=== PATIENT | female | born 1985 | race Caucasian/White ===

== ENCOUNTER → 2019-09-01 10:18 | Outpatient (BNVA) | payer OTHER, SELFPAY | PROVIDERS: Family Provider Nurse Practitioner; PCP Family Medicine; Visit Provider Nurse Practitioner Psychiatric/Mental Health | DX: Z79.899 Other long term (current) drug therapy (principal); Z03.89 Encounter for observation for other suspected diseases and conditions ruled out; F31.2 Bipolar disorder, current episode manic severe with psychotic features; F15.20 Other stimulant dependence, uncomplicated; F12.20 Cannabis dependence, uncomplicated; F10.10 Alcohol abuse, uncomplicated; F17.210 Nicotine dependence, cigarettes, uncomplicated | CPT/HCPCS: 80053; 80061; 83036; 85025 ==

== ENCOUNTER 2020-08-07 19:14 | Inpatient (IN) | payer SELFPAY ==
[2020-08-07 19:15] VITALS: BP 137/85; PULSE 100; RESP 18; TEMP 36.4; O2SAT 96; BMI 39.6
[2020-08-07 19:49] LABS: Basophils # 0.1 10^3/uL (0.0-0.1); Basophils % 0.7 %; Eosinophils # 0.3 10^3/uL (0.0-0.8); Eosinophils % 2.1 %; Hematocrit 46.9 % (37.0-47.0); Hemoglobin 15.3 g/dL (11.5-15.3); Lymphocytes # 3.8 10^3/uL (0.8-4.8); Lymphocytes % 32.5 %; Mean Corpuscular HGB Conc 32.6 g/dL (30.0-36.0); Mean Corpuscular Volume 95.1 fL (81-99); Mean Platelet Volume 10.7 fL (7.4-10.4); Monocytes % 8.5 %; Neutrophils % 55.9 %; Nucleated Red Blood Cells % 0 %; Platelet Count 277 10^3/cmm (130-400); Red Blood Count 4.93 10^6/uL (4.1-5.3); White Blood Count 11.8 10^3/uL (4.0-10.0)
[2020-08-07 19:56] LABS: HCG Qualitative Urine. Negative (Negative)
[2020-08-07 20:02] LABS: Amphetamines Screen Urine Positive (Negative); Barbiturates Screen Urine Negative (Negative); Benzodiazepines Screen Urine Negative (Negative); Cocaine Screen Urine Negative (Negative); Opiate Screen Urine Negative (Negative); PCP Screen Urine Negative (Negative); THC Screen Urine Positive (Negative)
--- NOTE | 2020-08-07 20:03 | W.ED.PSYCH ---
HPI - Psych General: Chief Complaint: Psychiatric Symptoms Stated Complaint: 96 HOUR Time Seen by Provider: 08/07/20 19:15 Source: patient Mode of arrival: other (law enforcement) Limitations: no limitations History of Present Illness: HPI Narrative: This 35-year-old female patient with a history of bipolar disorder and drug abuse was brought into the emergency department for evaluation by her enforcement. They brought her in with a court ordered 96-hour hold. According to the affidavit her mother says that the patient has been hallucinating, not sleeping, acting erratically, and scaring her mother making the mother locked herself in her room. Talking to the patient, she does not make a whole lot of sense, when asked if she hallucinates she says that it is her special gift to hear voices that other people do not want to see things other people do not. She also says that when she sleeps and wakes up she is cured from all her illnesses. She physically is not making any sense and appears to have a break from reality. According to the affidavit her mother says she has not been taking her medications. Review of Systems General: Reports: 10 or more systems reviewed and unremarkable except in HPI and below Const: Denies: fever(s), chills or body aches Eyes: Denies: change in vision or blurry vision ENMT: Denies: throat pain, enlarged tonsils, odynophagia, hoarseness, mouth pain or swelling of lips/tongue Card: Denies: palpitations, irregular heart rhythm, edema or swelling of feet/ankles Resp: Denies: dyspnea, productive cough or non-productive cough GI: Denies: abdominal pain, nausea or vomiting : Denies: flank pain, difficulty voiding, dysuria, urinary frequency, urinary urgency or urinary hesitancy Musc: Denies: neck pain, back pain or extremity swelling Skin/Breast: Denies: rash, pruritus or erythema Neuro: Denies: headache(s), numbness in extremities or weakness in extremities Endo: Denies: polyuria, polydipsia or tired all the time [facility] ED PFSH: Medical History Alcohol abuse, episodic drinking behavior in early remission, last 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 September 2019 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, last 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 September 2019 Bipolar disorder, current episode manic severe with psychotic features Cannabis dependence, episodic use in early remission, last 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 September 2019 Nicotine dependence, cigarettes, uncomplicated Social History Smoking and tobacco status: current every day smoker cigarettes Packs smoked per day: 2 Physical Exam Const: COMMON NORMALS: no acute distress, average body habitus, patient oriented x3, no limitations, healthy appearing, alert and well nourished HENMT: COMMON NORMALS: normocephalic, atraumatic and moist oral mucous membranes HEAD & SCALP: normocephalic and atraumatic Neck/C-Spine: COMMON NORMALS: no meningeal signs and no JVD Chest: COMMONS NORMALS: normal inspection of the chest and normal palpation of entire chest wall Resp: COMMON NORMALS: normal respiratory effort, No retractions, No use of accessory muscles, clear to auscultation bilaterally and percussion normal AUSCULTATION: clear to auscultation bilaterally PERCUSSION: percussion normal Cardio: COMMON NORMALS: no JVD, regular rate, regular rhythm, S1 normal heart sound present, S2 normal heart sound present, No gallops present (Cardio), No clicks present (Cardio), No murmurs present (Cardio), No rub (Cardio) and Peripheral pulses 2+ throughout RATE: regular rate RHYTHM: regular rhythm HEART SOUNDS: S1 normal heart sound present and S2 normal heart sound present PERIPHERAL PULSES: Peripheral pulses 2+ throughout GI: COMMON NORMALS: Normal to inspection, nondistended, normoactive bowel sounds present, Soft to palpation, non-tender, No hepatosplenomegaly present, no masses and no bruits PALPATION: Yes Soft to palpation and Yes No hepatosplenomegaly present Extremity: COMMON NORMALS: normal to inspection, full ROM, capillary refill normal, no calf tenderness and no pedal edema Neuro: COMMON NORMALS: patient oriented x3 SENSORIUM/ORIENTATION: Yes alert MENINGEAL SIGNS: Yes no meningeal signs Skin: COMMON NORMALS: no rashes or lesions noted, no wounds, turgor normal, no jaundice, no petechiae and no mottling GENERAL SKIN EXAM: no rashes or lesions noted and turgor normal MDM - Psych MDM Narrative: Medical decision making narrative: 35-year-old female patient who presents to the emergency department in acute psychosis. Likely due to drug abuse. She arrived with a 96-hour court-ordered hold. She is medically cleared and is admitted to the neuropsychiatric unit for further evaluation and management Medical Records: Attestation: I reviewed the patient's medical records. Lab Data: Attestation: I reviewed the patient's lab results. Labs: Lab Results 08/07/20 08/07/20 08/07/20 Range/Units 19:35 19:35 19:42 WBC 11.8 H (4.0-10.0) 10^3/ uL RBC 4.93 (4.1-5.3) 10^6/u L Hgb 15.3 (11.5-15.3) g/dL Hct 46.9 (37.0-47.0) % MCV 95.1 (81-99) fL MCH 31.0 (28.0-34.0) pg MCHC 32.6 (30.0-36.0) g/dL RDW 13.0 (12.1-15.1) % Plt Count 277 (130-400) 10^3/c mm MPV 10.7 H (7.4-10.4) fL Neut % (Auto) 55.9 % Lymph % (Auto) 32.5 % Bowman % (Auto) 8.5 % Eos % (Auto) 2.1 % Baso % (Auto) 0.7 % Neut # (Auto) 6.60 (1.8-7.7) 10^3/u L Lymph # (Auto) 3.8 (0.8-4.8) 10^3/u L Bowman # (Auto) 1.0 H (0.2-0.9) 10^3/u L Eos # (Auto) 0.3 (0.0-0.8) 10^3/u L Baso # (Auto) 0.1 (0.0-0.1) 10^3/u L Nucleated RBC % (a uto) 0 % Nucleated RBCs # 0.0 /100WBC Sodium 135 L (136-145) mmol/L Potassium 4.0 (3.5-5.1) mmol/L Chloride 99 (98-107) mmol/L Carbon Dioxide 25 (22-29) mmol/L Anion Gap 15.0 (5-19) BUN 6 (6-20) mg/dL Creatinine 0.7 (0.5-0.9) mg/dL GFR Calculation 94.2 (90-130) mL/min Glucose 84 (65-115) mg/dL Calculated Osmolal ity 277 L (285-295) mOsm/k g Calcium 9.4 (8.5-10.5) mg/dL Total Bilirubin 0.6 (0.15-1.2) mg/dL AST 52 H (0-32) U/L ALT 46 H (0-33) U/L Alkaline Phosphata se 85 (35-105) IU/L Total Protein 7.4 (6.6-8.7) g/dL Albumin 3.8 (3.5-5.2) g/dL Globulin 3.6 (1.3-4.6) g/dL TSH 0.77 (0.27-4.20) uIU/ mL HCG, Qual Negative (Negative) Urine Color (Yellow) Urine Appearance (CLEAR) Urine pH (5-7) Ur Specific Gravit y (1.005-1.030) Urine Protein (Negative) Urine Glucose (UA) (Normal) Urine Ketones (Negative) Urine Blood (Negative) Urine Nitrate (Negative) Urine Bilirubin (Negative) Urine Urobilinogen (Negative) mg/dL Ur Leukocyte [place]annah ase (Negative) Urine RBC (0-2) /hpf Urine WBC (0-5) /hpf Ur Squamous Epith Cells (0-5) /hpf Amorphous Sediment Urine Bacteria (NONE) /hpf Urine Mucus /hpf Salicylates < 0.3 L (3-10) mg/dL Urine Opiates Scre en (Negative) ng/mL Acetaminophen < 5.0 L (10-30) ug/mL Ur Barbiturates Sc reen (Negative) ng/mL Ur Phencyclidine S crn (Negative) ng/mL Ur Amphetamines Sc reen (Negative) ng/mL U Benzodiazepines Scrn (Negative) ng/mL Urine Cocaine Scre en (Negative) ng/mL U Marijuana (THC) Screen (Negative) ng/mL Ethyl Alcohol < 10 (0-10) mg/dL 08/07/20 08/07/20 Range/Units 19:42 19:42 WBC (4.0-10.0) 10^3/ uL RBC (4.1-5.3) 10^6/u L Hgb (11.5-15.3) g/dL Hct (37.0-47.0) % MCV (81-99) fL MCH (28.0-34.0) pg MCHC (30.0-36.0) g/dL RDW (12.1-15.1) % Plt Count (130-400) 10^3/c mm MPV (7.4-10.4) fL Neut % (Auto) % Lymph % (Auto) % Bowman % (Auto) % Eos % (Auto) % Baso % (Auto) % Neut # (Auto) (1.8-7.7) 10^3/u L Lymph # (Auto) (0.8-4.8) 10^3/u L Bowman # (Auto) (0.2-0.9) 10^3/u L Eos # (Auto) (0.0-0.8) 10^3/u L Baso # (Auto) (0.0-0.1) 10^3/u L Nucleated RBC % (a uto) % Nucleated RBCs # /100WBC Sodium (136-145) mmol/L Potassium (3.5-5.1) mmol/L Chloride (98-107) mmol/L Carbon Dioxide (22-29) mmol/L Anion Gap (5-19) BUN (6-20) mg/dL Creatinine (0.5-0.9) mg/dL GFR Calculation (90-130) mL/min Glucose (65-115) mg/dL Calculated Osmolal ity (285-295) mOsm/k g Calcium (8.5-10.5) mg/dL Total Bilirubin (0.15-1.2) mg/dL AST (0-32) U/L ALT (0-33) U/L Alkaline Phosphata se (35-105) IU/L Total Protein (6.6-8.7) g/dL Albumin (3.5-5.2) g/dL Globulin (1.3-4.6) g/dL TSH (0.27-4.20) uIU/ mL HCG, Qual (Negative) Urine Color Yellow (Yellow) Urine Appearance Hazy A (CLEAR) Urine pH 5 (5-7) Ur Specific Gravit y 1.020 (1.005-1.030) Urine Protein Trace (Negative) Urine Glucose (UA) Norm (Normal) Urine Ketones 1+ H (Negative) Urine Blood Neg (Negative) Urine Nitrate Negative (Negative) Urine Bilirubin 1+ H (Negative) Urine Urobilinogen 4 H (Negative) mg/dL Ur Leukocyte Savannah ase 2+ H (Negative) Urine RBC 5-10 H (0-2) /hpf Urine WBC 55-80 H (0-5) /hpf Ur Squamous Epith Cells 40-55 H (0-5) /hpf Amorphous Sediment Not Reportable Urine Bacteria 2+ H (NONE) /hpf Urine Mucus 4+ /hpf Salicylates (3-10) mg/dL Urine Opiates Scre en Negative (Negative) ng/mL Acetaminophen (10-30) ug/mL Ur Barbiturates Sc reen Negative (Negative) ng/mL Ur Phencyclidine S crn Negative (Negative) ng/mL Ur Amphetamines Sc reen Positive H (Negative) ng/mL U Benzodiazepines Scrn Negative (Negative) ng/mL Urine Cocaine Scre en Negative (Negative) ng/mL U Marijuana (THC) Screen Positive H (Negative) ng/mL Ethyl Alcohol (0-10) mg/dL Discharge Plan Discharge Patient Disposition: Admitted As Inpatient Clinical Impression: Acute psychosis, Drug-induced psychotic disorder Condition: Stable Prescriptions: No Action olanzapine [Zyprexa] 10 mg tablet 10 mg PO BID Qty: 60 RF: 6 hydroxyzine HCl 25 mg tablet 25 mg PO TID PRN (Reason: anxiety) Qty: 60 RF: 6 trazodone 100 mg tablet 100 mg PO .QHS PRN (Reason: sleep) Qty: 30 RF: 6 Referrals: Georges Milton MD [Primary Care Provider] - Coding Level of Care Code ED Mine Shifter for Chg Fwd Exam Comprehensive
[2020-08-07 20:05] LABS: Glucose Urine UA Norm (Normal); Ketones Urine 1+ (Negative); Protein Urine Trace (Negative); Urine Appearance Hazy (CLEAR); Urine Color Yellow (Yellow); pH Urine 5 (5-7)
[2020-08-07 20:06] LABS: Add Urine Microscopic? YES; Bacteria Urine 2+ /hpf; Bilirubin Urine 1+ (Negative); Blood Urine Neg (Negative); Leukocyte Esterase Urine 2+ (Negative); Nitrate Urine Negative (Negative); Squamous Epithelial Cell Urine 40-55 /hpf (0-5); Urobilinogen Urine 4 mg/dL (Negative); WBC Urine 55-80 /hpf (0-5)
[2020-08-07 20:07] LABS: Add Urine Culture? No; Mucus Urine 4+ /hpf
[2020-08-07 20:31] LABS: Alanine Aminotransferase 46 U/L (0-33); Albumin Level 3.8 g/dL (3.5-5.2); Alkaline Phosphatase 85 IU/L (35-105); Aspartate Amino Transferase 52 U/L (0-32); Blood Urea Nitrogen 6 mg/dL (6-20); Calcium 9.4 mg/dL (8.5-10.5); Carbon Dioxide 25 mmol/L (22-29); Chloride 99 mmol/L (98-107); Creatinine Clr Calc Pharmacy 150.1218; Globulin 3.6 g/dL (1.3-4.6); Glomerular Filtration Rate 94.2 mL/min (90-130); Glucose 84 mg/dL (65-115); Osmolality Calculated 277 mOsm/kg (285-295); Sodium 135 mmol/L (136-145); Thyroid Stimulating Hormone 0.77 uIU/mL (0.27-4.20); Total Bilirubin 0.6 mg/dL (0.15-1.2); Total Protein 7.4 g/dL (6.6-8.7)
[2020-08-07 20:46] LABS: Acetaminophen < 5.0 ug/mL (10-30); Alcohol Level < 10 mg/dL (0-10); Salicylate < 0.3 mg/dL (3-10)
[2020-08-07 20:57] VITALS: BP 129/71; PULSE 103; RESP 19; TEMP 36.8; O2SAT 93
[2020-08-07 21:38] VITALS: BP 159/115; PULSE 100; RESP 16; O2SAT 95
[2020-08-07 22:00] VITALS: BP 129/71; PULSE 103; RESP 19; TEMP 36.8; O2SAT 93
[2020-08-07] MEDS: hyDROXYzine 25 mg Capsule 50 MG PO (23:28)
[2020-08-07] MEDS: OLANZapine 10 mg TABLET PO (23:30)
[2020-08-07] MEDS: trazodone 100 mg Tablet PO (23:30)
[2020-08-08 06:00] VITALS: BP 108/62; BP 129/71; PULSE 103; PULSE 14; RESP 14; RESP 19; TEMP 36.5; TEMP 36.8; O2SAT 92
--- NOTE | 2020-08-08 06:31 | PC.NURSE ---
PM Admission Assessment PT is 35/F W/hx of [employer] and drug abuse. came to the ED via law enforcement she is hallucinating, not sleeping, acting erratically, and it has frightened her family. Pt is making nonsensical statements, Pt refers to her AH/VH as a special gift to hear voices that other people do not want to see things other people do not. She also says that when she sleeps and wakes up she is cured from all her illnesses. Pt says states that her family runs the [employer]. I can see the earth and if people steal my phone, the world catches fire.I am ok because I can create portals to move thru the vortexes. Pt talked about hot railing meth and then sail that this was her portal to fix the trains to leave the realm. Pt refers to her brother as Pepper and Salt is is . Pt talks about Allyson, her boyfriends ex hacking into their lives because she wants to take over her life and wont move on. Physically, the patient has a large red area on her left breast and bruises over bilateral breasts in multi stages of healing.
[2020-08-08] MEDS: OLANZapine 10 mg TABLET PO ×2 (08:24→20:33)
[2020-08-08 14:00] VITALS: BP 113/67; PULSE 75; RESP 18; TEMP 36.6; O2SAT 96
--- NOTE | 2020-08-08 14:20 | P.HP_ITS ---
Providers/Chief Complaint Admitting Physician: Valentino Tejeda DO Primary Care Provider: Georges Milton MD Chief Complaint: 96 HOUR HPI NPU History of Present Illness Heidi Caballero is a 35 year old female presenting to the emergency department on court ordered involuntary hold secondary to bizarre behavior, psychotic symptoms. Patient currently denying any psychosis but continues to say bizarre things such as, water has magical dejesus, I think everyone should be drinking more water. She denies any depressed symptoms, denies any suicidal ideation She denies any recent or past manic or hypomanic episodes. Patient reports being on olanzapine 10 mg twice daily and states that she has been compliant with her medication. He reports last follow-up for medication management was a couple months ago. Patient states that she typically smokes marijuana on a daily basis but reports using methamphetamine yesterday but does not connect this to her most recent reported psychotic symptoms. Review of Systems General: Reports: 10 or more systems reviewed and unremarkable except in HPI and below Meds NPU Home Medications Medication Instructions Recorded Confirmed Last Taken Type hydroxyzine HCl 25 mg tablet 25 mg PO TID PRN #60 tab 06/19/20 08/07/20 Unknown Rx olanzapine 10 mg tablet 10 mg PO BID #60 tab 06/19/20 08/07/20 Unknown Rx trazodone 100 mg tablet 100 mg PO .QHS PRN #30 tab 06/19/20 08/07/20 Unknown Rx Allergies Allergy/AdvReac Type Severity Reaction Status Date / Time acetaminophen Allergy Unknown Unknown Verified 09/01/19 08:55 aspirin Allergy Unknown unknown Verified 09/01/19 08:55 ziprasidone [From Geodon] Allergy Unknown Unknown Verified 09/01/19 08:55 PFSH NPU PFSH: Medical History Alcohol abuse, episodic drinking behavior in early remission, last 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 September 2019 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, last 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 September 2019 Bipolar disorder, current episode manic severe with psychotic features Cannabis dependence, episodic use in early remission, last 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 September 2019 Nicotine dependence, cigarettes, uncomplicated Social History Smoking and tobacco status: current every day smoker cigarettes Packs smoked per day: 2 Other Psychiatric History: Other Psychiatric History: Reports being followed for medication management, last visit 2 months ago Reports last psychiatric hospitalization was approximately a year ago, reports first psychiatric hospitalization approximately 5 years ago Denies any history of suicide attempt or self-harm behavior Mental Status Exam MSE Comments: Large framed woman, unkempt, disheveled, wearing hospital scrubs, polite, calm, interactive, good eye contact Psychomotor activity is neither increased nor decreased, no agitation Speech is normal rate and volume, spontaneous, clear articulation, not pressured I feel great, full range, not labile Alert and oriented to person, place, time, situation Memory and concentration appear to be poor to fair based on interview Intellectual functioning appears to be below average to average at best based on vocabulary, interview Thought process, linear, no flight of ideas, no looseness of associations Thought content, some bizarre delusions, overvalued ideas, does not appear to be attending to any internal stimuli, no suicidal or homicidal ideation Insight and judgment appear to be fair Vitals/I&O/Wt Last Vital Signs Temp 97.7 F 08/08/20 06:00 Pulse 14 L 08/08/20 06:00 Resp 14 08/08/20 06:00 BP 108/62 08/08/20 06:00 Pulse Ox 92 08/08/20 06:00 Weight last 48 hrs Weight 120.202 kg Physical Exam Narrative: EXAM NARRATIVE: Emergency department physical examination was reviewed as part of this evaluation Data NPU : 08/07/20 19:35 08/07/20 19:35 A&P Assessment and plan (1) Acute psychosis: Status: Acute Additional A&P Information Patient with history of bipolar disorder presenting with acute psychotic symptoms on 96-hour hold with safety concerns. Patient currently denying any symptoms although continues to have overvalued ideas making bizarre delusional statements. Patient would benefit from restarting her medication while being observed. INVOLUNTARY ADMIT to inpatient psychiatry START Bactrim DS x10 days for UTI RESTART olanzapine 10 mg by mouth twice daily targeting psychotic symptoms Encourage patient participate in unit activities to include group sessions and unit milieu Involuntary Hold Information 96 Hour Hold: 96 Hour Involuntary Admission: Yes 96 Hour Hold Ending Date: 08/13/20 96 Hour Hold Ending Time: 20:57 Attestations NPU Medical Necessity Statement*: Patient requires psychiatric hospitalization for medication stabilization as well as observation and coordination for safe discharge including post discharge psychiatric care. Anticipate hospital stay to exceed 2 midnights Time Spent in Patient Care: Greater than 35 minutes (>than 50% of time spent in counselling and/or direct pt care on unit) . Coding Level of Care Code Acute Staff Toxicologist for Danielag Fwd Diagnoses Acute psychosis F23
--- NOTE | 2020-08-08 16:19 | PC.RESP ---
Smoking Cessation information sent to patient.
[2020-08-08] MEDS: nicotine 2 mg Gum BUCCAL (20:32)
[2020-08-08] MEDS: sulfamethoxazole-trimeth DS 160-800 mg Tablet 1 TAB PO (20:33)
[2020-08-08] MEDS: hyDROXYzine 25 mg Capsule 50 MG PO (20:34)
[2020-08-08] MEDS: trazodone 100 mg Tablet PO (20:42)
[2020-08-08 21:03] VITALS: BP 118/81; PULSE 90; RESP 17; TEMP 36.1; O2SAT 96
--- NOTE | 2020-08-08 21:35 | P.CONIM_ITS ---
Providers/Reason For Consult Consulting Physican/Specialty*: Hospitalist service Reason for Consult*: Right breast pain Attending Physician: Valentino Tejeda DO Primary Care Provider: Georges Milton MD History of Present Illness History of Present Illness Heidi Caballero is a 35 year old female is currently admitted to neuropsychiatric unit for polysubstance abuse. Hospitalist service has been requested to evaluate breast pain. Patient is stating that about 48 hours ago she started experiencing breast pain when she was sleeping on her stomach at home. She noticed a lump, she tried to drain it with a needle at home and noticed some blood in the needle, since then pain is getting worse. Patient is stating that she thinks her mother had something to do with her breast pain. She is endorsing history of mammogram which revealed fibrocystic disease. Her menstrual cycle was 2 weeks ago, she is not endorsing any changes with menstrual cycle. No fever, nausea, vomiting, she has not noticed any nipple discharge. No family history of breast cancer. Review of Systems Const: Denies: fever(s) or chills Eyes: Denies: change in vision or photophobia ENMT: Denies: throat pain or odynophagia Card: Denies: chest pain or edema Resp: Denies: dyspnea or non-productive cough GI: Denies: abdominal pain : Denies: flank pain Musc: Denies: neck pain Skin/Breast: Reports: new lesions Neuro: Denies: headache(s) Psych: Reports: anxiety and mood swings Endo: Denies: polyuria Sherif/Lymph: Denies: easy bruising All/Imm: Denies: urticaria Meds/Allergies Home Medications and Allergies Home Medications Medication Instructions Recorded Confirmed Last Taken Type hydroxyzine HCl 25 mg tablet 25 mg PO TID PRN #60 tab 06/19/20 08/07/20 Unknown Rx olanzapine 10 mg tablet 10 mg PO BID #60 tab 06/19/20 08/07/20 Unknown Rx trazodone 100 mg tablet 100 mg PO .QHS PRN #30 tab 06/19/20 08/07/20 Unknown Rx Allergies Allergy/AdvReac Type Severity Reaction Status Date / Time acetaminophen Allergy Unknown Unknown Verified 09/01/19 08:55 aspirin Allergy Unknown unknown Verified 09/01/19 08:55 ziprasidone [From Geodon] Allergy Unknown Unknown Verified 09/01/19 08:55 Current Medications Current Medications Generic Name Dose Route Start Last Admin Trade Name Freq PRN Reason Stop Dose Admin Hydroxyzine Pamoate 50 mg 08/07/20 20:57 08/08/20 20:34 Hydroxyzine 25 Mg Capsule PO 50 mg Q6H PRN Administration ANXIETY Nicotine Polacrilex 2 mg 08/07/20 20:57 08/08/20 20:32 Nicotine 2 Mg Gum BUCCAL 2 mg Q2H PRN Administration NICOTINE WITHDRAWAL Olanzapine 10 mg 08/08/20 09:00 08/08/20 20:33 Olanzapine 10 Mg Tablet PO 10 mg 0900,2100 FORTINO Administration Trazodone HCl 100 mg 08/07/20 21:56 08/08/20 20:42 Trazodone 100 Mg Tablet PO 100 mg BEDTIME PRN Administration sleep Trimethoprim/Sulfamethoxazole 1 tab 08/08/20 21:00 08/08/20 20:33 Sulfamethoxazole-Trimeth Ds 160-800 Mg Tablet PO 08/18/20 20:59 1 tab 09,2100 FORTINO Administration Protocol PFS Acute PFSH: Medical History Alcohol abuse, episodic drinking behavior in early remission, last 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 September 2019 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, last 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 September 2019 Bipolar disorder, current episode manic severe with psychotic features Cannabis dependence, episodic use in early remission, last 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 September 2019 Hepatitis C Liver cirrhosis Nicotine dependence, cigarettes, uncomplicated Surgical History No pertinent past surgical history Family History Other Psychiatric illness Social History Smoking and tobacco status: current every day smoker cigarettes Packs smoked per day: 2 Substance/Drug Use: current Substance/Drug use type: Marijuana and Methamphetamine Vitals/I&O/Wt Last Vital Signs Temp 97.0 F L 08/08/20 21:03 Pulse 90 08/08/20 21:03 Resp 17 08/08/20 21:03 BP 118/81 08/08/20 21:03 Pulse Ox 96 08/08/20 21:03 Weight last 48 hrs Weight 120.202 kg Physical Exam Narrative: EXAM NARRATIVE: Young female, obese Was seen comfortable when I entered the room along with female rubber heel and sole press tender S1, S2 sinus rhythm No acute respiratory distress, abdomen soft central obesity No neurological deficit No signs of edema gangrene or ulcer over extremity Her right breast was examined in presence of female nurse, after taking consent, right breast was examined, hyperemia noticed without any discharge on applying pressure, no nipple discharge, it is mobile,& tender on palpation, no axillary lymphadenopathy noted, edges on palpation seem to be round and well-defined, it is not attached posterior to the overall No joint swelling or signs of cellulitis Patient's speech is pressured with flight of ideas A&P Assessment and plan (1) Cyst of right breast: Tender right breast cyst with no association with menstrual cycle Previous mammogram as per the patient revealed fibrocystic disease No family history of breast cancer No nipple discharge or signs of cellulitis, patient is denying recent trauma to her breast However skin around the cyst seems to be abnormal, tender, no drainage noted, it is not attached posterior to the wall, it has cystic appearance without any fluctuance, abscess less likely Does not have features of malignancy, will request ultrasound to rule out fibroadenoma versus complex cyst fibroadenoma, For now I would recommend hot compressions, ibuprofen for anti-inflammatory effect Status: Acute Consult Attestations Medical Necessity Statement: As per neuropsychiatrist Time Spent in Patient Care: 30mins Coding Level of Care Code Acute Managing Broker for Shelley Arnold Diagnoses Cyst of right breast N60.01
--- NOTE | 2020-08-09 00:51 | PC.NURSE ---
PM assessment Pt denies AH/VH, Denies SI/HI, Denies pain, pt is resting in her room. Pt heart/lung sounds are WNL, v/s are normal. Pt consulted with Dr. Ward this evening regarding right sided breast lump. Pt breast is red and it appears to have a large round cyst-like mass that will be examined via ultrasound in the morning. Pt is still experiencing delusions and is acutely psychotic at this time. pt speech is pressured and nonsensical at times. will continue to monitor pt for any indication of infection/pain. Dr Ward did suggest heat compresses to decrease pain.
[2020-08-09 06:00] VITALS: BP 114/73; PULSE 85; RESP 18; TEMP 36.6; O2SAT 96
[2020-08-09] MEDS: OLANZapine 10 mg TABLET PO ×2 (08:16→20:13)
[2020-08-09] MEDS: sulfamethoxazole-trimeth DS 160-800 mg Tablet 1 TAB PO ×2 (08:16→20:14)
--- NOTE | 2020-08-09 09:38 | US_ITS ---
WS: [id number] ULTRASOUND BREAST RIGHT TECHNIQUE: Ultrasound right breast focused area of concern. CLINICAL INFORMATION: rule out abscess, concern of cellultitis COMPARISON: None. FINDINGS: Ultrasound right breast upper inner quadrant area of concern. Ultrasound right breast upper quadrant in the area of concern. Lobulated fluid collection with internal echogenic debris consistent with abs cess. Abscess measures approximately 2.7 x 0.9 x 0.9 CM. No solid lesions. US/US breast RT limited* [id number] IMPRESSION: Lobulated right breast abscess measuring 2.7 x 0.9x 0.9 cm with internal echoge harvinder debris.
--- NOTE | 2020-08-09 12:49 | P.PN_ITS ---
Subjective Subjective: Interval history: Consultation reviewed. Patient reports breast is the same to perhaps slightly worse than yesterday. Bactrim was started last night. Medications: Reviewed: Yes Vitals/I&O/Wt Last Vital Signs Temp 97.8 F 08/09/20 06:00 Pulse 85 08/09/20 06:00 Resp 18 08/09/20 06:00 BP 114/73 08/09/20 06:00 Pulse Ox 96 08/09/20 06:00 Weight last 48 hrs Weight 120.202 kg Physical Exam Narrative: EXAM NARRATIVE: General exam is no apparent distress Cardiovascular regular rate and rhythm Lungs clear Abdomen is soft, positive bowel sounds Extremities no cyanosis clubbing or edema Right breast with collective bargaining specialist present demonstrates some erythema, and induration involving a small portion Data : 08/07/20 19:35 08/07/20 19:35 A&P Assessment and plan (1) Cyst of right breast: This could represent induration associated with the patient self-reported needlestick to the area, and cellulitis. Agree with Bactrim DS 1 p.o. twice daily started by psychiatry Close follow-up of area Limited breast ultrasound to rule out abscess. I ordered this. No evidence of sepsis currently, vital signs stable and no fever. Status: Acute Attestations Medical Necessity Statement*: As per primary Coding Level of Care Code Acute Drawer Upfitter for Shelley Arnold Diagnoses Cyst of right breast N60.01
[2020-08-09 14:00] VITALS: BP 100/66; PULSE 84; RESP 20; TEMP 36.2; O2SAT 95
--- NOTE | 2020-08-09 15:56 | PM.NPN ---
Subjective NPU Subjective: Interval history: Heidi presents today reporting she is feeling better now that she has been restarted on her medications for her psychosis. She did express some sadness with the decreasing of her auditory hallucinations. She reports that the voices keep her company and are the things that make her sane. Otherwise she reports that she is adjusting well to everything and denied any problems. Mental Status Exam MSE Comments: This is an obese versus morbidly obese white female in hospital scrubs with limited dress, grooming and eye contact. No abnormal movements except for psychomotor retardation. Semicooperative with exam in no acute distress. Speech was decreased rate and volume. Mood described as good but tired, affect subdued. Thought process organized. Thought content: Patient denied suicidal or homicidal ideation, no delusions reported noted, she denied visual hallucinations and endorsed a significant reduction in her auditory hallucinations. Attention and concentration were intact and memory appeared mostly reliable but none were formally tested. She is alert and oriented x3. Insight and judgment are limited, impulse control is limited. Vitals/I&O/Wt Last Vital Signs Temp 98.1 F 08/09/20 21:23 Pulse 86 08/09/20 21:23 Resp 18 08/09/20 21:23 BP 130/88 08/09/20 21:23 Pulse Ox 93 08/09/20 21:23 Data NPU : 08/07/20 19:35 08/07/20 19:35 A&P Additional A&P Information (1) Acute psychosis: Patient with history of bipolar disorder presenting with acute psychotic symptoms on 96-hour hold with safety concerns. Patient currently denying any symptoms and endorsed a decreasing of her auditory hallucinations. She is adherent to the medications which were restarted though she reports some sadness with symptom resolution. 1. Continue current medication. 2. Continue every 15 minute checks for safety. 3. Encourage individual, group and milieu therapies. 4. Encourage sober living treatment after discharge at the highest level of care to which she is willing to commit. Involuntary Hold Information 96 Hour Hold: 96 Hour Involuntary Admission: Yes 96 Hour Hold Ending Date: 08/13/20 96 Hour Hold Ending Time: 20:57 Attestations NPU Medical Necessity Statement*: Inpatient hospitalization is medically necessary and the clinically appropriate intervention at this time. We will monitor medications and maintain to take it. Length of stay 2 to 4 days. Coding Level of Care Code Acute Real Estate Valuer for Shelley Arnold
[2020-08-09] MEDS: trazodone 100 mg Tablet PO (20:14)
[2020-08-09] MEDS: hyDROXYzine 25 mg Capsule 50 MG PO (20:14)
[2020-08-09 21:23] VITALS: BP 130/88; PULSE 86; RESP 18; TEMP 36.7; O2SAT 93
--- NOTE | 2020-08-10 02:44 | PC.NURSE ---
Pm assessment pt was sleeping at the beginning of shift. Pt denies pain, Denies AH/VH and states she feels lonely without being able to see and hear the things she sees, pt is not delusional at this time. She asks and answers questions appropriately. Pt Denies SI/HI. Pt is friendly, talkative, interacts with others well. She is resting in her room. Pt right breast is less red today, ultrasound confirmed cyst, medications were started today to decrease s/s of infection.
[2020-08-10 06:00] VITALS: BP 103/68; PULSE 84; RESP 15; TEMP 36.6; O2SAT 93
--- NOTE | 2020-08-10 08:08 | PM.PN ---
Subjective Subjective: Interval history: Heidi reports she is doing a little bit better. However the lump is still there and tender. No chills. No fever overnight. Medications: Reviewed: Yes Vitals/I&O/Wt Last Vital Signs Temp 97.9 F 08/10/20 06:00 Pulse 84 08/10/20 06:00 Resp 15 08/10/20 06:00 BP 103/68 08/10/20 06:00 Pulse Ox 93 08/10/20 06:00 Physical Exam Narrative: EXAM NARRATIVE: General exam is no apparent distress Cardiovascular regular rate and rhythm Lungs clear Abdomen is soft, positive bowel sounds Extremities no cyanosis clubbing or edema Right breast with entry level staff accountant present demonstrates some erythema, and induration involving a small portion Data : 08/07/20 19:35 08/07/20 19:35 A&P Assessment and plan (1) Cyst of right breast: This could represent induration associated with the patient self-reported needlestick to the area, and cellulitis. I reviewed ultrasound which is yet to be read and does suggest an abscess. Continue Bactrim DS 1 p.o. twice daily started by psychiatry. This is appropriate therapy and patient is improving as far as the erythema around the lesion. Close follow-up of area Surgery consult for concern of abscess No evidence of sepsis currently, vital signs stable and no fever. Status: Acute Attestations Medical Necessity Statement*: As per primary Coding Level of Care Code Acute Rip/Mould Operator for Shelley Arnold Diagnoses Cyst of right breast N60.01
--- NOTE | 2020-08-10 08:20 | PM.CONSULT ---
Providers/Reason For Consult Consulting Physican/Specialty*: Titus Rincon MD Reason for Consult*: Breast abscess Attending Physician: Mayito Caballero MD Primary Care Provider: Georges Milton MD History of Present Illness History of Present Illness Chief Complaint: Right breast hurts History of present illness: Heidi Caballero is a 35 year old female admitted for 96 hours, patient reports that she tried to inject her right breast with IV drugs over the past 4 days or so and she started to have swelling and redness that got worse, patient used to do this before and never had any issues, reports no broken needles on her attempt and she was admitted on the psych unit for 96 hours observation. Of the worsening swelling and redness ultrasound was obtained that showed Patient reports that she is right-handed when I asked her and she holds right breast with her left hand and injects herself. General surgery was consulted for potential intervention of right breast abscess Previous breast biopsies none Personal or family history of breast cancer patient's mother had history of breast Age of menarche 10 History of menstrual cycles regular History of control pills none Obstetric history A0 Breast-feeding history N/A Review of Systems General: Reports: 10 or more systems reviewed and unremarkable except in HPI and below Meds/Allergies Home Medications and Allergies Home Medications Medication Instructions Recorded Confirmed Last Taken Type hydroxyzine HCl 25 mg tablet 25 mg PO TID PRN #60 tab 06/19/20 08/07/20 Unknown Rx olanzapine 10 mg tablet 10 mg PO BID #60 tab 06/19/20 08/07/20 Unknown Rx trazodone 100 mg tablet 100 mg PO .QHS PRN #30 tab 06/19/20 08/07/20 Unknown Rx Allergies Allergy/AdvReac Type Severity Reaction Status Date / Time acetaminophen Allergy Unknown Unknown Verified 08/10/20 09:16 aspirin Allergy Unknown unknown Verified 08/10/20 09:16 ziprasidone [From Geodon] Allergy Unknown Unknown Verified 08/10/20 09:16 Current Medications Current Medications Generic Name Dose Route Start Last Admin Trade Name Freq PRN Reason Stop Dose Admin Hydroxyzine Pamoate 50 mg 08/07/20 20:57 08/09/20 20:14 Hydroxyzine 25 Mg Capsule PO 50 mg Q6H PRN Administration ANXIETY Nicotine Polacrilex 2 mg 08/07/20 20:57 08/08/20 20:32 Nicotine 2 Mg Gum BUCCAL 2 mg Q2H PRN Administration NICOTINE WITHDRAWAL Olanzapine 10 mg 08/08/20 09:00 08/09/20 20:13 Olanzapine 10 Mg Tablet PO 10 mg 0900,2099 FORTINO Administration Trazodone HCl 100 mg 08/07/20 21:56 08/09/20 20:14 Trazodone 100 Mg Tablet PO 100 mg BEDTIME PRN Administration sleep Trimethoprim/Sulfamethoxazole 1 tab 08/08/20 21:00 08/09/20 20:14 Sulfamethoxazole-Trimeth Ds 160-800 Mg Tablet PO 08/18/20 20:59 1 tab 09,2099 FORTINO Administration Protocol PFSH Acute PFSH: Medical History Alcohol abuse, episodic drinking behavior in early remission, last 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 September 2019 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, last 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 September 2019 Bipolar disorder, current episode manic severe with psychotic features Cannabis dependence, episodic use in early remission, last 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 September 2019 Hepatitis C Liver cirrhosis Nicotine dependence, cigarettes, uncomplicated Surgical History No pertinent past surgical history Family History Other Psychiatric illness Social History Smoking and tobacco status: current every day smoker cigarettes Packs smoked per day: 2 Vitals/I&O/Wt Last Vital Signs Temp 97.9 F 08/10/20 06:00 Pulse 84 08/10/20 06:00 Resp 15 08/10/20 06:00 BP 103/68 08/10/20 06:00 Pulse Ox 93 08/10/20 06:00 Physical Exam Narrative: EXAM NARRATIVE: Patient is conscious alert oriented X3 BMI 40 Head and neck examination PERRLA no masses no cervical lymphadenopathy no jaundice Cardiac examination audible S1-S2 no murmurs no gallops no arrhythmias Chest is clear bilateral,abscence of Rhonchi or wheezes,no surgical emphysema Bilateral breast examination done in the presence of a female environmental services director nursing staff [facility] Right breast shows cellulitic changes with swelling and tenderness about 4 to 5 cm in diameter. Otherwise,No clinically palpable breast masses, nipple area complex show no abnormalities bilateral, no evidence of nipple discharge, no evidence of lymphadenopathy clinically palpable per bilateral axillary examination as well as supra and infraclavicular regions. Breast examination was done in sitting position Abdomen nontender nondistended soft no organomegaly guarding or rigidity/no signs of peritonitis Extremities no cyanosis no clubbing no edema A&P Assessment and plan (1) Abscess of right breast: After history taking physical examination and reviewing the chart and images with my personal interpretation. We will plan to take the patient for surgery in the form of incision and drainage of right breast abscess. Informed consent per chart. Status: Acute Consult Attestations Medical Necessity Statement: Per psychservice Time Spent in Patient Care: 16 - 35 minutes (>than 50% of time spent in counselling and/or direct pt care on unit). Coding Level of Care Code Acute Tow Driver for Shelley Arnold Diagnoses Abscess of right breast N61.1
[2020-08-10] MEDS: OLANZapine 10 mg TABLET PO ×2 (08:36→21:07)
--- NOTE | 2020-08-10 10:43 | PC.NURSE ---
Patient off unit to OR with security and OR staff by sagar.
--- NOTE | 2020-08-10 12:02 | PM.OP ---
Operative Report Date of procedure: August 10, 2020 Pre-op Diagnosis: Right breast abscess Post-op diagnosis: same Post-op Findings: Right breast abscess Procedure Done: Incision and drainage of right breast abscess Sharp debridement of abscess cavity Post I&D measurements 6 x 1 x [address] to the subcutaneous and breast tissue layer Implants: Packing with 2 inches mini Kerlix impregnated and lidocaine 2% Specimens removed/disposition: Swabs for cultures and sensitivities Tissues for cultures and sensitivities Fat necrosis for permanent pathology Surgeon: Titus Rincon Developmental Education Instructor: technical sourcing recruiter Lilliana Circulating nurse Elisa Anesthesia: General (LMA pearl digger Patricia) Estimated blood loss (mL): 5 Condition: stable Disposition: floor Brief History: This is a 35 years old female patient presenting with the history of IV drug administration through her right breast over the past few days consequently she developed right breast abscess. Patient was kept in the n.p.o. and surgery was consulted after being evaluated by hospitalist service for concerning of right breast abscess. Due to the urgent nature of the pathology, I elected to take the patient surgery for incision and drainage of right breast abscess Procedure: After identifying the patient holding area, the right breast was marked before the procedure by myself the presence of female delinquency prevention social worker nursing staff Tamica, patient was then taken to the operative suite, was placed in supine position, IV propofol was given by the anesthesia provider followed by LMA, prophylactic IV antibiotics were given per protocol, right arm was tucked, prep and drape of the right pectoralis region was done under the usual sterile technique. Time-out was done verifying the patient's name/date of /planned procedure and destination after the procedure, all were in agreement. After palpation of the breast abscess I did add transverse incision on top of the most fluctuant area , after the stab incision was created at gush of about 5 mL of pus were revealed, cultures were obtained for aerobes and anaerobes, incision was extended, all loculations were broken down by the examining finger, traumatic fat necrosis of breast tissues were excised sent for pathology and tissues were also sent for culture and sensitivity, sharp debridement of the abscess cavity was achieved. Post I&D measurements 6 x 1 x [address] to the subcutaneous and breast tissue layer. Copious and thorough irrigation with warm saline was done, followed by appropriate hemostasis, mini Kerlix impregnated and lidocaine 2% was used to pack the abscess cavity. Dry dressing was then applied, followed by sports bra and fluffs. Patient tolerated the procedure well, count of instruments,needles and sponges were completed at the end of the procedure. And then patient was taken to the recovery area in stable condition. I Was present for the whole entire procedure
[2020-08-10 13:45] VITALS: BP 102/68; PULSE 78; RESP 18; TEMP 36.4; O2SAT 92
[2020-08-10 13:55] VITALS: BP 112/77; PULSE 94; RESP 18; TEMP 36.4; O2SAT 95
[2020-08-10 14:25] VITALS: BP 108/79; PULSE 85; O2SAT 94
--- NOTE | 2020-08-10 15:09 | PC.NURSE ---
Patient back to unit from Med Surg at 1426 Ambulating and stated no pain.
--- NOTE | 2020-08-10 15:24 | P.PN_ITS ---
Subjective NPU Subjective: Interval history: Heidi presented today reporting that she is feeling okay and prepared for the procedure. She denied any concerns other than being a little anxious. She ultimately returned to the floor saying that they took good care of her and that she feels optimistic about things resolving appropriately. She reports the medication is helping and she is feeling a little less paranoid. Mental Status Exam 2 MSE Comments: This is an obese versus morbidly obese white female in hospital scrubs with limited dress, grooming and eye contact. No abnormal movements except for psychomotor retardation. More cooperative with exam in no acute distress. Speech was decreased rate and volume. Mood described as tired, affect subdued. Thought process organized. Thought content: Patient denied suicidal or homicidal ideation, there were no delusions reported or noted, she denied visual hallucinations and endorsed a significant reduction in her auditory hallucinations. Attention and concentration were intact and memory appeared mostly reliable but none were formally tested. She is alert and oriented x3. Insight and judgment are limited, impulse control is limited. Vitals/I&O/Wt Last Vital Signs Temp 98 F 08/10/20 16:49 Pulse 82 08/10/20 16:49 Resp 18 08/10/20 16:49 BP 136/82 08/10/20 16:49 Pulse Ox 96 08/10/20 16:49 Data NPU : 08/07/20 19:35 08/07/20 19:35 A&P Assessment and plan (1) Abscess of right breast: Status: Acute (2) Cyst of right breast: Status: Acute (3) Drug-induced psychotic disorder: Status: Acute Qualifiers: Complication of substance-induced condition: with hallucinations Qualified Code(s): F19.951 - Other psychoactive substance use, unspecified with psychoactive substance-induced psychotic disorder with hallucinations (4) Acute psychosis: Status: Acute (5) Nicotine dependence, cigarettes, uncomplicated: Status: Chronic (6) Bipolar disorder, current episode manic severe with psychotic features: Status: Chronic Additional A&P Information Patient with history of bipolar disorder presenting with acute psychotic symptoms on 96-hour hold with safety concerns. Patient currently denying any symptoms and endorsed a decreasing of her auditory hallucinations. She is a dherent to the medications which were restarted and she is now status post I&D hours ago. 1. Continue current medication. 2. Continue every 15 minute checks for safety. 3. Encourage individual, group and milieu therapies. 4. Encourage sober living treatment after discharge at the highest level of care to which she is willing to commit. Involuntary Hold Information 96 Hour Hold: 96 Hour Involuntary Admission: Yes 96 Hour Hold Ending Date: 08/13/20 96 Hour Hold Ending Time: 20:57 Attestations NPU Medical Necessity Statement*: Inpatient hospitalization is medically necessary and the clinically appropriate intervention at this time. We will monitor medications and maintain to take it. Length of stay 2 to 4 days. 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
--- NOTE | 2020-08-10 15:27 | PC.NURSE ---
Report called report to mamta nurse for pt. pt was tranferred via wheelchair by me and followed by wilfredo christian.
[2020-08-10 16:49] VITALS: BP 136/82; PULSE 82; RESP 18; TEMP 36.6; O2SAT 96
[2020-08-10 21:02] VITALS: BP 98/64; PULSE 89; RESP 16; TEMP 36.8; O2SAT 94
[2020-08-10] MEDS: HYDROcodone-acetaminophen 5-325 mg Tablet 1 TAB PO (21:03)
[2020-08-10] MEDS: sulfamethoxazole-trimeth DS 160-800 mg Tablet 1 TAB PO (21:05)
[2020-08-10] MEDS: hyDROXYzine 25 mg Capsule PO (21:07)
[2020-08-11 02:00] VITALS: BP 98/64; PULSE 89; RESP 16; TEMP 36.8; O2SAT 94
[2020-08-11 06:17] VITALS: BP 136/92; PULSE 78; RESP 16; TEMP 36.5; O2SAT 94
[2020-08-11 06:34] LABS: Bilirubin Urine Neg (Negative); Blood Urine Neg (Negative); Glucose Urine UA Norm (Normal); Ketones Urine Negative (Negative); Leukocyte Esterase Urine 1+ (Negative); Nitrate Urine Negative (Negative); Protein Urine Neg (Negative); Specific Gravity, Urine 1.015 (1.005-1.030); Urine Color Yellow (Yellow); Urobilinogen Urine Norm (Negative); pH Urine 6 (5-7)
[2020-08-11 06:35] LABS: Add Urine Culture? No; Bacteria Urine 1+ /hpf
[2020-08-11] MEDS: HYDROcodone-acetaminophen 5-325 mg Tablet 1 TAB PO (08:39)
[2020-08-11] MEDS: sulfamethoxazole-trimeth DS 160-800 mg Tablet 1 TAB PO ×2 (08:40→20:46)
[2020-08-11] MEDS: OLANZapine 10 mg TABLET PO ×2 (08:40→20:46)
--- NOTE | 2020-08-11 09:00 | PM.PN ---
Subjective Subjective: Interval history: Feels better,no acute events overnight Vitals/I&O/Wt Last Vital Signs Temp 97.7 F 08/11/20 06:17 Pulse 78 08/11/20 06:17 Resp 16 08/11/20 06:17 BP 136/92 08/11/20 06:17 Pulse Ox 94 08/11/20 06:17 Physical Exam Narrative: EXAM NARRATIVE: Patient is conscious alert oriented X3 BMI 40 Head and neck examination PERRLA no masses no cervical lymphadenopathy no jaundice Right breast wound examination done in the presence of a female instrument setter nursing staff Shira Pack was removed bedside and wound bed looks clean no pus,repacking with wet-to-dry mini Kerlix was done by ABD.Patient tolerated well. Data : 08/07/20 19:35 08/07/20 19:35 A&P Assessment and plan (1) Abscess of right breast: Daily packing with wet-to-dry mini Kerlix followed by ABD Follow on cultures and sensitivity Follow-up at the wound care center upon discharge at first available appointment. Continue oral antimicrobial therapy for now Assurance and education All questions have been answered and all concerns have been addressed to patient's satisfaction. Status: Resolved Attestations Medical Necessity Statement*: From surgical standpoint of view patient can be discharged home pending clearance by psych service. Time Spent in Patient Care: 16 - 35 minutes (>than 50% of time spent in counselling and/or direct pt care on unit). Coding Level of Care Code Acute Instrument Repair Technician for Shelley Arnold Diagnoses Abscess of right breast N61.1
--- NOTE | 2020-08-11 09:29 | PC.NURSE ---
Wound Care: Pre-medicated patient with Hydrocodone per VORB by Dr. Rincon (See MAR). Dressing changed by Dr. Rincon. Wound in Right breast. Packing removed by Dr. Millan, repacked with mini kerlex (WTD NS) and covered with ABD Pad and Support Bra reapplied. Patient tolerated well. Will Continue to monitor. DMITRYW, RAHEEL
--- NOTE | 2020-08-11 12:10 | P.PN_ITS ---
Subjective Subjective: Interval history: Patient was seen this morning, she has moderate pain at the packing site, no fevers, chills, no nausea, no vomiting Medications: Reviewed: Yes Vitals/I&O/Wt Last Vital Signs Temp 97.7 F 08/11/20 06:17 Pulse 78 08/11/20 06:17 Resp 16 08/11/20 06:17 BP 136/92 08/11/20 06:17 Pulse Ox 94 08/11/20 06:17 Physical Exam Const: COMMON NORMALS: no acute distress and patient oriented x3 HENMT: COMMON NORMALS: normocephalic HEAD & SCALP: normocephalic Neck/C-Spine: COMMON NORMALS: no JVD Chest: OTHER: Right breast, status post I&D, with packing material Resp: COMMON NORMALS: normal respiratory effort, No retractions, No use of accessory muscles and clear to auscultation bilaterally AUSCULTATION: clear to auscultation bilaterally Cardio: COMMON NORMALS: no JVD, regular rate, regular rhythm, S1 normal heart sound present and S2 normal heart sound present RATE: regular rate RHYTHM: regular rhythm HEART SOUNDS: S1 normal heart sound present and S2 normal heart sound present GI: COMMON NORMALS: Normal to inspection, nondistended, normoactive bowel sounds present, Soft to palpation, non-tender, No hepatosplenomegaly present, no masses and no bruits PALPATION: Yes Soft to palpation and Yes No hepatosplenomegaly present Extremity: COMMON NORMALS: capillary refill normal, no clubbing, cyanosis or edema, no calf tenderness and no pedal edema Neuro: COMMON NORMALS: patient oriented x3 Psych: COMMON NORMALS: mental status grossly normal Data : 08/07/20 19:35 08/07/20 19:35 A&P Assessment and plan (1) Cyst of right breast: Right breast abscess Status post incision drainage by Dr. Rincon Currently on Bactrim therapy Follow cultures Currently packed, dressing changes as per surgery's recommendations [place] for pain will continue to follow along, follow cultures, monitor for fevers Status: Acute Attestations Medical Necessity Statement*: Patient requires hospitalization for right breast abscess status post incision and drainage, on antibiotic therapy Coding Level of Care Code Acute Transmission Supervisor for [facility] Diagnoses Cyst of right breast N60.01
[2020-08-11 14:00] VITALS: BP 92/61; PULSE 98; RESP 17; TEMP 36.8; O2SAT 96
--- NOTE | 2020-08-11 19:16 | PM.NPN ---
Subjective NPU Subjective: Interval history: Heidi presents today reporting that she is recovering okay from her surgical procedure and getting the rest that she needs. She reports that she continues to feel a little better each day with the medication but she still really tired and recovering from her recent diaz. Mental Status Exam MSE Comments: This is an obese versus morbidly obese white female in hospital scrubs with limited dress, grooming and eye contact. No abnormal movements except for psychomotor retardation. More cooperative with exam in no acute distress. Speech was decreased rate and volume. Mood described as tired but okay, affect subdued. Thought process organized. Thought content: Patient denied suicidal or homicidal ideation, there were no delusions reported or noted, she denied visual hallucinations and endorsed a significant reduction in her auditory hallucinations. Attention and concentration were intact and memory appeared mostly reliable but none were formally tested. She is alert and oriented x3. Insight and judgment are limited, impulse control is limited. Vitals/I&O/Wt Last Vital Signs Temp 98.3 F 08/11/20 14:00 Pulse 98 08/11/20 14:00 Resp 17 08/11/20 14:00 BP 92/61 08/11/20 14:00 Pulse Ox 96 08/11/20 14:00 Data NPU : 08/07/20 19:35 08/07/20 19:35 A&P Additional A&P Information (1) Abscess of right breast: (2) Cyst of right breast: (3) Drug-induced psychotic disorder: (4) Acute psychosis: (5) Nicotine dependence, cigarettes, uncomplicated: (6) Bipolar disorder, current episode manic severe with psychotic features: Additional A&P Information Patient with history of bipolar disorder presenting with acute psychotic symptoms on 96-hour hold with safety concerns. Patient currently denying any symptoms and endorsed a decreasing of her auditory hallucinations. She is adherent to the medications which were restarted and she is now status post I&D hours ago. 1. Continue current medication. 2. Continue every 15 minute checks for safety. 3. Encourage individual, group and milieu therapies. 4. Encourage sober living treatment after discharge at the highest level of care to which she is willing to commit. Involuntary Hold Information 96 Hour Hold: 96 Hour Involuntary Admission: Yes 96 Hour Hold Ending Date: 08/13/20 96 Hour Hold Ending Time: 20:57 Attestations NPU Medical Necessity Statement*: Inpatient hospitalization is medically necessary and the clinically appropriate intervention at this time. We will monitor medications and maintain to take it. Length of stay 2 to 4 days. Coding Level of Care Code Acute Scientist Engineer for Shelley Arnold
[2020-08-11 19:58] VITALS: BP 109/76; PULSE 93; RESP 14; TEMP 37.2; O2SAT 93
[2020-08-12 06:00] VITALS: BP 123/84; PULSE 87; RESP 17; TEMP 36.7; O2SAT 92
[2020-08-12] MEDS: hyDROXYzine 25 mg Capsule 50 MG PO ×2 (08:56→20:43)
[2020-08-12] MEDS: OLANZapine 10 mg TABLET PO ×2 (08:57→20:44)
[2020-08-12] MEDS: sulfamethoxazole-trimeth DS 160-800 mg Tablet 1 TAB PO ×2 (08:57→20:44)
[2020-08-12] MEDS: HYDROcodone-acetaminophen 5-325 mg Tablet 1 TAB PO ×2 (09:00→20:43)
[2020-08-12 14:00] VITALS: BP 94/59; PULSE 74; RESP 17; TEMP 36.6; O2SAT 93
--- NOTE | 2020-08-12 15:43 | PC.NURSE ---
Dressing and packing was removed. Significant serosanguineous dranage noted on removed dressing. Post surgical wound dressed as per Dr. Sethi's instructions. Wound cleaned with N.S then packed with about 2/3 roll N. S. soaked small Kurlex gauze. Covered with ADB pad held in place with Support Bra. Patient reminded that if ABD pad becomes saturated with drainage, to notify staff for replacement.
--- NOTE | 2020-08-12 19:30 | PM.NPN ---
Subjective NPU Subjective: Interval history: Heidi continues to show slow recovery from her withdrawal as well as an abscess status post I&D. She denies any issues from the procedure or side effects of the medication. We discussed the continued possibility for discharge after the treatment team meets tomorrow morning. Mental Status Exam MSE Comments: This is an obese versus morbidly obese white female in hospital scrubs with limited dress, grooming and eye contact. No abnormal movements except for psychomotor retardation. More cooperative with exam in no acute distress. Speech was decreased rate and volume. Mood described as still tired, affect subdued. Thought process organized. Thought content: Patient denied suicidal or homicidal ideation, there were no delusions reported or noted, she denied visual hallucinations and endorsed a significant reduction in her auditory hallucinations. Attention and concentration were intact and memory appeared mostly reliable but none were formally tested. She is alert and oriented x3. Insight and judgment are limited, impulse control is limited. Vitals/I&O/Wt Last Vital Signs Temp 97.9 F 08/12/20 14:00 Pulse 74 08/12/20 14:00 Resp 17 08/12/20 14:00 BP 94/59 08/12/20 14:00 Pulse Ox 93 08/12/20 14:00 Weight last 48 hrs Weight 120.202 kg Data NPU : 08/07/20 19:35 08/07/20 19:35 A&P Additional A&P Information (1) Abscess of right breast: (2) Cyst of right breast: (3) Drug-induced psychotic disorder: (4) Acute psychosis: (5) Nicotine dependence, cigarettes, uncomplicated: (6) Bipolar disorder, current episode manic severe with psychotic features: Additional A&P Information Patient with history of bipolar disorder presenting with acute psychotic symptoms on 96-hour hold with safety concerns. Patient currently denying any symptoms and endorsed a decreasing of her auditory hallucinations. She is adherent to the medications which were restarted and she is now status post I&D hours ago. 1. Continue current medication. 2. Continue every 15 minute checks for safety. 3. Encourage individual, group and milieu therapies. 4. Encourage sober living treatment after discharge at the highest level of care to which she is willing to commit. 5. Continue to appreciate medical cross coverage and will need direction on discharge antibiotics. Involuntary Hold Information 96 Hour Hold: 96 Hour Involuntary Admission: Yes 96 Hour Hold Ending Date: 08/13/20 96 Hour Hold Ending Time: 20:57 Attestations NPU Medical Necessity Statement*: Inpatient hospitalization is medically necessary and the clinically appropriate intervention at this time. We will monitor medications and maintain to take it. Length of stay 1-3 days. Coding Level of Care Code Acute Drapery And Upholstery Measurer for Shelley Arnold
[2020-08-12 20:22] VITALS: BP 129/96; PULSE 110; RESP 19; TEMP 36.6; O2SAT 97
[2020-08-13 06:00] VITALS: BP 123/74; PULSE 75; RESP 15; TEMP 36.7; O2SAT 96
[2020-08-13] MEDS: sulfamethoxazole-trimeth DS 160-800 mg Tablet 1 TAB PO (08:34)
[2020-08-13] MEDS: OLANZapine 10 mg TABLET PO (08:34)
[2020-08-13] MEDS: HYDROcodone-acetaminophen 5-325 mg Tablet 1 TAB PO ×2 (08:34→14:06)
--- NOTE | 2020-08-13 13:28 | P.DS_ITS ---
Diagnoses at Discharge Discharge Diagnosis (1) Cyst of right breast: Status: Resolved Reason for Visit Reason for Visit: 96 HOUR Brief History: History of Present Illness Heidi Caballero is a 35 year old female presenting to the emergency department on court ordered involuntary hold secondary to bizarre behavior, psychotic symptoms. Patient currently denying any psychosis but continues to say bizarre things such as, water has magical dejesus, I think everyone should be drinking more water. She denies any depressed symptoms, denies any suicidal ideation She denies any recent or past manic or hypomanic episodes. Patient reports being on olanzapine 10 mg twice daily and states that she has been compliant with her medication. He reports last follow-up for medication management was a couple months ago. Patient states that she typically smokes marijuana on a daily basis but reports using methamphetamine yesterday but does not connect this to her most recent reported psychotic symptoms. Review of Systems General: Reports: 10 or more systems reviewed and unremarkable except in HPI and below Meds NPU Home Medications Medication Instructions Recorded Confirmed Last Taken Type hydroxyzine HCl 25 mg tablet 25 mg PO TID PRN #60 tab 06/19/20 08/07/20 Unknown Rx olanzapine 10 mg tablet 10 mg PO BID #60 tab 06/19/20 08/07/20 Unknown Rx trazodone 100 mg tablet 100 mg PO .QHS PRN #30 tab 06/19/20 08/07/20 Unknown Rx Allergies Allergy/AdvReac Type Severity Reaction Status Date / Time acetaminophen Allergy Unknown Unknown Verified 09/01/19 08:55 aspirin Allergy Unknown unknown Verified 09/01/19 08:55 ziprasidone [From Geodon] Allergy Unknown Unknown Verified 09/01/19 08:55 [facility] NPU PFSH: Medical History Alcohol abuse, episodic drinking behavior in early remission, last 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 September 2019 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, last 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 September 2019 Bipolar disorder, current episode manic severe with psychotic features Cannabis dependence, episodic use in early remission, last 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 September 2019 Nicotine dependence, cigarettes, uncomplicated Social History Smoking and tobacco status: current every day smoker cigarettes Packs smoked per day: 2 Other Psychiatric History: Other Psychiatric History: Reports being followed for medication management, last visit 2 months ago Reports last psychiatric hospitalization was approximately a year ago, reports first psychiatric hospitalization approximately 5 years ago Denies any history of suicide attempt or self-harm behavior Hospital Course Hospital Course Heidi presented to the emergency department with the following report: Chief Complaint: Psychiatric Symptoms Stated Complaint: 96 HOUR Time Seen by Provider: 08/07/20 19:15 Source: patient Mode of arrival: other (law enforcement) Limitations: no limitations History of Present Illness: HPI Narrative: This 35-year-old female patient with a history of bipolar disorder and drug abuse was brought into the emergency department for evaluation by her enforcement. They brought her in with a court ordered 96-hour hold. According to the affidavit her mother says that the patient has been hallucinating, not sleeping, acting erratically, and scaring her mother making the mother locked herself in her room. Talking to the patient, she does not make a whole lot of sense, when asked if she hallucinates she says that it is her special gift to hear voices that other people do not want to see things other people do not. She also says that when she sleeps and wakes up she is cured from all her illnesses. She physically is not making any sense and appears to have a break from reality. According to the affidavit her mother says she has not been taking her medications. She was admitted to the neuropsychiatric unit for definitive treatment of those issues. She was restarted on her home medications, which included 10 mg p.o. twice daily of Zyprexa, Vistaril as needed and trazodone at night. Additionally she was given Bactrim for her infection. She very slowly acclimated to the individual, group and milieu therapies provided and her psychosis slowly subsided. It was decided that the infection in her breast which was likely from drug use/injection needed I&D. She made it through that procedure without issue. She showed significant improvement and was able to contract for safety prior to discharge.During the hospitalization, patient had routine laboratory studies which were within normal limits except for few outliers. Additionally there was a general medical evaluation which was also within normal limits and revealed no new acute processes except for those previously discussed. Discharge Summary: At the time of discharge, lethality was denied and psychosis was resolving. Mood and anxiety were well managed. Patient endorsed a plan to avoid all drugs of abuse and follow-up with the aftercare recommendations of the treatment team. Patient was evaluated and deemed to be absent credible lethality, and had achieved the maximum benefit from an inpatient hospitalization, so was discharged. Involuntary Hold Information 96 Hour Hold: 96 Hour Involuntary Admission: Yes 96 Hour Hold Ending Date: 08/13/20 96 Hour Hold Ending Time: 20:57 Mental Status Exam MSE Comments: This is an obese versus morbidly obese white female in hospital scrubs with limited dress, grooming and eye contact. No abnormal movements except for psychomotor retardation. More cooperative with exam in no acute distress. Speech was more normal rate and volume. Mood described as better, affect congruent. Thought process organized. Thought content: Patient denied suicidal or homicidal ideation, there were no delusions reported or noted, she denied visual hallucinations and endorsed a significant reduction in her auditory hallucinations. Attention and concentration were intact and memory appeared mostly reliable but none were formally tested. She is alert and oriented x3. Insight and judgment are improving and impulse control is limited, but improving. Discharge Data Data Completed and Pending: Completed Studies During Hospitalization Category Date Time Status US breast RT limi shanice* [id number] Routine Ultrasound 08/09/20 09:38 Completed Pending at discharge Category Date Time Status Chlamydia / Gonor jordan Panel Routine Lab 08/10/20 05:33 Received Vitals: Last Vital Signs Temp 98.0 F 08/13/20 06:00 Pulse 75 08/13/20 06:00 Resp 15 08/13/20 06:00 BP 123/74 08/13/20 06:00 Pulse Ox 96 08/13/20 06:00 Discharge Plan Discharge Patient Disposition: Home Condition: Stable Prescriptions: New sulfamethoxazole-trimethoprim 800-160 mg Tablet 1 tab PO 0900,2100 7 Days Qty: 14 RF: 0 Continued olanzapine [Zyprexa] 10 mg tablet 10 mg PO BID Qty: 60 RF: 6 hydroxyzine HCl 25 mg tablet 25 mg PO TID PRN (Reason: anxiety) Qty: 60 RF: 6 trazodone 100 mg tablet 100 mg PO .QHS PRN (Reason: sleep) Qty: 30 RF: 6 Discharge Orders: Discharge Order (Routine); Ordered 08/13/20 Ordered By: Mayito Caballero Referrals: [facility] Wound Care [Other] - 08/17/20 8:30 am (Appointment will be with Dr. Rincon) Michelle Alfaro PMHNP [Staff Physician] - 08/28/20 11:00 am (medication appointment) Ashley Soriano FNP [Referring] - (Follow up as needed at the [facility] primary care.) Discharge Diet: Regular Discharge Activity: Resume usual activity Patient Instructions: Sulfamethoxazole/Trimethoprim (By mouth), Wound Infection (DC), Bipolar Disorder (DC), Methamphetamine Abuse (DC) Discharge Attestations NPU Time Spent in Discharge Care*: less than 30 min Specific Discharge Activities: Specific discharge activities: educating patient, discussing with lining caser/social workers/dc planners, documenting/other paperwork and evaluating patient/reviewing data Coding Level of Care Code Acute Corner Cutter for Shelley Arnold Diagnoses Cyst of right breast N60.01
[2020-08-13 13:36] VITALS: BP 123/74; PULSE 75; RESP 15; TEMP 36.7; O2SAT 96
== END 2020-08-13 15:13 | disposition home or self-care (01) | DRG 876 ==
LOC: ER 21:03 → NP 21:12 → MEDSURG 08-10 13:20 → NP 08-10 14:50
PROVIDERS: Admitting Provider Psychiatry & Neurology Psychiatry; Emergency Provider Family Medicine; PCP Family Medicine; Visit Provider Psychiatry & Neurology Psychiatry
DX: F23 Brief psychotic disorder (principal); F15.10 Other stimulant abuse, uncomplicated; N61.1 Abscess of the breast and nipple; F12.20 Cannabis dependence, uncomplicated; F17.210 Nicotine dependence, cigarettes, uncomplicated; F31.9 Bipolar disorder, unspecified
CPT/HCPCS: 12345; 36415; 76642; 80053; 80306; 80307; 81001; 81025; 84443; 85025; 87491; 87591; 90471; 90686; 99284

== ENCOUNTER → 2020-08-10 10:59 | Day surgery (SDC) | payer SELFPAY ==
[2020-08-10] MEDS: sodium chloride 0.9% 1,000 ML 30 ML IV (11:22)
--- NOTE | 2020-08-10 11:33 | ANES.PREANE2 ---
Pre-Anesthetic Assessment Pre-Anesthetic Assessment: Height/Weight: Height 1.74 m Weight 113.398 kg Preop Diagnosis: Right breast abscess Proposed Procedure: Operation Date: 08/10/20 11:45 Proposed Procedures p I&D right breast abscess(Right) - Titus Rincon MD Was Beta Ruby taken within 24 hours: N/A Last intake: Intake Last Liquid Date 08/10/20 Last Liquid Time 07:00 Last Solid Date 08/09/20 Last Solid Time 18:00 Social: Social History: Alcohol and Tobacco Exam: Pre-Anes Outpt Exam: alert, oriented x 3, clear to auscultation bilaterally and regular rate & rhythm Airway: Submandibular: WNL Cervical ROM: WNL MP: 2 Additional comments: Poor dentition Pulmonary: Pulmonary: COPD Metabolic: Metabolic: Morbid obesity Neuropsych: Neuropsych: Anxiety, Bipolar and Depression Comments: Drug abuse Anesthetic Plan: ASA status: 3 Anesthesia: General Risk of > 500 ml blood loss (7ml/kg in children): No Meds/Allergies Current Medications: Current Medications Generic Name Dose Route Start Last Admin Trade Name Freq PRN Reason Stop Dose Admin Sodium Chloride 1,000 mls @ 30 ml s/hr 08/10/20 11:30 08/10/20 11:22 Sodium Chloride 0.9% IV 30 mls/hr .Q24H FORTINO Administration PFSH Anesthesia PFSH: Medical History Alcohol abuse, episodic drinking behavior in early remission, last 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 September 2019 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
[2020-08-10] MEDS: lidocaine 2% INJ 20 mL (11:49)
[2020-08-10 12:15] VITALS: BP 113/91; PULSE 97; RESP 16; TEMP 36.3; O2SAT 90
[2020-08-10 12:20] VITALS: BP 110/68; PULSE 98; RESP 17; O2SAT 90
[2020-08-10 12:25] VITALS: BP 118/72; PULSE 97; RESP 16; O2SAT 90
[2020-08-10 12:30] VITALS: BP 92/77; PULSE 95; RESP 18; O2SAT 91
[2020-08-10 12:35] VITALS: BP 111/87; PULSE 98; RESP 17; O2SAT 92
[2020-08-10 12:40] VITALS: BP 118/76; PULSE 96; RESP 16; TEMP 36.4; O2SAT 92
--- NOTE | 2020-08-10 13:08 | ANE.PACU2 ---
Inpatient post-anesthesia follow up: Airway intact: Yes Vital signs: Temperature 97.3 F Pulse Rate 97 Respiratory Rate 16 Blood Pressure 113/91 Pulse Oximetry 90 Oxygen Delivery Me thod Room Air Oxygen Flow Rate Fraction of Inspir ed Oxygen Hydration adequate: Yes Nausea and vomiting: No Pain level: 1 Mental status: Baseline
== END ==
PROVIDERS: PCP Family Medicine; Visit Provider Surgery
PROC: (CPT 10060; principal; 2020-08-10 11:45)
DX: N61.1 Abscess of the breast and nipple (principal); J44.9 Chronic obstructive pulmonary disease, unspecified; E66.01 Morbid (severe) obesity due to excess calories; Z68.37 Body mass index [BMI] 37.0-37.9, adult; F41.9 Anxiety disorder, unspecified; F32.9 Major depressive disorder, single episode, unspecified; F17.210 Nicotine dependence, cigarettes, uncomplicated
CPT/HCPCS: 10060; 87070; 87075; 87077; 87176; 87205; 88304; J0131; J0690; J2250; J2405; J2704; J3010; J3490; J7030

== ENCOUNTER 2021-02-23 20:04 | Inpatient (IN) | payer MEDICAID, SELFPAY ==
[2021-02-23 20:24] VITALS: BP 123/88; PULSE 102; RESP 17; TEMP 36.4; O2SAT 97; BMI 38.7
--- NOTE | 2021-02-23 20:45 | CTR_ITS ---
PROCEDURE INFORMATION: Exam: CT Left Upper Extremity With Contrast, Forearm Exam date and time: 02/23/2021 8:45 PM Age: 35 years old Clinical indication: Pain; Arm, lower; Lower or forearm; Patient HX: Swelling and redness to left forearm, most to distal aspect. ; Additional info: Cellulitis, iv drug use TECHNIQUE: Imaging protocol: CT of the Left upper extremity with intravenous contrast was performed. Exam focused on the forearm. Radiation optimization: All CT scans at this facility use at least one of these dose optimization techniques: automated exposure control; mA and/or kV adjustment per patient size (includes targeted exams where dose is matched to clinical indication); or iterative reconstruction. Contrast material: OMNI 300; Contrast volume: 95 ml; Contrast route: INTRAVENOUS (IV); COMPARISON: No relevant prior studies available. RADIATION DOSE METRICS: Total DLP (mGy-cm): 582.49 FINDINGS: Bones/joints: The bones are intact and in normal alignment. No bone destruction identified. Soft tissues: Subcutaneous fluid collection with peripheral enhancement in the anterior distal forearm. This measures 0.7 x 2.7 x 2.4 cm. Subcutaneous soft tissue edema and skin thickening in the anterior forearm, consistent with cellulitis. CT/CT forearm LT w con [id number] IMPRESSION: 1. 2.7 cm subcutaneous soft tissue abscess in the anterior distal forearm. 2. Diffuse cellulitis in the anterior forearm. 3. No acute skeletal abnormality. Radiation Dose CTDIVOL = (mGy): DLP = 582.49 (mGy-cm)
[2021-02-23] MEDS: haloperidol inj 5 mg/mL INJ 1 mL IM (21:13)
[2021-02-23] MEDS: LORazepam 2 mg/mL INJ 1 mL IM (21:14)
[2021-02-23] MEDS: diphenhydrAMINE 50 mg/mL SDV 1mL IM (21:14)
[2021-02-23 22:12] LABS: Mean Corpuscular Hemoglobin 31.5 pg (28.0-34.0); Nucleated Red Blood Cells % 0 %
[2021-02-23] MEDS: iohexol 300 mg/mL 100 mL Btl IV (22:17)
[2021-02-23] MEDS: OLANZapine 10 mg VIAL IM (22:22)
[2021-02-23 22:24] LABS: Basophils # 0.1 10^3/uL (0.0-0.1); Basophils % 0.7 %; Eosinophils # 0.2 10^3/uL (0.0-0.8); Eosinophils % 1.4 %; Hematocrit 46.2 % (37.0-47.0); Hemoglobin 15.8 g/dL (11.5-15.3); Lymphocytes # 5.4 10^3/uL (0.8-4.8); Lymphocytes % 34.5 %; Mean Corpuscular HGB Conc 34.2 g/dL (30.0-36.0); Mean Platelet Volume 10.7 fL (7.4-10.4); Monocytes # 1.3 10^3/uL (0.2-0.9); Monocytes % 8.2 %; Neutrophils # 8.56 10^3/uL (1.8-7.7); Neutrophils % 54.9 %; Platelet Count 328 10^3/cmm (130-400); Red Blood Count 5.02 10^6/uL (4.1-5.3); White Blood Count 15.6 10^3/uL (4.0-10.0)
[2021-02-23] MEDS: OLANZapine 10 mg VIAL (22:30)
[2021-02-23] MEDS: water for injection-sterile 10 ML (22:30)
[2021-02-23 22:31] LABS: Lactic Sepsis W/Reflex 1.1 mmol/L (0.5-2.2)
[2021-02-23 22:32] LABS: Acetaminophen < 5.0 ug/mL (10-30); Alanine Aminotransferase 30 U/L (0-33); Albumin Level 3.8 g/dL (3.5-5.2); Alcohol Level < 10 mg/dL (0-10); Alkaline Phosphatase 95 IU/L (35-105); Anion Gap 15.7 (5-19); Aspartate Amino Transferase 39 U/L (0-32); Blood Urea Nitrogen 6 mg/dL (6-20); C Reactive Protein 29.5 mg/L (0.0-4.9); Calcium 8.7 mg/dL (8.5-10.5); Carbon Dioxide 22 mmol/L (22-29); Chloride 102 mmol/L (98-107); Globulin 3.8 g/dL (1.3-4.6); Glomerular Filtration Rate 112.5 mL/min (90-130); Glucose 162 mg/dL (65-115); Osmolality Calculated 283 mOsm/kg (285-295); Potassium 3.7 mmol/L (3.5-5.1); Salicylate < 0.3 mg/dL (3-10); Sodium 136 mmol/L (136-145); Total Bilirubin 0.8 mg/dL (0.15-1.2); Total Protein 7.6 g/dL (6.6-8.7)
[2021-02-23 23:41] LABS: HCG Qualitative Urine. Negative (Negative)
[2021-02-23] MEDS: vancomycin 1,500 MG/300 ML PIGGYBACK 200 MG IV (23:48)
[2021-02-23 23:50] LABS: Add Urine Microscopic? YES; Bilirubin Urine 1+ (Negative); Blood Urine Neg (Negative); Glucose Urine UA Norm (Normal); Ketones Urine 1+ (Negative); Leukocyte Esterase Urine Negative (Negative); Nitrate Urine Negative (Negative); Protein Urine Trace (Negative); Specific Gravity, Urine 1.015 (1.005-1.030); Urine Appearance Clear (CLEAR); Urine Color Yellow (Yellow); Urobilinogen Urine 4 mg/dL (Negative); pH Urine 5 (5-7)
[2021-02-23 23:59] LABS: Amphetamines Screen Urine Positive (Negative); Barbiturates Screen Urine Negative (Negative); Benzodiazepines Screen Urine Negative (Negative); Cocaine Screen Urine Negative (Negative); Opiate Screen Urine Negative (Negative); PCP Screen Urine Negative (Negative); THC Screen Urine Positive (Negative)
[2021-02-24 00:01] LABS: RBC Urine 0-4 /hpf (0-2); Squamous Epithelial Cell Urine 15-25 /hpf (0-5); WBC Urine 0-4 /hpf (0-5)
[2021-02-24 00:02] LABS: Add Urine Culture? No; Bacteria Urine 1+ /hpf
--- NOTE | 2021-02-24 00:06 | ED_ITS ---
HPI - Psych General: Chief Complaint: ER Hold Stated Complaint: Left Arm Infection Time Seen by Provider: 02/23/21 20:36 Source: patient, family (mother) and RN notes reviewed Mode of arrival: ambulatory Limitations: altered mental status History of Present Illness: HPI Narrative: Patient is a 35-year-old female who was brought into the emergency department by her mother for psychiatric evaluation. Mother filled out an affidavit detailing some of her concerns including the fact that the patient has been threatening her and she has to hide herself in her room because she is worried the patient will hurt her. The patient has been hallucinating and mother thinks that she has been using drugs. It is impossible to obtain a history from this patient as her answers to [employer] do not make sense. She appears to be hallucinating as she is talking to inanimate objects when I am talking to her. She is referring to things that I do not understand. She did admit to injecting herself with methamphetamines. On her left forearm there is an area of redness, swelling, warmth and pain. The patient wants an incision and drainage to the area. MD complaint: altered mental status Review of Systems General: Reports: 10 or more systems reviewed and unremarkable except in HPI and below PFSH ED PFSH: Medical History (Reviewed 02/24/21 @ 00:08 by Arely Gamez MD, [facility] – [place]) Alcohol abuse, episodic drinking behavior Amphetamine addiction Episodic use Bipolar disorder, current episode manic severe with psychotic features Cannabis dependence, episodic use Hepatitis C Liver cirrhosis Nicotine dependence, cigarettes, uncomplicated Surgical History (Reviewed 02/24/21 @ 00:08 by Arely Gamez MD, [facility] – [place]) No pertinent past surgical history Family History (Reviewed 02/24/21 @ 00:08 by Arely Gamez MD, [facility] – [place]) Other Psychiatric illness Social History (Reviewed 02/24/21 @ 00:08 by Arely Gamez MD, [facility] – [place]) Smoking and tobacco status: current every day smoker cigarettes Packs smoked per day: 2 Physical Exam Const: COMMON NORMALS: no acute distress, average body habitus, patient oriented x3, no limitations, healthy appearing, alert and well nourished HENMT: COMMON NORMALS: normocephalic, atraumatic and moist oral mucous membranes HEAD & SCALP: normocephalic and atraumatic Neck/C-Spine: COMMON NORMALS: no meningeal signs and no JVD Resp: COMMON NORMALS: normal respiratory effort, No retractions, No use of accessory muscles, clear to auscultation bilaterally and percussion normal AUSCULTATION: clear to auscultation bilaterally PERCUSSION: percussion normal Cardio: COMMON NORMALS: no JVD, regular rate, regular rhythm, S1 normal heart sound present, S2 normal heart sound present, No gallops present (Cardio), No clicks present (Cardio), No murmurs present (Cardio), No rub (Cardio) and Peripheral pulses 2+ throughout RATE: regular rate RHYTHM: regular rhythm HEART SOUNDS: S1 normal heart sound present and S2 normal heart sound present PERIPHERAL PULSES: Peripheral pulses 2+ throughout GI: COMMON NORMALS: Normal to inspection, nondistended, normoactive bowel sounds present, Soft to palpation, non-tender, No hepatosplenomegaly present, no masses and no bruits PALPATION: Yes Soft to palpation and Yes No hepatosplenomegaly present : COMMON NORMALS: Yes no CVA tenderness BLADDER/KIDNEY EXAM: Yes no CVA tenderness Back/Pelvis: COMMON NORMALS: no CVA tenderness Extremity: COMMON NORMALS: normal to inspection, full ROM, capillary refill normal, no calf tenderness and no pedal edema LEFT UPPER EXTREMITY: Yes lower arm Left lower arm: Yes inspection (there is a large area of erythema and a single area of fluctuance ventrally), Yes palpation (warmth, tender to palpation) and Yes neurovascular exam (intact) Neuro: COMMON NORMALS: patient oriented x3 SENSORIUM/ORIENTATION: Yes alert MENINGEAL SIGNS: Yes no meningeal signs Skin: COMMON NORMALS: no rashes or lesions noted, no wounds, turgor normal, no jaundice, no petechiae and no mottling GENERAL SKIN EXAM: no rashes or lesions noted and turgor normal Face to Face: Restrn/Seclusion Events leading up to initiation: Verbalizing threat to self or others Evaluation of patient's immediate situation: Signs of psychological distress Patient reaction since intervention applied: De-escalation/no displays of violent/destructive behavior Recent labs reviewed: Yes Review of medications: Yes Patient's current medical/behavioral condition: No new concerns since last ROS Need for restraint or seclusion is: Continued Attending notified: Attending completed assessment Procedures Abscess I/D Site: upper extremity Side (if applicable): left Sedation/analgesia: none Local Anesthetic: lidocaine 2% and with epi Amount of anesthesia used (mL): 3 Technique: incised with #11 blade Amount of fluid expressed (mL): 3 Irrigation: Yes Packing used?: iodoform Course Consultations: Consultation #1: Discussed the patient with Dr. Caballero, psychiatrist. Patient needs to be admitted to the medical service for IV antibiotics and can be transferred to the neuropsychiatric unit after she is switched to oral antibiotics. Time: 23:29 Consultation #2: Discussed the patient with Dr. Melchor, hospitalist and she kindly accepted the patient to her service. Time: 23:32 Vital Signs: Vital signs: Vital Signs Temperature 97.5 F L 02/23/21 20:24 Pulse Rate 102 H 02/23/21 20:24 Respiratory Rate 17 02/23/21 20:24 Blood Pressure 123/88 02/23/21 20:24 Pulse Oximetry 97 02/23/21 20:24 MDM - Psych MDM Narrative: Medical decision making narrative: 35-year-old female patient who came into the emergency department in obvious psychosis. Most likely drug- induced. She also has cellulitis and abscess of her left forearm and an incision and drainage was done. She is being admitted to the intensive care unit for nine 6- hour hold to receive IV antibiotics before she is being transferred to the neuropsychiatric unit. Medical Records: Attestation: I reviewed the patient's medical records. Lab Data: Attestation: I reviewed the patient's lab results. Labs: Lab Results 02/23/21 02/23/21 02/23/21 Range/Units 22:03 22:03 22:03 WBC 15.6 H (4.0-10.0) 10^3/ uL RBC 5.02 (4.1-5.3) 10^6/u L Hgb 15.8 H (11.5-15.3) g/dL Hct 46.2 (37.0-47.0) % MCV 92.0 (81-99) fl MCH 31.5 (28.0-34.0) pg MCHC 34.2 (30.0-36.0) g/dL RDW 13.0 (12.1-15.1) % Plt Count 328 (130-400) 10^3/c mm MPV 10.7 H (7.4-10.4) fL Neut % (Auto) 54.9 % Lymph % (Auto) 34.5 % [place] % (Auto) 8.2 % Eos % (Auto) 1.4 % Baso % (Auto) 0.7 % Neut # (Auto) 8.56 H (1.8-7.7) 10^3/u L Lymph # (Auto) 5.4 H (0.8-4.8) 10^3/u L [facility] # (Auto) 1.3 H (0.2-0.9) 10^3/u L Eos # (Auto) 0.2 (0.0-0.8) 10^3/u L Baso # (Auto) 0.1 (0.0-0.1) 10^3/u L Nucleated RBC % (a uto) 0 % Nucleated RBCs # 0.0 /100WBC Sodium 136 (136-145) mmol/L Potassium 3.7 (3.5-5.1) mmol/L Chloride 102 (98-107) mmol/L Carbon Dioxide 22 (22-29) mmol/L Anion Gap 15.7 (5-19) BUN 6 (6-20) mg/dL Creatinine 0.6 (0.5-0.9) mg/dL GFR Calculation 112.5 (90-130) mL/min Glucose 162 H (65-115) mg/dL Calculated Osmolal ity 283 L (285-295) mOsm/k g Lactic Acid 1.1 (0.5-2.2) mmol/L Calcium 8.7 (8.5-10.5) mg/dL Total Bilirubin 0.8 (0.15-1.2) mg/dL AST 39 H (0-32) U/L ALT 30 (0-33) U/L Alkaline Phosphata se 95 (35-105) IU/L C-Reactive Protein 29.5 H (0.0-4.9) mg/L Total Protein 7.6 (6.6-8.7) g/dL Albumin 3.8 (3.5-5.2) g/dL Globulin 3.8 (1.3-4.6) g/dL HCG, Qual (Negative) Urine Color (Yellow) Urine Appearance (CLEAR) Urine pH (5-7) Ur Specific Gravit y (1.005-1.030) Urine Protein (Negative) Urine Glucose (UA) (Normal) Urine Ketones (Negative) Urine Blood (Negative) Urine Nitrate (Negative) Urine Bilirubin (Negative) Urine Urobilinogen (Negative) mg/dL Ur Leukocyte [place] ase (Negative) Urine RBC (0-2) /hpf Urine WBC (0-5) /hpf Ur Squamous Epith Cells (0-5) /hpf Amorphous Sediment Urine Bacteria (NONE) /hpf Salicylates < 0.3 L (3-10) mg/dL Urine Opiates Scre en (Negative) ng/mL Acetaminophen < 5.0 L (10-30) ug/mL Ur Barbiturates Sc reen (Negative) ng/mL Ur Phencyclidine S crn (Negative) ng/mL Ur Amphetamines Sc reen (Negative) ng/mL U Benzodiazepines Scrn (Negative) ng/mL Urine Cocaine Scre en (Negative) ng/mL U Marijuana (THC) Screen (Negative) ng/mL Ethyl Alcohol < 10 (0-10) mg/dL 02/23/21 02/23/21 02/23/21 Range/Units 23:30 23:30 23:30 WBC (4.0-10.0) 10^3/ uL RBC (4.1-5.3) 10^6/u L Hgb (11.5-15.3) g/dL Hct (37.0-47.0) % MCV (81-99) fl MCH (28.0-34.0) pg MCHC (30.0-36.0) g/dL RDW (12.1-15.1) % Plt Count (130-400) 10^3/c mm MPV (7.4-10.4) fL Neut % (Auto) % Lymph % (Auto) % [place] % (Auto) % Eos % (Auto) % Baso % (Auto) % Neut # (Auto) (1.8-7.7) 10^3/u L Lymph # (Auto) (0.8-4.8) 10^3/u L [place] # (Auto) (0.2-0.9) 10^3/u L Eos # (Auto) (0.0-0.8) 10^3/u L Baso # (Auto) (0.0-0.1) 10^3/u L Nucleated RBC % (a uto) % Nucleated RBCs # /100WBC Sodium (136-145) mmol/L Potassium (3.5-5.1) mmol/L Chloride (98-107) mmol/L Carbon Dioxide (22-29) mmol/L Anion Gap (5-19) BUN (6-20) mg/dL Creatinine (0.5-0.9) mg/dL GFR Calculation (90-130) mL/min Glucose (65-115) mg/dL Calculated Osmolal ity (285-295) mOsm/k g Lactic Acid (0.5-2.2) mmol/L Calcium (8.5-10.5) mg/dL Total Bilirubin (0.15-1.2) mg/dL AST (0-32) U/L ALT (0-33) U/L Alkaline Phosphata se (35-105) IU/L C-Reactive Protein (0.0-4.9) mg/L Total Protein (6.6-8.7) g/dL Albumin (3.5-5.2) g/dL Globulin (1.3-4.6) g/dL HCG, Qual Negative (Negative) Urine Color Yellow (Yellow) Urine Appearance Clear (CLEAR) Urine pH 5 (5-7) Ur Specific Gravit y 1.015 (1.005-1.030) Urine Protein Trace (Negative) Urine Glucose (UA) Norm (Normal) Urine Ketones 1+ H (Negative) Urine Blood Neg (Negative) Urine Nitrate Negative (Negative) Urine Bilirubin 1+ H (Negative) Urine Urobilinogen 4 H (Negative) mg/dL Ur Leukocyte [place] ase Negative (Negative) Urine RBC 0-4 H (0-2) /hpf Urine WBC 0-4 H (0-5) /hpf Ur Squamous Epith Cells 15-25 H (0-5) /hpf Amorphous Sediment Not Reportable Urine Bacteria 1+ H (NONE) /hpf Salicylates (3-10) mg/dL Urine Opiates Scre en Negative (Negative) ng/mL Acetaminophen (10-30) ug/mL Ur Barbiturates Sc reen Negative (Negative) ng/mL Ur Phencyclidine S crn Negative (Negative) ng/mL Ur Amphetamines Sc reen Positive H (Negative) ng/mL U Benzodiazepines Scrn Negative (Negative) ng/mL Urine Cocaine Scre en Negative (Negative) ng/mL U Marijuana (THC) Screen Positive H (Negative) ng/mL Ethyl Alcohol (0-10) mg/dL Imaging Data^: Other CT: Attestation: I personally reviewed and interpreted this imaging study as fol lows: Radiologist's impression: [id number] [place], [place] [id number] Scan ReportSigned Patient: Heidi Caballero #: [id number]: 0 [id number]#:[id number]/Sex: 35 / FADM Date: 02/23/21Loc: ERRoom/Bed:Attending Dr: Ordering Provider/Ordering MD: Arely Gamez MD, [facility] – [place] Date of Service: 02/23/21 Procedure(s): CT forearm LT w con [id number] Accession Number(s): [id number] Report Number: [id number] PROCEDURE INFORMATION: Exam: CT Left Upper Extremity With Contrast, Forearm Exam date and time: 02/23/2021 8:45 PM Age: 35 years old Clinical indication: Pain; Arm, lower; Lower or forearm; Patient HX: Swelling and redness to left forearm, most to distal aspect. ; Additional info: Cellulitis, iv drug use TECHNIQUE: Imaging protocol: CT of the Left upper extremity with intravenous contrast was performed. Exam focused on the forearm. Radiation optimization: All CT scans at this facility use at least one of these dose optimization techniques: automated exposure control; mA and/or kV adjustment per patient size (includes targeted exams where dose is matched to clinical indication); or iterative reconstruction. Contrast material: OMNI 300; Contrast volume: 95 ml; Contrast route: INTRAVENOUS (IV); COMPARISON: No relevant prior studies available. RADIATION DOSE METRICS: Total DLP (mGy-cm): 582.49 FINDINGS: Bones/joints: The bones are intact and in normal alignment. No bone destruction identified. Soft tissues: Subcutaneous fluid collection with peripheral enhancement in the anterior distal forearm. This measures 0.7 x 2.7 x 2.4 cm. Subcutaneous soft tissue edema and skin thickening in the anterior forearm, consistent with cellulitis. CT/CT forearm LT w con [id number] IMPRESSION: 1. 2.7 cm subcutaneous soft tissue abscess in the anterior distal forearm. 2. Diffuse cellulitis in the anterior forearm. 3. No acute skeletal abnormality. 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
--- NOTE | 2021-02-24 00:35 | PC.NURSE ---
sitter outside room. pt sleeping at this time.
--- NOTE | 2021-02-24 02:01 | PC.NURSE ---
pt sleepimg through this assessment.
--- NOTE | 2021-02-24 04:29 | PC.NURSE ---
pt hard to arouse. she had an elevated blood pressure, so cuff was adjusted and arm was held stilland retaken. normal at this time.
--- NOTE | 2021-02-24 04:57 | P.HP_ITS ---
Providers/Chief Complaint Admitting Physician: chanelle melchor md Primary Care Provider: Georges Milton MD Chief Complaint: Left Arm Infection History of Present Illness Heidi Caballero is a 35 year old female. Brought to the ER today by her mother due to bizarre behavior, acute psychosis, hallucinations, and fear for her safety. Upon presentation to the ER patient was noted to have acute psychosis, talking to self, consistent answers, seemingly disoriented. She was additionally noted to have left upper arm cellulitis along with abscess at the wrist level. She underwent I&D in the ER for the same. Detailed history not available at this time. Patient is on a 96-hour hold. Patient does have a history of IV drug use, she had endorsed to the ERP that she had injectable meds at the site of abscess recently. Review of Systems General: Reports: ROS unobtainable due to medical condition Medications/Allergies Home Medications Medication Instructions Recorded Confirmed Last Taken Type olanzapine 10 mg tablet 10 mg PO BID #60 tab 02/20/21 02/20/21 Unknown Rx propranolol 10 mg tablet 10 mg PO BID #60 tab 02/20/21 02/20/21 Unknown Rx trazodone 100 mg tablet 100 mg PO .QHS PRN #30 tab 02/20/21 02/20/21 Unknown Rx Allergies Allergy/AdvReac Type Severity Reaction Status Date / Time aspirin Allergy Unknown unknown Verified 08/10/20 09:16 ziprasidone [From Geodon] Allergy Unknown Unknown Verified 08/10/20 09:16 PFSH Acute PFSH: Medical History Alcohol abuse, episodic drinking behavior Amphetamine addiction Episodic use Bipolar disorder, current episode manic severe with psychotic features Cannabis dependence, episodic use Hepatitis C Liver cirrhosis Nicotine dependence, cigarettes, uncomplicated Surgical History No pertinent past surgical history Family History Other Psychiatric illness Social History Smoking and tobacco status: current every day smoker cigarettes Packs smoked per day: 2 Vitals/I&O/Wt Last Vital Signs Temp 97.5 F L 02/23/21 20:24 Pulse 102 H 02/23/21 20:24 Resp 17 02/23/21 20:24 BP 123/88 02/23/21 20:24 Pulse Ox 97 02/23/21 20:24 02/23/21 02/23/21 02/24/21 14:59 22:59 06:59 Intake Total 300 / 300 Balance 300 / 300 Weight last 48 hrs Weight 122.47 kg Physical Exam Narrative: EXAM NARRATIVE: GENERAL: States that the time of evaluation, opens eyes on calling name, moves extremities, however does not currently answer any direct questions. Mumbling to self. HEENT: Normocephalic, atraumatic, PERRLA. [] CHEST: Clear to auscultation bilaterally. [] CVS: S1, S2 normal. No murmur, rubs, gallops. Peripheral pulses palpable. [] ABDOMEN: Soft, nontender. Nondistended. Bowel sounds heard. [] NEUROVASCULAR: Power 5/5 all extremities. DTR+ [] EXTREMITIES: No edema. [] Data : 02/23/21 22:03 02/23/21 22:03 Other Labs: Laboratory Results WBC 15.6 10^3/uL (4.0-10.0) H 02/23/21 22:03 RBC 5.02 10^6/uL (4.1-5.3) 02/23/21 22:03 Hgb 15.8 g/dL (11.5-15.3) H 02/23/21 22:03 Hct 46.2 % (37.0-47.0) 02/23/21 22:03 MCV 92.0 fl (81-99) 02/23/21 22:03 MCH 31.5 pg (28.0-34.0) 02/23/21 22:03 MCHC 34.2 g/dL (30.0-36.0) 02/23/21 22:03 RDW 13.0 % (12.1-15.1) 02/23/21 22:03 Plt Count 328 10^3/cmm (130-400) 02/23/21 22:03 MPV 10.7 fL (7.4-10.4) H 02/23/21 22:03 Neut % (Auto) 54.9 % 02/23/21 22:03 Lymph % (Auto) 34.5 % 02/23/21 22:03 [place] % (Auto) 8.2 % 02/23/21 22:03 Eos % (Auto) 1.4 % 02/23/21 22:03 Baso % (Auto) 0.7 % 02/23/21 22:03 Neut # (Auto) 8.56 10^3/uL (1.8-7.7) H 02/23/21 22:03 Lymph # (Auto) 5.4 10^3/uL (0.8-4.8) H 02/23/21 22:03 [place] # (Auto) 1.3 10^3/uL (0.2-0.9) H 02/23/21 22:03 Eos # (Auto) 0.2 10^3/uL (0.0-0.8) 02/23/21 22:03 Baso # (Auto) 0.1 10^3/uL (0.0-0.1) 02/23/21 22:03 Nucleated RBC % (auto) 0 % 02/23/21 22:03 Nucleated RBCs # 0.0 /100WBC 02/23/21 22:03 Sodium 136 mmol/L (136-145) 02/23/21 22:03 Potassium 3.7 mmol/L (3.5-5.1) 02/23/21 22:03 Chloride 102 mmol/L (98-107) 02/23/21 22:03 Carbon Dioxide 22 mmol/L (22-29) 02/23/21 22:03 Anion Gap 15.7 (5-19) 02/23/21 22:03 BUN 6 mg/dL (6-20) 02/23/21 22:03 Creatinine 0.6 mg/dL (0.5-0.9) 02/23/21 22:03 GFR Calculation 112.5 mL/min (90-130) 02/23/21 22:03 Glucose 162 mg/dL (65-115) H 02/23/21 22:03 Calculated Osmolality 283 mOsm/kg (285-295) L 02/23/21 22:03 Lactic Acid 1.1 mmol/L (0.5-2.2) 02/23/21 22:03 Calcium 8.7 mg/dL (8.5-10.5) 02/23/21 22:03 Total Bilirubin 0.8 mg/dL (0.15-1.2) 02/23/21 22:03 AST 39 U/L (0-32) H 02/23/21 22:03 ALT 30 U/L (0-33) 02/23/21 22:03 Alkaline Phosphatase 95 IU/L (35-105) 02/23/21 22:03 C-Reactive Protein 29.5 mg/L (0.0-4.9) H 02/23/21 22:03 Total Protein 7.6 g/dL (6.6-8.7) 02/23/21 22:03 Albumin 3.8 g/dL (3.5-5.2) 02/23/21 22:03 Globulin 3.8 g/dL (1.3-4.6) 02/23/21 22:03 HCG, Qual Negative (Negative) 02/23/21 23:30 Urine Color Yellow (Yellow) 02/23/21 23:30 Urine Appearance Clear (CLEAR) 02/23/21 23:30 Urine pH 5 (5-7) 02/23/21 23:30 Ur Specific [place] 1.015 (1.005-1.030) 02/23/21 23:30 Urine Protein Trace (Negative) 02/23/21 23:30 Urine Glucose (UA) Norm (Normal) 02/23/21 23:30 Urine Ketones 1+ (Negative) H 02/23/21 23:30 Urine Blood Neg (Negative) 02/23/21 23:30 Urine Nitrate Negative (Negative) 02/23/21 23:30 Urine Bilirubin 1+ (Negative) H 02/23/21 23:30 Urine Urobilinogen 4 mg/dL (Negative) H 02/23/21 23:30 Ur Leukocyte Esterase Negative (Negative) 02/23/21 23:30 Urine RBC 0-4 /hpf (0-2) H 02/23/21 23:30 Urine WBC 0-4 /hpf (0-5) H 02/23/21 23:30 Ur Squamous Epith Cells 15-25 /hpf (0-5) H 02/23/21 23:30 Amorphous Sediment Not Reportable 02/23/21 23:30 Urine Bacteria 1+ /hpf (NONE) H 02/23/21 23:30 Salicylates < 0.3 mg/dL (3-10) L 02/23/21 22:03 Urine Opiates Screen Negative ng/mL (Negative) 02/23/21 23:30 Acetaminophen < 5.0 ug/mL (10-30) L 02/23/21 22:03 Ur Barbiturates Screen Negative ng/mL (Negative) 02/23/21 23:30 Ur Phencyclidine Scrn Negative ng/mL (Negative) 02/23/21 23:30 Ur Amphetamines Screen Positive ng/mL (Negative) H 02/23/21 23:30 U Benzodiazepines Scrn Negative ng/mL (Negative) 02/23/21 23:30 Urine Cocaine Screen Negative ng/mL (Negative) 02/23/21 23:30 U Marijuana (THC) Screen Positive ng/mL (Negative) H 02/23/21 23:30 Ethyl Alcohol < 10 mg/dL (0-10) 02/23/21 22:[address] 02/23/21 20:45 IMPRESSION: 1. 2.7 cm subcutaneous soft tissue abscess in the anterior distal forearm. 2. Diffuse cellulitis in the anterior forearm. 3. No acute skeletal abnormality. Radiation Dose CTDIVOL = (mGy): DLP = 582.49 (mGy-cm) A&P Assessment and plan (1) Cellulitis and abscess of upper arm and forearm: Likely secondary to IV drug use Status post I&D in the ER Check blood culture Start empiric antibiotic coverage with cefepime and vancomycin, monitor for clinical improvement. Status: Acute (2) Acute psychosis: Likely related to known bipolar disorder Patient is on a 96-hour hold currently Psych consult has been ordered, awaiting assessment Continue olanzapine and trazodone in the meantime. As needed Haldol as needed. Status: Acute Attestations Medical Necessity Statement*: Greater than 2 midnight admission anticipated for left upper arm cellulitis, abscess, need for IV antibiotics and psychiatry assessment for acute psychosis Coding Level of Care Code Acute Accountancy Professor for Shelley Arnold Diagnoses Cellulitis and abscess of upper arm and forearm Acute psychosis F23
[2021-02-24 06:00] VITALS: BP 115/63; PULSE 80; RESP 16; O2SAT 97
--- NOTE | 2021-02-24 06:43 | NUR.SHIFT ---
pt slept restlessly throughout the night. all pt care rounds done according to pt care policies. pt changed out this morning ready to be sent to inpatient room.
[2021-02-24 08:00] VITALS: PULSE 84; RESP 14; O2SAT 94
[2021-02-24] MEDS: OLANZapine 10 mg TABLET PO ×2 (08:50→17:29)
[2021-02-24] MEDS: propranolol 20 mg Tablet 10 MG PO ×2 (08:50→17:29)
[2021-02-24 08:51] LABS: C Reactive Protein 21.1 mg/L (0.0-4.9)
[2021-02-24 08:58] LABS: Procalcitonin 0.06 ng/mL (0-0.5)
[2021-02-24 09:15] LABS: Erythrocyte Sedimentation Rate 21 mm/hr (0-15)
[2021-02-24 09:19] VITALS: BP 97/62; PULSE 85; RESP 14; O2SAT 93
--- NOTE | 2021-02-24 11:36 | P.PN_ITS ---
Subjective Subjective: Interval history: Patient was seen this morning, currently she is sleeping, she is very agitated when I try to talk to her, she tells me that her left arm was hurting her, she injected it with stuff, she goes back to sleep, Vitals/I&O/Wt Last Vital Signs Temp 97.5 F L 02/23/21 20:24 Pulse 85 02/24/21 09:19 Resp 14 02/24/21 09:19 BP 97/62 02/24/21 09:19 Pulse Ox 93 02/24/21 09:19 02/23/21 02/24/21 02/24/21 22:59 06:59 14:59 Intake Total 400 / 400 Balance 400 / 400 Weight last 48 hrs Weight 122.47 kg Physical Exam Const: EXAM LIMITATIONS: altered mental status NUTRITIONAL APPEARANCE: obese ORIENTATION/CONSCIOUSNESS: Yes awake and Yes oriented to person OTHER: Quite agitated when answering questions, wants to go back to sleep, Resp: COMMON NORMALS: normal respiratory effort, No retractions, No use of accessory muscles and clear to auscultation bilaterally AUSCULTATION: clear to auscultation bilaterally Cardio: COMMON NORMALS: regular rate, regular rhythm, S1 normal heart sound present and S2 normal heart sound present RATE: regular rate RHYTHM: regular rhythm HEART SOUNDS: S1 normal heart sound present and S2 normal heart sound present GI: COMMON NORMALS: Normal to inspection, nondistended, normoactive bowel sounds present, Soft to palpation and non-tender PALPATION: Yes Soft to palpation Extremity: COMMON NORMALS: no pedal edema OTHER: Left forearm, area of erythema, status post incision and drainage Neuro: SENSORIUM/ORIENTATION: Yes oriented to person Data : 02/23/21 22:03 02/23/21 22:03 Micro: Microbiology 02/24/21 08:19 Blood Culture - Preliminary Blood SPECIMEN COLLECTED 02/24/21 08:21 Blood Culture - Preliminary Blood SPECIMEN COLLECTED A&P Assessment and plan (1) Cellulitis and abscess of upper arm and forearm: Likely secondary to IV drug use Status post I&D in the ER Follow blood cultures, ESR, CRP, pro-John Monitor for fevers, possibility of endocarditis, hold off on echocardiogram for now Start empiric antibiotic coverage with cefepime and vancomycin, monitor for clinical improvement. Given persistent confusion, likely related to psychosis but will do a CT of the head Status: Acute (2) Acute psychosis: Likely related to known bipolar disorder Patient is on a 96-hour hold currently Psych consult has been ordered, awaiting assessment Continue olanzapine and trazodone in the meantime. As needed Haldol as needed. Status: Acute Attestations Medical Necessity Statement*: Patient requires hospitalization inpatient, greater than 2 midnights for cellulitis and abscess of upper arm and forearm, acute psychosis, Coding Level of Care Code Acute Detective Bureau Chief for [facility] Diagnoses Cellulitis and abscess of upper arm and forearm Acute psychosis F23
--- NOTE | 2021-02-24 11:38 | CTR_ITS ---
PROCEDURE INFORMATION: Exam: CT Head Without Contrast Exam date and time: 02/24/2021 11:38 AM Age: 35 years old Clinical indication: Altered mental status/memory loss; Additional info: AMS TECHNIQUE: Imaging protocol: Computed tomography of the head without contrast. Radiation optimization: All CT scans at this facility use at least one of these dose optimization techniques: automated exposure control; mA and/or kV adjustment per patient size (includes targeted exams where dose is matched to clinical indication); or iterative reconstruction. COMPARISON: No relevant prior studies available. RADIATION DOSE METRICS: Total DLP (mGy-cm): 847.57 FINDINGS: Brain: Normal. No hemorrhage. Unremarkable white matter. No mass effect. Cerebral ventricles: No ventriculomegaly. Paranasal sinuses: Visualized sinuses are unremarkable. No fluid levels. Mastoid air cells: Visualized mastoid air cells are well aerated. Bones/joints: Unremarkable. No acute fracture. Soft tissues: Unremarkable. CT/CT head wo con* [id number] IMPRESSION: No acute intracranial abnormality. Radiation Dose CTDIVOL = (mGy): DLP = 847.57 (mGy-cm)
[2021-02-24 12:00] VITALS: BP 107/62; PULSE 80; RESP 18; O2SAT 96
[2021-02-24] MEDS: acetaminophen 325 mg Tablet 650 MG PO (14:02)
[2021-02-24 16:00] VITALS: BP 110/69; PULSE 83; RESP 18; O2SAT 96
[2021-02-24 19:38] VITALS: BP 125/86; PULSE 70; RESP 20; TEMP 37.1; O2SAT 97
[2021-02-24 23:34] LABS: Vancomycin Trough 30.7 ug/mL (10-15)
[2021-02-25] VITALS (8 sets, daily range): BP systolic 112–130; BP diastolic 73–87; PULSE 64–74; RESP 14–20; TEMP 36.6–37.1; O2SAT 95–98
[2021-02-25 05:31] LABS: Basophils # 0.1 10^3/uL (0.0-0.1); Basophils % 0.8 %; Eosinophils # 0.3 10^3/uL (0.0-0.8); Eosinophils % 3.7 %; Hematocrit 45.3 % (37.0-47.0); Hemoglobin 14.8 g/dL (11.5-15.3); Lymphocytes # 3.8 10^3/uL (0.8-4.8); Lymphocytes % 43.9 %; Mean Corpuscular HGB Conc 32.7 g/dL (30.0-36.0); Mean Corpuscular Hemoglobin 31.2 pg (28.0-34.0); Mean Corpuscular Volume 95.4 fl (81-99); Mean Platelet Volume 11.1 fL (7.4-10.4); Monocytes # 0.9 10^3/uL (0.2-0.9); Monocytes % 10.8 %; Neutrophils # 3.46 10^3/uL (1.8-7.7); Neutrophils % 40.5 %; Nucleated Red Blood Cells % 0 %; Platelet Count 276 10^3/cmm (130-400); Red Blood Count 4.75 10^6/uL (4.1-5.3); Red Cell Distribution Width 12.9 % (12.1-15.1); White Blood Count 8.6 10^3/uL (4.0-10.0)
[2021-02-25 05:48] LABS: Alanine Aminotransferase 26 U/L (0-33); Albumin Level 3.1 g/dL (3.5-5.2); Alkaline Phosphatase 78 IU/L (35-105); Anion Gap 12.1 (5-19); Aspartate Amino Transferase 32 U/L (0-32); Blood Urea Nitrogen 10 mg/dL (6-20); Calcium 8.6 mg/dL (8.5-10.5); Carbon Dioxide 26 mmol/L (22-29); Chloride 106 mmol/L (98-107); Glomerular Filtration Rate 138.8 mL/min (90-130); Glucose 122 mg/dL (65-115); Osmolality Calculated 290 mOsm/kg (285-295); Potassium 4.1 mmol/L (3.5-5.1); Sodium 140 mmol/L (136-145); Total Bilirubin 0.4 mg/dL (0.15-1.2); Total Protein 6.1 g/dL (6.6-8.7)
[2021-02-25] MEDS: propranolol 20 mg Tablet 10 MG PO ×2 (10:14→17:35)
[2021-02-25] MEDS: OLANZapine 10 mg TABLET PO ×2 (10:15→17:34)
--- NOTE | 2021-02-25 10:50 | PM.PN ---
Subjective Subjective: Interval history: Heidi reports she is doing okay. Left arm still hurts some but is better. Medications: Reviewed: Yes Vitals/I&O/Wt Last Vital Signs Temp 97.8 F 02/25/21 07:27 Pulse 74 02/25/21 07:27 Resp 16 02/25/21 07:27 BP 130/87 02/25/21 07:27 Pulse Ox 95 02/25/21 07:27 02/24/21 02/25/21 02/25/21 22:59 06:59 14:59 Intake Total 720 / 1230 1200 / 1200 Output Total 500 / 500 Balance 720 / 1230 700 / 700 Weight last 48 hrs Weight 122.47 kg Weight 122.47 kg Physical Exam Narrative: EXAM NARRATIVE: General exam no apparent distress Neck is supple no lymphadenopathy thyromegaly Cardiovascular regular rate and rhythm without murmur Lungs clear Abdomen is soft with positive bowel sounds Extremities no cyanosis clubbing. Left arm with some erythema and edema still present. Packing removed from abscess site and no further drainage. Data : 02/25/21 04:48 02/25/21 04:48 Micro: Microbiology 02/24/21 08:19 Blood Culture - Preliminary Blood NEGATIVE TO DATE 02/24/21 08:21 Blood Culture - Preliminary Blood NEGATIVE TO DATE A&P Assessment and plan (1) Cellulitis and abscess of upper arm and forearm: Likely secondary to IV drug use Status post I&D in the ER. Packing has been removed today, 36 hours later Continue cefepime and vancomycin currently. If continues to improve transition to p.o. vancomycin tomorrow. Blood cultures negative to date White blood cell count has decreased to normal Covid PCR was performed which is pending No need for laboratory tomorrow, unless clinically dictated by change in status Status: Acute (2) Acute psychosis: Resolved likely related to known bipolar disorder, or drug use Patient is on a 96-hour hold currently Awaiting psychiatric consultation Continue olanzapine and trazodone. As needed Haldol as needed. 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
--- NOTE | 2021-02-25 16:58 | PC.RESP ---
SMOKING CESSATION INFORMATION SENT TO PATIENT.
[2021-02-26] VITALS (8 sets, daily range): BP systolic 100–128; BP diastolic 63–86; PULSE 63–88; RESP 16–18; TEMP 36.1–37.1; O2SAT 94–98; BMI 38.7
[2021-02-26 01:22] LABS: Quest SARS-CoV-2 RNA NOT DETECTED (NOT DETECTED)
[2021-02-26 04:17] LABS: Vancomycin Trough 19.3 ug/mL (10-15)
--- NOTE | 2021-02-26 06:17 | PM.NHP ---
Providers/Chief Complaint Admitting Physician: Jose D Hess MD Primary Care Provider: Georges Milton MD Chief Complaint: Left Arm Infection HPI NPU History of Present Illness Heidi Caballero is a 35 year old female who presented to the ED with the following report: Chief Complaint: ER Hold Stated Complaint: Left Arm Infection Time Seen by Provider: 02/23/21 20:36 Source: patient, family (mother) and RN notes reviewed Mode of arrival: ambulatory Limitations: altered mental status History of Present Illness: HPI Narrative: Patient is a 35-year-old female who was brought into the emergency department by her mother for psychiatric evaluation. Mother filled out an affidavit detailing some of her concerns including the fact that the patient has been threatening her and she has to hide herself in her room because she is worried the patient will hurt her. The patient has been hallucinating and mother thinks that she has been using drugs. It is impossible to obtain a history from this patient as her answers to questions do not make sense. She appears to be hallucinating as she is talking to inanimate objects when I am talking to her. She is referring to things that I do not understand. She did admit to injecting herself with methamphetamines. On her left forearm there is an area of redness, swelling, warmth and pain. The patient wants an incision and drainage to the area. MD complaint: altered mental status. Patient was admitted to the MedSurg unit for definitive treatment of the abscess. This required IV antibiotics which required this to be on the medical unit. A psychiatric consult was requested to determine whether she is in need of inpatient services or continuation of the 96-hour hold. She presents today reporting that she is fine and she does not know why her mother instituted 96-hour hold. When questioned about the positive UDS for methamphetamine and cannabis she initially tried to stop timeframes and whether she was actually intoxicated at the moment of the games with her mother. I we discussed divided does not related drugs work and that sometimes you have cognitive impact that linger much longer than the drug may even linger in her system. We also identified that she came in she was positive on the UDS. We discussed the bizarre behaviors that her mother was concerned about and the risk benefits and alternatives of her continuing on the psychiatric unit which he understood and agreed to proceed as documented in this note. An excerpt from her last inpatient evaluation is included below for context. Per her 08/08/20 [facility] inpatient consult: History of Present Illness Heidi Caballero is a 35 year old female presenting to the emergency department on court ordered involuntary hold secondary to bizarre behavior, psychotic symptoms. Patient currently denying any psychosis but continues to say bizarre things such as, water has magical dejesus, I think everyone should be drinking more water. She denies any depressed symptoms, denies any suicidal ideation She denies any recent or past manic or hypomanic episodes. Patient reports being on olanzapine 10 mg twice daily and states that she has been compliant with her medication. He reports last follow-up for medication management was a couple months ago. Patient states that she typically smokes marijuana on a daily basis but reports using methamphetamine yesterday but does not connect this to her most recent reported psychotic symptoms. Meds NPU Home Medications Medication Instructions Recorded Confirmed Last Taken Type olanzapine 10 mg tablet 10 mg PO BID #60 tab 02/20/21 02/24/21 Unknown Rx propranolol 10 mg tablet 10 mg PO BID #60 tab 02/20/21 02/24/21 Unknown Rx trazodone 100 mg tablet 100 mg PO .QHS PRN #30 tab 02/20/21 02/24/21 Unknown Rx Allergies Allergy/AdvReac Type Severity Reaction Status Date / Time aspirin Allergy Unknown unknown Verified 08/10/20 09:16 ziprasidone [From Geodon] Allergy Unknown Unknown Verified 08/10/20 09:16 [facility] NPU PFS: Medical History Alcohol abuse, episodic drinking behavior Amphetamine addiction Episodic use Bipolar disorder, current episode manic severe with psychotic features Cannabis dependence, episodic use Hepatitis C Liver cirrhosis Nicotine dependence, cigarettes, uncomplicated Surgical History No pertinent past surgical history Family History Other Psychiatric illness Social History Smoking and tobacco status: current every day smoker cigarettes Packs smoked per day: 2 Mental Status Exam MSE Comments: This is an obese versus morbidly obese white female in hospital gown with limited dress, grooming and eye contact. No abnormal movements except for psychomotor retardation. Semicooperative with exam in no acute distress. Speech was decreased rate and volume. Mood described as good, affect subdued. Thought process organized. Thought content: Patient denied suicidal or homicidal ideation, no delusions reported or noted, she denied visual hallucinations and denied auditory hallucinations.. Attention and concentration were intact and memory appeared mostly reliable but none were formally tested. She is alert and oriented x3. Insight and judgment are limited, impulse control is limited. Vitals/I&O/Wt Last Vital Signs Temp 98.3 F 02/26/21 03:41 Pulse 65 02/26/21 03:41 Resp 18 02/26/21 03:41 BP 124/81 02/26/21 03:41 Pulse Ox 96 02/26/21 03:41 02/25/21 14:59 Intake Total 1660 / 1660 Output Total 1700 / 1700 Balance -40 / -40 Weight last 48 hrs Weight 122.47 kg Data NPU : 02/25/21 04:48 02/25/21 04:48 Micro: Microbiology 02/24/21 08:19 Blood Culture - Preliminary Blood NEGATIVE TO DATE 02/24/21 08:21 Blood Culture - Preliminary Blood NEGATIVE TO DATE Microbiology 02/24/21 08:19 Blood Blood Culture - Preliminary NEGATIVE TO DATE 02/24/21 08:21 Blood Blood Culture - Preliminary NEGATIVE TO DATE A&P Assessment and plan (1) Delusion: Status: Acute (2) Cellulitis and abscess of upper arm and forearm: Status: Acute (3) Bipolar disorder, current episode manic severe with psychotic features: Status: Chronic (4) Amphetamine addiction: Status: Chronic (5) Cannabis dependence, episodic use: Status: Chronic (6) Alcohol abuse, episodic drinking behavior: Status: Chronic (7) Nicotine dependence, cigarettes, uncomplicated: Status: Chronic (8) Acute psychosis: Status: Acute (9) Drug-induced psychotic disorder: Status: Acute Qualifiers: Complication of substance-induced condition: with hallucinations Qualified Code(s): F19.951 - Other psychoactive substance use, unspecified with psychoactive substance-induced psychotic disorder with hallucinations Additional A&P Information This is a 35-year-old white female long history of addiction, psychosis and other mental health challenges reports acknowledgment of continued methamphetamine and cannabis use which may have confusing her erratic behavior on the 96-hour hold. 1. Continue current medication. 2. Continue one-to-one while in the MedSurg unit but start every 15 minute checks for safety after transfer. 3. Encourage individual, group and milieu therapies on the unit. 4. Encourage sober living treatment after discharge at the highest level of care to which she is willing to commit. 5. Admitted to the neuropsychiatric unit and evaluate for need for continuing 96-hour hold and connect with ongoing treatment after discharge Involuntary Hold Information 96 Hour Hold: 96 Hour Involuntary Admission: Yes 96 Hour Hold Ending Date: 08/13/20 96 Hour Hold Ending Time: 20:57 Attestations NPU Medical Necessity Statement*: Inpatient hospitalization is medically necessary and the clinically appropriate intervention at this time. We will monitor medications and make changes as indicated. Patient will be in the hospital for over two midnights. Likely length of stay 2-4 days. 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
[2021-02-26] MEDS: propranolol 20 mg Tablet 10 MG PO ×2 (08:13→21:20)
[2021-02-26] MEDS: OLANZapine 10 mg TABLET PO ×2 (08:14→21:21)
--- NOTE | 2021-02-26 09:46 | P.PN_ITS ---
Subjective Subjective: Interval history: Heidi reports she is feeling good. No pain with movement of her fingers. Swelling is down even more. No fever overnight. Medications: Reviewed: Yes Vitals/I&O/Wt Last Vital Signs Temp 97.0 F L 02/26/21 07:17 Pulse 70 02/26/21 07:17 Resp 18 02/26/21 07:17 BP 103/67 02/26/21 07:17 Pulse Ox 96 02/26/21 09:01 02/25/21 02/26/21 02/26/21 22:59 06:59 14:59 Intake Total 1080 / 2740 980 / 3720 220 / 220 Balance 1080 / 1040 / 2019 220 / 220 Weight last 48 hrs Weight 122.47 kg Physical Exam Narrative: EXAM NARRATIVE: General exam no apparent distress Neck is supple no lymphadenopathy thyromegaly Cardiovascular regular rate and rhythm without murmur Lungs clear Abdomen is soft with positive bowel sounds Extremities no cyanosis clubbing. Erythema greatly improved. Incision and drainage site without drainage. Still slightly open. Data : 02/25/21 04:48 02/25/21 04:48 Micro: Microbiology 02/24/21 08:19 Blood Culture - Preliminary Blood NEGATIVE TO DATE 02/24/21 08:21 Blood Culture - Preliminary Blood NEGATIVE TO DATE A&P Assessment and plan (1) Cellulitis and abscess of upper arm and forearm: Likely secondary to IV drug use Status post I&D in the ER. Packing has been removed today, 36 hours later Was getting cefepime and vancomycin. Changed to Bactrim. Blood cultures negative to date White blood cell count has decreased to normal Covid PCR was performed which was negative No need for laboratory tomorrow, unless clinically dictated by change in status Status: Acute (2) Acute psychosis: Resolved likely related to known bipolar disorder, or drug use Patient is on a 96-hour hold currently Awaiting psychiatric consultation Continue olanzapine and trazodone. As needed Haldol as needed. Transfer to Neuropsych Unit. Status: Acute Attestations Medical Necessity Statement*: Needs continued hospital stay for psychosis, drug use, under care of psychiatry. Coding Level of Care Code Acute Ammonium Nitrate Neutralizer for [facility] Diagnoses Cellulitis and abscess of upper arm and forearm Acute psychosis F23
--- NOTE | 2021-02-26 12:50 | PC.NURSE ---
Transfer Note Patient transferred to NPU from Med/surg via wheelchair. Handoff received from EMILY Issa. Patient oriented to environment and equipment. Covering service notified. Orders reviewed and will continue to monitor. Family and/or patient service representative notified.
[2021-02-26] MEDS: sulfamethoxazole-trimeth DS 160-800 mg Tablet 1 TAB PO (21:20)
[2021-02-27 06:00] VITALS: BP 130/88; PULSE 62; RESP 18; TEMP 36.6; O2SAT 93
[2021-02-27] MEDS: sulfamethoxazole-trimeth DS 160-800 mg Tablet 1 TAB PO ×2 (08:03→20:29)
[2021-02-27] MEDS: OLANZapine 10 mg TABLET PO ×2 (08:03→20:29)
[2021-02-27] MEDS: propranolol 20 mg Tablet 10 MG PO ×2 (08:04→20:28)
--- NOTE | 2021-02-27 12:11 | NPU.GN ---
[facility] Unit Group Topic: self medicating General Mood of Group: No, sleeping
--- NOTE | 2021-02-27 13:16 | P.PN_ITS ---
Subjective NPU Subjective: Interval history: Patient presents today reporting that things are going fairly well. She reports her abscess continues to heal and she is having no difficulties with the switch to oral medications. She really spent a lot of day sleeping and had no real plan for how she was going to avoid this pattern that led to these abscesses and addiction. Mental Status Exam MSE Comments: This is an obese versus morbidly obese white female in hospital scrubs with limited grooming and eye contact. No abnormal movements except for psychomotor retardation. Semicooperative with exam in no acute distress. Speech was decreased rate and volume. Mood described as good, affect subdued. Thought process organized. Thought content: Patient denied suicidal or homicidal ideation, no delusions reported or noted, she denied visual hallucinations and denied auditory hallucinations.. Attention and concentration were intact and memory appeared mostly reliable but none were formally tested. She is alert and oriented x3. Insight and judgment are limited, impulse control is limited. Vitals/I&O/Wt Last Vital Signs Temp 97.9 F 02/27/21 06:00 Pulse 62 02/27/21 06:00 Resp 18 02/27/21 06:00 BP 130/88 02/27/21 06:00 Pulse Ox 95 02/27/21 06:00 Weight last 48 hrs Weight 122.47 kg Data NPU : 02/25/21 04:48 02/25/21 04:48 A&P Additional A&P Information (1) Delusion: (2) Cellulitis and abscess of upper arm and forearm: (3) Bipolar disorder, current episode manic severe with psychotic features: (4) Amphetamine addiction: (5) Cannabis dependence, episodic use: (6) Alcohol abuse, episodic drinking behavior: (7) Nicotine dependence, cigarettes, uncomplicated: (8) Acute psychosis: (9) Drug-induced psychotic disorder: This is a 35-year-old white female long history of addiction, psychosis and other mental health challenges reports acknowledgment of continued methamphetamine and cannabis use which may have confusing her erratic behavior on the 96-hour hold. 1. Continue current medication. 2. Continue to 15-minute checks for safety. 3. Encourage individual, group and milieu therapies on the unit. 4. Encourage sober living treatment after discharge at the highest level of care to which she is willing to commit. Involuntary Hold Information 96 Hour Hold: 96 Hour Involuntary Admission: Yes 96 Hour Hold Ending Date: 08/13/20 96 Hour Hold Ending Time: 20:57 Attestations NPU Medical Necessity Statement*: Inpatient hospitalization is medically necessary and the clinically appropriate intervention at this time. We will monitor medications and make changes as indicated. Likely length of stay 1-3 days. Coding Level of Care Code Acute Quantitative Manager for [facility]
[2021-02-27 14:00] VITALS: BP 123/86; PULSE 77; RESP 18; TEMP 36.6; O2SAT 94
[2021-02-27 20:14] VITALS: BP 114/86; PULSE 85; RESP 18; TEMP 36.6; O2SAT 95
[2021-02-28 06:00] VITALS: BP 110/80; PULSE 63; RESP 18; TEMP 36.6; O2SAT 95
[2021-02-28] MEDS: OLANZapine 10 mg TABLET PO (09:10)
[2021-02-28] MEDS: sulfamethoxazole-trimeth DS 160-800 mg Tablet 1 TAB PO (09:10)
[2021-02-28] MEDS: propranolol 20 mg Tablet 10 MG PO (09:10)
[2021-02-28 11:48] VITALS: BP 110/80; PULSE 63; RESP 18; TEMP 36.6; O2SAT 95
--- NOTE | 2021-02-28 11:59 | PM.NDC ---
Diagnoses at Discharge Discharge Diagnosis (1) Cellulitis and abscess of upper arm and forearm: Status: Acute (2) Acute psychosis: Status: Resolved Reason for Visit Reason for Visit: Left Arm Infection Brief History: History of Present Illness Heidi Caballero is a 35 year old female who presented to the ED with the following report: Chief Complaint: ER Hold Stated Complaint: Left Arm Infection Time Seen by Provider: 02/23/21 20:36 Source: patient, family (mother) and RN notes reviewed Mode of arrival: ambulatory Limitations: altered mental status History of Present Illness: HPI Narrative: Patient is a 35-year-old female who was brought into the emergency department by her mother for psychiatric evaluation. Mother filled out an affidavit detailing some of her concerns including the fact that the patient has been threatening her and she has to hide herself in her room because she is worried the patient will hurt her. The patient has been hallucinating and mother thinks that she has been using drugs. It is impossible to obtain a history from this patient as her answers to questions do not make sense. She appears to be hallucinating as she is talking to inanimate objects when I am talking to her. She is referring to things that I do not understand. She did admit to injecting herself with methamphetamines. On her left forearm there is an area of redness, swelling, warmth and pain. The patient wants an incision and drainage to the area. MD complaint: altered mental status. Patient was admitted to the MedSurg unit for definitive treatment of the abscess. This required IV antibiotics which required this to be on the medical unit. A psychiatric consult was requested to determine whether she is in need of inpatient services or continuation of the 96-hour hold. She presents today reporting that she is fine and she does not know why her mother instituted 96-hour hold. When questioned about the positive UDS for methamphetamine and cannabis she initially tried to stop timeframes and whether she was actually intoxicated at the moment of the games with her mother. I we discussed divided does not related drugs work and that sometimes you have cognitive impact that linger much longer than the drug may even linger in her system. We also identified that she came in she was positive on the UDS. We discussed the bizarre behaviors that her mother was concerned about and the risk benefits and alternatives of her continuing on the psychiatric unit which he understood and agreed to proceed as documented in this note. An excerpt from her last inpatient evaluation is included below for context. Per her 08/08/20 [facility] inpatient consult: History of Present Illness Heidi Caballero is a 35 year old female presenting to the emergency department on court ordered involuntary hold secondary to bizarre behavior, psychotic symptoms. Patient currently denying any psychosis but continues to say bizarre things such as, water has magical dejesus, I think everyone should be drinking more water. She denies any depressed symptoms, denies any suicidal ideation She denies any recent or past manic or hypomanic episodes. Patient reports being on olanzapine 10 mg twice daily and states that she has been compliant with her medication. He reports last follow-up for medication management was a couple months ago. Patient states that she typically smokes marijuana on a daily basis but reports using methamphetamine yesterday but does not connect this to her most recent reported psychotic symptoms. Hospital Course Hospital Course She slowly admitted to the individual, group and milieu therapy is provided. After being cleared on the medical unit and receiving IV antibiotics she was changed over to oral antibiotics for her likely drug-induced abscess and continued her 96-hour hold on the neuropsychiatric unit. She showed modest improvement and was able to contract for safety prior to discharge. Her medications from home were continued. During the hospitalization, patient had routine laboratory studies which were within normal limits except for few outliers in those treated by the hospitalist team. Additionally there was a general medical evaluation which was also within normal limits and revealed no new acute processes outside of the abscess. Discharge Summary: At the time of discharge, she denied psychosis or lethality. Mood and anxiety were well managed. Patient endorsed a plan to avoid all drugs of abuse and follow-up with the aftercare recommendations of the treatment team. Patient was evaluated and deemed to be absent credible lethality, and had achieved the maximum benefit from an inpatient hospitalization, so was discharged. Involuntary Hold Information 96 Hour Hold: 96 Hour Involuntary Admission: Yes 96 Hour Hold Ending Date: 08/13/20 96 Hour Hold Ending Time: 20:57 Mental Status Exam MSE Comments: This is an obese versus morbidly obese white female in hospital scrubs with improving grooming and adequate eye contact. No abnormal movements except for improving psychomotor retardation. More cooperative with exam in no acute distress. Speech was more normal rate and volume. Mood described as good, affect congruent. Thought process organized. Thought content: Patient denied suicidal or homicidal ideation, no delusions reported or noted, she denied visual hallucinations and denied auditory hallucinations.. Attention and concentration were intact and memory appeared mostly reliable but none were formally tested. She is alert and oriented x3. Insight and judgment are improving, impulse control is limited, but improving. Discharge Data Data Completed and Pending: Completed Studies During Hospitalization Category [place] [id number] Urgent Cat Scan 02/23/21 20:[address] head wo con* 7 [id number] Routine Cat Scan 02/24/21 11:38 Completed Pending at discharge Category Date Time Status Blood Culture Sta t Lab 02/24/21 08:19 Results Vitals: Last Vital Signs Temp 97.9 F 02/28/21 11:48 Pulse 63 02/28/21 11:48 Resp 18 02/28/21 11:48 BP 110/80 02/28/21 11:48 Pulse Ox 95 02/28/21 11:48 Discharge Plan Discharge Patient Disposition: Home Condition: Stable Prescriptions: Continued propranolol 10 mg tablet 10 mg PO BID Qty: 60 RF: 6 olanzapine [Zyprexa] 10 mg tablet 10 mg PO BID Qty: 60 RF: 6 trazodone 100 mg tablet 100 mg PO .QHS PRN (Reason: sleep) Qty: 30 RF: 6 Discharge Orders: Discharge Order (Routine); Ordered 02/28/21 Ordered By: Mayito Caballero Referrals: [facility] [Other] (Please call to complete a phone interview. ) [facility] [Outside] - 03/15/21 4:00 pm (Michelle Winchester by phone on 03/15/21 @ 4pm) [facility] [Outside] (Please call to set up an inital assessment. ) Georges Milton MD [Primary Care Provider] - Discharge Diet: Regular Discharge Activity: Resume usual activity Patient Instructions: Generalized Anxiety Disorder (DC), Opioid Safety Discharge Attestations NPU Time Spent in Discharge Care*: less than 30 min Specific Discharge Activities: Specific discharge activities: educating patient, discussing with pcp/other providers, discussing with disability case manager/social workers/dc planners, documenting/other paperwork and evaluating patient/reviewing data Coding Level of Care Code Acute Chg FW DC note Diagnoses Cellulitis and abscess of upper arm and forearm Acute psychosis F23
== END 2021-02-28 14:07 | disposition home or self-care (01) | DRG 897 ==
LOC: ER 02-24 00:18 → ER IP 02-24 09:39 → MEDSURG 02-24 16:46 → NP 02-26 12:29
PROVIDERS: Student in an Organized Health Care Education/Training Program; Admitting Provider Family Medicine; Emergency Provider Family Medicine; PCP Family Medicine; Visit Provider Psychiatry & Neurology Psychiatry
DX: F19.951 Other psychoactive substance use, unspecified with psychoactive substance-induced psychotic disorder with hallucinations (principal); L03.114 Cellulitis of left upper limb; L02.414 Cutaneous abscess of left upper limb; F31.2 Bipolar disorder, current episode manic severe with psychotic features; F15.20 Other stimulant dependence, uncomplicated; F17.210 Nicotine dependence, cigarettes, uncomplicated; K74.60 Unspecified cirrhosis of liver; F12.20 Cannabis dependence, uncomplicated; F10.10 Alcohol abuse, uncomplicated; Z20.822 Contact with and (suspected) exposure to COVID-19; Z88.8 Allergy status to other drugs, medicaments and biological substances; Z81.8 Family history of other mental and behavioral disorders
CPT/HCPCS: 10060; 36415; 70450; 73201; 80053; 80202; 80306; 80307; 81001; 81003; 81025; 83605; 84145; 85025; 85651; 86140; 87040; 87635; 96365; 96367; 96372; 99285; J0692; J1200; J1630; J2060; J3370; J3490; J7040; Q9967

== ENCOUNTER 2021-04-09 18:20 | Inpatient (IN) | payer MEDICAID, SELFPAY ==
[2021-04-09 18:47] VITALS: BP 141/99; PULSE 90; RESP 18; O2SAT 97; BMI 35.9
--- NOTE | 2021-04-09 18:56 | ED_ITS ---
HPI - General Adult General: Chief complaint: Psychiatric Symptoms Stated complaint: 96 HOUR HOLD Time Seen by Provider: 04/09/21 18:38 History of Present Illness: HPI narrative: HPI: [36]yo patient w/ hx of bipolar disorder not on medicine BIBA for acute psychosis and airam. On arrival, the patient is AAOx3 and cooperative with my evaluation. No focal complaints of chest pain, shortness of breath, palpitations, N/V, focal GI/ complaints. Currently denies SI/HI. Onset: chronic Duration: ongoing Location: home Severity: severe Review of Systems Narrative: Constitutional: No fever, no chills. HEENT: No vision changes CV: No chest pain, no palpitations PULM: No productive cough, no dyspnea. GI: No abdominal pain, no N/V/D. : No dysuria MSKEL: No muscle pain SKIN: No new rashes, no lesions. NEURO: No headache, no focal weakness. HEME: No visible bruises PSYCH: +airam PFSH ED PFSH: Medical History Alcohol abuse, episodic drinking behavior Amphetamine addiction Episodic use Bipolar disorder, current episode manic severe with psychotic features Cannabis dependence, episodic use Hepatitis C Liver cirrhosis Nicotine dependence, cigarettes, uncomplicated Surgical History No pertinent past surgical history Family History Other Psychiatric illness Social History Smoking and tobacco status: current every day smoker cigarettes Packs smoked per day: 2 Physical Exam Narrative: EXAM NARRATIVE: Head: Atraumatic Eyes: PERRL, conjunctiva without injection, eyes tracking ENT: Mucous membrane moist NECK: Supple without lymphadenopathy LUNGS: LCTAB CV: RRR ABDOMEN: Soft, nontender EXTREMITY: Normal ROM SKIN: No rash or erythema NEURO: Awake and alert. No focal weakness PSYCH: +mildly agitated, +pressured speech Course Vital Signs: Vital signs: Vital Signs Pulse Rate 88 04/09/21 22:00 Respiratory Rate 18 04/09/21 22:00 Blood Pressure 137/86 04/09/21 22:00 Pulse Oximetry 97 04/09/21 22:00 MDM - General Adult MDM Narrative: Medical decision making narrative: [36]yo patient w/ hx of bipolar disorder not on meds presenting for acute airam. HDS, exam within normal limit. Clinically the patient displays no overt toxidrome; they are well appearing, with low suspicion for toxic ingestion given history and exam. Symptoms unlikely 2/2 anemia, hypothyroidism, infection, or ICH. Workup: CBC, CMP, Lipase, salicylate/tylenol, UDS Lab findings: wnl, +amphetamine in urine [7:00pm] On reassessment, labs and workup wnl. Patient is hemodynamically stable with no acute medical complaints. Case discussed with psychiatric provider Dr. Wills at [facility] psych inpatient with recommendation for admission Disposition: Psych Lab Data: Labs: Lab Results 04/09/21 04/09/21 04/09/21 20:45 20:45 20:45 WBC 10.8 10^3/uL H 10 ^3/uL (4.0-10.0) RBC 5.14 10^6/uL 10^6 /uL (4.1-5.3) Hgb 16.1 g/dL H g/dL (11.5-15.3) Hct 48.2 % H % (37.0-47.0) MCV 93.8 fl fl (81-99) MCH 31.3 pg pg (28.0-34.0) MCHC 33.4 g/dL g/dL (30.0-36.0) RDW 13.1 % % (12.1-15.1) Plt Count 360 10^3/cmm 10^3 /cmm (130-400) MPV 10.1 fL fL (7.4-10.4) Neut % (Auto) 45.1 % % Lymph % (Auto) 44.8 % % [place] % (Auto) 6.8 % % Eos % (Auto) 2.1 % % Baso % (Auto) 0.8 % % Neut # (Auto) 4.84 10^3/uL 10^3 /uL (1.8-7.7) Lymph # (Auto) 4.8 10^3/uL 10^3/ uL (0.8-4.8) [place] # (Auto) 0.7 10^3/uL 10^3/ uL (0.2-0.9) Eos # (Auto) 0.2 10^3/uL 10^3/ uL (0.0-0.8) Baso # (Auto) 0.1 10^3/uL 10^3/ uL (0.0-0.1) Nucleated RBC % (a uto) 0 % % Nucleated RBCs # 0.0 /100WBC /100W BC Sodium 136 mmol/L mmol/L (136-145) Potassium 3.7 mmol/L mmol/L (3.5-5.1) Chloride 103 mmol/L mmol/L (98-107) Carbon Dioxide 20 mmol/L L mmol/ L (22-29) Anion Gap 16.7 (5-19) BUN 5 mg/dL L mg/dL (6-20) Creatinine 0.5 mg/dL mg/dL (0.5-0.9) GFR Calculation 138.1 mL/min H mL /min (90-130) Glucose 111 mg/dL mg/dL (65-115) Calculated Osmolal ity 280 mOsm/kg L mOs m/kg (285-295) Calcium 9.2 mg/dL mg/dL (8.5-10.5) Urine HCG, Qual Negative (Negative) Salicylates < 0.3 mg/dL L mg/ dL (3-10) Urine Opiates Scre en Acetaminophen < 5.0 ug/mL L ug/ mL (10-30) Ur Barbiturates Sc reen Ur Phencyclidine S crn Ur Amphetamines Sc reen U Benzodiazepines Scrn Urine Cocaine Scre en U Marijuana (THC) Screen 04/09/21 21:54 WBC RBC Hgb Hct MCV MCH MCHC RDW Plt Count MPV Neut % (Auto) Lymph % (Auto) [place] % (Auto) Eos % (Auto) Baso % (Auto) Neut # (Auto) Lymph # (Auto) [place] # (Auto) Eos # (Auto) Baso # (Auto) Nucleated RBC % (a uto) Nucleated RBCs # Sodium Potassium Chloride Carbon Dioxide Anion Gap BUN Creatinine GFR Calculation Glucose Calculated Osmolal ity Calcium Urine HCG, Qual Salicylates Urine Opiates Scre en Negative ng/mL ng /mL (Negative) Acetaminophen Ur Barbiturates Sc reen Negative ng/mL ng /mL (Negative) Ur Phencyclidine S crn Negative ng/mL ng /mL (Negative) Ur Amphetamines Sc reen Positive ng/mL H ng/mL (Negative) U Benzodiazepines Scrn Negative ng/mL ng /mL (Negative) Urine Cocaine Scre en Negative ng/mL ng /mL (Negative) U Marijuana (THC) Screen Positive ng/mL H ng/mL (Negative) Discharge Plan Discharge Patient Disposition: Admitted As Inpatient Admit Provider: Rafael Wills Clinical Impression: Airam, Psychosis Condition: Stable Coding Level of Care Code ED Rare/Endangered Species Specialist for Shelley Arnold
--- NOTE | 2021-04-09 19:38 | PC.NURSE ---
190 report from EMILY Jamil
[2021-04-09] MEDS: LORazepam 2 mg/mL INJ 1 mL IM (20:40)
[2021-04-09] MEDS: haloperidol inj 5 mg/mL INJ 1 mL IM (20:41)
[2021-04-09 21:03] LABS: Basophils # 0.1 10^3/uL (0.0-0.1); Basophils % 0.8 %; Eosinophils # 0.2 10^3/uL (0.0-0.8); Eosinophils % 2.1 %; Hematocrit 48.2 % (37.0-47.0); Hemoglobin 16.1 g/dL (11.5-15.3); Lymphocytes # 4.8 10^3/uL (0.8-4.8); Lymphocytes % 44.8 %; Mean Corpuscular HGB Conc 33.4 g/dL (30.0-36.0); Mean Corpuscular Hemoglobin 31.3 pg (28.0-34.0); Mean Corpuscular Volume 93.8 fl (81-99); Mean Platelet Volume 10.1 fL (7.4-10.4); Monocytes # 0.7 10^3/uL (0.2-0.9); Monocytes % 6.8 %; Neutrophils # 4.84 10^3/uL (1.8-7.7); Neutrophils % 45.1 %; Nucleated Red Blood Cells % 0 %; Platelet Count 360 10^3/cmm (130-400); Red Blood Count 5.14 10^6/uL (4.1-5.3); Red Cell Distribution Width 13.1 % (12.1-15.1); White Blood Count 10.8 10^3/uL (4.0-10.0)
[2021-04-09] MEDS: nicotine 7 mg Patch 1 PATCH TRANSDERMA (21:16)
--- NOTE | 2021-04-09 21:16 | PC.NURSE ---
Pt yelling in the room, appears to be having discussion to someone not in the room. When staff enters room she is friendly and cooperative, speaking with low voice, but at times talking about things that do not make sense. Sitter outside room.
[2021-04-09 21:36] LABS: Anion Gap 16.7 (5-19); Blood Urea Nitrogen 5 mg/dL (6-20); Calcium 9.2 mg/dL (8.5-10.5); Carbon Dioxide 20 mmol/L (22-29); Chloride 103 mmol/L (98-107); Glomerular Filtration Rate 138.1 mL/min (90-130); Glucose 111 mg/dL (65-115); Osmolality Calculated 280 mOsm/kg (285-295); Potassium 3.7 mmol/L (3.5-5.1); Sodium 136 mmol/L (136-145)
[2021-04-09 21:37] LABS: Acetaminophen < 5.0 ug/mL (10-30); Salicylate < 0.3 mg/dL (3-10)
[2021-04-09 22:00] VITALS: BP 137/86; PULSE 88; RESP 18; O2SAT 97
[2021-04-09 22:31] LABS: Amphetamines Screen Urine Positive (Negative); Barbiturates Screen Urine Negative (Negative); Benzodiazepines Screen Urine Negative (Negative); Cocaine Screen Urine Negative (Negative); Opiate Screen Urine Negative (Negative); PCP Screen Urine Negative (Negative); THC Screen Urine Positive (Negative)
[2021-04-09 22:38] VITALS: BP 137/86; PULSE 88; RESP 18
[2021-04-09 23:50] LABS: Alcohol Level < 10 mg/dL (0-10)
--- NOTE | 2021-04-09 23:57 | PC.NURSE ---
Admission note 36/F AVH+ 96 hr hold DOA+METH/+THC Pt is having loud/angry conversations with internal stimuli. She is cooperative with staff and tone returns to normal when speaking with nurse. Speech is disorganized with loose association. pt hx of alcohol abuse, meth abuse, hep c+, bipolar disorder, AVH
[2021-04-10 06:00] VITALS: BP 137/86; PULSE 88; RESP 18; O2SAT 97
--- NOTE | 2021-04-10 08:01 | PC.OT ---
OT NPU EVALUATION ATTEMPTED. PATIENT SLEEPING AND UNABLE TO STAY AWAKE TO PARTICIPATE IN EVALUATION. WILL ATTEMPT AGAIN AT A LATER TIME.
[2021-04-10] MEDS: propranolol 20 mg Tablet 10 MG PO ×2 (08:31→18:14)
[2021-04-10] MEDS: OLANZapine 10 mg TABLET PO ×2 (08:31→18:14)
[2021-04-10 14:00] VITALS: BP 126/86; PULSE 88; RESP 17; TEMP 37.2; O2SAT 95
--- NOTE | 2021-04-10 15:14 | P.HP_ITS ---
Providers/Chief Complaint Admitting Physician: Rafael Wills MD Primary Care Provider: Georges Milton MD Chief Complaint: 96 HOUR HOLD HPI NPU History of Present Illness Heidi Caballero is a 36 year old female with a history of bipolar disorder and polysubstance use who presented with bizarre behavior, racing thoughts, and auditory hallucinations. The ED notes state: HPI: [36]yo patient w/ hx of bipolar disorder not on medicine BIBA for acute psychosis and airam. On arrival, the patient is AAOx3 and cooperative with my evaluation. No focal complaints of chest pain, shortness of breath, palpitations, N/V, focal GI/ complaints. Currently denies SI/HI. HDS, exam within normal limit. Clinically the patient displays no overt toxidrome; they are well appearing, with low suspicion for toxic ingestion given history and exam. Symptoms unlikely 2/2 anemia, hypothyroidism, infection, or ICH. Workup: CBC, CMP, Lipase, salicylate/tylenol, UDS. Lab findings: wnl, +amphetamine in urine. [7:00pm] On reassessment, labs and workup wnl. Patient is hemodynamically stable with no acute medical complaints. The patient was quite sleepy when I interviewed her and she provided little useful information. She does say she has been drinking alcohol, smoking marijuana, and snorting, smoking, and shooting methamphetamines recently, and her UDS was indeed positive for amphetamines and marijuana. She says she has been stressed and worried recently, but cannot give any details about the sources of her distress. She denies feeling euphoric. She denies auditory and visual hallucinations. Denies suicidal and homicidal ideation. She is not able to describe any of the bizarre behavior that has been observed. She has been admitted here at least twice before, and the last admission was from 02/24?02/28/2021. She has been seen in the [facility] for outpatient follow-up. Psychiatric history: As above. Substance use history: As above. Family history: Unable to provide. She thinks her grandmother might have had some mental health issues. Psychosocial history: The patient says she was born and raised in [place], [place] and moved to [place] at the age of 21. She attended to the 11th grade in school. Legal history: No legal difficulties. Medical history: Denies any significant medical history, beyond bipolar disorder and ADHD. Records indicate she has had hepatitis C and cirrhosis of the liver. Excepts of previous admissions are included below to provide additional context: From the NPU admission 02/24/-02/28/21: Heidi Caballero is a 35 year old female who presented to the ED with the following report: HPI Narrative: Patient is a 35-year-old female who was brought into the emergency department by her mother for psychiatric evaluation. Mother filled out an affidavit detailing some of her concerns including the fact that the patient has been threatening her and she has to hide herself in her room because she is worried the patient will hurt her. The patient has been hallucinating and mother thinks that she has been using drugs. It is impossible to obtain a history from this patient as her answers to q uestions do not make sense. She appears to be hallucinating as she is talking to inanimate objects when I am talking to her. She is referring to things that I do not understand. She did admit to injecting herself with methamphetamines. On her left forearm there is an area of redness, swelling, warmth and pain. The patient wants an incision and drainage to the area. MD complaint: altered mental status. Patient was admitted to the MedSurg unit for definitive treatment of the abscess. This required IV antibiotics which required this to be on the medical unit. A psychiatric consult was requested to determine whether she is in need of inpatient services or continuation of the 96-hour hold. She presents today reporting that she is fine and she does not know why her mother instituted 96-hour hold. When questioned about the positive UDS for methamphetamine and cannabis she initially tried to question whether she was actually intoxicated at the moment of the event with her mother. We discussed that sometimes you have cognitive impact that linger much longer than the drug may even linger in her system. We also identified that when she came in she was positive on the UDS. We discussed the bizarre behaviors that her mother was concerned about and the risk benefits and alternatives of her continuing on the psychiatric unit which she understood and agreed to proceed as documented in this note. Per her 08/08/20 [facility] inpatient consult: History of Present Illness Heidi Caballero is a 35 year old female presenting to the emergency department on court ordered involuntary hold secondary to bizarre behavior, psychotic symptoms. Patient currently denying any psychosis but continues to say bizarre things such as, water has magical dejesus, I think everyone should be drinking more water. She denies any depressed symptoms, denies any suicidal ideation. She denies any recent or past manic or hypomanic episodes. Patient reports being on olanzapine 10 mg twice daily and states that she has been compliant with her medication. He reports last follow-up for medication management was a couple months ago. Patient states that she typically smokes marijuana on a daily basis but reports using methamphetamine yesterday but does not connect this to her most recent reported psychotic symptoms. 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 -Heidi, goes by name of Klaus , reports sleeping well at night, no depressive/manic episodes, compliant with taking her medications, looking forward to [place] as going to [place] with the family and her boyfriend for two weeks; denies any use of illicit substances with reported last use of alcohol, meth, and marijuana in September 2019. -Will continue current medication regimen without changes today. Plan: -Continue Trazodone 100 mg at bedtime as needed for sleep -Continue Zyprexa 10 mg twice per day -Continue Hydroxyzine 25 mg three times per day as needed for anxiety Meds NPU Home Medications Medication Instructions Recorded Confirmed Last Taken Type olanzapine 10 mg tablet 10 mg PO BID #60 tab 02/20/21 04/09/21 Unknown Rx propranolol 10 mg tablet 10 mg PO BID #60 tab 02/20/21 04/09/21 Unknown Rx trazodone 100 mg PO BEDTIME PRN 04/09/21 04/09/21 Unknown History Allergies Allergy/AdvReac Type Severity Reaction Status Date / Time aspirin Allergy Unknown unknown Verified 08/10/20 09:16 ziprasidone [From Geodon] Allergy Unknown Unknown Verified 08/10/20 09:16 NSAIDS (Non-Steroidal Allergy Unknown Verified 04/09/21 23:55 Anti-Inflamma PFSH NPU PFSH: Medical History (Updated 04/10/21 @ 18:59 by Rafael Wills MD) Alcohol abuse, episodic drinking behavior Amphetamine addiction Episodic use Bipolar disorder, current episode manic severe with psychotic features Cannabis dependence, episodic use Cellulitis and abscess of upper arm and forearm Hepatitis C Liver cirrhosis Airam Nicotine dependence, cigarettes, uncomplicated Psychosis Surgical History No pertinent past surgical history Family History Other Psychiatric illness Social History Smoking and tobacco status: current every day smoker cigarettes Packs smoked per day: 2 Mental Status Exam MSE Comments: I met with the patient on the bench by the nurses station. She was lying in her bed when I first went to get her, and she was somewhat hard to wake up. She was dressed in hospital scrubs with poor grooming. She was somnolent, minimally cooperative, not very interactive, and made poor eye contact. No psychomotor agitation or retardation. Speech is at a regular rate and rhythm, normal volume, poor articulation, not pressured. Alert, oriented to person, place, year, and situation. She said it was May 03, when in fact it is April 10. Attention, concentration, and memory were judged as somewhat impaired, but were not formally tested Mood is depressed and anxious. Affect is irritable. Thought process is concrete. Thought content: Denies auditory and visual hallucinations. No delusions or paranoia are noted. No current suicidal ideation, and no homicidal ideation. She is reported to have been hearing voices in the ED. Fund of knowledge is not tested. Language is intact to exam. Insight and judgment appear to be impaired. Impulse control is impaired as well. Vitals/I&O/Wt Last Vital Signs Temp 99 F 04/10/21 14:00 Pulse 88 04/10/21 14:00 Resp 17 04/10/21 14:00 BP 126/86 04/10/21 14:00 Pulse Ox 95 04/10/21 14:00 Weight last 48 hrs Weight 113.398 kg Data NPU : 04/09/21 20:45 04/09/21 20:45 A&P Assessment and plan (1) Bipolar disorder, current episode mixed, severe, with psychotic features: Status: Acute (2) Amphetamine addiction: Status: Chronic (3) Cannabis dependence, episodic use: Status: Chronic (4) Alcohol abuse, episodic drinking behavior: Status: Chronic (5) Nicotine dependence, cigarettes, uncomplicated: Status: Chronic Additional A&P Information This is a 36 year old female with a history of bipolar disorder and polysubstance use who presented with bizarre behavior, racing thoughts, and auditory hallucinations. She is confirmed to have been using methamphetamine and marijuana, which likely precipitated this acute episode of mixed bipolar disorder. RECOMMENDATION AND PLAN: 1. Continue current medication. 2. Continue every 15 minute checks for safety. 3. Encourage individual, group and milieu therapies. 4. Encourage sober living treatment after discharge at the highest level of care to which he is willing to commit. Involuntary Hold Information 96 Hour Hold: 96 Hour Involuntary Admission: Yes 96 Hour Hold Ending Date: 04/12/21 96 Hour Hold Ending Time: 21:46 Attestations NPU Medical Necessity Statement*: Psychiatric hospitalization is medically necessary to prevent access to lethal means, to reevaluate medication, and to coordinate a safe discharge. Patient will be in the hospital for over 2 midnights. Likely length of stay is 3 to 5 days. Coding Level of Care Code Acute Interventional Radiology Rn for Shelley Arnold Diagnoses Bipolar disorder, current episode mixed, severe, with psychotic features F31.64 Amphetamine addiction F15.20 Cannabis dependence, episodic use F12.20 Alcohol abuse, episodic drinking behavior F10.10 Nicotine dependence, cigarettes, uncomplicated F17.210
--- NOTE | 2021-04-10 16:14 | PC.RESP ---
sent smoking cessation information
[2021-04-10 22:00] VITALS: RESP 16; TEMP 37.2
--- NOTE | 2021-04-11 05:22 | PC.NURSE ---
BEHAVIOR PT SLEPT ALL SHIFT. SHE IS COOPERATIVE WITH STAFF AND TOOK HER PRESCRIBED MEDICATION WITHOUT INCIDENT. PLEASANT WITH STAFF.
[2021-04-11 06:00] VITALS: RESP 17
--- NOTE | 2021-04-11 08:59 | PC.OT ---
OT EVALUATION ATTEMPTED AGAIN THIS MORNING. PATIENT DOES NOT AWAKEN TO HER NAME. WILL ATTEMPT AGAIN TOMORROW.
[2021-04-11] MEDS: OLANZapine 10 mg TABLET PO ×2 (09:20→17:33)
[2021-04-11] MEDS: propranolol 20 mg Tablet 10 MG PO ×2 (09:20→17:32)
--- NOTE | 2021-04-11 13:28 | P.PN_ITS ---
Subjective NPU Subjective: Interval history: I met with the treatment team to discuss the patient's progress. We discussed her potential need for a long-acting injectable antipsychotic. In that case we would need to change from Zyprexa to something like Invega or Abilify, then initiate the SIMMONS. The patient was fairly lethargic when I went to meet with her. She does not answer many questions. She does not law know how long she had stopped taking her medications for. She feels that they hurt her kidneys sometimes, causing back pain. She says that they help her sometimes, and she is more able to function. She denies auditory and visual hallucinations. She denies suicidal and homicidal ideation. She says she has no medication side effects today. Mental Status Exam MSE Comments: I met with the patient in her doorway with the door open. She was lying in her bed. She was dressed in hospital scrubs with poor grooming. She was somnolent, but somewhat more cooperative and interactive than yesterday. She made poor eye contact. No psychomotor agitation or retardation. Speech is at a regular rate and rhythm, normal volume, poor articulation, not pressured. Alert, oriented to person, place, and situation. Attention, concentration, and memory were judged as somewhat impaired, but were not formally tested Mood is depressed and anxious. Affect is improved. Thought process is concrete. Thought content: Denies auditory and visual hallucinations. No delusions or paranoia are noted. No current suicidal ideation, and no homicidal ideation. She is reported to have been hearing voices in the ED. Fund of knowledge is not tested. Language is intact to exam. Insight and judgment appear to be impaired. Impulse control is impaired as well. Vitals/I&O/Wt Last Vital Signs Temp 98.1 F 04/11/21 14:00 Pulse 66 04/11/21 14:00 Resp 16 04/11/21 14:00 BP 101/60 04/11/21 14:00 Pulse Ox 96 04/11/21 14:00 Data NPU : 04/09/21 20:45 04/09/21 20:45 A&P Assessment and plan (1) Bipolar disorder, current episode mixed, severe, with psychotic features: Status: Acute (2) Amphetamine addiction: Status: Chronic (3) Cannabis dependence, episodic use: Status: Chronic (4) Alcohol abuse, episodic drinking behavior: Status: Chronic (5) Nicotine dependence, cigarettes, uncomplicated: Status: Chronic Additional A&P Information This is a 36 year old female with a history of bipolar disorder and polysubstance use who presented with bizarre behavior, racing thoughts, and auditory hallucinations. She is confirmed to have been using methamphetamine and marijuana, which likely precipitated this acute episode of mixed bipolar disorder. RECOMMENDATION AND PLAN: 1. We have restarted and will continue her home medication. 2. Continue every 15 minute checks for safety. 3. Encourage individual, group and milieu therapies. 4. Encourage sober living treatment after discharge at the highest level of care to which he is willing to commit. Involuntary Hold Information 96 Hour Hold: 96 Hour Involuntary Admission: Yes 96 Hour Hold Ending Date: 04/12/21 96 Hour Hold Ending Time: 21:46 Attestations U Medical Necessity Statement*: Psychiatric hospitalization is medically necessary to prevent access to lethal means, to reevaluate medication, and to coordinate a safe discharge. Likely length of stay is 3 to 5 days. Coding Level of Care Code Acute Civil Geotechnical Engineer for Shelley Arnold Diagnoses Bipolar disorder, current episode mixed, severe, with psychotic features F31.64 Amphetamine addiction F15.20 Cannabis dependence, episodic use F12.20 Alcohol abuse, episodic drinking behavior F10.10 Nicotine dependence, cigarettes, uncomplicated F17.210
[2021-04-11 14:00] VITALS: BP 101/60; PULSE 66; RESP 16; TEMP 36.7; O2SAT 96
[2021-04-11 20:50] VITALS: BP 126/82; PULSE 92; RESP 17; TEMP 36.6; O2SAT 93
[2021-04-12 06:00] VITALS: BP 103/69; PULSE 80; RESP 16; TEMP 36.3; O2SAT 94
--- NOTE | 2021-04-12 09:04 | PC.OT ---
Attempted NPU OT Evaluation. Patient reports that she is too tired to participate at this time, requesting therapist to return later. Will reattempt.
[2021-04-12] MEDS: propranolol 20 mg Tablet 10 MG PO ×2 (09:26→19:56)
[2021-04-12] MEDS: OLANZapine 10 mg TABLET PO ×2 (09:26→19:56)
[2021-04-12 14:00] VITALS: RESP 18; TEMP 36.7
--- NOTE | 2021-04-12 17:54 | P.PN_ITS ---
Subjective NPU Subjective: Interval history: The patient is feeling somewhat better today. She says, I was not myself. I had to llanes the ear fullness. She said, Allyson tried to take on being me. She felt like this was some sort of spiritual take over. She says she misses her voices because they love me. No suicidal or homicidal ideation today. No auditory or visual hallucinations today. No medication side effects. Mental Status Exam MSE Comments: I met with the patient on the bench next to the nurses station. She was dressed in hospital scrubs with improved grooming. She was alert, cooperative, and interactive. Good eye contact. No psychomotor agitation or retardation. Speech is at a regular rate and rhythm, normal volume, poor articulation, not pressured. Alert, oriented to person, place, and situation. Attention, concentration, and memory were judged improved but not formally tested. Mood is improved. Affect is improved. Thought process is more logical and goal-directed.. Thought content: Denies auditory and visual hallucinations. No delusions or paranoia are noted. No current suicidal ideation, and no homicidal ideation. She is reported to have been hearing voices in the ED. she is able to describe the delusions and hallucination she had before. Fund of knowledge is not tested. Language is intact to exam. Insight and judgment appear to be improved. Impulse control is impaired as well. Vitals/I&O/Wt Last Vital Signs Temp 98.1 F 04/12/21 14:00 Pulse 80 04/12/21 06:00 Resp 18 04/12/21 14:00 BP 103/69 04/12/21 06:00 Pulse Ox 94 04/12/21 06:00 Data NPU : 04/09/21 20:45 04/09/21 20:45 A&P Assessment and plan (1) Bipolar disorder, current episode mixed, severe, with psychotic features: Status: Acute (2) Amphetamine addiction: Status: Chronic (3) Cannabis dependence, episodic use: Status: Chronic (4) Alcohol abuse, episodic drinking behavior: Status: Chronic (5) Nicotine dependence, cigarettes, uncomplicated: Status: Chronic Additional A&P Information This is a 36 year old female with a history of bipolar disorder and polysubstance use who presented with bizarre behavior, racing thoughts, and auditory hallucinations. She is confirmed to have been using methamphetamine and marijuana, which likely precipitated this acute episode of mixed bipolar disorder. RECOMMENDATION AND PLAN: 1. We have restarted and will continue her home medication. 2. Continue every 15 minute checks for safety. 3. Encourage individual, group and milieu therapies. 4. Encourage sober living treatment after discharge at the highest level of care to which he is willing to commit. Involuntary Hold Information 96 Hour Hold: 96 Hour Involuntary Admission: Yes 96 Hour Hold Ending Date: 04/12/21 96 Hour Hold Ending Time: 21:46 Attestations NPU Medical Necessity Statement*: Psychiatric hospitalization is medically necessary to prevent access to lethal means, to reevaluate medication, and to coordinate a safe discharge. Likely length of stay is 3 to 5 days. Coding Level of Care Code Acute Supervisor [employer] for Shelley Arnold Diagnoses Bipolar disorder, current episode mixed, severe, with psychotic features F31.64 Amphetamine addiction F15.20 Cannabis dependence, episodic use F12.20 Alcohol abuse, episodic drinking behavior F10.10 Nicotine dependence, cigarettes, uncomplicated F17.210
[2021-04-12 20:44] VITALS: BP 116/88; PULSE 98; RESP 18; TEMP 37.2; O2SAT 98
[2021-04-13 06:00] VITALS: BP 113/74; PULSE 69; RESP 19; TEMP 36.6; O2SAT 95
[2021-04-13] MEDS: propranolol 20 mg Tablet 10 MG PO ×2 (09:51→17:01)
[2021-04-13] MEDS: OLANZapine 10 mg TABLET PO ×2 (09:51→17:01)
[2021-04-13 14:00] VITALS: BP 136/72; PULSE 77; RESP 17; TEMP 36.8; O2SAT 97
--- NOTE | 2021-04-13 17:58 | PM.NPN ---
Subjective NPU Subjective: Interval history: The patient says she is feeling much better today, almost back to her usual self. She denies auditory visual hallucinations. There are no suicidal or homicidal ideations. No medication side effects. We discussed her discharge tomorrow if she is continuing to do better and her mother is in agreement. Mental Status Exam MSE Comments: I met with the patient on the bench next to the nurses station. She was dressed in hospital scrubs with improved grooming. She was alert, cooperative, and interactive. Good eye contact. No psychomotor agitation or retardation. Speech is at a regular rate and rhythm, normal volume, poor articulation, not pressured. Alert, oriented to person, place, and situation. Attention, concentration, and memory were judged improved but not formally tested. Mood is euthymic. Affect is cheerful, but not euphoric. Thought process is more logical and goal-directed.. Thought content: Denies auditory and visual hallucinations. No delusions or paranoia are noted. No current suicidal ideation, and no homicidal ideation. She is reported to have been hearing voices in the ED. she is able to describe the delusions and hallucination she had before. Fund of knowledge is not tested. Language is intact to exam. Insight and judgment appear to be improved. Impulse control is impaired as well. Vitals/I&O/Wt Last Vital Signs Temp 98.3 F 04/13/21 14:00 Pulse 77 04/13/21 14:00 Resp 17 04/13/21 14:00 BP 136/72 04/13/21 14:00 Pulse Ox 97 04/13/21 14:00 Data NPU : 04/09/21 20:45 04/09/21 20:45 A&P Assessment and plan (1) Bipolar disorder, current episode mixed, severe, with psychotic features: Status: Acute (2) Amphetamine addiction: Status: Chronic (3) Cannabis dependence, episodic use: Status: Chronic (4) Alcohol abuse, episodic drinking behavior: Status: Chronic (5) Nicotine dependence, cigarettes, uncomplicated: Status: Chronic Involuntary Hold Information 96 Hour Hold: 96 Hour Involuntary Admission: Yes 96 Hour Hold Ending Date: 04/12/21 96 Hour Hold Ending Time: 21:46 Attestations NPU Medical Necessity Statement*: Psychiatric hospitalization is medically necessary to prevent access to lethal means, to reevaluate medication, and to coordinate a safe discharge. Anticipate discharge tomorrow if the patient continues to improve and her mother has no significant concerns. Coding Level of Care Code Acute Manager Department for Danielag Fwd Diagnoses Bipolar disorder, current episode mixed, severe, with psychotic features F31.64 Amphetamine addiction F15.20 Cannabis dependence, episodic use F12.20 Alcohol abuse, episodic drinking behavior F10.10 Nicotine dependence, cigarettes, uncomplicated F17.210
[2021-04-13 20:53] VITALS: BP 97/64; PULSE 78; RESP 15; TEMP 36.5; O2SAT 98
[2021-04-14 06:00] VITALS: BP 109/78; PULSE 67; RESP 17; TEMP 36.6; O2SAT 97
[2021-04-14] MEDS: OLANZapine 10 mg TABLET PO ×2 (09:14→19:23)
[2021-04-14] MEDS: propranolol 20 mg Tablet 10 MG PO ×2 (09:14→19:22)
--- NOTE | 2021-04-14 13:25 | P.PN_ITS ---
Subjective NPU Subjective: Interval history: The patient says that she could not get to sleep last night. Her mind would not shut down and she had too much energy. At first she says that her mood is good and then she says that she is really down. She has been trying to get a hold of her mother. She explains that a neighbor named Don has to contact another neighbor named Cristian who goes over to the house to ask her mother to turn on her phone. She denies auditory and visual hallucinations. She denies suicidal ideation. She says the only side effect for the medicine she has is [place]. Mental Status Exam MSE Comments: I met with the patient on the bench next to the nurses station. She was dressed in hospital scrubs with improved grooming. She was alert, cooperative, and interactive. Good eye contact. No psychomotor agitation or retardation. Speech is at a regular rate and rhythm, normal volume, poor articulation, not pressured. Alert, oriented to person, place, and situation. Attention, concentration, and memory were judged improved but not formally tested. Mood is very sad today. Affect is tearful. Thought process is more logical and goal-directed. She reports having had some racing thoughts. Thought content: Denies auditory and visual hallucinations. No delusions or paranoia are noted. No current suicidal ideation, and no homicidal ideation. She is reported to have been hearing voices in the ED. she is able to describe the delusions and hallucination she had before. Insight and judgment appear to be improved. Impulse control is impaired as well. Vitals/I&O/Wt Last Vital Signs Temp 97.8 F 04/14/21 06:00 Pulse 67 04/14/21 06:00 Resp 17 04/14/21 06:00 BP 109/78 04/14/21 06:00 Pulse Ox 97 04/14/21 06:00 Weight last 48 hrs Weight 114.305 kg Data NPU : 04/09/21 20:45 04/09/21 20:45 A&P Assessment and plan (1) Bipolar disorder, current episode mixed, severe, with psychotic features: Status: Acute (2) Amphetamine addiction: Status: Chronic (3) Cannabis dependence, episodic use: Status: Chronic (4) Alcohol abuse, episodic drinking behavior: Status: Chronic (5) Nicotine dependence, cigarettes, uncomplicated: Status: Chronic Additional A&P Information This is a 36 year old female with a history of bipolar disorder and polysubstance use who presented with bizarre behavior, racing thoughts, and auditory hallucinations. She is confirmed to have been using methamphetamine and marijuana, which likely precipitated this acute episode of mixed bipolar disorder. RECOMMENDATION AND PLAN: She continues to have unstable mood and racing thoughts. 1. We have restarted and will continue her home medication. 2. Continue every 15 minute checks for safety. 3. Encourage individual, group and milieu therapies. 4. Encourage sober living treatment after discharge at the highest level of care to which he is willing to commit. Involuntary Hold Information 96 Hour Hold: 96 Hour Involuntary Admission: Yes 96 Hour Hold Ending Date: 04/12/21 96 Hour Hold Ending Time: 21:46 Attestations U Medical Necessity Statement*: Psychiatric hospitalization is medically necessary to prevent access to lethal means, to reevaluate medication, and to coordinate a safe discharge. She continues to have unstable mood and racing thoughts. Emotions and thinking need to be more stable for her to safely discharged home. In addition, we are trying to reach her mother who filed an affidavit that led to her 96-hour hold. We have applied for a 21-day hold, and a hearing has been scheduled for 04/17/2021. Coding Level of Care Code Acute Director Validation for Shelley Arnold Diagnoses Bipolar disorder, current episode mixed, severe, with psychotic features F31.64 Amphetamine addiction F15.20 Cannabis dependence, episodic use F12.20 Alcohol abuse, episodic drinking behavior F10.10 Nicotine dependence, cigarettes, uncomplicated F17.210
[2021-04-14 14:00] VITALS: BP 89/57; PULSE 77; RESP 16; TEMP 36.3; O2SAT 96
[2021-04-14] MEDS: trazodone 50 mg Tablet PO (19:23)
[2021-04-14] MEDS: nicotine 2 mg Gum BUCCAL (19:23)
[2021-04-14 21:30] VITALS: BP 89/57; PULSE 77; RESP 16; TEMP 36.3; O2SAT 96
[2021-04-15 06:00] VITALS: BP 121/80; PULSE 65; RESP 17; TEMP 37.2; O2SAT 98
[2021-04-15] MEDS: propranolol 20 mg Tablet 10 MG PO ×2 (08:22→19:41)
[2021-04-15] MEDS: OLANZapine 10 mg TABLET PO ×2 (08:22→19:41)
--- NOTE | 2021-04-15 12:29 | P.PN_ITS ---
Subjective NPU Subjective: Interval history: The patient today is in a much more emotional state. She says she could not sleep last night because she was too anxious. We talked about the things that led up to her readmission. She said she stopped taking her medication because she was afraid of gaining weight. She said she used meth at least twice. When I talked to her about the factors that led to her using meth, she got frustrated and tearful and could not talk about it. When gets the feeling that she does not have confidence that she can stay off meth. We spent some time trying to figure out who else could alert her mother to call her. She feels very hopeless about this. She does deny auditory and visual hallucinations. She denies suicidal and homicidal ideation. Medicati on side effects include weight gain. I explained to the patient that we have applied for a 21-day hold and that the court hearing is scheduled for 04/17/2021. I explained that legally we can hold her until the hearing. Mental Status Exam MSE Comments: I met with the patient in the day room. She was dressed in hospital scrubs and her hair was uncombed. She was initially alert, cooperative, and interactive with good eye contact. As we talked about things that needed to be in place for her to return home, she began to fall apart emotionally. She developed psychomotor agitation. Speech is at a regular rate and rhythm, normal volume, poor articulation, and it became pressured. Alert, oriented to person, place, and situation. Attention, concentration, and memory were initially fair but she became internally focused. Mood is very sad today. Affect is tearful. Thought process is more logical and goal-directed. She reports having had some racing thoughts. Thought content: Denies auditory and visual hallucinations. No delusions or paranoia are noted. No current suicidal ideation, and no homicidal ideation. She is able to say she was loopy prior to admission. Insight and judgment are still limited today. Impulse control is impaired as well. Vitals/I&O/Wt Last Vital Signs Temp 98.9 F 04/15/21 06:00 Pulse 65 04/15/21 06:00 Resp 17 04/15/21 06:00 BP 121/80 04/15/21 06:00 Pulse Ox 98 04/15/21 06:00 Weight last 48 hrs Weight 114.305 kg Data NPU : 04/09/21 20:45 04/09/21 20:45 A&P Assessment and plan (1) Bipolar disorder, current episode mixed, severe, with psychotic features: Status: Acute (2) Amphetamine addiction: Status: Chronic (3) Cannabis dependence, episodic use: Status: Chronic (4) Alcohol abuse, episodic drinking behavior: Status: Chronic (5) Nicotine dependence, cigarettes, uncomplicated: Status: Chronic Additional A&P Information This is a 36 year old female with a history of bipolar disorder and polysubstance use who presented with bizarre behavior, racing thoughts, and auditory hallucinations. She is confirmed to have been using methamphetamine and marijuana, which likely precipitated this acute episode of mixed bipolar disorder. RECOMMENDATION AND PLAN: She continues to have unstable mood, agitation, and racing thoughts. 1. We have restarted and will continue her home medication. Our hope is that she will return to her previous level of functioning on these dosages. 2. Continue every 15 minute checks for safety. 3. Encourage individual, group and milieu therapies. 4. Encourage sober living treatment after discharge at the highest level of care to which he is willing to commit. Involuntary Hold Information 96 Hour Hold: 96 Hour Involuntary Admission: Yes 96 Hour Hold Ending Date: 04/12/21 96 Hour Hold Ending Time: 21:46 Attestations NPU Medical Necessity Statement*: Psychiatric hospitalization is medically necessary to prevent access to lethal means, to reevaluate medication, and to coordinate a safe discharge. She continues to have unstable mood and racing thoughts. Emotions and thinking need to be more stable for her to safely discharged home. In addition, we are trying to reach her mother who filed an affidavit that led to her 96-hour hold. We have applied for a 21-day hold, and a hearing has been scheduled for 04/17/2021. Coding Level of Care Code Acute Labor Delivery Specialist for Shelley Arnold Diagnoses Bipolar disorder, current episode mixed, severe, with psychotic features F31.64 Amphetamine addiction F15.20 Cannabis dependence, episodic use F12.20 Alcohol abuse, episodic drinking behavior F10.10 Nicotine dependence, cigarettes, uncomplicated F17.210
[2021-04-15 14:00] VITALS: BP 103/83; PULSE 82; RESP 18; TEMP 36.6; O2SAT 96
[2021-04-15] MEDS: nicotine 2 mg Gum BUCCAL (19:41)
[2021-04-15] MEDS: trazodone 100 mg Tablet PO (19:42)
[2021-04-15] MEDS: acetaminophen 325 mg Tablet 650 MG PO (20:55)
[2021-04-15 22:00] VITALS: BP 125/90; PULSE 77; RESP 18; TEMP 37; O2SAT 96
[2021-04-16 06:00] VITALS: BP 127/82; PULSE 70; RESP 20; TEMP 36.5; O2SAT 98
[2021-04-16] MEDS: propranolol 20 mg Tablet 10 MG PO (08:26)
[2021-04-16] MEDS: OLANZapine 10 mg TABLET PO (08:26)
[2021-04-16] MEDS: acetaminophen 325 mg Tablet 650 MG PO (08:27)
--- NOTE | 2021-04-16 11:10 | PM.NDC ---
Diagnoses at Discharge Discharge Diagnosis (1) Bipolar disorder, current episode mixed, severe, with psychotic features: Status: Resolved (2) Amphetamine addiction: Status: Chronic Permanent problem details: Episodic use (3) Cannabis dependence, episodic use: Status: Chronic (4) Alcohol abuse, episodic drinking behavior: Status: Chronic (5) Nicotine dependence, cigarettes, uncomplicated: Status: Chronic Reason for Visit Reason for Visit: 96 HOUR HOLD Brief History: Heidi Caballero is a 36 year old female with a history of bipolar disorder and polysubstance use who presented with bizarre behavior, racing thoughts, and auditory hallucinations. The ED notes state: HPI: [36]yo patient w/ hx of bipolar disorder not on medicine BIBA for acute psychosis and airam. On arrival, the patient is AAOx3 and cooperative with my evaluation. No focal complaints of chest pain, shortness of breath, palpitations, N/V, focal GI/ complaints. Currently denies SI/HI. HDS, exam within normal limit. Clinically the patient displays no overt toxidrome; they are well appearing, with low suspicion for toxic ingestion given history and exam. Symptoms unlikely 2/2 anemia, hypothyroidism, infection, or ICH. Workup: CBC, CMP, Lipase, salicylate/tylenol, UDS. Lab findings: wnl, +amphetamine in urine. [7:00pm] On reassessment, labs and workup wnl. Patient is hemodynamically stable with no acute medical complaints. The patient was quite sleepy when I interviewed her and she provided little useful information. She does say she has been drinking alcohol, smoking marijuana, and snorting, smoking, and shooting methamphetamines recently, and her UDS was indeed positive for amphetamines and marijuana. She says she has been stressed and worried recently, but cannot give any details about the sources of her distress. She denies feeling euphoric. She denies auditory and visual hallucinations. Denies suicidal and homicidal ideation. She is not able to describe any of the bizarre behavior that has been observed. She has been admitted here at least twice before, and the last admission was from 02/24?02/28/2021. She has been seen in the [facility] for outpatient follow-up. Psychiatric history: As above. Substance use history: As above. Family history: Unable to provide. She thinks her grandmother might have had some mental health issues. Psychosocial history: The patient says she was born and raised in [place], [place] and moved to [place] at the age of 21. She attended to the 11th grade in school. Legal history: No legal difficulties. Medical history: Denies any significant medical history, beyond bipolar disorder and ADHD. Records indicate she has had hepatitis C and cirrhosis of the liver. Excepts of previous admissions are included below to provide additional context: From the NPU admission 02/24/-02/28/21: Heidi Caballero is a 35 year old female who presented to the ED with the following report: HPI Narrative: Patient is a 35-year-old female who was brought into the emergency department by her mother for psychiatric evaluation. Mother filled out an affidavit detailing some of her concerns including the fact that the patient has been threatening her and she has to hide herself in her room because she is worried the patient will hurt her. The patient has been hallucinating and mother thinks that she has been using drugs. It is impossible to obtain a history from this patient as her answers to questions do not make sense. She appears to be hallucinating as she is talking to inanimate objects when I am talking to her. She is referring to things that I do not understand. She did admit to injecting herself with methamphetamines. On her left forearm there is an area of redness, swelling, warmth and pain. The patient wants an incision and drainage to the area. MD complaint: altered mental status. Patient was admitted to the MedSurg unit for definitive treatment of the abscess. This required IV antibiotics which required this to be on the medical unit. A psychiatric consult was requested to determine whether she is in need of inpatient services or continuation of the 96-hour hold. She presents today reporting that she is fine and she does not know why her mother instituted 96-hour hold. When questioned about the positive UDS for methamphetamine and cannabis she initially tried to question whether she was actually intoxicated at the moment of the event with her mother. We discussed that sometimes you have cognitive impact that linger much longer than the drug may even linger in her system. We also identified that when she came in she was positive on the UDS. We discussed the bizarre behaviors that her mother was concerned about and the risk benefits and alternatives of her continuing on the psychiatric unit which she understood and agreed to proceed as documented in this note. Per her 08/08/20 [facility] inpatient consult: History of Present Illness Heidi Caballero is a 35 year old female presenting to the emergency department on court ordered involuntary hold secondary to bizarre behavior, psychotic symptoms. Patient currently denying any psychosis but continues to say bizarre things such as, water has magical dejesus, I think everyone should be drinking more water. She denies any depressed symptoms, denies any suicidal ideation. She denies any recent or past manic or hypomanic episodes. Patient reports being on olanzapine 10 mg twice daily and states that she has been compliant with her medication. He reports last follow-up for medication management was a couple months ago. Patient states that she typically smokes marijuana on a daily basis but reports using methamphetamine yesterday but does not connect this to her most recent reported psychotic symptoms. Per her 06/19/20 [facility] outpatient psych med management visit with [facility] Diagnosis (1) Bipolar disorder, current episode manic severe with psychotic features: Status: Chronic (2) Amphetamine addiction: Permanent Problem Comments: in early remission, last 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 September 2019 Status: Chronic (3) Cannabis dependence, episodic use: Permanent Problem Comments: in early remission, last 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 September 2019 Status: Chronic (4) Alcohol abuse, episodic drinking behavior: Permanent Problem Comments: in early remission, last 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 September 2019 Status: Chronic (5) Nicotine dependence, cigarettes, uncomplicated: Status: Chronic Assessment: -Patient contacted by this provider today via telephone for tele-visit due to safety precautions related to COVID-19 recommendations, consent for telephone visit obtained. -Heidi, goes by name of Klaus , reports sleeping well at night, no depressive/manic episodes, compliant with taking her medications, looking forward to [place] as going to [place] with the family and her boyfriend for two weeks; denies any use of illicit substances with reported last use of alcohol, meth, and marijuana in September 2019. -Will continue current medication regimen without changes today. Plan: -Continue Trazodone 100 mg at bedtime as needed for sleep -Continue Zyprexa 10 mg twice per day -Continue Hydroxyzine 25 mg three times per day as needed for anxiety Hospital Course Hospital Course The patient was admitted to the neuropsychiatric unit for definitive treatment of these issues. On the unit she slowly acclimated to the individual, group and milieu therapies. There were some mild psychotic symptoms present initially which resolved with abstinence from intoxicants and when her home medications were restarted, Zyprexa 10 mg twice daily. The patient's mother did not want her to return home until after she had gone to a rehab program. Therefore the patient was discharged to a homeless [facility]pc with a plan to attend rehab when a spot opened up. She was resistant to treatment team recommendations but showed modest improvement and was able to contract for safety prior to discharge. The plan was for her mother to pick her up to take her to a rehab facility. During the hospitalization, patient had routine laboratory studies which were within normal limits except for few outliers. Additionally there was a general medical evaluation which was also within normal limits and revealed no new acute processes. Discharge Summary: At the time of discharge, psychosis and lethality were denied. Mood and anxiety were well managed. Patient endorsed a plan to avoid all drugs of abuse and follow-up with the aftercare recommendations of the treatment team. Patient was evaluated and deemed to be absent credible lethality, and had achieved the maximum benefit from an inpatient hospitalization, so was discharged. Involuntary Hold Information 96 Hour Hold: 96 Hour Involuntary Admission: Yes 96 Hour Hold Ending Date: 04/12/21 96 Hour Hold Ending Time: 21:46 Discharge Data Vitals: Last Vital Signs Temp 97.7 F 04/16/21 06:00 Pulse 70 04/16/21 06:00 Resp 20 H 04/16/21 06:00 BP 127/82 04/16/21 06:00 Pulse Ox 98 04/16/21 06:00 Discharge Plan Discharge Patient Disposition: Home Condition: Stable Prescriptions: Continued Zyprexa 10 mg tablet 10 mg PO BID 30 Days Qty: 60 RF: 0 propranolol 10 mg tablet 10 mg PO BID 30 Days Qty: 60 RF: 0 Changed trazodone 100 mg tablet 100 mg PO BEDTIME PRN (Reason: sleep) 30 Days Qty: 30 RF: 0 Discharge Orders: Discharge Order (Routine); Ordered 04/16/21 Ordered By: Rafael Wills Referrals: Kaushal Sanches [Other] (Application provided. Fax the application and call Nanci's number provided at the bottom of each page of the application) [facility] – [place] [facility] [Outside] (Michelle Liedivya 05/08/21 8:45am Med Management ) [facility] [Outside] (Walk in anytime) Georges Milton MD [Primary Care Provider] - Discharge Diet: Usual diet Discharge Activity: Resume usual activity Patient Instructions: Opioid Safety Discharge Attestations NPU Time Spent in Discharge Care*: greater than 30 min Specific Discharge Activities: Specific discharge activities: educating patient, educating and/or supporting family/caregiver, discussing with case aide/social workers/dc planners, documenting/other paperwork and evaluating patient/reviewing data Status at Discharge: Cognitive status at discharge: mildly impaired cognition, Behavioral status at discharge: cooperative, Functional status at discharge: independent ambulation Overall status at discharge: patient is back to baseline Coding Level of Care Code Acute Chg FW DC note Diagnoses Bipolar disorder, current episode mixed, severe, with psychotic features F31.64 Amphetamine addiction F15.20 Cannabis dependence, episodic use F12.20 Alcohol abuse, episodic drinking behavior F10.10 Nicotine dependence, cigarettes, uncomplicated F17.210
[2021-04-16 13:18] VITALS: BP 127/82; PULSE 70; RESP 20; TEMP 36.5; O2SAT 98
== END 2021-04-16 13:27 | disposition home or self-care (01) | DRG 885 ==
LOC: ER 19:17 → NP 04-10 00:10
PROVIDERS: Admitting Provider Psychiatry & Neurology Child & Adolescent Psychiatry; Emergency Provider Emergency Medicine; PCP Family Medicine; Visit Provider Psychiatry & Neurology Child & Adolescent Psychiatry
DX: F31.64 Bipolar disorder, current episode mixed, severe, with psychotic features (principal); F15.20 Other stimulant dependence, uncomplicated; F10.10 Alcohol abuse, uncomplicated; F12.20 Cannabis dependence, uncomplicated; B19.20 Unspecified viral hepatitis C without hepatic coma; K74.60 Unspecified cirrhosis of liver; F17.210 Nicotine dependence, cigarettes, uncomplicated
CPT/HCPCS: 80048; 80306; 80307; 81025; 85025; 96372; 97150; 97165; 99285; J1630; J2060

== ENCOUNTER → 2021-06-10 09:41 | Outpatient (BNVA) | payer MEDICAID, SELFPAY | PROVIDERS: PCP Family Medicine; Visit Provider Nurse Practitioner Psychiatric/Mental Health | DX: F31.2 Bipolar disorder, current episode manic severe with psychotic features (principal); F17.210 Nicotine dependence, cigarettes, uncomplicated; Z03.89 Encounter for observation for other suspected diseases and conditions ruled out; Z79.899 Other long term (current) drug therapy; F15.20 Other stimulant dependence, uncomplicated; F12.20 Cannabis dependence, uncomplicated; F10.10 Alcohol abuse, uncomplicated | CPT/HCPCS: 80053; 80061; 80307; 83036 ==

== ENCOUNTER → 2021-07-25 12:26 | Outpatient (BNVA) | payer MEDICAID, SELFPAY | PROVIDERS: PCP Family Medicine; Visit Provider Counselor Mental Health | DX: F31.2 Bipolar disorder, current episode manic severe with psychotic features (principal) | CPT/HCPCS: 90832 ==

== ENCOUNTER → 2021-09-24 12:46 | Outpatient (BNVA) | payer MEDICAID, SELFPAY | PROVIDERS: PCP Family Medicine; Visit Provider Nurse Practitioner Psychiatric/Mental Health | DX: F31.2 Bipolar disorder, current episode manic severe with psychotic features (principal); F17.210 Nicotine dependence, cigarettes, uncomplicated; Z79.899 Other long term (current) drug therapy; Z03.89 Encounter for observation for other suspected diseases and conditions ruled out; F10.10 Alcohol abuse, uncomplicated; F12.20 Cannabis dependence, uncomplicated; F15.20 Other stimulant dependence, uncomplicated | CPT/HCPCS: 80306; 99214 ==

== ENCOUNTER 2021-10-15 20:46 | Inpatient (IN) | payer MEDICAID, SELFPAY ==
[2021-10-15 20:54] VITALS: BP 109/62; PULSE 112; RESP 20; TEMP 36.4; O2SAT 93; BMI 41.0
--- NOTE | 2021-10-15 20:59 | ED.C_ITS ---
HPI - Psych General: Chief Complaint: Psychiatric Symptoms Stated Complaint: 96 hour hold Time Seen by Provider: 10/15/21 20:50 Source: patient and police Limitations: no limitations History of Present Illness: 36-year-old female who has a history of schizophrenia brought here by police under 96-hour hold that she has been having worsening hallucinations is made suicidal statements to family. She does admit here that her auditory hallucinations has gotten much worse but she states she is not actively feeling suicidal but does want to get help she denies any worsening improving factors. Associated symptoms: Reports auditory hallucinations; Deny depression Review of Systems Const: Denies: fever(s), chills, body aches or change in appetite Eyes: Denies: blurry vision or eye discomfort ENMT: Denies: throat pain or dental pain Card: Denies: chest pain Resp: Denies: dyspnea GI: Denies: abdominal pain, nausea, vomiting or diarrhea : Denies: dysuria Musc: Denies: neck pain or back pain Skin/Breast: Denies: rash Neuro: Denies: headache(s) Psych: Reports: auditory hallucinations; Denies: depression Sherif/Lymph: Denies: easy bruising All/Imm: Denies: urticaria PFSH ED PFSH: Medical History Alcohol abuse, episodic drinking behavior Amphetamine addiction Episodic use Bipolar disorder, current episode manic severe with psychotic features Cannabis dependence, episodic use Cellulitis and abscess of upper arm and forearm Hepatitis C Liver cirrhosis B[place] Nicotine dependence, cigarettes, uncomplicated Psychiatric care Psychosis Surgical History No pertinent past surgical history Family History Other Psychiatric illness Social History Smoking and tobacco status: current every day smoker cigarettes Packs smoked per day: 2 Physical Exam Const: COMMON NORMALS: no acute distress, patient oriented x3 and healthy appearing HENMT: COMMON NORMALS: normocephalic and atraumatic HEAD & SCALP: normocephalic and atraumatic Eye: COMMON NORMALS: Equal, round and reactive pupils present and EOMs intact bilaterally PUPIL: Yes Equal, round and reactive pupils present Neck/C-Spine: COMMON NORMALS: full ROM and supple Chest: COMMONS NORMALS: normal inspection of the chest and normal palpation of entire chest wall Resp: COMMON NORMALS: normal respiratory effort, No retractions, No use of accessory muscles and clear to auscultation bilaterally AUSCULTATION: clear to auscultation bilaterally Cardio: COMMON NORMALS: regular rate, regular rhythm and No murmurs present (C ardio) RATE: regular rate RHYTHM: regular rhythm GI: COMMON NORMALS: Normal to inspection, nondistended, normoactive bowel sounds present, Soft to palpation, non-tender and no masses PALPATION: Yes Soft to palpation Extremity: COMMON NORMALS: normal to inspection and full ROM Neuro: COMMON NORMALS: patient oriented x3, moves all extremities and no focal motor deficits Psych: COMMON NORMALS: mental status grossly normal and cooperative THOUGHT CONTENT: Yes Suicidality present and Yes Hallucination(s) present Skin: COMMON NORMALS: no rashes or lesions noted and no wounds GENERAL SKIN EXAM: no rashes or lesions noted Course Vital Signs: Vital signs: Vital Signs Temperature 97.5 F L 10/15/21 20:54 Pulse Rate 112 H 10/15/21 20:54 Respiratory Rate 20 H 10/15/21 20:54 Blood Pressure 109/62 10/15/21 20:54 Pulse Oximetry 93 10/15/21 20:54 MDM - Psych Medical Decision Making Patient presents here with hallucinations along with suicidal ideation is on a 96-hour hold patient is alert cooperative here patient is medically cleared I spoke to psychiatrist and will admit. Lab Data : 10/15/21 21:08 10/15/21 21:08 Laboratory Results WBC 12.9 10^3/uL (4.0-10.0) H 10/15/21 21:08 RBC 5.00 10^6/uL (4.1-5.3) 10/15/21 21:08 Hgb 15.8 g/dL (11.5-15.3) H 10/15/21 21:08 Hct 46.4 % (37.0-47.0) 10/15/21 21:08 MCV 92.8 fl (81-99) 10/15/21 21:08 MCH 31.6 pg (28.0-34.0) 10/15/21 21:08 MCHC 34.1 g/dL (30.0-36.0) 10/15/21 21:08 RDW 13.0 % (12.1-15.1) 10/15/21 21:08 Plt Count 313 10^3/cmm (130-400) 10/15/21 21:08 MPV 11.2 fL (7.4-10.4) H 10/15/21 21:08 Neut % (Auto) 41.2 % 10/15/21 21:08 Lymph % (Auto) 45.7 % 10/15/21 21:08 Ellis % (Auto) 8.8 % 10/15/21 21:08 Eos % (Auto) 3.3 % 10/15/21 21:08 Baso % (Auto) 0.8 % 10/15/21 21:08 Neut # (Auto) 5.32 10^3/uL (1.8-7.7) 10/15/21 21:08 Lymph # (Auto) 5.9 10^3/uL (0.8-4.8) H 10/15/21 21:08 Ellis # (Auto) 1.1 10^3/uL (0.2-0.9) H 10/15/21 21:08 Eos # (Auto) 0.4 10^3/uL (0.0-0.8) 10/15/21 21:08 Baso # (Auto) 0.1 10^3/uL (0.0-0.1) 10/15/21 21:08 Nucleated RBC % (auto) 0 % 10/15/21 21:08 Nucleated RBCs # 0.0 /100WBC 10/15/21 21:08 Sodium 136 mmol/L (136-145) 10/15/21 21:08 Potassium 4.2 mmol/L (3.5-5.1) 10/15/21 21:08 Chloride 102 mmol/L (98-107) 10/15/21 21:08 Carbon Dioxide 24 mmol/L (22-29) 10/15/21 21:08 Anion Gap 14.2 (5-19) 10/15/21 21:08 BUN 7 mg/dL (6-20) 10/15/21 21:08 Creatinine 0.5 mg/dL (0.5-0.9) 10/15/21 21:08 GFR Calculation 138.1 mL/min (90-130) H 10/15/21 21:08 Glucose 110 mg/dL (65-115) 10/15/21 21:08 Calculated Osmolality 281 mOsm/kg (285-295) L 10/15/21 21:08 Calcium 9.4 mg/dL (8.5-10.5) 10/15/21 21:08 Total Bilirubin 0.2 mg/dL (0.15-1.2) 10/15/21 21:08 AST 42 U/L (0-32) H 10/15/21 21:08 ALT 44 U/L (0-33) H 10/15/21 21:08 Alkaline Phosphatase 80 IU/L (35-105) 10/15/21 21:08 Total Protein 7.4 g/dL (6.6-8.7) 10/15/21 21:08 Albumin 3.9 g/dL (3.5-5.2) 10/15/21 21:08 Globulin 3.5 g/dL (1.3-4.6) 10/15/21 21:08 Lipase 36 U/L (13-60) 10/15/21 21:08 HCG, Qual Negative (Negative) 10/15/21 21:08 Salicylates < 0.3 mg/dL (3-10) L 10/15/21 21:08 Acetaminophen < 5.0 ug/mL (10-30) L 10/15/21 21:08 Discharge Plan Discharge Patient Disposition: Admitted As Inpatient Admit Provider: Mayito Caballero Clinical Impression: Acute psychosis, Suicidal ideations Condition: Stable Coding Level of Care Code ED [employer] 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
[2021-10-15] MEDS: LORazepam 1 mg Tablet PO (21:10)
[2021-10-15 21:12] LABS: Basophils # 0.1 10^3/uL (0.0-0.1); Basophils % 0.8 %; Eosinophils # 0.4 10^3/uL (0.0-0.8); Eosinophils % 3.3 %; Hematocrit 46.4 % (37.0-47.0); Hemoglobin 15.8 g/dL (11.5-15.3); Lymphocytes # 5.9 10^3/uL (0.8-4.8); Lymphocytes % 45.7 %; Mean Corpuscular HGB Conc 34.1 g/dL (30.0-36.0); Mean Corpuscular Hemoglobin 31.6 pg (28.0-34.0); Mean Corpuscular Volume 92.8 fl (81-99); Mean Platelet Volume 11.2 fL (7.4-10.4); Monocytes # 1.1 10^3/uL (0.2-0.9); Monocytes % 8.8 %; Neutrophils # 5.32 10^3/uL (1.8-7.7); Neutrophils % 41.2 %; Nucleated Red Blood Cells % 0 %; Platelet Count 313 10^3/cmm (130-400); White Blood Count 12.9 10^3/uL (4.0-10.0)
[2021-10-15 21:28] LABS: Alanine Aminotransferase 44 U/L (0-33); Albumin Level 3.9 g/dL (3.5-5.2); Alkaline Phosphatase 80 IU/L (35-105); Anion Gap 14.2 (5-19); Aspartate Amino Transferase 42 U/L (0-32); Blood Urea Nitrogen 7 mg/dL (6-20); Calcium 9.4 mg/dL (8.5-10.5); Carbon Dioxide 24 mmol/L (22-29); Chloride 102 mmol/L (98-107); Globulin 3.5 g/dL (1.3-4.6); Glomerular Filtration Rate 138.1 mL/min (90-130); Glucose 110 mg/dL (65-115); Lipase 36 U/L (13-60); Osmolality Calculated 281 mOsm/kg (285-295); Potassium 4.2 mmol/L (3.5-5.1); Sodium 136 mmol/L (136-145); Total Bilirubin 0.2 mg/dL (0.15-1.2); Total Protein 7.4 g/dL (6.6-8.7)
[2021-10-15 21:35] LABS: HCG, Serum Qual Negative (Negative)
[2021-10-15 21:41] LABS: Acetaminophen < 5.0 ug/mL (10-30); Salicylate < 0.3 mg/dL (3-10)
[2021-10-15 22:03] VITALS: BP 109/62; PULSE 97; RESP 17; TEMP 36.4; O2SAT 93
[2021-10-15 22:04] VITALS: BP 125/90; PULSE 95; RESP 17; TEMP 36.6; O2SAT 96
[2021-10-15] MEDS: trazodone 50 mg Tablet PO (22:25)
[2021-10-15 22:47] LABS: Alcohol Level < 10 mg/dL (0-10)
[2021-10-15 22:51] LABS: Amphetamines Screen Urine Positive (Negative); Barbiturates Screen Urine Negative (Negative); Benzodiazepines Screen Urine Negative (Negative); Cocaine Screen Urine Negative (Negative); Opiate Screen Urine Negative (Negative); PCP Screen Urine Negative (Negative); THC Screen Urine Positive (Negative)
--- NOTE | 2021-10-16 01:17 | PC.ADMIT ---
[address] Admission Note: The patient,Heidi Caballero,36 y/o, was given written information regarding hospital policies, unit procedures and contact persons. Patient's smoking status: current every day smoker. Vital Signs - 8 hr 10/15/21 20:54 10/15/21 22:03 10/15/21 22:04 Temperature 97.5 F L 97.5 F L 97.8 F Pulse Rate 112 H 97 95 Respiratory Rate 20 H 17 17 Blood Pressure 109/62 109/62 125/90 Pulse Oximetry 93 93 96 Patient alert and oriented, stated she came into ED tonight to get away from her family and that they lied and said she was saying she was suicidal. Patient denies SI/HI and endorses hallucinations. 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 Patient states she drank 3 beers today and uses THC daily, and smokes 2pks per day. Denies all other drug use, but UDS was positive for amphetamines. Patient cooperative but loud and animated. Alert and oriented x4.
[2021-10-16 06:00] VITALS: PULSE 86; RESP 16; TEMP 36.4; O2SAT 95
[2021-10-16] MEDS: multivitamin therapeutic Tablet 1 TAB PO (09:01)
[2021-10-16] MEDS: thiamine 100 mg Tablet PO (09:02)
[2021-10-16] MEDS: folic acid 1 mg Tablet PO (09:02)
--- NOTE | 2021-10-16 09:29 | PC.OT ---
OT EVALUATION HELD TODAY PER NURSING REQUEST SECONDARY TO PSYCHOSIS AND SLEEPING. WILL ATTEMPT AGAIN AT A LATER TIME
--- NOTE | 2021-10-16 13:49 | W.PM.NPUH&PS ---
Providers/Chief Complaint Admitting Physician: Mayito Caballero MD Primary Care Provider: Georges Milton MD Chief Complaint: 96 hour hold HPI NPU History of Present Illness Heidi Caballero is a 36 year old female who presented to the emergency department with the following report: Chief Complaint: Psychiatric Symptoms Stated Complaint: 96 hour hold Time Seen by Provider: 10/15/21 20:50 Source: patient and police Limitations: no limitations History of Present Illness: 36-year-old female who has a history of schizophrenia brought here by police under 96-hour hold that she has been having worsening hallucinations is made suicidal statements to family. She does admit here that her auditory hallucinations has gotten much worse but she states she is not actively feeling suicidal but does want to get help she denies any worsening improving factors. Associated symptoms: Reports auditory hallucinations; Deny depression. She was admitted to the neuropsychiatric unit for definitive treatment of those issues. She presents today on a 96-hour hold that she reports is been initiated by her mother. She denies that she was suicidal and reports her mother just said that because he was really trying to get her help. She reports that she needs to help and that he has relapsed on methamphetamine and feels that she needs to get into rehab hopefully outpatient because she has dogs to care for. She reports that she had done well for a little while after she was discharged however she did relapse and has been struggling significant lately. She was having auditory visual hallucinations and we discussed the fact that the drug use alone could create that scenario she reports that there has been much this change since her last hospitalization. She reports that she still lives with her mom and that she continues to follow-up at [facility] which is verified by her last appointment 09/24/2021. Last saw this pattern chart writer in February 2021 but was seen inpatient in March 2021 and an excerpt of that note is included for context. She is a fairly challenging historian as she appears to be recovering from her methamphetamine diaz but being fairly lethargic and tired. We discussed the risk benefits and alternatives of continuing medication she had been taking as recently as last month from [facility] and she understood agreed to proceed as is documented in this note. Per her 04/10/2021 [facility] inpatient psych evaluation: History of Present Illness Heidi Caballero is a 36 year old female with a history of bipolar disorder and polysubstance use who presented with bizarre behavior, racing thoughts, and auditory hallucinations.? ? The ED notes state: HPI: [36]yo patient w/ hx of bipolar disorder not on medicine BIBA for acute psychosis and airam. On arrival, the patient is AAOx3 and cooperative with my evaluation. No focal complaints of chest pain, shortness of breath, palpitations, N/V, focal GI/ complaints. Currently denies SI/HI.? HDS, exam within normal limit.? Clinically the patient displays no overt toxidrome; they are well appearing, with low suspicion for toxic ingestion given history and exam. Symptoms unlikely 2/2 anemia, hypothyroidism, infection, or ICH.? Workup: CBC, CMP, Lipase, salicylate/tylenol, UDS.? Lab findings: wnl, +amphetamine in urine.? [7:00pm] On reassessment, labs and workup wnl. Patient is hemodynamically stable with no acute medical complaints. The patient was quite sleepy when I interviewed her and she provided little useful information. She does say she has been drinking alcohol, smoking marijuana, and snorting, smoking, and shooting methamphetamines recently, and her UDS was indeed positive for amphetamines and marijuana.? She says she has been stressed and worried recently, but cannot give any details about the sources of her distress.? She denies feeling euphoric.? She denies auditory and visual hallucinations.? Denies suicidal and homicidal ideation.? She is not able to describe any of the bizarre behavior that has been observed. She has been admitted here at least twice before, and the last admission was from 02/24?02/28/2021.? She has been seen in the [facility] for outpatient follow-up. Psychiatric history: As above. Substance use history: As above. Family history: Unable to provide.? She thinks her grandmother might have had some mental health issues. Psychosocial history: The patient says she was born and raised in [place], [place] and moved to [place] at the age of 21.? She attended to the 11th grade in school. Legal history:? No legal difficulties. Medical history:? Denies any significant medical history, beyond bipolar disorder and ADHD.? Records indicate she has had hepatitis C and cirrhosis of the liver. Excepts of previous admissions are included below to provide additional context: From the NPU admission 02/24/-02/28/21: Heidi Caballero is a 35 year old female who presented to the ED with the following report: HPI Narrative: Patient is a 35-year-old female who was brought into the emergency department by her mother for psychiatric evaluation. Mother filled out an affidavit detailing some of her concerns including the fact that the patient has been threatening her and she has to hide herself in her room because she is worried the patient will hurt her.? The patient has been hallucinating and mother thinks that she has been using drugs. It is impossible to obtain a history from this patient as her answers to questions do not make sense.? She appears to be hallucinating as she is talking to inanimate objects when I am talking to her.? She is referring to things that I do not understand. She did admit to injecting herself with methamphetamines. On her left forearm there is an area of redness, swelling, warmth and pain.? The patient wants an incision and drainage to the area. MD complaint: altered mental status. Patient was admitted to the MedSurg unit for definitive treatment of the abscess.? This required IV antibiotics which required this to be on the medical unit. A psychiatric consult was requested to determine whether she is in need of inpatient services or continuation of the 96-hour hold.? She presents today reporting that she is fine and she does not know why her mother instituted 96-hour hold.? When questioned about the positive UDS for methamphetamine and cannabis she initially tried to question whether she was actually intoxicated at the moment of the event with her mother.? We discussed that sometimes you have cognitive impact that linger much longer than the drug may even linger in her system.? We also identified that when she came in she was positive on the UDS.? We discussed the bizarre behaviors that her mother was concerned about and the risk benefits and alternatives of her continuing on the psychiatric unit which she understood and agreed to proceed as documented in this note.? Per her 08/08/20 [facility] inpatient consult: History of Present Illness Heidi Caballero is a 35 year old female presenting to the emergency department on court ordered involuntary hold secondary to bizarre behavior, psychotic symptoms.? Patient currently denying any psychosis but continues to say bizarre things such as, water has magical dejesus, I think everyone should be drinking more water. ? She denies any depressed symptoms, denies any suicidal ideation.? She denies any recent or past manic or hypomanic episodes.? Patient reports being on olanzapine 10 mg twice daily and states that she has been compliant with her medication.? He reports last follow-up for medication management was a couple months ago.? Patient states that she typically smokes marijuana on a daily basis but reports using methamphetamine yesterday but does not connect this to her most recent reported psychotic symptoms. Per her 06/19/20 [facility] outpatient psych med management visit with Michelle Alfaro PMHNP Diagnosis (1) Bipolar disorder, current episode manic severe with psychotic features: ? ? ? Status: Chronic (2) Amphetamine addiction: ? ? ? Permanent Problem Comments: in early remission, last 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 September 2019 ? ? ? Status: Chronic (3) Cannabis dependence, episodic use: ? ? ? Permanent Problem Comments: in early remission, last 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 September 2019 ? ? ? Status: Chronic (4) Alcohol abuse, episodic drinking behavior: ? ? ? Permanent Problem Comments: in early remission, last 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 September 2019 ? ? ? Status: Chronic (5) Nicotine dependence, cigarettes, uncomplicated: ? ? ? Status: Chronic Assessment: -Patient contacted by this provider today via telephone for tele-visit due to safety precautions related to COVID-19 recommendations, consent for telephone visit obtained. -Heidi, goes by name of Klaus ,? reports sleeping well at night, no depressive/manic episodes, compliant with taking her medications, looking forward to [place] as going to [place] with the family and her boyfriend for two weeks;? denies any use of? illicit substances with reported last use of alcohol, meth, and marijuana in September 2019. -Will continue current medication regimen without changes today. Plan: -Continue Trazodone 100 mg at bedtime as needed for sleep -Continue Zyprexa 10 mg? twice per day -Continue Hydroxyzine 25 mg three times per day as needed for anxiety Meds NPU Home Medications Medication Instructions Recorded Confirmed Last Taken Type olanzapine 10 mg tablet (Zyprexa) 10 mg PO .evening 30 Days #30 tab 09/24/21 10/15/21 Unknown Rx olanzapine 20 mg tablet (Zyprexa) 20 mg PO .morning #30 tab 09/24/21 10/15/21 Unknown Rx propranolol 10 mg tablet 10 mg PO BID 30 Days #60 tab 09/24/21 10/15/21 Unknown Rx Allergies Allergy/AdvReac Type Severity Reaction Status Date / Time aspirin Allergy Unknown unknown Verified 10/15/21 21:06 ziprasidone [From Geodon] Allergy Unknown Unknown Verified 10/15/21 21:06 NSAIDS (Non-Steroidal Allergy Unknown Verified 10/15/21 21:06 Anti-Inflamma PFSH NPU PFSH: Medical History Alcohol abuse, episodic drinking behavior Amphetamine addiction Episodic use Bipolar disorder, current episode manic severe with psychotic features Cannabis dependence, episodic use Cellulitis and abscess of upper arm and forearm Hepatitis C Liver cirrhosis Airam Nicotine dependence, cigarettes, uncomplicated Psychiatric care Psychosis Surgical History No pertinent past surgical history Family History Other Psychiatric illness Social History Smoking and tobacco status: current every day smoker cigarettes Packs smoked per day: 2 Mental Status Exam MSE Comments: This is an obese versus morbidly obese white female in hospital scrubs with limited grooming and eye contact.? No abnormal movements except for psychomotor retardation.? Mostly cooperative with exam in mild distress.? Speech was decreased rate and volume.? Mood described as okay, affect subdued.? Thought process organized.? Thought content: Patient denied suicidal or homicidal ideation, there were no delusions reported or noted, she denied visual hallucinations and endorsed a significant reduction in her auditory hallucinations.? Attention and concentration were intact and memory appeared mostly reliable but none were formally tested.? She is alert and oriented x3.? Insight and judgment are limited, but improving and impulse control is impaired. Vitals/I&O/Wt Last Vital Signs Temp 97.5 F L 10/16/21 06:00 Pulse 86 10/16/21 06:00 Resp 16 10/16/21 06:00 BP 125/90 10/15/21 22:04 Pulse Ox 95 10/16/21 06:00 Weight last 48 hrs Weight 122.47 kg Data NPU : 10/15/21 21:08 10/15/21 21:08 A&P Assessment and plan (1) Acute psychosis: Status: Acute (2) Suicidal ideations: Status: Acute (3) Bipolar disorder, current episode manic severe with psychotic features: Status: Chronic (4) Nicotine dependence, cigarettes, uncomplicated: Status: Chronic (5) Alcohol abuse, episodic drinking behavior: Status: Chronic (6) Cannabis dependence, episodic use: Status: Chronic (7) Methamphetamine use disorder, severe: Status: Acute Plan This is a 36-year-old white female with a long history of addiction, psychosis and other mental health challenges who presents with acknowledgment of recent relapse on methamphetamine and cannabis use which may have contributed to her being placed on a 96-hour hold. 1.? Continue current medication. 2.? Continue continue every 15 minute checks for safety. 3.? Encourage individual, group and milieu therapies on the unit. 4.? Encourage sober living treatment after discharge at the highest level of care to which she is willing to commit. Assist with referral to rehab sources. Involuntary Hold Information 96 Hour Hold: 96 Hour Involuntary Admission: Yes 96 Hour Hold Ending Date: 04/12/21 96 Hour Hold Ending Time: 21:46 Attestations NPU Medical Necessity Statement*: Inpatient hospitalization is medically necessary and the clinically appropriate intervention at this time. We will monitor medication to make changes as indicated. Patient will be in the hospital for over two midnights. Likely length of stay 3 to 5 days. Coding Level of Care Code Acute Bi Technical Lead for Shelley Arnold Diagnoses Acute psychosis F23 Suicidal ideations R45.851 Bipolar disorder, current episode manic severe with psychotic features F31.2 Nicotine dependence, cigarettes, uncomplicated F17.210 Alcohol abuse, episodic drinking behavior F10.10 Cannabis dependence, episodic use F12.20 Methamphetamine use disorder, severe F15.20
[2021-10-16 14:00] VITALS: BP 111/76; PULSE 73; RESP 18; TEMP 37.1; O2SAT 96
--- NOTE | 2021-10-16 15:23 | PC.SOCIAL ---
Patient did not attend group.
[2021-10-16 20:50] VITALS: BP 145/107; PULSE 96; RESP 18; TEMP 36.3; O2SAT 94
[2021-10-17 06:00] VITALS: BP 112/74; PULSE 86; RESP 17; TEMP 36.6; O2SAT 91
[2021-10-17] MEDS: multivitamin therapeutic Tablet 1 TAB PO (08:54)
[2021-10-17] MEDS: folic acid 1 mg Tablet PO (08:54)
[2021-10-17] MEDS: thiamine 100 mg Tablet PO (08:54)
[2021-10-17] MEDS: nicotine 21 mg Patch 1 PATCH TRANSDERMA (11:38)
--- NOTE | 2021-10-17 12:39 | W.PM.NPUPNS ---
Subjective NPU Subjective: She says that her mother and said that she was trying to kill herself and hearing voices. She says that she does hear voices and she uses methamphetamine but she likes some. She says that she is not hearing them today and it is driving her crazy. She denies having any suicidal thoughts. She says he needs to get home and take care of her puppies. Their mother was killed 2 weeks ago when she needs to take care of them. Her mother is taking care of them but she is concerned that her mother will not care been crying because she lives upstairs. Mental Status Exam MSE Comments: This is an obese versus morbidly obese white female in hospital scrubs with limited grooming and eye contact.? No abnormal movements except for psychomotor retardation.? Mostly cooperative with exam in mild distress.? Speech was normal rate and volume.? Mood described as okay, affect subdued.? Thought process organized.? Thought content: Patient denied suicidal or homicidal ideation, there were no delusions reported or noted, she denied visual hallucinations and denies auditory hallucinations.? Attention and concentration were intact and memory appeared mostly reliable but none were formally tested.? She is alert and oriented x3.? Insight and judgment are limited, but improving and impulse control is impaired. Cognition: Patient Appearance: Appropriate Level of Consciousness: Awake, Alert, Appropriate and Follows Commands Patient Cognition Impaired: No Ability to Follow Directions: Excellent Patient Orientation (long list): Person, Place, Name, Age, Birthday and Year Comprehension Ability: No Impairment Hallucination Type: None Delusion Description: Paranoid Ideation Thought Process: Appropriate Affect: Affect Description: Appropriate and Calm Behavior: Patient Behavior: Cooperative and Withdrawn Speech Pattern: Appropriate and Clear Vitals/I&O/Wt Last Vital Signs Temp 97.8 F 10/17/21 06:00 Pulse 86 10/17/21 06:00 Resp 17 10/17/21 06:00 BP 112/74 10/17/21 06:00 Pulse Ox 91 10/17/21 06:00 Weight last 48 hrs Weight 122.47 kg Data NPU : 10/15/21 21:08 10/15/21 21:08 A&P Assessment and plan (1) Acute psychosis: Status: Acute (2) Suicidal ideations: Status: Acute (3) Bipolar disorder, current episode manic severe with psychotic features: Status: Chronic (4) Nicotine dependence, cigarettes, uncomplicated: Status: Chronic (5) Alcohol abuse, episodic drinking behavior: Status: Chronic (6) Cannabis dependence, episodic use: Status: Chronic (7) Methamphetamine use disorder, severe: Status: Acute Plan This is a 36-year-old white female with a long history of addiction, psychosis and other mental health challenges who presents with acknowledgment of recent relapse on methamphetamine and cannabis use which may have contributed to her being placed on a 96-hour hold. 1.? Continue current medication. 2.? Continue continue every 15 minute checks for safety. 3.? Encourage individual, group and milieu therapies on the unit. 4.? Encourage sober living treatment after discharge at the highest level of care to which she is willing to commit. Assist with referral to rehab sources. Involuntary Hold Information 96 Hour Hold: 96 Hour Involuntary Admission: Yes 96 Hour Hold Ending Date: 04/12/21 96 Hour Hold Ending Time: 21:46 Attestations NPU Medical Necessity Statement*: Inpatient hospitalization is medically necessary and the clinically appropriate intervention at this time. We will initiate medications and make changes as indicated. Coding Level of Care Code Acute [employer] [facility] Diagnoses Acute psychosis F23 Suicidal ideations R45.851 Bipolar disorder, current episode manic severe with psychotic features F31.2 Nicotine dependence, cigarettes, uncomplicated F17.210 Alcohol abuse, episodic drinking behavior F10.10 Cannabis dependence, episodic use F12.20 Methamphetamine use disorder, severe F15.20
[2021-10-17 14:00] VITALS: BP 145/98; PULSE 82; RESP 17; TEMP 36.7; O2SAT 95
[2021-10-17] MEDS: nicotine 2 mg Gum BUCCAL (16:17)
--- NOTE | 2021-10-17 16:46 | PC.SOCIAL ---
Patient attended group.
[2021-10-17] MEDS: OLANZapine 10 mg TABLET PO (17:46)
[2021-10-17] MEDS: propranolol 20 mg Tablet 10 MG PO (17:46)
[2021-10-17] MEDS: trazodone 50 mg Tablet PO (20:28)
[2021-10-17 20:38] VITALS: BP 120/85; PULSE 105; RESP 18; TEMP 36.6; O2SAT 96
[2021-10-17] MEDS: hyDROXYzine 25 mg Capsule 50 MG PO (20:56)
--- NOTE | 2021-10-17 21:34 | PC.NURSE ---
2055 requested something for sleep. She received trazodone. 2027- she requested something for anxiety and received vistaril
[2021-10-18 06:00] VITALS: BP 108/75; PULSE 76; RESP 16; TEMP 36.6; O2SAT 95
[2021-10-18] MEDS: OLANZapine 10 mg TABLET 20 MG PO (06:05)
--- NOTE | 2021-10-18 08:56 | W.PM.NPUDCS ---
Diagnoses at Discharge Discharge Diagnosis (1) Acute psychosis: Status: Acute (2) Suicidal ideations: Status: Resolved (3) Bipolar disorder, current episode manic severe with psychotic features: Status: Chronic (4) Nicotine dependence, cigarettes, uncomplicated: Status: Chronic (5) Alcohol abuse, episodic drinking behavior: Status: Chronic (6) Cannabis dependence, episodic use: Status: Chronic (7) Methamphetamine use disorder, severe: Status: Acute Reason for Visit Reason for Visit: 96 hour hold Brief History: History of Present Illness:?? 36-year-old female who has a history of schizophrenia brought here by police under 96-hour hold that she has been having worsening hallucinations is made suicidal statements to family.? She does admit here that her auditory hallucinations has gotten much worse but she states she is not actively feeling suicidal but does want to get help she denies any worsening improving factors. Associated symptoms: Reports auditory hallucinations; Deny depression. She was admitted to the neuropsychiatric unit for definitive treatment of those issues.? She presents today on a 96-hour hold that she reports is been initiated by her mother.? She denies that she was suicidal and reports her mother just said that because he was really trying to get her help.? She reports that she needs to help and that he has relapsed on methamphetamine and feels that she needs to get into rehab hopefully outpatient because she has dogs to care for.? She reports that she had done well for a little while after she was discharged however she did relapse and has been struggling significant lately.? She was having auditory visual hallucinations and we discussed the fact that the drug use alone could create that scenario she reports that there has been much this change since her last hospitalization.? She reports that she still lives with her mom and that she continues to follow-up at [facility] [place] which is verified by her last appointment 09/24/2021.? Last saw this property underwriter in February 2021 but was seen inpatient in March 2021 and an excerpt of that note is included for context.? She is a fairly challenging historian as she appears to be recovering from her methamphetamine diaz but being fairly lethargic and tired.? We discussed the risk benefits and alternatives of continuing medication she had been taking as recently as last month from [facility] [place] and she understood agreed to proceed as is documented in this note. She right Hospital Course Hospital Course She slowly acclimated to the individual, group and milieu therapies provided. He was continued on her outpatient medication. She improved as the methamphetamine got out of her system. She tolerated these doses and showed steady improvement during her stay. She was able to contract for safety outside hospital prior to discharge. During the hospitalization, patient had routine laboratory studies which were within normal limits except for few outliers. Additionally there was a general medical evaluation which was also within normal limits and revealed no new acute processes. Discharge Summary: At the time of discharge, lethality was denied and psychosis was resolving. Mood and anxiety were well managed. Patient endorsed a plan to follow-up with the aftercare recommendations of the treatment team. Patient was evaluated and deemed to be absent credible lethality, and had achieved the maximum benefit from an inpatient hospitalization, so was discharged. Involuntary Hold Information 96 Hour Hold: 96 Hour Involuntary Admission: Yes 96 Hour Hold Ending Date: 04/12/21 96 Hour Hold Ending Time: 21:46 Mental Status Exam MSE Comments: This is an obese versus morbidly obese white female in hospital scrubs with limited grooming and eye contact.? No abnormal movements except for psychomotor retardation.? Mostly cooperative with exam in mild distress.? Speech was normal rate and volume.? Mood described as okay, affect subdued.? Thought process organized.? Thought content: Patient denied suicidal or homicidal ideation, there were no delusions reported or noted, she denied visual hallucinations and denies auditory hallucinations.? Attention and concentration were intact and memory appeared mostly reliable but none were formally tested.? She is alert and oriented x3.? Insight and judgment are limited, but improving and impulse control is impaired. Cognition: Patient Appearance: Appropriate Level of Consciousness: Awake, Alert, Appropriate and Follows Commands Patient Cognition Impaired: No Ability to Follow Directions: Excellent Patient Orientation (long list): Person, Place, Name, Age, Birthday and Year Comprehension Ability: No Impairment Hallucination Type: None Delusion Description: Paranoid Ideation Thought Process: Disorganized Affect: Affect Description: Labile Behavior: Patient Behavior: Appropriate Speech Pattern: Appropriate Discharge Data Studies Completed and Pending: Laboratory Results WBC 12.9 10^3/uL (4.0 -10.0) H 10/15/21 21:08 RBC 5.00 10^6/uL (4.1 -5.3) 10/15/21 21:08 Hgb 15.8 g/dL (11.5-1 5.3) H 10/15/21 21:08 Hct 46.4 % (37.0-47.0 ) 10/15/21 21:08 MCV 92.8 fl (81-99) 10/15/21 21:08 MCH 31.6 pg (28.0-34. 0) 10/15/21 21:08 MCHC 34.1 g/dL (30.0-3 6.0) 10/15/21 21:08 RDW 13.0 % (12.1-15.1 ) 10/15/21 21:08 Plt Count 313 10^3/cmm (130 -400) 10/15/21 21:08 MPV 11.2 fL (7.4-10.4 ) H 10/15/21 21:08 Neut % (Auto) 41.2 % 10/15/21 21:08 Lymph % (Auto) 45.7 % 10/15/21 21:08 Runnels % (Auto) 8.8 % 10/15/21 21:08 Eos % (Auto) 3.3 % 10/15/21 21:08 Baso % (Auto) 0.8 % 10/15/21 21:08 Neut # (Auto) 5.32 10^3/uL (1.8 -7.7) 10/15/21 21:08 Lymph # (Auto) 5.9 10^3/uL (0.8- 4.8) H 10/15/21 21:08 Runnels # (Auto) 1.1 10^3/uL (0.2- 0.9) H 10/15/21 21:08 Eos # (Auto) 0.4 10^3/uL (0.0- 0.8) 10/15/21 21:08 Baso # (Auto) 0.1 10^3/uL (0.0- 0.1) 10/15/21 21:08 Nucleated RBC % (a uto) 0 % 10/15/21 21:08 Nucleated RBCs # 0.0 /100WBC 10/15/21 21:08 Sodium 136 mmol/L (136-1 45) 10/15/21 21:08 Potassium 4.2 mmol/L (3.5-5 .1) 10/15/21 21:08 Chloride 102 mmol/L (98-10 7) 10/15/21 21:08 Carbon Dioxide 24 mmol/L (22-29) 10/15/21 21:08 Anion Gap 14.2 (5-19) 10/15/21 21:08 BUN 7 mg/dL (6-20) 10/15/21 21:08 Creatinine 0.5 mg/dL (0.5-0. 9) 10/15/21 21:08 GFR Calculation 138.1 mL/min (90- 130) H 10/15/21 21:08 Glucose 110 mg/dL (65-115 ) 10/15/21 21:08 Calculated Osmolal ity 281 mOsm/kg (285- 295) L 10/15/21 21:08 Calcium 9.4 mg/dL (8.5-10 .5) 10/15/21 21:08 Total Bilirubin 0.2 mg/dL (0.15-1 .2) 10/15/21 21:08 AST 42 U/L (0-32) H 10/15/21 21:08 ALT 44 U/L (0-33) H 10/15/21 21:08 Alkaline Phosphata se 80 IU/L (35-105) 10/15/21 21:08 Total Protein 7.4 g/dL (6.6-8.7 ) 10/15/21 21:08 Albumin 3.9 g/dL (3.5-5.2 ) 10/15/21 21:08 Globulin 3.5 g/dL (1.3-4.6 ) 10/15/21 21:08 Lipase 36 U/L (13-60) 10/15/21 21:08 HCG, Qual Negative (Negati ve) 10/15/21 21:08 Salicylates < 0.3 mg/dL (3-10 ) L 10/15/21 21:08 Urine Opiates Scre en Negative ng/mL (N egative) 10/15/21 22:30 Acetaminophen < 5.0 ug/mL (10-3 0) L 10/15/21 21:08 Ur Barbiturates Sc reen Negative ng/mL (N egative) 10/15/21 22:30 Ur Phencyclidine S crn Negative ng/mL (N egative) 10/15/21 22:30 Ur Amphetamines Sc reen Positive ng/mL (N egative) H 10/15/21 22:30 U Benzodiazepines Scrn Negative ng/mL (N egative) 10/15/21 22:30 Urine Cocaine Scre en Negative ng/mL (N egative) 10/15/21 22:30 U Marijuana (THC) Screen Positive ng/mL (N egative) H 10/15/21 22:30 Ethyl Alcohol < 10 mg/dL (0-10) 10/15/21 22:11 Vitals: Last Vital Signs Temp 97.8 F 10/18/21 06:00 Pulse 76 10/18/21 06:00 Resp 16 10/18/21 06:00 BP 108/75 10/18/21 06:00 Pulse Ox 95 10/18/21 06:00 Discharge Plan Discharge Patient Disposition: Home Condition: Stable Prescriptions: New trazodone 50 mg Tablet 50 mg PO BEDTIME PRN (Reason: Insomnia) 30 Days Qty: 30 0RF Continued Zyprexa 10 mg tablet 10 mg PO .evening 30 Days Qty: 30 1RF propranolol 10 mg tablet 10 mg PO BID 30 Days Qty: 60 1RF Zyprexa 20 mg tablet 20 mg PO .morning 30 Days Qty: 30 1RF Discharge Orders: Discharge Order (Routine); Ordered 10/18/21 Ordered By: Campbell Ely Referrals: Georges Milton MD [Primary Care Provider] - Michelle Alfaro PMHNP [Staff Physician] - 11/14/21 1:30 pm Sandhya Mccord PLPC [Therapist] - 10/24/21 2:45 pm Discharge Diet: Regular Discharge Activity: Resume usual activity Patient Instructions: Opioid Safety Discharge Attestations NPU Time Spent in Discharge Care*: less than 30 min Specific Discharge Activities: Specific discharge activities: educating patient, discussing with renal case manager/social workers/dc planners, documenting/other paperwork and evaluating patient/reviewing data Status at Discharge: Cognitive status at discharge: mildly impaired cognition, Behavioral status at discharge: cooperative, Coding Level of Care Code Acute [facility] DC note Diagnoses Acute psychosis F23 Suicidal ideations R45.851 Bipolar disorder, current episode manic severe with psychotic features F31.2 Nicotine dependence, cigarettes, uncomplicated F17.210 Alcohol abuse, episodic drinking behavior F10.10 Cannabis dependence, episodic use F12.20 Methamphetamine use disorder, severe F15.20
[2021-10-18] MEDS: thiamine 100 mg Tablet PO (09:17)
[2021-10-18] MEDS: multivitamin therapeutic Tablet 1 TAB PO (09:17)
[2021-10-18] MEDS: propranolol 20 mg Tablet 10 MG PO (09:17)
[2021-10-18] MEDS: nicotine 21 mg Patch 1 PATCH TRANSDERMA (09:18)
[2021-10-18] MEDS: folic acid 1 mg Tablet PO (09:18)
[2021-10-18 09:21] VITALS: BP 108/75; PULSE 76; RESP 16; TEMP 36.6; O2SAT 95
== END 2021-10-18 11:45 | disposition home or self-care (01) | DRG 885 ==
LOC: ER 21:19 → NP 21:39
PROVIDERS: Emergency Medicine; Admitting Provider Psychiatry & Neurology Psychiatry; Emergency Provider Emergency Medicine; PCP Family Medicine; Visit Provider Psychiatry & Neurology Psychiatry
DX: F31.2 Bipolar disorder, current episode manic severe with psychotic features (principal); R45.851 Suicidal ideations; F15.20 Other stimulant dependence, uncomplicated; Z68.41 Body mass index [BMI] 40.0-44.9, adult; F17.210 Nicotine dependence, cigarettes, uncomplicated; F12.20 Cannabis dependence, uncomplicated; F10.10 Alcohol abuse, uncomplicated; E66.01 Morbid (severe) obesity due to excess calories
CPT/HCPCS: 80053; 80306; 80307; 83690; 84703; 85025; 96372; 97150; 97165; 99285; J3411

== ENCOUNTER → 2021-11-14 13:03 | Outpatient (BNVA) | payer MEDICAID, SELFPAY | PROVIDERS: PCP Family Medicine; Visit Provider Nurse Practitioner Psychiatric/Mental Health | DX: F31.2 Bipolar disorder, current episode manic severe with psychotic features (principal); F17.210 Nicotine dependence, cigarettes, uncomplicated; F12.20 Cannabis dependence, uncomplicated; F10.10 Alcohol abuse, uncomplicated; F15.20 Other stimulant dependence, uncomplicated; Z03.89 Encounter for observation for other suspected diseases and conditions ruled out | CPT/HCPCS: 99214 ==

== ENCOUNTER → 2021-12-17 07:46 | Outpatient (BNVA) | payer MEDICAID, SELFPAY | PROVIDERS: PCP Family Medicine; Visit Provider Nurse Practitioner Psychiatric/Mental Health | DX: F31.2 Bipolar disorder, current episode manic severe with psychotic features (principal); F17.210 Nicotine dependence, cigarettes, uncomplicated; F15.20 Other stimulant dependence, uncomplicated; F12.20 Cannabis dependence, uncomplicated; F10.10 Alcohol abuse, uncomplicated; Z03.89 Encounter for observation for other suspected diseases and conditions ruled out; Z79.899 Other long term (current) drug therapy | CPT/HCPCS: 99214 ==

== ENCOUNTER 2021-12-17 09:19 | Outpatient (CLI) | payer MEDICAID, SELFPAY ==
[2021-12-17 11:04] LABS: Alanine Aminotransferase 43 U/L (0-33); Albumin Level 3.8 g/dL (3.5-5.2); Alkaline Phosphatase 102 IU/L (35-105); Aspartate Amino Transferase 44 U/L (0-32); Blood Urea Nitrogen 7 mg/dL (6-20); Calcium 8.7 mg/dL (8.5-10.5); Carbon Dioxide 23 mmol/L (22-29); Chloride 104 mmol/L (98-107); Globulin 3.5 g/dL (1.3-4.6); Glomerular Filtration Rate 138.1 mL/min (90-130); Glucose 136 mg/dL (65-115); Osmolality Calculated 284 mOsm/kg (285-295); Sodium 137 mmol/L (136-145); Total Bilirubin 0.4 mg/dL (0.15-1.2); Total Protein 7.3 g/dL (6.6-8.7)
[2021-12-17 11:06] LABS: Amphetamines Screen Urine Negative (Negative); Barbiturates Screen Urine Negative (Negative); Benzodiazepines Screen Urine Negative (Negative); Cocaine Screen Urine Negative (Negative); Opiate Screen Urine Negative (Negative); PCP Screen Urine Negative (Negative); THC Screen Urine Positive (Negative)
[2021-12-17 11:09] LABS: Anion Gap 14.6 (5-19); Potassium 4.6 mmol/L (3.5-5.1)
[2021-12-20 12:11] LABS: Alcohol Metabolites POSITIVE ng/mL (<500); Ethyl Glucuronide (ETG) NEGATIVE ng/mL (<500); Ethyl Sulfate (ETS) 412 ng/mL (<100)
== END 2021-12-17 09:20 | disposition home or self-care (01) ==
LOC: LAB 09:21
PROVIDERS: PCP Family Medicine; Visit Provider Nurse Practitioner Psychiatric/Mental Health
DX: Z03.89 Encounter for observation for other suspected diseases and conditions ruled out (principal); Z79.899 Other long term (current) drug therapy
CPT/HCPCS: 36415; 80053; 80306; 80307

== ENCOUNTER → 2022-01-07 09:30 | Outpatient (BNVA) | payer MEDICAID, SELFPAY | PROVIDERS: PCP Family Medicine; Visit Provider Nurse Practitioner Psychiatric/Mental Health | DX: F31.2 Bipolar disorder, current episode manic severe with psychotic features (principal); F17.210 Nicotine dependence, cigarettes, uncomplicated; F15.20 Other stimulant dependence, uncomplicated; F12.20 Cannabis dependence, uncomplicated; F10.10 Alcohol abuse, uncomplicated; Z79.899 Other long term (current) drug therapy; Z03.89 Encounter for observation for other suspected diseases and conditions ruled out | CPT/HCPCS: 99214 ==

== ENCOUNTER → 2022-05-13 16:13 | Outpatient (BNVA) | payer MEDICAID, SELFPAY | PROVIDERS: PCP Family Medicine; Visit Provider Nurse Practitioner Psychiatric/Mental Health | DX: Z79.899 Other long term (current) drug therapy (principal); Z03.89 Encounter for observation for other suspected diseases and conditions ruled out; F15.20 Other stimulant dependence, uncomplicated; F31.2 Bipolar disorder, current episode manic severe with psychotic features; F12.20 Cannabis dependence, uncomplicated; F10.10 Alcohol abuse, uncomplicated; F17.210 Nicotine dependence, cigarettes, uncomplicated | CPT/HCPCS: 80053; 80061; 80306; 80307; 83036 ==

== ENCOUNTER → 2022-09-02 15:43 | Outpatient (BNVA) | payer MEDICAID, SELFPAY | PROVIDERS: PCP Nurse Practitioner Family; Visit Provider Nurse Practitioner Psychiatric/Mental Health | DX: Z79.899 Other long term (current) drug therapy (principal) | CPT/HCPCS: 80053; 80307 ==

== ENCOUNTER → 2022-10-14 16:19 | Outpatient (BNVA) | payer MEDICAID, SELFPAY | PROVIDERS: PCP Nurse Practitioner Family; Visit Provider Nurse Practitioner Psychiatric/Mental Health | DX: Z79.899 Other long term (current) drug therapy (principal); F31.2 Bipolar disorder, current episode manic severe with psychotic features; F15.20 Other stimulant dependence, uncomplicated; F12.20 Cannabis dependence, uncomplicated; F10.10 Alcohol abuse, uncomplicated; F17.210 Nicotine dependence, cigarettes, uncomplicated; B19.20 Unspecified viral hepatitis C without hepatic coma | CPT/HCPCS: 80053; 80307 ==

== ENCOUNTER 2023-01-16 12:24 | Inpatient (IN) | payer MEDICAID, SELFPAY ==
[2023-01-16 12:39] VITALS: BP 123/85; PULSE 80; RESP 18; TEMP 36.6; O2SAT 98; BMI 42.3
[2023-01-16 12:53] LABS: Add Urine Microscopic? NO; Charge for UA Resulting for Rev
[2023-01-16 12:56] LABS: Bilirubin Urine Neg (Negative); Blood Urine Neg (Negative); Glucose Urine UA Norm (Normal); Ketones Urine Negative (Negative); Leukocyte Esterase Urine Negative (Negative); Nitrate Urine Negative (Negative); Protein Urine Neg (Negative); Specific Gravity, Urine 1.015 (1.005-1.030); Urine Appearance Clear (CLEAR); Urine Color Yellow (Yellow); Urobilinogen Urine Norm (Negative); pH Urine 5 (5-7)
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
[2023-01-16 13:06] LABS: Cocaine Screen Urine Negative (Negative); PCP Screen Urine Negative (Negative); THC Screen Urine Positive (Negative)
[2023-01-16 13:07] LABS: Amphetamines Screen Urine Positive (Negative); Barbiturates Screen Urine Negative (Negative); Benzodiazepines Screen Urine Negative (Negative); Opiate Screen Urine Negative (Negative)
[2023-01-16 13:22] LABS: Basophils # 0.1 10^3/uL (0.0-0.1); Basophils % 0.7 %; Eosinophils # 0.3 10^3/uL (0.0-0.8); Eosinophils % 3.9 %; Hematocrit 46.1 % (37.0-47.0); Hemoglobin 15.6 g/dL (11.5-15.3); Lymphocytes # 2.8 10^3/uL (0.8-4.8); Lymphocytes % 37.2 %; Mean Corpuscular HGB Conc 33.8 g/dL (30.0-36.0); Mean Corpuscular Hemoglobin 31.9 pg (28.0-34.0); Mean Corpuscular Volume 94.3 fl (81-99); Mean Platelet Volume 10.9 fL (7.4-10.4); Monocytes # 0.8 10^3/uL (0.2-0.9); Neutrophils # 3.58 10^3/uL (1.8-7.7); Neutrophils % 47.8 %; Nucleated Red Blood Cells % 0 %; Platelet Count 266 10^3/cmm (130-400); Red Blood Count 4.89 10^6/uL (4.1-5.3); Red Cell Distribution Width 13.1 % (12.1-15.1); White Blood Count 7.5 10^3/uL (4.0-10.0)
[2023-01-16 13:32] LABS: HCG, Serum Qual Negative (Negative)
[2023-01-16 13:33] LABS: Alanine Aminotransferase 47 U/L (0-33); Albumin Level 3.5 g/dL (3.5-5.2); Alkaline Phosphatase 76 U/L (35-105); Aspartate Amino Transferase 46 U/L (0-32); Blood Urea Nitrogen 6 mg/dL (6-20); Calcium 8.5 mg/dL (8.5-10.5); Carbon Dioxide 25 mmol/L (22-29); Chloride 101 mmol/L (98-107); Globulin 3.1 g/dL (1.3-4.6); Glomerular Filtration Rate 111.3 mL/min (90-130); Glucose 109 mg/dL (65-115); Osmolality Calculated 280 mOsm/kg (285-295); Salicylate 1.3 mg/dL (3-10); Sodium 136 mmol/L (136-145); Total Bilirubin 0.4 mg/dL (0.15-1.2); Total Protein 6.6 g/dL (6.6-8.7)
[2023-01-16 13:34] LABS: Acetaminophen < 5.0 ug/mL (10-30); Alcohol Level < 10 mg/dL (0-10)
[2023-01-16] MEDS: LORazepam 1 mg Tablet 2 MG PO (13:53)
--- NOTE | 2023-01-16 14:58 | PC.PHAR ---
pt states she just used her permethrin cream a couple days ago rx filled 01/08/23-kunal wood from [facility] states the pts haloperidol 5mg bid prn was dced 01/06/23
--- NOTE | 2023-01-16 15:15 | PC.NURSE ---
PT IS ASLEEP IN ROOM IN BED WITH PSA OUTSIDE
[2023-01-16 16:44] VITALS: BP 137/90; PULSE 91; RESP 16; O2SAT 97
--- NOTE | 2023-01-16 16:44 | PC.NURSE ---
CHECKED ON PT, SHE IS SLEEPING IN HER ROOM WITH PSA OUTSIDE. PT IS CALM BOB
[2023-01-16 17:47] VITALS: BP 134/98; PULSE 100; RESP 18; TEMP 36.4; O2SAT 95
[2023-01-16] MEDS: propranolol 20 mg Tablet 10 MG PO (20:37)
[2023-01-16] MEDS: trazodone 100 mg Tablet PO (20:40)
[2023-01-16 22:00] VITALS: BP 121/70; PULSE 62; RESP 16; O2SAT 99
[2023-01-17 06:00] VITALS: BP 128/86; PULSE 70; RESP 18; O2SAT 95
[2023-01-17] MEDS: propranolol 20 mg Tablet 10 MG PO ×2 (08:57→18:23)
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
[2023-01-17 14:00] VITALS: BP 125/79; PULSE 72; RESP 16; TEMP 36.8; O2SAT 94
[2023-01-17] MEDS: paliperidone palmitate 156 mg Syringe IM (16:48)
[2023-01-17 20:37] VITALS: BP 127/99; PULSE 95; RESP 18; TEMP 36.9; O2SAT 95
[2023-01-17] MEDS: acetaminophen 325 mg Tablet 650 MG PO (20:49)
[2023-01-17] MEDS: hyDROXYzine 25 mg Capsule 50 MG PO (20:50)
--- NOTE | 2023-01-17 20:50 | PC.NURSE ---
Patient with c/o back pain rated 6/10 and anxiety 10/10. Tylenol 650 mg po and hydroxyzine 50 mg po given.
[2023-01-17] MEDS: trazodone 100 mg Tablet PO (20:51)
--- NOTE | 2023-01-18 04:30 | PC.NURSE ---
During nursing shift assessment patient verbalized chronic SI without a plan, anxiety rated 10/10. Patient denies HI/AVH. Patient was meal and medication compliant and interacted appropriately with other patients on unit.
[2023-01-18 06:00] VITALS: BP 121/79; PULSE 65; RESP 16; O2SAT 93
[2023-01-18] MEDS: propranolol 20 mg Tablet 10 MG PO ×2 (09:46→17:51)
--- NOTE | 2023-01-18 12:23 | W.PM.NPUPNS ---
Subjective NPU Subjective: 37-year-old white female with psychosis along with a history of methamphetamine use admitted with continued ideas of family members having been substituted for evil impostors. She continued to perpetuate this belief on interview. She had reported that she did not trust anyone. She had received her second shot of Invega at 156 mg yesterday. The patient 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 of methamphetamines on January 13. She reported that she was involved in a spiritual war and stated that evil Maricel was not going to win. Mental Status Exam MSE Comments: She is an obese white female who appeared her stated age, disheveled appearance. She had poor hygiene. Normal gait. No evidence of abnormal involuntary motor movements tics or tremors were appreciated. Her mood was described as depressed. Her affect was odd and subdued. She endorsed auditory hallucinations. She did at times appear to be responding to internal stimuli. Her speech was monotone in quality and normal in volume but diminished in rate. Perceptions: odd bizarre delusions, Capgras Syndrome appreciated, ideas of persecution, and ideas of reference. Insight: poor , judgment: poor, impulse control: poor. Attention span: poor. Recent/remote memory impaired. Vitals/I&O/Wt Last Vital Signs Temp 98.4 F 01/17/23 20:37 Pulse 65 01/18/23 06:00 Resp 16 01/18/23 06:00 BP 121/79 01/18/23 06:00 Pulse Ox 93 01/18/23 06:00 O2 Del Method Room Air 01/16/23 17:47 Weight last 48 hrs Weight 128.911 kg Weight 122.47 kg Data NPU 01/16/23 13:00 01/16/23 13:00 A&P Assessment and plan (1) Acute psychosis: (2) Methamphetamine use disorder, severe: (3) Suicidal ideations: (4) Cannabis dependence, episodic use: Plan This is a 37-year-old white female with a long history of addiction, psychosis and admitted involuntarily with significant delusions and bizarre thinking. 1. Continue Invega 9mg daily with IM INVEGA 156mg IM today 2.? Continue every 15 minute checks for safety. 3.? Encourage individual, group and milieu therapies on the unit. 4.? Encourage sober living treatment after discharge at the highest level of care to which she is willing to commit. Assist with referral to rehab sources. Involuntary Hold Information 96 Hour Hold: 96 Hour Involuntary Admission: Yes 96 Hour Hold Ending Date: 01/22/23 96 Hour Hold Ending Time: 12:25 Attestations NPU Medical Necessity Statement*: Psychiatric hospitalization is medically necessary to prevent access to lethal means, to reevaluate medication, and to coordinate a safe discharge. Patient will be in the hospital for over 2 midnights. Likely length of stay is 5-7 days. Coding Level of Care Code Acute Code for [facility] Fwd Diagnoses Acute psychosis F23 Methamphetamine use disorder, severe F15.20 Suicidal ideations R45.851 Cannabis dependence, episodic use F12.20
[2023-01-18 13:35] VITALS: BP 119/80; PULSE 74; RESP 16; TEMP 36.6; O2SAT 96
[2023-01-18 19:44] VITALS: BP 115/77; PULSE 57; RESP 18; TEMP 36.8; O2SAT 95
[2023-01-18] MEDS: trazodone 100 mg Tablet PO (20:09)
[2023-01-19 06:00] VITALS: BP 118/76; PULSE 71; RESP 16; O2SAT 94
[2023-01-19] MEDS: propranolol 20 mg Tablet 10 MG PO ×2 (08:32→17:48)
[2023-01-19] MEDS: paliperidone ER 9 mg Tablet PO (08:32)
[2023-01-19] MEDS: permethrin cream 5% 60 gm 1 APPLIC TOPICAL (12:43)
--- NOTE | 2023-01-19 12:55 | PC.NURSE ---
Administered Permethrin cream 5% to patient's body for treatment of scabies at 1248. Patient is aware that she will need to take a shower to remove the cream in 8 to 12 hours.
[2023-01-19 14:00] VITALS: BP 110/74; PULSE 66; RESP 16; TEMP 36.6; O2SAT 95
--- NOTE | 2023-01-19 15:19 | W.PM.NPUPNS ---
Subjective NPU Subjective: 37-year-old white female with psychosis along with a history of methamphetamine use admitted with continued ideas of family members having been substituted for evil impostors. The patient reported feeling better today. She had stated that she no longer felt like her mother was an impostor. She reported no thoughts of hurting herself or others. She stated that she was willing to consider inpatient substance abuse treatment but would be willing to return home to her mother while awaiting a bed. She reported no feelings of hopelessness. She acknowledged having used methamphetamines previously and indicated that this may have led to her problems with hallucinations. Mental Status Exam MSE Comments: She is an obese white female who appeared her stated age, disheveled appearance. She had improved hygiene. Normal gait. No evidence of abnormal involuntary motor movements tics or tremors were appreciated. Her mood was described as better. Her affect remained blunted. She denied auditory hallucinations. She did not appear to be responding to internal stimuli. Her speech was monotone in quality and normal in volume but diminished in rate. Perceptions: odd bizarre delusions, Capgras Syndrome appreciated, ideas of persecution, and ideas of reference. Insight: poor , judgment: poor, impulse control: improving. Attention span: poor. Recent/remote memory impaired. Vitals/I&O/Wt Last Vital Signs Temp 98 F 01/19/23 14:00 Pulse 66 01/19/23 14:00 Resp 16 01/19/23 14:00 BP 110/74 01/19/23 14:00 Pulse Ox 95 01/19/23 14:00 O2 Del Method Room Air 01/19/23 14:00 Weight last 48 hrs Weight 128.911 kg Data NPU 01/16/23 13:00 01/16/23 13:00 A&P Assessment and plan (1) Acute psychosis: (2) Methamphetamine use disorder, severe: (3) Suicidal ideations: (4) Cannabis dependence, episodic use: Plan This is a 37-year-old white female with a long history of addiction, psychosis and admitted involuntarily with significant delusions and bizarre thinking. 1. Continue Invega 9mg daily with IM INVEGA 156mg IM today 2.? Continue every 15 minute checks for safety. 3.? Encourage individual, group and milieu therapies on the unit. 4.? Encourage sober living treatment after discharge at the highest level of care to which she is willing to commit. Assist with referral to rehab sources. Involuntary Hold Information 96 Hour Hold: 96 Hour Involuntary Admission: Yes 96 Hour Hold Ending Date: 01/22/23 96 Hour Hold Ending Time: 12:25 Attestations NPU Medical Necessity Statement*: Psychiatric hospitalization is medically necessary to prevent access to lethal means, to reevaluate medication, and to coordinate a safe discharge. Appears to be much improved on his invega combination. His likely length of stay is 1-2 days. Coding Level of Care Code Acute Code for [facility] Fwd Diagnoses Acute psychosis F23 Methamphetamine use disorder, severe F15.20 Suicidal ideations R45.851 Cannabis dependence, episodic use F12.20
[2023-01-19] MEDS: nicotine 2 mg Gum BUCCAL (19:58)
[2023-01-19] MEDS: trazodone 100 mg Tablet PO (19:59)
[2023-01-19 20:09] VITALS: BP 107/85; PULSE 84; RESP 18; O2SAT 96
[2023-01-20 06:00] VITALS: BP 118/68; PULSE 76; RESP 18; TEMP 37; O2SAT 97
[2023-01-20] MEDS: paliperidone ER 9 mg Tablet PO (08:37)
[2023-01-20] MEDS: propranolol 20 mg Tablet 10 MG PO (08:37)
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
[2023-01-20 13:08] VITALS: BP 118/68; PULSE 76; RESP 18; TEMP 37; O2SAT 97
[2023-01-20 14:00] VITALS: BP 112/93; PULSE 96; RESP 16; TEMP 36.7; O2SAT 97
[2023-01-20] MEDS: nicotine 2 mg Gum BUCCAL (14:05)
== END 2023-01-20 15:00 | disposition home or self-care (01) | DRG 885 ==
LOC: ER 16:59 → NP 17:13
PROVIDERS: Physician Assistant; Admitting Provider Psychiatry & Neurology Psychiatry; Emergency Provider Family Medicine; PCP Nurse Practitioner Family; Visit Provider Psychiatry & Neurology Psychiatry
DX: F23 Brief psychotic disorder (principal); F15.20 Other stimulant dependence, uncomplicated; R45.851 Suicidal ideations; F12.20 Cannabis dependence, uncomplicated; F17.210 Nicotine dependence, cigarettes, uncomplicated
CPT/HCPCS: 36415; 80053; 80306; 80307; 81003; 84703; 85025; 96372; 97150; 97165; 99238; 99285

== ENCOUNTER → 2023-03-12 11:51 | Outpatient (BNVA) | payer MEDICAID, SELFPAY | PROVIDERS: PCP Nurse Practitioner Family; Visit Provider Nurse Practitioner Psychiatric/Mental Health | DX: Z79.899 Other long term (current) drug therapy (principal) | CPT/HCPCS: 80053; 80307 ==

== ENCOUNTER 2023-04-09 11:42 | Emergency (ER) | payer MEDICAID, SELFPAY ==
[2023-04-09 11:59] VITALS: BP 146/105; PULSE 87; RESP 16; TEMP 36.6; O2SAT 96
--- NOTE | 2023-04-09 12:04 | W.ED.GENADLT ---
HPI - General Adult General: Stated complaint: rash full body Time Seen by Provider: 04/09/23 11:50 Source: patient Mode of arrival: ambulatory History of Present Illness: 38-year-old female presents to the emergency room with complaints of a rash that she has had for months. Its mostly on her lower extremities and her forearms some on her back. None on her upper back it is just across the lower back. She has tried permethrin she also tried topical steroids and oral antihistamines she reports no relief from nose she seen her primary care doctor has not been referred to dermatology. No fever sweats or chills. 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 She uses mostly vinegar and bleach as cleaning agents. She has applied both of those intentionally to the rash in an effort to make it go away. Reviewing her chart she has had positive methamphetamine drug screens within the last month. Onset (ago): month(s) Location: upper extremity and lower extremity Severity: mild Relieving factors: none Exacerbating factors: none Associated symptoms: Reports rash; Deny chest pain, confusion, cough, diaphoresis, decreased appetite, dyspnea, fevers/chills, headache(s), malaise, nausea, palpitations, seizures, short of breath, syncope, vomiting or weakness Review of Systems Const: Denies: fever(s), chills, malaise or diaphoresis Card: Denies: chest pain, palpitations or syncope Resp: Denies: dyspnea GI: Denies: abdominal pain, nausea or vomiting Skin/Breast: Reports: rash and pruritus Neuro: Denies: headache(s) or confusion PFS ED PFSH: Medical History Alcohol abuse, episodic drinking behavior Bipolar disorder, current episode manic severe with psychotic features Cannabis dependence, episodic use Cellulitis and abscess of upper arm and forearm Hepatitis C Liver cirrhosis Methamphetamine use disorder, severe Nicotine dependence, cigarettes, uncomplicated Psychiatric care Surgical History No pertinent past surgical history Family History Other Psychiatric illness Social History Smoking and tobacco status: current every day smoker cigarettes Packs smoked per day: 1 Years cigarettes smoked: 27 Second hand smoke exposure: Yes Smoking risk assessment/counseling performed?: No Reason smoking risk assessment not done: patient refused Alcohol intake: current Alcohol intake frequency: few times a week Alcohol type: hard liquor Substance/Drug Use: current Substance/Drug use frequency: daily Desire information about substance/drug rehabilitation?: No Adopted: No Caregiver/support person: No Lives independently: Yes Household members: family Housing: House Marital status: Marital status details: for 4-5 years Number of children: 0 Number of grandchildren: 0 Highest education level completed: 11th Grade service: No Current occupational status: disabled Pets and animals: Yes (2 dogs, 3 cats) Pets & animals: cat(s) and dog(s) Leisure activites: other Leisure activities details: watch TV Sexually active: No Do you think of yourself as: Straight/Heterosexual Current gender identity: Female Gema/Congregation: Islam Special gema needs: No Agree to transfusion: Yes Financial difficulty paying for basics: Hard Female Reproductive History: Para: 0 Spontaneous abortions: Yes ( I think I had a miscarriage once. ) Physical Exam Const: COMMON NORMALS: no acute distress GENERAL APPEARANCE: cooperative and comfortable ORIENTATION/CONSCIOUSNESS: Yes awake, Yes oriented to person, Yes oriented to place and Yes oriented to time HENMT: COMMON NORMALS: normocephalic, atraumatic and hearing grossly normal bilaterally HEAD & SCALP: normocephalic and atraumatic Resp: COMMON NORMALS: normal respiratory effort, No retractions, No use of accessory muscles and clear to auscultation bilaterally AUSCULTATION: clear to auscultation bilaterally Cardio: COMMON NORMALS: regular rate, regular rhythm and No murmurs present (Cardio) RATE: regular rate RHYTHM: regular rhythm Extremity: COMMON NORMALS: normal to inspection, capillary refill normal, no clubbing, cyanosis or edema, no calf tenderness and no pedal edema Neuro: SENSORIUM/ORIENTATION: Yes oriented to person, Yes oriented to place and Yes oriented to time Skin: OTHER: Excoriated lesions on the forearms not present on the proximal upper arm there is some present on her lower back and her upper chest. Lower extremities as well. No vesicles no redness no erythema no indurated areas. [facility] - General Adult Medical Decision Making No clear pattern these appear to be excoriations. May be related to the history of use of methamphetamines. 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 At this point will place her hydroxyzine as needed, Topical triamcinolone twice daily and encouraged her to follow-up with her primary care doctor for referral to dermatology. Noted that there is a pending urine tox screen dated for just 40 minutes before she was seen here but was not ordered in emergency room as ordered on outpatient basis results not available Medical Records I reviewed the patient's medical records. Lab Data I reviewed the patient's lab results. No radiology studies performed this visit Discharge Plan Discharge Patient Disposition: Home Clinical Impression: Chronic pruritus Condition: Stable Prescriptions: New prednisone 20 mg tablet 20 mg PO TID Qty: 15 0RF Rx Instructions: 1 p.o. 3 times daily x3 days, 1 p.o. twice daily x2 days, 1 p.o. daily x2 days triamcinolone acetonide 0.5 % cream 1 applic topical BID Qty: 15 0RF hydroxyzine HCl 25 mg tablet 25 mg PO Q6H PRN (Reason: itching) Qty: 30 0RF No Action trazodone 300 mg tablet 300 mg PO DIRECTED PRN (Reason: sleep) Qty: 30 3RF Rx Instructions: Take one tablet 30-60 min prior to bedtime as needed for sleep haloperidol 5 mg tablet 5 mg PO BID Qty: 60 3RF Rx Instructions: Take one tablet twice per day permethrin 5 % cream See Rx Instructions .ROUTE .COMPLEX Rx Instructions: APPLY MASSAGE CREAM INTO THE ENTIRE BODY (AVOID MOUTH, EYE, AND NOSE) WASH OFF AFTER 8 TO 14 HOURS REPEAT IN 1 WEEK triamcinolone acetonide 0.1 % ointment See Rx Instructions .ROUTE .COMPLEX Rx Instructions: APPLY A SMALL FILM TO AFFECTED AREA TWICE DAILY NEEDED, AVOID GROIN OR FACE Discharge Orders: Discharge ED (Routine); Ordered 04/09/23 Ordered By: Zev Bella Referrals: Ashley Soriano FNP [Primary Care Provider] - Patient Instructions: Opioid Safety, Pain Management Activity Restrictions/Additional Instructions: Follow-up with your primary care provider for a referral to dermatology Coding Level of Care Code ED Personal Banking Officer for Shelley Arnold
[2023-04-09] MEDS: dexamethasone 10 mg/mL INJ IM (12:06)
[2023-04-09] MEDS: hyDROXYzine 25 mg Capsule PO (12:07)
[2023-04-09 12:08] VITALS: BP 146/105; PULSE 87; RESP 16; TEMP 36.6; O2SAT 96
== END 2023-04-09 12:21 | disposition home or self-care (01) ==
PROVIDERS: Emergency Provider Family Medicine; PCP Nurse Practitioner Family
DX: L29.8 Other pruritus (principal); Z86.19 Personal history of other infectious and parasitic diseases; F17.210 Nicotine dependence, cigarettes, uncomplicated
CPT/HCPCS: 80053; 80061; 80307; 83036; 96372; 99284; J1100

== ENCOUNTER 2023-08-19 16:05 | Inpatient (IN) | payer MEDICAID, SELFPAY ==
[2023-04-23 16:05] VITALS: BP 146/105; BMI 42.3
[2023-08-19 16:11] VITALS: BP 132/97; PULSE 95; RESP 18; TEMP 36.7; O2SAT 99; BMI 44.1
[2023-08-19 16:29] VITALS: BP 132/97; PULSE 95; RESP 18; O2SAT 99
--- NOTE | 2023-08-19 16:29 | ED.C_ITS ---
HPI - Psych 2 General: Chief Complaint: Psychiatric Symptoms Stated Complaint: Hallucinations, Bipolar Time Seen by Provider: 08/19/23 16:07 Source: patient and EMS Mode of arrival: EMS Limitations: no limitations History of Present Illness: 38-year-old female has a history of bipo lar along with methamphetamine abuse patient's been admitted to our [facility] multiple times over the past few years patient was sent here from [facility] for acute psychosis she is claiming to be the president she is acutely psychotic she keeps talking to someone next to her and she states that her best friend is not there Associated symptoms: Reports visual hallucinations Review of Systems 2 Const: Denies: fever(s) or chills Eyes: Denies: blurry vision or eye discomfort ENMT: Denies: throat pain or dental pain Card: Denies: chest pain Resp: Denies: dyspnea GI: Denies: abdominal pain, nausea, vomiting or diarrhea Musc: Denies: neck pain or back pain Skin/Breast: Denies: rash Neuro: Denies: headache(s) Psych: Reports: visual hallucinations PFSH ED 2 PFSH: Medical History Methamphetamine use disorder, severe Psychiatric care Cellulitis and abscess of upper arm and forearm Liver cirrhosis Hepatitis C Nicotine dependence, cigarettes, uncomplicated Alcohol abuse, episodic drinking behavior Cannabis dependence, episodic use Bipolar disorder, current episode manic severe with psychotic features Surgical History No pertinent past surgical history Family History Other Psychiatric illness Social History Smoking and tobacco/nicotine status: current every day tobacco/nicotine user cigarettes Packs smoked per day: 1 Years cigarettes smoked: 27 Second hand smoke exposure: Yes Alcohol intake: current Alcohol intake frequency: few times a week Alcohol type: hard liquor Substance/Drug Use: current Substance/Drug use frequency: daily Adopted: No Caregiver/support person: No Lives independently: Yes Household members: family Housing: House Marital status: Marital status details: for 4-5 years Number of children: 0 Number of grandchildren: 0 Highest education level completed: 11th Grade service: No Current occupational status: disabled Pets and animals: Yes (2 dogs, 3 cats) Pets & animals: cat(s) and dog(s) Leisure activites: other Leisure activities details: watch TV Sexually active: No Do you think of yourself as: Straight/Heterosexual Current gender identity: Female Gema/Anabaptist: Congregation Special gema needs: No Agree to transfusion: Yes Female Reproductive History: Para: 0 Spontaneous abortions: Yes ( I think I had a miscarriage once. ) Physical Exam 2 Const: COMMON NORMALS: no acute distress, patient oriented x3 and healthy appearing HENMT: COMMON NORMALS: normocephalic and atraumatic HEAD & SCALP: n ormocephalic and atraumatic Neck/C-Spine: COMMON NORMALS: full ROM and supple Chest: COMMONS NORMALS: normal inspection of the chest Resp: COMMON NORMALS: normal respiratory effort Cardio: COMMON NORMALS: regular rate, regular rhythm and No murmurs present (Cardio) RATE: regular rate RHYTHM: regular rhythm Neuro: COMMON NORMALS: patient oriented x3, moves all extremities and no focal motor deficits Psych: COMMON NORMALS: mental status grossly normal and Normal thought process present THOUGHT PROCESS: Normal thought process present THOUGHT CONTENT: Y es Hallucination(s) present Skin: COMMON NORMALS: no rashes or lesions noted and no wounds GENERAL SKIN EXAM: no rashes or lesions noted Course 2 Vital Signs: Vital signs: Vital Signs Temperature 98.1 F 08/19/23 16:11 Pulse Rate 95 08/19/23 16:29 Respiratory Rate 18 08/19/23 16:29 Blood Pressure 132/97 08/19/23 16:29 Pulse Oximetry 99 08/19/23 16:29 Oxygen Delivery Me thod Room Air 08/19/23 16:29 [facility] - Psych Medical Decision Making Patient presents here with acute psychosis patient was placed on a 96-hour hold I spoke to the psychiatrist patient medically cleared and will admit to the psych [facility]. Medical Records I reviewed the patient's medical records. Lab Data I reviewed the patient's lab results. 08/19/23 17:00 08/19/23 16:30 Laboratory Results WBC 13.44 10^3/uL (3.29-11.43) H 08/19/23 17:00 RBC 5.13 10^6/uL (3.85-5.65) 08/19/23 17:00 Hgb 16.40 g/dL (11.27-16.99) 08/19/23 17:00 Hct 49.6 % (36-47) H 08/19/23 17:00 MCV 96.7 fl (85-98) 08/19/23 17:00 MCH 32.0 pg (27-33) 08/19/23 17:00 MCHC 33.1 g/dL (30-55) 08/19/23 17:00 RDW 13.4 % (12.1-15.1) 08/19/23 17:00 Plt Count 288 10^3/cmm (157-399) 08/19/23 17:00 MPV 10.7 fL (7.4-10.4) H 08/19/23 17:00 Neut % (Auto) 49.9 % 08/19/23 17:00 Lymph % (Auto) 38.6 % 08/19/23 17:00 [place] % (Auto) 7.5 % 08/19/23 17:00 Eos % (Auto) 2.9 % 08/19/23 17:00 Baso % (Auto) 0.7 % 08/19/23 17:00 Neut # (Auto) 6.70 10^3/uL (1.8-7.7) 08/19/23 17:00 Lymph # (Auto) 5.2 10^3/uL (0.8-4.8) H 08/19/23 17:00 [place] # (Auto) 1.0 10^3/uL (0.2-0.9) H 08/19/23 17:00 Eos # (Auto) 0.4 10^3/uL (0.0-0.8) 08/19/23 17:00 Baso # (Auto) 0.1 10^3/uL (0.0-0.1) 08/19/23 17:00 Nucleated RBC % (auto) 0 % 08/19/23 17:00 Nucleated RBCs # 0.0 /100WBC 08/19/23 17:00 Sodium 134 mmol/L (136-145) L 08/19/23 16:30 Potassium 4.0 mmol/L (3.5-5.1) 08/19/23 16:30 Chloride 98 mmol/L (98-107) 08/19/23 16:30 Carbon Dioxide 20 mmol/L (22-29) L 08/19/23 16:30 Anion Gap 20.0 (5-19) H 08/19/23 16:30 BUN 8 mg/dL (6-20) 08/19/23 16:30 Creatinine 0.6 mg/dL (0.5-0.9) 08/19/23 16:30 GFR Calculation 110.7 mL/min (90-130) 08/19/23 16:30 Glucose 153 mg/dL (65-115) H 08/19/23 16:30 Calculated Osmolality 279 mOsm/kg (285-295) L 08/19/23 16:30 Calcium 9.1 mg/dL (8.5-10.5) 08/19/23 16:30 Total Bilirubin 0.7 mg/dL (0.15-1.2) 08/19/23 16:30 AST 50 U/L (0-32) H 08/19/23 16:30 ALT 43 U/L (0-33) H 08/19/23 16:30 Alkaline Phosphatase 103 U/L (35-105) 08/19/23 16:30 Total Protein 7.4 g/dL (6.6-8.7) 08/19/23 16:30 Albumin 4.1 g/dL (3.5-5.2) 08/19/23 16:30 Globulin 3.3 g/dL (1.3-4.6) 08/19/23 16:30 Salicylates < 0.3 mg/dL (3-10) L 08/19/23 16:30 Acetaminophen < 5.0 ug/mL (10-30) L 08/19/23 16:30 Ethyl Alcohol < 10 mg/dL (0-10) 08/19/23 16:30 No radiology studies performed this visit Discharge Plan Discharge Patient Disposition: Admitted As Inpatient Admit Provider: Mayito Caballero Clinical Impression: Acute psychosis Condition: Stable Coding Level of Care Code ED [facility] Cutter for Shelley Arnold
--- NOTE | 2023-08-19 16:51 | PC.NURSE ---
96 hour hold rights reviewed and read to patient. Patient is currently hallucinating and exhibiting psychosis behavior and did not understand rights that were given. Copy of rights were given.
[2023-08-19 16:59] LABS: Alanine Aminotransferase 43 U/L (0-33); Albumin Level 4.1 g/dL (3.5-5.2); Alkaline Phosphatase 103 U/L (35-105); Aspartate Amino Transferase 50 U/L (0-32); Blood Urea Nitrogen 8 mg/dL (6-20); Calcium 9.1 mg/dL (8.5-10.5); Carbon Dioxide 20 mmol/L (22-29); Chloride 98 mmol/L (98-107); Globulin 3.3 g/dL (1.3-4.6); Glomerular Filtration Rate 110.7 mL/min (90-130); Glucose 153 mg/dL (65-115); Osmolality Calculated 279 mOsm/kg (285-295); Sodium 134 mmol/L (136-145); Total Bilirubin 0.7 mg/dL (0.15-1.2); Total Protein 7.4 g/dL (6.6-8.7)
[2023-08-19 17:03] LABS: Acetaminophen < 5.0 ug/mL (10-30); Alcohol Level < 10 mg/dL (0-10); Salicylate < 0.3 mg/dL (3-10)
[2023-08-19 17:31] LABS: Basophils # 0.1 10^3/uL (0.0-0.1); Basophils % 0.7 %; Eosinophils # 0.4 10^3/uL (0.0-0.8); Eosinophils % 2.9 %; Hematocrit 49.6 % (36-47); Lymphocytes # 5.2 10^3/uL (0.8-4.8); Lymphocytes % 38.6 %; Mean Corpuscular HGB Conc 33.1 g/dL (30-55); Mean Corpuscular Volume 96.7 fl (85-98); Mean Platelet Volume 10.7 fL (7.4-10.4); Monocytes % 7.5 %; Neutrophils % 49.9 %; Nucleated Red Blood Cells % 0 %; Platelet Count 288 10^3/cmm (157-399); Red Blood Count 5.13 10^6/uL (3.85-5.65); Red Cell Distribution Width 13.4 % (12.1-15.1); White Blood Count 13.44 10^3/uL (3.29-11.43)
[2023-08-19] MEDS: haloperidol inj 5 mg/mL INJ 1 mL IM (17:43)
[2023-08-19] MEDS: LORazepam 2 mg/mL INJ 10 mL MDV IM (17:50)
[2023-08-19 18:13] LABS: Slide Review Slide Review Perform
[2023-08-19 18:18] VITALS: BP 135/94; PULSE 102; RESP 17; TEMP 36.6; O2SAT 96
[2023-08-19 20:12] LABS: HCG Qualitative Urine. Negative (Negative)
[2023-08-19 20:32] LABS: Amphetamines Screen Urine Positive (Negative); Barbiturates Screen Urine Negative (Negative); Benzodiazepines Screen Urine Negative (Negative); Cocaine Screen Urine Negative (Negative); Opiate Screen Urine Negative (Negative); PCP Screen Urine Negative (Negative); THC Screen Urine Positive (Negative)
[2023-08-19] MEDS: acetaminophen 325 mg Tablet 650 MG PO (20:35)
[2023-08-19] MEDS: trazodone 50 mg Tablet PO (20:36)
[2023-08-19] MEDS: hyDROXYzine 25 mg Capsule 50 MG PO (20:36)
--- NOTE | 2023-08-19 21:33 | PC.NURSE ---
IN BED PT DENIES SI/HI AND VH AT THIS TIME. ENDORSES HEARING VOICES BUT STATES I LIKE THEM, THE BAD ONES KNOW BETTER TO MESS WITH ME SO ITS JUST THE GOOD ONES I HEAR. PT IS NOTED TO BE IMPULSIVE AND INTRUSIVE. UDS COMPLETED AND PT IS POSITIVE FOR AMPHETAMINES AND THC. RATES PAIN IN KNEES 02/19 TYLENOL 650 MG WAS GIVEN ORDERED. PT WAS GIVEN TRAZODONE 50 MG ORDERED FOR INSOMNIA AND VISTARIL 50 MG FOR INCREASED ANXIETY. ALL QUESTIONS WERE ANSWERED AND SUPPORT WAS VOICED.
[2023-08-20 06:00] VITALS: BP 127/85; PULSE 99; RESP 16; TEMP 36.4; O2SAT 96
--- NOTE | 2023-08-20 06:08 | PC.NURSE ---
PT WAS GIVEN TRAZODONE 50 MG FOR INSOMNIA AND VISTARIL 50 MG FOR REPORTS OF INCREASED ANXIETY AT THE BEGINNING OF THE SHIFT. MEDICATIONS DEEMED EFFECTIVE. PT HAS SLEPT APPROXIMATELY 9 HOURS THIS SHIFT AND HAS HAD NO OTHER COMPLAINTS OF ANXIETY.
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
[2023-08-20 14:00] VITALS: BP 160/111; PULSE 105; RESP 17; TEMP 36.3; O2SAT 95
[2023-08-20 15:20] VITALS: BP 133/87; PULSE 78; RESP 16; O2SAT 96
[2023-08-20] MEDS: quetiapine XR (24HR) 300 mg Tablet 600 MG PO (18:16)
[2023-08-20] MEDS: hyDROXYzine 25 mg Capsule 50 MG PO (20:22)
[2023-08-20] MEDS: trazodone 50 mg Tablet PO (20:22)
--- NOTE | 2023-08-20 21:38 | PC.NURSE ---
RESTING IN BED QUIETLY. DENIES PAIN. DENIES SI/HI AND AVH AT THIS TIME. RATES DEPRESSION 10/20 AND ANXIETY 11/19. PT WAS GIVEN TRAZODONE 50 MG ORDERED FOR INSOMNIA AND VISTARIL 50 MG ORDERED FOR INCREASED REPORTS OF ANXIETY. ALL QUESTIONS ANSWERED AND SUPPORT WAS VOICED.
[2023-08-20 21:46] VITALS: BP 113/69; PULSE 83; RESP 16; TEMP 36.6; O2SAT 98
[2023-08-21 06:00] VITALS: BP 108/69; PULSE 80; RESP 16; TEMP 36.4; O2SAT 96
--- NOTE | 2023-08-21 06:30 | PC.NURSE ---
TRAZODONE 50 MG AND VISTARIL 50 MG THAT WAS GIVEN AT BEDTIME IS DEEMED EFFECTIVE. PT SLEPT APPROXIMATELY 10 HOURS THIS SHIFT.
[2023-08-21 14:00] VITALS: BP 92/60; PULSE 79; RESP 20; TEMP 36.6; O2SAT 95
[2023-08-21] MEDS: quetiapine XR (24HR) 300 mg Tablet 600 MG PO (18:16)
[2023-08-21 21:18] VITALS: BP 113/62; PULSE 91; RESP 18; TEMP 36.5; O2SAT 97
--- NOTE | 2023-08-21 23:49 | P.NPUPN_ITS ---
Subjective NPU 2 Subjective: Presented today reporting that she is really needing rehab but reporting wanting to discharge today. We discussed continuing to work with the treatment team for follow-up and available options. She denied side effects reported plan to follow through. Mental Status Exam 2 MSE Comments: This is an obese versus morbidly obese white female in hospital scrubs with poor grooming and eye contact.? No abnormal movements except for psychomotor retardation.? Mostly cooperative with exam in mild distress.? Speech was decreased rate and volume.? Mood described as okay, affect subdued.? Thought process organized.? Thought content: Patient denied suicidal or homicidal ideation, there were no delusions reported or noted, she denied visual hallucinations and endorsed occasional auditory hallucinations that she reportedly likes. .? Attention and concentration were intact and memory appeared mostly reliable but none were formally tested.? She is alert and oriented x3.? Insight and judgment are limited and impulse control is impaired. Vitals/I&O/Wt Last Vital Signs Temp 97.7 F 08/21/23 21:18 Pulse 91 08/21/23 21:18 Resp 18 08/21/23 21:18 BP 113/62 08/21/23 21:18 Pulse Ox 97 08/21/23 21:18 O2 Del Method Room Air 08/21/23 14:00 Data NPU 08/19/23 17:00 08/19/23 16:30 A&P Assessment and plan (1) Acute psychosis: (2) Suicidal ideations: (3) Bipolar disorder, current episode manic severe with psychotic features: (4) Nicotine dependence, cigarettes, uncomplicated: (5) Alcohol abuse, episodic drinking behavior: (6) Cannabis dependence, episodic use: (7) Methamphetamine use disorder, severe: Plan This is a 38-year-old white female with a long history of addiction, psychosis and other mental health challenges who presents with on a 96-hour hold. 1.? Continue current medication. 2.? Continue continue every 15 minute checks for safety. 3.? Encourage individual, group and milieu therapies on the unit. 4.? Encourage sober living treatment after discharge at the highest level of care to which she is willing to commit. Explore possible rehab. 5. Reports of primary outpatient team suggesting that guardianship may be appropriate. We will get collateral information from home and treatment team and explore possibilities/indications. Involuntary Hold Information 2 96 Hour Hold: 96 Hour Involuntary Admission: Yes 96 Hour Hold Ending Date: 01/22/23 96 Hour Hold Ending Time: 12:25 Attestations NPU 2 Medical Necessity Statement*: Inpatient hospitalization is medically necessary and the clinically appropriate intervention at this time. We will monitor medication to make changes as indicated. Likely length of stay 2-4 days. Coding Level of Care Code Acute Code for Chg Fwd Diagnoses Acute psychosis F23 Suicidal ideations R45.851 Bipolar disorder, current episode manic severe with psychotic features F31.2 Nicotine dependence, cigarettes, uncomplicated F17.210 Alcohol abuse, episodic drinking behavior F10.10 Cannabis dependence, episodic use F12.20 Methamphetamine use disorder, severe F15.20
[2023-08-22 06:00] VITALS: RESP 15
--- NOTE | 2023-08-22 06:18 | PC.NURSE ---
RR documented per CN
--- NOTE | 2023-08-22 06:34 | P.NPUPN_ITS ---
Subjective NPU 2 Subjective: Patient presented today reporting that she is getting better each day. She continues to be somewhat ambivalent about treatment but seems to appreciate recent discussions about her outpatient team having significant concerns about her continued presentation with psychosis and methamphetamine use. We discussed Dr. Spivey returning tomorrow and being able to work with the treatment team on possible rehab beds. Mental Status Exam 2 MSE Comments: This is an obese versus morbidly obese white female in hospital scrubs with poor grooming and eye contact.? No abnormal movements except for psychomotor retardation.? Mostly cooperative with exam in mild distress.? Speech was decreased rate and volume.? Mood described as okay, affect less subdued.? Thought process organized.? Thought content: Patient denied suicidal or homicidal ideation, there were no delusions reported or noted, she denied visual hallucinations and endorsed occasional auditory hallucinations that she reportedly likes. .? Attention and concentration were intact and memory appeared mostly reliable but none were formally tested.? She is alert and oriented x3.? Insight and judgment are limited and impulse control is impaired. Vitals/I&O/Wt Last Vital Signs Temp 97.7 F 08/21/23 21:18 Pulse 91 08/21/23 21:18 Resp 15 08/22/23 06:00 BP 113/62 08/21/23 21:18 Pulse Ox 97 08/21/23 21:18 O2 Del Method Room Air 08/21/23 14:00 Data NPU 08/19/23 17:00 08/19/23 16:30 A&P Assessment and plan (1) Acute psychosis: (2) Suicidal ideations: (3) Bipolar disorder, current episode manic severe with psychotic features: (4) Nicotine dependence, cigarettes, uncomplicated: (5) Alcohol abuse, episodic drinking behavior: (6) Cannabis dependence, episodic use: (7) Methamphetamine use disorder, severe: Plan This is a 38-year-old white female with a long history of addiction, psychosis and other mental health challenges who presents with on a 96-hour hold. 1.? Continue current medication. 2.? Continue continue every 15 minute checks for safety. 3.? Encourage individual, group and milieu therapies on the unit. 4.? Encourage sober living treatment after discharge at the highest level of care to which she is willing to commit. Explore possible rehab options. 5. Reports of primary outpatient team suggesting that guardianship may be appropriate. We will get collateral information from home and treatment team and explore possibilities/indications. Involuntary Hold Information 2 96 Hour Hold: 96 Hour Involuntary Admission: Yes 96 Hour Hold Ending Date: 01/22/23 96 Hour Hold Ending Time: 12:25 Attestations NPU 2 Medical Necessity Statement*: Inpatient hospitalization is medically necessary and the clinically appropriate intervention at this time. We will monitor medication to make changes as indicated. Likely length of stay 2-4 days. Coding Level of Care Code Acute Code for Chg Fwd Diagnoses Acute psychosis F23 Suicidal ideations R45.851 Bipolar disorder, current episode manic severe with psychotic features F31.2 Nicotine dependence, cigarettes, uncomplicated F17.210 Alcohol abuse, episodic drinking behavior F10.10 Cannabis dependence, episodic use F12.20 Methamphetamine use disorder, severe F15.20
[2023-08-22 14:00] VITALS: RESP 18
[2023-08-22] MEDS: quetiapine XR (24HR) 300 mg Tablet 600 MG PO (17:59)
[2023-08-22 19:42] VITALS: BP 109/66; PULSE 72; RESP 16; TEMP 36.7; O2SAT 95
[2023-08-22] MEDS: hyDROXYzine 25 mg Capsule 50 MG PO (19:58)
--- NOTE | 2023-08-22 19:58 | PC.NURSE ---
Patient requested vistaril for sleep.
[2023-08-23 06:00] VITALS: BP 119/82; PULSE 93; RESP 16; TEMP 36.4; O2SAT 93
[2023-08-23 14:00] VITALS: BP 115/87; PULSE 118; RESP 17; TEMP 36.3; O2SAT 97
[2023-08-23] MEDS: nicotine 2 mg Gum BUCCAL (15:05)
--- NOTE | 2023-08-23 17:04 | P.NPUPN_ITS ---
Subjective NPU 2 Subjective: 38-year-old female admitted with bipolar disorder who presented with psychosis in the context of continued methamphetamine use. She had reported that she had used methamphetamine a few days prior to admission. She had stated that she was feeling better today. She reported no side effects from her Seroquel at this time. She stated that she no longer had a place to go. The patient had remained ambivalent about considering rehabilitation facility. The patient was informed that the patient's options may dwindle and she may lose her ability to make her own decision if she continued to present to hospitals and continue to be unable to be treated appropriately on an outpatient basis. She had a acknowledged a history of noncompliance with her medication regimen. Mental Status Exam 2 MSE Comments: This is an obese versus morbidly obese white female in hospital scrubs with poor grooming and eye contact.? No abnormal movements except for psychomotor retardation.?She was cooperative with exam in mild distress.? Speech was normal in rate and normal in volume.? Mood described as allright. Affect remained subdued. Thought process was linear and organized.? Thought content: Patient denied suicidal or homicidal ideation, there were no delusions reported or noted,She did not appear to be responding to internal stimuli. Attention and concentration were intact and memory appeared mostly reliable but none were formally tested.? She is alert and oriented x3.? Insight is poor and judgment is limited and impulse control is impaired. Vitals/I&O/Wt Last Vital Signs Temp 97.3 F L 08/23/23 14:00 Pulse 118 H 08/23/23 14:00 Resp 17 08/23/23 14:00 BP 115/87 08/23/23 14:00 Pulse Ox 97 08/23/23 14:00 O2 Del Method Room Air 08/21/23 14:00 Weight last 48 hrs Weight 127.913 kg Data NPU 08/19/23 17:00 08/19/23 16:30 A&P Assessment and plan (1) Acute psychosis: (2) Suicidal ideations: (3) Bipolar disorder, current episode manic severe with psychotic features: (4) Nicotine dependence, cigarettes, uncomplicated: (5) Alcohol abuse, episodic drinking behavior: (6) Cannabis dependence, episodic use: (7) Methamphetamine use disorder, severe: Plan This is a 38-year-old white female with a long history of addiction, psychosis and other mental health challenges who presents with on a 96-hour hold. 1.? Continue Seroquel xr 600mg at night. 2.? Continue continue every 15 minute checks for safety. 3.? Encourage individual, group and milieu therapies on the unit. 4.? Encourage sober living treatment after discharge at the highest level of care to which she is willing to commit. Explore possible rehab options. 5. Reports of primary outpatient team suggesting that guardianship may be appropriate. We will get collateral information from home and treatment team and explore possibilities/indications. Involuntary Hold Information 2 96 Hour Hold: 96 Hour Involuntary Admission: Yes 96 Hour Hold Ending Date: 01/22/23 96 Hour Hold Ending Time: 12:25 Attestations NPU 2 Medical Necessity Statement*: Inpatient hospitalization is medically necessary and the clinically appropriate intervention at this time. We will monitor medication to make changes as indicated. Likely length of stay 2-4 days. Coding Level of Care Code Acute Code for [facility] Fwd Diagnoses Acute psychosis F23 Suicidal ideations R45.851 Bipolar disorder, current episode manic severe with psychotic features F31.2 Nicotine dependence, cigarettes, uncomplicated F17.210 Alcohol abuse, episodic drinking behavior F10.10 Cannabis dependence, episodic use F12.20 Methamphetamine use disorder, severe F15.20
[2023-08-23] MEDS: quetiapine XR (24HR) 300 mg Tablet 600 MG PO (18:04)
[2023-08-23] MEDS: loperamide 2 mg Capsule PO (18:04)
[2023-08-23 20:03] VITALS: BP 104/71; PULSE 84; RESP 16; TEMP 36.6; O2SAT 94
[2023-08-23] MEDS: hyDROXYzine 25 mg Capsule 50 MG PO (21:01)
--- NOTE | 2023-08-23 21:47 | PC.NURSE ---
IN BED RESTING AROUSES TO VOICE. DENIES PAIN. DENIES SI/HI AND AVH AT THIS TIME. RATES ANXIETY 5/1 AND DEPRESSION 0/10. PT WAS GIVEN VISTARIL 50 MG ORDERED FOR INCREASED AGITATION. PT STATES SHE NEEDS SOMETHING TO HELP HER SLEEP, RN EDUCATED PT SHE TOOK SEROQUEL 600 MG AT 1900 AND WE WILL SEE IF THAT WORKS BEFORE GIVING MORE SLEEP MEDICATIONS. PT VERBALIZED UNDERSTANDING. ALL QUESTIONS ANSWERED AND SUPPORT VOICED,
[2023-08-24 06:00] VITALS: BP 95/66; PULSE 103; RESP 18; TEMP 36.3; O2SAT 94
--- NOTE | 2023-08-24 06:27 | PC.NURSE ---
PT WAS GIVEN VISTARIL 50 MG EARLIER IN THE SHIFT DUE TO REPORTED INCREASED ANXIETY. MEDICATION DEEMED EFFECTIVE. PT HAS SLEPT APPROXIMATELY 10 HOURS THIS SHIFT.
[2023-08-24] MEDS: loperamide 2 mg Capsule PO (11:51)
[2023-08-24 15:50] VITALS: BP 95/66; PULSE 103; RESP 18; TEMP 36.3; O2SAT 94
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
== END 2023-08-24 16:00 | disposition home or self-care (01) | DRG 885 ==
LOC: ER 17:00 → NP 17:04
PROVIDERS: Admitting Provider Psychiatry & Neurology Psychiatry; Emergency Provider Emergency Medicine; PCP Nurse Practitioner Family; Visit Provider Psychiatry & Neurology Psychiatry
DX: F23 Brief psychotic disorder (principal); R45.851 Suicidal ideations; F31.2 Bipolar disorder, current episode manic severe with psychotic features; Z91.148 Patient's other noncompliance with medication regimen for other reason; F17.210 Nicotine dependence, cigarettes, uncomplicated; F15.90 Other stimulant use, unspecified, uncomplicated; F12.10 Cannabis abuse, uncomplicated
CPT/HCPCS: 36415; 80053; 80306; 80307; 81025; 85025; 96372; 97165; 99285; J1630; J2060

== ENCOUNTER 2023-12-21 15:39 | Emergency (ER) | payer MEDICAID, SELFPAY ==
[2023-11-23 15:13] VITALS: BP 146/105; BMI 42.3
[2023-12-21 15:42] VITALS: BP 139/84; PULSE 117; RESP 16; TEMP 36.5; O2SAT 94
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
[2023-12-21] MEDS: tetanus-dipt-pertussis 0.5 mL SDV IM (16:35)
[2023-12-21] MEDS: silver sulfadiazine cream 1% 50 gm 1 APPLIC TOPICAL (16:36)
--- NOTE | 2023-12-21 16:37 | PC.NURSE ---
Dressed mchugh on left arm with silvadene cream, non stick bandages and paper tape.
== END 2023-12-21 16:38 | disposition home or self-care (01) ==
PROVIDERS: Emergency Provider Physician Assistant; PCP Nurse Practitioner Family
DX: T22.212A Burn of second degree of left forearm, initial encounter (principal); T23.212A Burn of second degree of left thumb (nail), initial encounter; X01.8XXA Other exposure to uncontrolled fire, not in building or structure, initial encounter; Z86.19 Personal history of other infectious and parasitic diseases; F17.210 Nicotine dependence, cigarettes, uncomplicated; Z23 Encounter for immunization
CPT/HCPCS: 90471; 90715; 99283

== ENCOUNTER 2024-02-12 15:46 | Emergency (ER) | payer MEDICAID, SELFPAY ==
[2023-11-23 15:13] VITALS: BP 146/105; BMI 42.3
[2024-02-12 16:06] VITALS: BP 123/83; PULSE 87; RESP 16; TEMP 36.4; O2SAT 97
--- NOTE | 2024-02-12 16:26 | W.ED.EXTPRO ---
HPI - Extremity Problem General: Chief complaint: Eye Problems Stated complaint: reaction to medicine, affecting the eyes Time Seen by Provider: 02/12/24 16:18 History of Present Illness: 38-year-old female who presents to the emergency room with complaint of her eyes locking up in her head. She states has been going on for the last couple of months worse for last 2 weeks and seems to be worsening even more today. She had a couple episodes shortly after arriving but none since. When I came in to see her she had normal eye movements and no difficulty. She was hospitalized in the [facility] earlier this year she was taken off Seroquel and switch to risperidone which was titrated up additionally she is also on Invega. She has no other complaints or symptoms. Associated symptoms: Deny chest pain, fever(s) or rash Review of Systems Const: Denies: fever(s) or chills Card: Denies: chest pain Resp: Denies: dyspnea GI: Denies: abdominal pain : Denies: dysuria, urinary frequency or urinary urgency Musc: Denies: neck pain or back pain Skin/Breast: Denies: rash PFSH ED PFSH: Medical History Methamphetamine use disorder, severe Psychiatric care Cellulitis and abscess of upper arm and forearm Liver cirrhosis Hepatitis C Nicotine dependence, cigarettes, uncomplicated Alcohol abuse, episodic drinking behavior Cannabis dependence, episodic use Bipolar disorder, current episode manic severe with psychotic features Surgical History No pertinent past surgical history Family History Other Psychiatric illness Social History Smoking and tobacco/nicotine status: current every day tobacco/nicotine user cigarettes Packs smoked per day: 1 Years cigarettes smoked: 28 Quit status (tobacco/nicotine): not considering quitting Second hand smoke exposure: Yes Alcohol intake: former Former alcohol use details: quit 2 months ago Substance/Drug Use: current Substance/Drug use frequency: daily Adopted: No Caregiver/support person: No Lives independently: Yes Household members: family Housing: House Marital status: Marital status details: for 2 years Number of children: 0 Number of grandchildren: 0 Highest education level completed: 11th Grade service: No Current occupational status: disabled Pets and animals: Yes (2 dogs, 3 cats) Pets & animals: cat(s) and dog(s) Pets & animal details: mouse that they call Skinny Leisure activites: other Leisure activities details: watch TV Sexually active: No Do you think of yourself as: Straight/Heterosexual Current gender identity: Female Gema/Alevism: Lutheran Special gema needs: No Agree to transfusion: Yes Female Reproductive History: Para: 0 Spontaneous abortions: Yes ( I think I had a miscarriage once. ) Physical Exam Const: COMMON NORMALS: no acute distress GENERAL APPEARANCE: cooperative ORIENTATION/CONSCIOUSNESS: Yes awake, Yes oriented to person, Yes oriented to place and Yes oriented to time HENMT: COMMON NORMALS: normocephalic, atraumatic and hearing grossly normal bilaterally HEAD & SCALP: normocephalic and atraumatic Resp: COMMON NORMALS: normal respiratory effort, No retractions, No use of accessory muscles and clear to auscultation bilaterally AUSCULTATION: clear to auscultation bilaterally Cardio: COMMON NORMALS: regular rate, regular rhythm and No murmurs present (Cardio) RATE: regular rate RHYTHM: regular rhythm GI: COMMON NORMALS: Soft to palpation and No hepatosplenomegaly present AUSCULTATION: Yes normoactive bowel sounds PALPATION: Yes Soft to palpation, No Tenderness to palpation present (GI), No Guarding due to palpation present (GI) and Yes No hepatosplenomegaly present Extremity: COMMON NORMALS: normal to inspection, capillary refill normal, no clubbing, cyanosis or edema, no calf tenderness and no pedal edema Neuro: SENSORIUM/ORIENTATION: Yes oriented to person, Yes oriented to place and Yes oriented to time Skin: COMMON NORMALS: no rashes or lesions noted GENERAL SKIN EXAM: no rashes or lesions noted Course Vital Signs: Vital signs: Vital Signs Temperature 97.5 F L 02/12/24 16:06 Pulse Rate 85 02/12/24 17:46 Respiratory Rate 16 02/12/24 16:06 Blood Pressure 112/80 02/12/24 17:46 Pulse Oximetry 96 02/12/24 17:46 Oxygen Delivery Me thod Room Air 02/12/24 16:06 MDM - Extremity (Nontraumatic) Medical Decision Making No significant maladies on the labs. CT head was normal. Will discharge patient home I reviewed case with on-call psychiatry they recommend adding Cogentin 1 mg twice a day and have her follow-up with psychiatry next week. Lab Data 02/12/24 16:33 02/12/24 16:33 Laboratory Results WBC 9.96 10^3/uL (3.29-11.43) 02/12/24 16:33 RBC 4.81 10^6/uL (3.85-5.65) 02/12/24 16:33 Hgb 15.50 g/dL (11.27-16.99) 02/12/24 16:33 Hct 46.6 % (36-47) 02/12/24 16:33 MCV 96.9 fl (85-98) 02/12/24 16:33 MCH 32.2 pg (27-33) 02/12/24 16:33 MCHC 33.3 g/dL (30-55) 02/12/24 16:33 RDW 14.2 % (12.1-15.1) 02/12/24 16:33 Plt Count 215 10^3/cmm (157-399) 02/12/24 16:33 MPV 10.8 fL (7.4-10.4) H 02/12/24 16:33 Neut % (Auto) 50.9 % 02/12/24 16:33 Lymph % (Auto) 32.3 % 02/12/24 16:33 [place] % (Auto) 13.6 % 02/12/24 16:33 Eos % (Auto) 2.0 % 02/12/24 16:33 Baso % (Auto) 0.7 % 02/12/24 16:33 Neut # (Auto) 5.07 10^3/uL (1.8-7.7) 02/12/24 16:33 Lymph # (Auto) 3.2 10^3/uL (0.8-4.8) 02/12/24 16:33 [place] # (Auto) 1.4 10^3/uL (0.2-0.9) H 02/12/24 16:33 Eos # (Auto) 0.2 10^3/uL (0.0-0.8) 02/12/24 16:33 Baso # (Auto) 0.1 10^3/uL (0.0-0.1) 02/12/24 16:33 Nucleated RBC % (auto) 0 % 02/12/24 16:33 Nucleated RBCs # 0.0 /100WBC 02/12/24 16:33 Sodium 138 mmol/L (136-145) 02/12/24 16:33 Potassium 4.3 mmol/L (3.5-5.1) 02/12/24 16:33 Chloride 99 mmol/L (98-107) 02/12/24 16:33 Carbon Dioxide 26 mmol/L (22-29) 02/12/24 16:33 Anion Gap 17.3 (5-19) 02/12/24 16:33 BUN 10 mg/dL (6-20) 02/12/24 16:33 Creatinine 0.6 mg/dL (0.5-0.9) 02/12/24 16:33 GFR Calculation 110.7 mL/min (90-130) 02/12/24 16:33 Glucose 100 mg/dL (65-115) 02/12/24 16:33 Calculated Osmolality 285 mOsm/kg (285-295) 02/12/24 16:33 Calcium 9.4 mg/dL (8.5-10.5) 02/12/24 16:33 Total Bilirubin 0.5 mg/dL (0.15-1.2) 02/12/24 16:33 AST 66 U/L (0-32) H 02/12/24 16:33 ALT 48 U/L (0-33) H 02/12/24 16:33 Alkaline Phosphatase 89 U/L (35-105) 02/12/24 16:33 Total Protein 7.7 g/dL (6.6-8.7) 02/12/24 16:33 Albumin 3.9 g/dL (3.5-5.2) 02/12/24 16:33 Globulin 3.8 g/dL (1.3-4.6) 02/12/24 16:33 Urine Color Dark yellow (Yellow) A 02/12/24 17:10 Urine Appearance Clear (CLEAR) 02/12/24 17:10 Urine pH 5.5 (5-7) 02/12/24 17:10 Ur Specific [place] 1.020 (1.005-1.030) 02/12/24 17:10 Urine Protein Negative (Negative) 02/12/24 17:10 Urine Glucose (UA) Negative (Normal) 02/12/24 17:10 Urine Ketones Trace (Negative) 02/12/24 17:10 Urine Blood Negative (Negative) 02/12/24 17:10 Urine Nitrate Negative (Negative) 02/12/24 17:10 Urine Bilirubin Negative (Negative) 02/12/24 17:10 Urine Urobilinogen 1.0 mg/dL (Negative) 02/12/24 17:10 Ur Leukocyte Esterase Negative (Negative) 02/12/24 17:10 Amorphous Sediment Not Reportable 02/12/24 17:10 Ethyl Alcohol < 10 mg/dL (0-10) 02/12/24 16:33 No radiology studies performed this visit Discharge Plan Discharge Patient Disposition: Home Clinical Impression: Abnormal eye movements Condition: Stable Prescriptions: New benztropine 1 mg tablet 1 mg PO BID Qty: 10 0RF No Action divalproex [Depakote] 250 mg tablet,delayed release (DR/EC) 250 mg PO BID Qty: 60 3RF Rx Instructions: Take one tablet twice per day with 500 mg tablet, 750 mg twice per day divalproex [Depakote] 500 mg tablet,delayed release (DR/EC) 500 mg PO BID Qty: 60 3RF Rx Instructions: Take one tablet twice per day with 250 mg tab, total dose 750 mg twice per day quetiapine [Seroquel] 200 mg tablet 200 mg PO BEDTIME Qty: 30 3RF Rx Instructions: Take one tablet at bedtime Invega Sustenna 234 mg/1.5 mL syringe 234 mg IM Q30D Qty: 1.5 6RF Rx Instructions: Injection every 30 days Silvadene 1 % cream 1 applic topical BID PRN (Reason: wound healing) Qty: 25 0RF Rx Instructions: apply a 1.5 mm thickness Discharge Orders: Discharge ED (Routine); Ordered 02/12/24 Ordered By: Zev Bella Referrals: Ashley Soriano FNP [Primary Care Provider] - Patient Instructions: Opioid Safety, Pain Management Activity Restrictions/Additional Instructions: Thank you for choosing [facility] for your healthcare needs today. It is very important that you follow up as instructed or that you return to the Emergency Department should you have concerns or if your condition changes or worsens in any way. You were seen today with complaints of difficulties with eyes rolling back. I reviewed your medication list and discussed with on-call psychiatry they recommend adding Cogentin 1 mg twice a day and following with your primary care psychiatry team next week. If you have further problems you can return to the emergency room. Coding Level of Care Code ED Operating Engineer for Shelley Arnold
[2024-02-12 16:40] LABS: Basophils # 0.1 10^3/uL (0.0-0.1); Basophils % 0.7 %; Eosinophils # 0.2 10^3/uL (0.0-0.8); Hematocrit 46.6 % (36-47); Lymphocytes # 3.2 10^3/uL (0.8-4.8); Lymphocytes % 32.3 %; Mean Corpuscular HGB Conc 33.3 g/dL (30-55); Mean Corpuscular Hemoglobin 32.2 pg (27-33); Mean Corpuscular Volume 96.9 fl (85-98); Mean Platelet Volume 10.8 fL (7.4-10.4); Monocytes # 1.4 10^3/uL (0.2-0.9); Monocytes % 13.6 %; Neutrophils # 5.07 10^3/uL (1.8-7.7); Neutrophils % 50.9 %; Nucleated Red Blood Cells % 0 %; Platelet Count 215 10^3/cmm (157-399); Red Blood Count 4.81 10^6/uL (3.85-5.65); Red Cell Distribution Width 14.2 % (12.1-15.1); White Blood Count 9.96 10^3/uL (3.29-11.43)
[2024-02-12 16:52] VITALS: BP 112/80; PULSE 85; O2SAT 96
[2024-02-12 17:02] LABS: Alanine Aminotransferase 48 U/L (0-33); Albumin Level 3.9 g/dL (3.5-5.2); Alkaline Phosphatase 89 U/L (35-105); Anion Gap 17.3 (5-19); Aspartate Amino Transferase 66 U/L (0-32); Blood Urea Nitrogen 10 mg/dL (6-20); Calcium 9.4 mg/dL (8.5-10.5); Carbon Dioxide 26 mmol/L (22-29); Chloride 99 mmol/L (98-107); Creatinine Clr Calc Pharmacy 174.4656; Globulin 3.8 g/dL (1.3-4.6); Glomerular Filtration Rate 110.7 mL/min (90-130); Glucose 100 mg/dL (65-115); Osmolality Calculated 285 mOsm/kg (285-295); Potassium 4.3 mmol/L (3.5-5.1); Sodium 138 mmol/L (136-145); Total Bilirubin 0.5 mg/dL (0.15-1.2); Total Protein 7.7 g/dL (6.6-8.7)
[2024-02-12 17:13] VITALS: PULSE 85
[2024-02-12 17:14] LABS: Alcohol Level < 10 mg/dL (0-10)
[2024-02-12 17:18] LABS: Charge for UA Resulting for Rev
[2024-02-12 17:23] LABS: Bilirubin Urine Negative (Negative); Blood Urine Negative (Negative); Glucose Urine UA Negative (Normal); Ketones Urine Trace (Negative); Leukocyte Esterase Urine Negative (Negative); Nitrate Urine Negative (Negative); Protein Urine Negative (Negative); Urine Appearance Clear (CLEAR); Urine Color Dark Yellow (Yellow); pH Urine 5.5 (5-7)
[2024-02-12 17:46] VITALS: BP 112/80; PULSE 85; O2SAT 96
== END 2024-02-12 17:53 | disposition home or self-care (01) ==
PROVIDERS: Emergency Provider Family Medicine; PCP Nurse Practitioner Family
DX: H57.89 Other specified disorders of eye and adnexa (principal); F17.210 Nicotine dependence, cigarettes, uncomplicated; Z86.19 Personal history of other infectious and parasitic diseases
CPT/HCPCS: 36415; 80053; 80164; 80307; 81003; 81015; 85025; 99283

== ENCOUNTER 2024-02-19 18:34 | Inpatient (IN) | payer MEDICAID, SELFPAY ==
[2024-02-15 10:04] VITALS: BP 146/105; BMI 42.3
[2024-02-19 18:38] VITALS: BP 118/86; PULSE 83; RESP 18; TEMP 36.4; O2SAT 94; BMI 43.5
[2024-02-19 19:01] LABS: Basophils # 0.1 10^3/uL (0.0-0.1); Basophils % 0.9 %; Eosinophils # 0.3 10^3/uL (0.0-0.8); Eosinophils % 3.3 %; Hematocrit 42.5 % (36-47); Lymphocytes % 38.2 %; Mean Corpuscular HGB Conc 33.9 g/dL (30-55); Mean Corpuscular Hemoglobin 32.4 pg (27-33); Mean Corpuscular Volume 95.5 fl (85-98); Mean Platelet Volume 10.7 fL (7.4-10.4); Monocytes # 1.2 10^3/uL (0.2-0.9); Monocytes % 15.6 %; Neutrophils # 3.27 10^3/uL (1.8-7.7); Neutrophils % 41.7 %; Nucleated Red Blood Cells % 0 %; Platelet Count 175 10^3/cmm (157-399); Red Blood Count 4.45 10^6/uL (3.85-5.65); Red Cell Distribution Width 13.8 % (12.1-15.1); White Blood Count 7.83 10^3/uL (3.29-11.43)
--- NOTE | 2024-02-19 19:08 | ED.C_ITS ---
HPI - Psych 2 General: Chief Complaint: Psychiatric Symptoms Stated Complaint: 96 Time Seen by Provider: 02/19/24 18:35 History of Present Illness: 38-year-old female with a history of psy chiatric issues, methamphetamine abuse, alcohol abuse, tobacco dependence who presents the emergency room with psychiatric issues. She is brought in on a hold by police. Apparently she had left the home for a few days and then came back and was very agitated and her hallucinations were worse. Family states an affidavit that when she gets like this she can be violent and cannot be trusted. They are concerned for her wellbeing and their own. When I asked the patient what is going on she mumbles something about family but it is really fairly incoherent. Related Data Previous Rx's Medication Instructions Recorded silver sulfadiazine 1 % topical 1 applic topical BID PRN wound 12/21/23 cream (Silvadene) healing #25 grams divalproex 250 mg tablet,delayed 250 mg PO BID #60 tabs 02/08/24 release (Depakote) divalproex 500 mg tablet,delayed 500 mg PO BID #60 tabs 02/08/24 release (Depakote) paliperidone palmitate 234 mg/1.5 234 mg (1.5 mL) IM Q30D #1.5 mL 02/08/24 mL intramuscular syringe (Invega Sustenna) quetiapine 200 mg tablet (Seroquel) 200 mg PO BEDTIME #30 tabs 02/08/24 benztropine 1 mg tablet 1 mg PO BID #60 tabs 02/15/24 Allergies Allergy/AdvReac Type Severity Reaction Status Date / Time olanzapine Allergy Severe ALGY-Anaphy Verified 02/08/24 11:25 laxis ziprasidone [From Geodon] Allergy Unknown ALGY-Anaphy Verified 02/08/24 11:25 laxis NSAIDS (Non-Steroidal Allergy Unknown Verified 02/08/24 11:25 Anti-Inflamma quetiapine [From Seroquel] Allergy Unknown Verified 02/12/24 16:14 risperidone AdvReac Severe edema Verified 02/08/24 12:58 propranolol Allergy Severe ALGY-Hives Uncoded 02/08/24 11:25 Review of Systems 2 Narrative: Constitutional symptoms: Negative except as documented in HPI. Skin symptoms: Negative except as documented in HPI. Eye symptoms: Negative except as documented in HPI. ENMT symptoms: Negative except as documented in HPI. Respiratory symptoms: Negative except as documented in HPI. Cardiovascular symptoms: Negative except as documented in HPI. Gastrointestinal symptoms: Negative except as documented in HPI. Genitourinary symptoms: Negative except as documented in HPI. Musculoskeletal symptoms: Negative except as documented in HPI. Neurologic symptoms: Negative except as documented in HPI. Psychiatric symptoms: Negative except as documented in HPI. Endocrine symptoms: Negative except as documented in HPI. PFSH ED 2 PFSH: Medical History Methamphetamine use disorder, severe Psychiatric care Cellulitis and abscess of upper arm and forearm Liver cirrhosis Hepatitis C Nicotine dependence, cigarettes, uncomplicated Alcohol abuse, episodic drinking behavior Cannabis dependence, episodic use Bipolar disorder, current episode manic severe with psychotic features Surgical History No pertinent past surgical history Family History Other Psychiatric illness Social History Smoking and tobacco/nicotine status: current every day tobacco/nicotine user cigarettes Packs smoked per day: 1 Years cigarettes smoked: 28 Quit status (tobacco/nicotine): not considering quitting Second hand smoke exposure: Yes Alcohol intake: former Former alcohol use details: quit 2 months ago Substance/Drug Use: current Substance/Drug use frequency: daily Adopted: No Caregiver/support person: No Lives independently: Yes Household members: family Housing: House Marital status: Marital status details: for 2 years Number of children: 0 Number of grandchildren: 0 Highest education level completed: 11th Grade service: No Current occupational status: disabled Pets and animals: Yes (2 dogs, 3 cats) Pets & animals: cat(s) and dog(s) Pets & animal details: mouse that they call Skinny Leisure activites: other Leisure activities details: watch TV Sexually active: No Do you think of yourself as: Straight/Heterosexual Current gender identity: Female Gema/Islam: Congregational Special gema needs: No Agree to transfusion: Yes Female Reproductive History: Para: 0 Spontaneous abortions: Yes ( I think I had a miscarriage once. ) Physical Exam 2 Narrative: EXAM NARRATIVE: General: Alert. no acute distress Skin: Warm, dry Head: Normocephalic, atraumatic. Neck: Supple, trachea midline. Eye: Extraocular movements are intact. Ears, nose, mouth and throat: Oral mucosa moist. Cardiovascular: Regular rate and rhythm, Normal peripheral perfusion. Respiratory: Lungs are clear to auscultation, respirations are non-labored, breath sounds are equal, Symmetrical chest wall expansion. Gastrointestinal: Soft, Nontender, Non distended, Normal bowel sounds. Musculoskeletal: Normal ROM, no deformity. Neurological: Not Alert and oriented to person, place, time, and situation, No focal neurological deficit observed. Psychiatric: Patient is mumbling some nonsensical things. Seems slightly agitated at times Course 2 Vital Signs: Vital signs: Vital Signs Temperature 97.5 F L 02/19/24 18:38 Pulse Rate 83 02/19/24 18:38 Respiratory Rate 18 02/19/24 18:38 Blood Pressure 118/86 02/19/24 18:38 Pulse Oximetry 94 02/19/24 18:38 [facility] - Psych Medical Decision Making Differential diagnosis: Patient with reported depression and suicidal ideation. concerns for infection, alcohol intoxication, cardiac issues or other medical problems prior to psychiatric admission. Workup: labwork, ekg ordered to evaluate the pathologies and to clear the patient medically prior to psychiatric admission Lab Review: Laboratory results were reviewed and interpreted by myself the emergency room physician. Lab review: - Medically cleared. - EKG shows no ischemic changes. - Blood alcohol level is negative, -Tylenol and salicylate levels are negative. - Drug screen is amphetamines and marijuana -Patient does have a UTI and is receiving Omnicef - No anemia. - BUN and creatinine are within normal limits. Consultation: I spoke with Dr. Caballero who is on-call for psychiatry and he accepts the patient to the floor. Assessment and plan: Psychosis Methamphetamine use Hallucinations Urinary tract infection ?P.o. Omnicef, IM Haldol and IM Ativan. -Admission to neuropsychiatric unit for continued evaluation and treatment. - All lab work was reviewed and interpreted personally by myself, the ER physician - Evaluation and treatment of this problem were appropriate in the emergency setting Lab Data 02/19/24 18:56 02/19/24 18:56 Laboratory Results WBC 7.83 10^3/uL (3.29-11.43) 02/19/24 18:56 RBC 4.45 10^6/uL (3.85-5.65) 02/19/24 18:56 Hgb 14.40 g/dL (11.27-16.99) 02/19/24 18:56 Hct 42.5 % (36-47) 02/19/24 18:56 MCV 95.5 fl (85-98) 02/19/24 18:56 MCH 32.4 pg (27-33) 02/19/24 18:56 MCHC 33.9 g/dL (30-55) 02/19/24 18:56 RDW 13.8 % (12.1-15.1) 02/19/24 18:56 Plt Count 175 10^3/cmm (157-399) 02/19/24 18:56 MPV 10.7 fL (7.4-10.4) H 02/19/24 18:56 Neut % (Auto) 41.7 % 02/19/24 18:56 Lymph % (Auto) 38.2 % 02/19/24 18:56 [place] % (Auto) 15.6 % 02/19/24 18:56 Eos % (Auto) 3.3 % 02/19/24 18:56 Baso % (Auto) 0.9 % 02/19/24 18:56 Neut # (Auto) 3.27 10^3/uL (1.8-7.7) 02/19/24 18:56 Lymph # (Auto) 3.0 10^3/uL (0.8-4.8) 02/19/24 18:56 [place] # (Auto) 1.2 10^3/uL (0.2-0.9) H 02/19/24 18:56 Eos # (Auto) 0.3 10^3/uL (0.0-0.8) 02/19/24 18:56 Baso # (Auto) 0.1 10^3/uL (0.0-0.1) 02/19/24 18:56 Nucleated RBC % (auto) 0 % 02/19/24 18:56 Nucleated RBCs # 0.0 /100WBC 02/19/24 18:56 Sodium 135 mmol/L (136-145) L 02/19/24 18:56 Potassium 4.0 mmol/L (3.5-5.1) 02/19/24 18:56 Chloride 101 mmol/L (98-107) 02/19/24 18:56 Carbon Dioxide 24 mmol/L (22-29) 02/19/24 18:56 Anion Gap 14.0 (5-19) 02/19/24 18:56 BUN 11 mg/dL (6-20) 02/19/24 18:56 Creatinine 0.6 mg/dL (0.5-0.9) 02/19/24 18:56 GFR Calculation 110.7 mL/min (90-130) 02/19/24 18:56 Glucose 90 mg/dL (65-115) 02/19/24 18:56 Calculated Osmolality 279 mOsm/kg (285-295) L 02/19/24 18:56 Calcium 8.5 mg/dL (8.5-10.5) 02/19/24 18:56 Total Bilirubin 0.4 mg/dL (0.15-1.2) 02/19/24 18:56 AST 54 U/L (0-32) H 02/19/24 18:56 ALT 38 U/L (0-33) H 02/19/24 18:56 Alkaline Phosphatase 79 U/L (35-105) 02/19/24 18:56 Total Protein 7.2 g/dL (6.6-8.7) 02/19/24 18:56 Albumin 3.6 g/dL (3.5-5.2) 02/19/24 18:56 Globulin 3.6 g/dL (1.3-4.6) 02/19/24 18:56 TSH 2.63 uIU/mL (0.27-4.20) 02/19/24 18:56 HCG, Qual Negative (Negative) 02/19/24 18:56 Urine Color Yellow (Yellow) 02/19/24 19:45 Urine Appearance Clear (CLEAR) 02/19/24 19:45 Urine pH 7.0 (5-7) 02/19/24 19:45 Ur Specific [place] 1.016 (1.005-1.030) 02/19/24 19:45 Urine Protein Negative (Negative) 02/19/24 19:45 Urine Glucose (UA) Negative (Normal) 02/19/24 19:45 Urine Ketones Trace (Negative) 02/19/24 19:45 Urine Blood Negative (Negative) 02/19/24 19:45 Urine Nitrate Negative (Negative) 02/19/24 19:45 Urine Bilirubin Negative (Negative) 02/19/24 19:45 Urine Urobilinogen 1.0 mg/dL (Negative) 02/19/24 19:45 Ur Leukocyte Esterase 2+ (Negative) A 02/19/24 19:45 Urine RBC 0-2 /hpf (0-2) 02/19/24 19:45 Urine WBC 11-20 /hpf (0-5) H 02/19/24 19:45 Ur Squamous Epith Cells 11-20 /hpf (0-5) 02/19/24 19:45 Amorphous Sediment Not Reportable 02/19/24 19:45 Urine Bacteria 1+ /hpf (NONE) H 02/19/24 19:45 Hyaline Casts 0-4 /lpf H 02/19/24 19:45 Salicylates < 0.3 mg/dL (3-10) L 02/19/24 18:56 Urine Opiates Screen Negative ng/mL (Negative) 02/19/24 19:45 Acetaminophen < 5.0 ug/mL (10-30) L 02/19/24 18:56 Ur Barbiturates Screen Negative ng/mL (Negative) 02/19/24 19:45 Ur Phencyclidine Scrn Negative ng/mL (Negative) 02/19/24 19:45 Ur Amphetamines Screen Positive ng/mL (Negative) H 02/19/24 19:45 U Benzodiazepines Scrn Negative ng/mL (Negative) 02/19/24 19:45 Urine Cocaine Screen Negative ng/mL (Negative) 02/19/24 19:45 U Marijuana (THC) Screen Positive ng/mL (Negative) H 02/19/24 19:45 Ethyl Alcohol < 10 mg/dL (0-10) 02/19/24 18:56 No radiology studies performed this visit Discharge Plan Discharge Patient Disposition: Admitted As Inpatient Clinical Impression: Acute psychosis, Drug-induced psychotic disorder, Methamphetamine use disorder, severe, Cannabis dependence, episodic use, Urinary tract infection Condition: Stable Coding Level of Care Code ED Defensive Secondary Coach for Shelley Arnold
[2024-02-19 19:16] LABS: HCG, Serum Qual Negative (Negative)
[2024-02-19] MEDS: haloperidol inj 5 mg/mL INJ 1 mL 10 MG IM (19:26)
[2024-02-19] MEDS: LORazepam 2 mg/mL INJ 1 mL IM (19:26)
[2024-02-19 19:30] LABS: Alanine Aminotransferase 38 U/L (0-33); Albumin Level 3.6 g/dL (3.5-5.2); Alkaline Phosphatase 79 U/L (35-105); Aspartate Amino Transferase 54 U/L (0-32); Blood Urea Nitrogen 11 mg/dL (6-20); Calcium 8.5 mg/dL (8.5-10.5); Carbon Dioxide 24 mmol/L (22-29); Chloride 101 mmol/L (98-107); Creatinine Clr Calc Pharmacy 166.3954; Globulin 3.6 g/dL (1.3-4.6); Glomerular Filtration Rate 110.7 mL/min (90-130); Glucose 90 mg/dL (65-115); Osmolality Calculated 279 mOsm/kg (285-295); Sodium 135 mmol/L (136-145); Thyroid Stimulating Hormone 2.63 uIU/mL (0.27-4.20); Total Bilirubin 0.4 mg/dL (0.15-1.2); Total Protein 7.2 g/dL (6.6-8.7)
[2024-02-19 19:32] LABS: Acetaminophen < 5.0 ug/mL (10-30); Alcohol Level < 10 mg/dL (0-10); Salicylate < 0.3 mg/dL (3-10)
[2024-02-19 19:57] LABS: Bilirubin Urine Negative (Negative); Blood Urine Negative (Negative); Glucose Urine UA Negative (Normal); Ketones Urine Trace (Negative); Leukocyte Esterase Urine 2+ (Negative); Nitrate Urine Negative (Negative); Protein Urine Negative (Negative); Specific Gravity, Urine 1.016 (1.005-1.030); Urine Appearance Clear (CLEAR); Urine Color Yellow (Yellow)
[2024-02-19 19:59] LABS: Bacteria Urine 1+ /hpf; Hyaline Casts Urine 0-4 /lpf; RBC Urine 0-2 /hpf (0-2)
--- NOTE | 2024-02-19 20:02 | PC.NURSE ---
96 Hour Involuntary Hold Patient Rights have been read to the patient and a copy of the same has been given to her. Accounting Consultant Daisy Villatoro was present at the time of presentation of Rights.
[2024-02-19 20:07] LABS: Amphetamines Screen Urine Positive (Negative); Barbiturates Screen Urine Negative (Negative); Benzodiazepines Screen Urine Negative (Negative); Cocaine Screen Urine Negative (Negative); Opiate Screen Urine Negative (Negative); PCP Screen Urine Negative (Negative); THC Screen Urine Positive (Negative)
[2024-02-19] MEDS: cefdinir 300 MG CAPSULE PO (20:52)
--- NOTE | 2024-02-19 20:59 | ECG_ITS ---
[facility] Test Date: 2024-02-19 Pat Name: Heidi Caballero Department: Room: 154 Gender: Female Precision Dancer: : 1985 Requested By: Venecia Escobar Order Number: [id number] Sneed MD: Abdi Jaquez M.D. Measurements Intervals [place] Rate: 58 P: 44 WI: 145 QRS: 13 QRSD: 79 T: 40 QT: 422 QTc: 417 Interpretive Statements SINUS BRADYCARDIA LOW QRS VOLTAGE IN PRECORDIAL LEADS [QRS DEFLECTION < 1.0 mV IN CHEST LEADS] Compared to ECG 08/04/2017 18:10:55 Sinus tachycardia no longer present Myocardial infarct finding no longer present Electronically Signed On 02-20-2024 7:59:30 CDT by Abdi Jaquez M.D. [id number]
[2024-02-19 21:05] VITALS: BP 115/90; PULSE 850; RESP 18; O2SAT 96
--- NOTE | 2024-02-19 21:09 | PC.NURSE ---
pt was not dressed out due to being restrained by police until she received her 96 paperwork. Pt was taken to [facility] before dressing due to needing room vicki.
[2024-02-19 21:47] VITALS: BP 120/82; PULSE 77; RESP 18; O2SAT 98
[2024-02-20 06:00] VITALS: BP 99/61; PULSE 60; RESP 15; O2SAT 98
[2024-02-20] MEDS: benztropine 1 mg Tablet PO ×2 (09:14→17:28)
[2024-02-20] MEDS: risperiDONE 2 mg Tablet PO ×2 (09:15→17:28)
[2024-02-20] MEDS: divalproex DR 500 mg Tablet PO ×2 (09:15→17:27)
[2024-02-20] MEDS: divalproex DR 250 mg Tablet PO ×2 (09:15→17:27)
[2024-02-20] MEDS: acetaminophen 325 mg Tablet 650 MG PO (12:09)
[2024-02-20 14:00] VITALS: BP 121/64; PULSE 72; RESP 20; TEMP 36.9; O2SAT 98
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
[2024-02-20] MEDS: hyDROXYzine 25 mg Capsule 50 MG PO (20:35)
[2024-02-20] MEDS: quetiapine 100 mg Tablet 200 MG PO (20:35)
[2024-02-20] MEDS: trazodone 50 mg Tablet PO (20:35)
[2024-02-20 20:42] VITALS: BP 129/58; PULSE 96; RESP 20; TEMP 36.7; O2SAT 99
[2024-02-21 06:00] VITALS: BP 107/68; PULSE 60; RESP 16; O2SAT 95
[2024-02-21] MEDS: divalproex DR 250 mg Tablet PO ×2 (10:01→17:43)
[2024-02-21] MEDS: risperiDONE 2 mg Tablet PO ×2 (10:01→17:42)
[2024-02-21] MEDS: benztropine 1 mg Tablet PO ×2 (10:01→17:43)
[2024-02-21] MEDS: divalproex DR 500 mg Tablet PO ×2 (10:01→17:42)
--- NOTE | 2024-02-21 12:11 | P.NPUPN_ITS ---
Subjective NPU 2 Subjective: Patient presented today reporting that she is still tired and trying to rest. She continued to isolate per staff reports and direct observation. She continued now to discuss the possibility of going to a rehab but was also seeming ambivalent as she was making sure that the idea of her going home and having some time at home prior to going to rehab was on the table. We discussed the importance of us working with the social work team tomorrow to see what possibilities exist as far as rehab bed before we decide what the limitations are. She denied any side effects to medications. Mental Status Exam 2 MSE Comments: This is an obese versus morbidly obese white female in hospital scrubs with poor grooming and eye contact.? No abnormal movements except for psychomotor retardation.? Somewhat cooperative with exam in mild to moderate distress.? Speech was decreased rate and volume.? Mood described as okay, affect subdued and disinterested.? Thought process linear.? Thought content: Patient denied suicidal or homicidal ideation, there were no delusions reported or noted, she denied auditory or visual hallucinations.? Attention and concentration were limited and memory appeared unreliable but none were formally tested.? She is alert and oriented x3.? Insight and judgment are limited and impulse control is impaired. Vitals/I&O/Wt Last Vital Signs Temp 98.1 F 02/20/24 20:42 Pulse 60 02/21/24 06:00 Resp 16 02/21/24 06:00 BP 107/68 02/21/24 06:00 Pulse Ox 95 02/21/24 06:00 O2 Del Method Room Air 02/21/24 06:00 Weight last 48 hrs Weight 132.165 kg Weight 122.47 kg Data NPU 02/19/24 18:56 02/19/24 18:56 A&P Assessment and plan (1) Acute psychosis: (2) Suicidal ideations: (3) Bipolar disorder, current episode manic severe with psychotic features: (4) Nicotine dependence, cigarettes, uncomplicated: (5) Alcohol abuse, episodic drinking behavior: (6) Cannabis dependence, episodic use: (7) Methamphetamine use disorder, severe: Plan This is a 38-year-old white female with a long history of addiction, psychosis and other mental health challenges who presents again on a 96-hour hold with a positive drug screen for amphetamines and cannabis and reports of psychosis. 1.? Restart medication. Attempt to get long-acting injectable going again. 2.? Continue continue every 15 minute checks for safety. 3.? Encourage individual, group and milieu therapies on the unit. 4.? Encourage sober living treatment after discharge at the highest level of care to which she is willing to commit. Explore possible rehab. 5. Reports of primary outpatient team suggesting that guardianship may be appropriate back in August. We will identify how things have changed if at all moving the decision making towards or away from guardianship. Involuntary Hold Information 2 96 Hour Hold: 96 Hour Involuntary Admission: Yes 96 Hour Hold Ending Date: 02/26/24 96 Hour Hold Ending Time: 00:01 Attestations NPU 2 Medical Necessity Statement*: Inpatient hospitalization is medically necessary and the clinically appropriate intervention at this time. We will monitor medication to make changes as indicated. Likely length of stay 4-6 days. Coding Level of Care Code Acute Code for g Fwd Diagnoses Acute psychosis F23 Suicidal ideations R45.851 Bipolar disorder, current episode manic severe with psychotic features F31.2 Nicotine dependence, cigarettes, uncomplicated F17.210 Alcohol abuse, episodic drinking behavior F10.10 Cannabis dependence, episodic use F12.20 Methamphetamine use disorder, severe F15.20
[2024-02-21 14:00] VITALS: BP 120/80; PULSE 78; RESP 18; TEMP 36.8; O2SAT 94
[2024-02-21] MEDS: quetiapine 100 mg Tablet 200 MG PO (20:08)
[2024-02-21 20:21] VITALS: BP 111/78; PULSE 72; RESP 20; O2SAT 95
[2024-02-22 06:00] VITALS: BP 102/72; PULSE 76; RESP 16; O2SAT 92
--- NOTE | 2024-02-22 07:56 | PC.NURSE ---
PT CURRENTLY DENIES SI/HI/AH/VH. PT CURRENTLY DENIES DEPRESSION AND ANXIETY. PT STATED IM JUST WAITING TO GO HOME TO THIS NURSE. PT WAS COOPERATIVE WITH ASSESSMENT. PT CURRENT NEEDS ARE MET AT THIS TIME.
[2024-02-22] MEDS: risperiDONE 2 mg Tablet PO ×2 (09:37→17:43)
[2024-02-22] MEDS: divalproex DR 250 mg Tablet PO ×2 (09:37→17:43)
[2024-02-22] MEDS: benztropine 1 mg Tablet PO ×2 (09:38→17:43)
[2024-02-22] MEDS: divalproex DR 500 mg Tablet PO ×2 (09:38→17:43)
--- NOTE | 2024-02-22 11:48 | P.NPUPN_ITS ---
Subjective NPU 2 Subjective: Patient presented today reporting that she is fine and not having any issues. She reports that the social workers did not talk to her about rehab. We talked about making sure we have her in a good mental health space to be ready for rehab. Staff reports that she is irritable and having psychosis and she got angry during our interview and stated that this financial underwriter had called her a rat. Mental Status Exam 2 MSE Comments: This is an obese versus morbidly obese white female in hospital scrubs with poor grooming and eye contact.? No abnormal movements except for psychomotor retardation.? Somewhat cooperative with exam in mild to moderate distress.? Speech was decreased rate and volume.? Mood described as okay, affect subdued and disinterested.? Thought process linear.? Thought content: Patient denied suicidal or homicidal ideation, there were no delusions reported or noted, she denied auditory or visual hallucinations, however she did identify hearing words stated by this financial underwriter that were never said.? Attention and concentration were limited and memory appeared unreliable but none were formally tested.? She is alert and oriented x3.? Insight and judgment are limited and impulse control is impaired. Vitals/I&O/Wt Last Vital Signs Temp 98.3 F 02/21/24 14:00 Pulse 76 02/22/24 06:00 Resp 16 02/22/24 06:00 BP 102/72 02/22/24 06:00 Pulse Ox 92 02/22/24 06:00 O2 Del Method Room Air 02/21/24 06:00 Weight last 48 hrs Weight 132.165 kg Data NPU 02/19/24 18:56 02/19/24 18:56 A&P Assessment and plan (1) Acute psychosis: (2) Suicidal ideations: (3) Bipolar disorder, current episode manic severe with psychotic features: (4) Nicotine dependence, cigarettes, uncomplicated: (5) Alcohol abuse, episodic drinking behavior: (6) Cannabis dependence, episodic use: (7) Methamphetamine use disorder, severe: Plan This is a 38-year-old white female with a long history of addiction, psychosis and other mental health challenges who presents again on a 96-hour hold with a positive drug screen for amphetamines and cannabis and reports of psychosis. 1.? Restart medication. Attempt to get long-acting injectable going again. 2.? Continue continue every 15 minute checks for safety. 3.? Encourage individual, group and milieu therapies on the unit. 4.? Encourage sober living treatment after discharge at the highest level of care to which she is willing to commit. Explore possible rehab. 5. Reports of primary outpatient team suggesting that guardianship may be appropriate back in August. We will identify how things have changed if at all moving the decision making towards or away from guardianship. Involuntary Hold Information 2 96 Hour Hold: 96 Hour Involuntary Admission: Yes 96 Hour Hold Ending Date: 02/26/24 96 Hour Hold Ending Time: 00:01 Attestations NPU 2 Medical Necessity Statement*: Inpatient hospitalization is medically necessary and the clinically appropriate intervention at this time. We will monitor medication to make changes as indicated. Likely length of stay 4-6 days. Coding Level of Care Code Acute Code for g Fwd Diagnoses Acute psychosis F23 Suicidal ideations R45.851 Bipolar disorder, current episode manic severe with psychotic features F31.2 Nicotine dependence, cigarettes, uncomplicated F17.210 Alcohol abuse, episodic drinking behavior F10.10 Cannabis dependence, episodic use F12.20 Methamphetamine use disorder, severe F15.20
[2024-02-22 14:00] VITALS: BP 100/66; PULSE 79; RESP 20; TEMP 36.6; O2SAT 90
[2024-02-22] MEDS: quetiapine 100 mg Tablet 200 MG PO (20:27)
[2024-02-22 20:54] VITALS: BP 105/74; PULSE 79; RESP 17; O2SAT 97
[2024-02-23 06:00] VITALS: BP 99/66; PULSE 65; RESP 16; O2SAT 95
[2024-02-23] MEDS: risperiDONE 2 mg Tablet PO ×2 (08:05→18:16)
[2024-02-23] MEDS: benztropine 1 mg Tablet PO ×2 (08:05→18:16)
[2024-02-23] MEDS: divalproex DR 500 mg Tablet PO ×2 (08:05→18:16)
[2024-02-23] MEDS: divalproex DR 250 mg Tablet PO ×2 (08:05→18:16)
[2024-02-23] MEDS: nicotine 21 mg Patch 1 PATCH TRANSDERMA (08:07)
--- NOTE | 2024-02-23 09:50 | PC.NURSE ---
patient rates anxiety 7/10 and depression 8/10. When asked about AVH, patient said, no but I wish .
[2024-02-23 14:00] VITALS: BP 123/88; PULSE 125; RESP 20; TEMP 36.5; O2SAT 97
--- NOTE | 2024-02-23 16:20 | P.NPUPN_ITS ---
Subjective NPU 2 Subjective: Patient presents today reporting that she is doing fine. She continues the quite isolative per staff reports and direct observation. She was able to speak to this automobile service writer today without suggesting any statements were made that were not actually spoken. She reports that she did get the talk to the social work team today and they are working on treatment options. She denied any side effects to her medications. Mental Status Exam 2 MSE Comments: This is an obese versus morbidly obese white female in hospital scrubs with poor grooming and eye contact.? No abnormal movements except for psychomotor retardation.? Somewhat cooperative with exam in mild to moderate distress.? Speech was decreased rate and volume.? Mood described as okay, affect subdued and slightly less irritable.? Thought process linear.? Thought content: Patient denied suicidal or homicidal ideation, there were no delusions reported or noted, she denied auditory or visual hallucinations, however she did identify hearing words stated by this automobile service writer that were never said.? Attention and concentration were limited and memory appeared unreliable but none were formally tested.? She is alert and oriented x3.? Insight and judgment are limited and impulse control is impaired. Vitals/I&O/Wt Last Vital Signs Temp 97.7 F 02/23/24 14:00 Pulse 125 H 02/23/24 14:00 Resp 20 H 02/23/24 14:00 BP 123/88 02/23/24 14:00 Pulse Ox 97 02/23/24 14:00 O2 Del Method Room Air 02/23/24 06:00 Data NPU 02/19/24 18:56 02/19/24 18:56 A&P Assessment and plan (1) Acute psychosis: (2) Suicidal ideations: (3) Bipolar disorder, current episode manic severe with psychotic features: (4) Nicotine dependence, cigarettes, uncomplicated: (5) Alcohol abuse, episodic drinking behavior: (6) Cannabis dependence, episodic use: (7) Methamphetamine use disorder, severe: Plan This is a 38-year-old white female with a long history of addiction, psychosis and other mental health challenges who presents again on a 96-hour hold with a positive drug screen for amphetamines and cannabis and reports of psychosis. 1.? Restarted medication. Attempt to get long-acting injectable going again. 2.? Continue continue every 15 minute checks for safety. 3.? Encourage individual, group and milieu therapies on the unit. 4.? Encourage sober living treatment after discharge at the highest level of care to which she is willing to commit. Explore possible rehab. 5. Reports of primary outpatient team suggesting that guardianship may be appropriate back in August. We will identify how things have changed if at all moving the decision making towards or away from guardianship. Involuntary Hold Information 2 96 Hour Hold: 96 Hour Involuntary Admission: Yes 96 Hour Hold Ending Date: 02/26/24 96 Hour Hold Ending Time: 00:01 Attestations NPU 2 Medical Necessity Statement*: Inpatient hospitalization is medically necessary and the clinically appropriate intervention at this time. We will monitor medication to make changes as indicated. Likely length of stay 4-6 days. Coding Level of Care Code Acute Code for [facility] Fwd Diagnoses Acute psychosis F23 Suicidal ideations R45.851 Bipolar disorder, current episode manic severe with psychotic features F31.2 Nicotine dependence, cigarettes, uncomplicated F17.210 Alcohol abuse, episodic drinking behavior F10.10 Cannabis dependence, episodic use F12.20 Methamphetamine use disorder, severe F15.20
[2024-02-23 19:24] VITALS: BP 112/82; PULSE 126; RESP 18; TEMP 36.4; O2SAT 94
[2024-02-23] MEDS: quetiapine 100 mg Tablet 200 MG PO (20:40)
[2024-02-23] MEDS: hyDROXYzine 25 mg Capsule 50 MG PO (20:41)
[2024-02-23] MEDS: trazodone 50 mg Tablet PO (20:41)
[2024-02-24 06:00] VITALS: BP 99/67; PULSE 71; RESP 16; TEMP 37.2; O2SAT 98
[2024-02-24] MEDS: risperiDONE 2 mg Tablet PO ×2 (08:53→18:10)
[2024-02-24] MEDS: benztropine 1 mg Tablet PO ×2 (08:53→18:10)
[2024-02-24] MEDS: divalproex DR 250 mg Tablet PO ×2 (08:53→18:10)
[2024-02-24] MEDS: divalproex DR 500 mg Tablet PO ×2 (08:53→18:10)
[2024-02-24 14:00] VITALS: BP 82/58; PULSE 84; RESP 16; TEMP 36.7; O2SAT 97
--- NOTE | 2024-02-24 14:06 | W.PM.NPUPNS ---
Subjective NPU Subjective: Patient presented today reporting that she is feeling a little better. She is being a less resistant to interaction per staff reports and direct observation. She is working with the social work team on possible rehab options. She continues to believe that she can return home while awaiting rehab but this is not the report that we get from her mother. She denies any side effects to the medication and we discussed working with the social work team to understand what her circumstances are and what options exist. Mental Status Exam MSE Comments: This is an obese versus morbidly obese white female in hospital scrubs with poor grooming and eye contact.? No abnormal movements except for psychomotor retardation.? Somewhat cooperative with exam in mild to moderate distress.? Speech was decreased rate and volume.? Mood described as okay, affect subdued and slightly less irritable.? Thought process linear.? Thought content: Patient denied suicidal or homicidal ideation, there were no delusions reported or noted, she denied auditory or visual hallucinations, however she did identify hearing words stated by this real estate underwriter that were never said.? Attention and concentration were limited and memory appeared unreliable but none were formally tested.? She is alert and oriented x3.? Insight and judgment are limited and impulse control is impaired. Vitals/I&O/Wt Last Vital Signs Temp 98.9 F 02/24/24 06:00 Pulse 71 02/24/24 06:00 Resp 16 02/24/24 06:00 BP 99/67 02/24/24 06:00 Pulse Ox 98 02/24/24 06:00 O2 Del Method Room Air 02/23/24 19:24 Data NPU 02/19/24 18:56 02/19/24 18:56 A&P Assessment and plan (1) Acute psychosis: (2) Suicidal ideations: (3) Bipolar disorder, current episode manic severe with psychotic features: (4) Nicotine dependence, cigarettes, uncomplicated: (5) Alcohol abuse, episodic drinking behavior: (6) Cannabis dependence, episodic use: (7) Methamphetamine use disorder, severe: Plan This is a 38-year-old white female with a long history of addiction, psychosis and other mental health challenges who presents again on a 96-hour hold with a positive drug screen for amphetamines and cannabis and reports of psychosis. 1.? Restarted medication. Attempt to get long-acting injectable going again. 2.? Continue continue every 15 minute checks for safety. 3.? Encourage individual, group and milieu therapies on the unit. 4.? Encourage sober living treatment after discharge at the highest level of care to which she is willing to commit. Explore possible rehab. 5. Reports of primary outpatient team suggesting that guardianship may be appropriate back in August. We will identify how things have changed if at all moving the decision making towards or away from guardianship. Involuntary Hold Information 96 Hour Hold: 96 Hour Involuntary Admission: Yes 96 Hour Hold Ending Date: 02/26/24 96 Hour Hold Ending Time: 00:01 Attestations NPU Medical Necessity Statement*: Inpatient hospitalization is medically necessary and the clinically appropriate intervention at this time. We will monitor medication to make changes as indicated. Likely length of stay 3-5 days. Coding Level of Care Code Acute Code for g Fwd Diagnoses Acute psychosis F23 Suicidal ideations R45.851 Bipolar disorder, current episode manic severe with psychotic features F31.2 Nicotine dependence, cigarettes, uncomplicated F17.210 Alcohol abuse, episodic drinking behavior F10.10 Cannabis dependence, episodic use F12.20 Methamphetamine use disorder, severe F15.20
[2024-02-24 19:39] VITALS: BP 80/54; PULSE 75; RESP 16; TEMP 36.7; O2SAT 96
[2024-02-24] MEDS: quetiapine 100 mg Tablet 200 MG PO (21:29)
[2024-02-24] MEDS: hyDROXYzine 25 mg Capsule 50 MG PO (21:30)
[2024-02-24] MEDS: trazodone 50 mg Tablet PO (21:30)
[2024-02-25 06:00] VITALS: BP 110/60; PULSE 88; RESP 16; TEMP 37; O2SAT 98
[2024-02-25] MEDS: divalproex DR 250 mg Tablet PO ×2 (09:23→17:33)
[2024-02-25] MEDS: risperiDONE 2 mg Tablet PO ×2 (09:23→17:33)
[2024-02-25] MEDS: benztropine 1 mg Tablet PO ×2 (09:23→17:33)
[2024-02-25] MEDS: hyDROXYzine 25 mg Capsule 50 MG PO (09:23)
[2024-02-25] MEDS: divalproex DR 500 mg Tablet PO ×2 (09:23→17:33)
[2024-02-25] MEDS: acetaminophen 325 mg Tablet 650 MG PO (09:23)
--- NOTE | 2024-02-25 12:05 | P.NPUPN_ITS ---
Subjective NPU 2 Subjective: Patient presented today reporting that she is feeling better. She feels positive about the fact that she has been accepted to rehab and will discharge tomorrow. She reports she feels this is the best plan and denied any issues at this time. She reported feeling fine on her medications that have been restarted. And denied any side effects. Mental Status Exam 2 MSE Comments: This is an obese versus morbidly obese white female in hospital scrubs with poor grooming and eye contact.? No abnormal movements except for psychomotor retardation.? Somewhat cooperative with exam in mild distress.? Speech was decreased rate and volume.? Mood described as okay, affect subdued and less irritable.? Thought process linear.? Thought content: Patient denied suicidal or homicidal ideation, there were no delusions reported or noted, she denied auditory or visual hallucinations.? Attention and concentration were limited and memory appeared unreliable but none were formally tested.? She is alert and oriented x3.? Insight and judgment are limited and impulse control is limited, but improving. Vitals/I&O/Wt Last Vital Signs Temp 98.6 F 02/25/24 06:00 Pulse 88 02/25/24 06:00 Resp 16 02/25/24 06:00 BP 110/60 02/25/24 06:00 Pulse Ox 98 02/25/24 06:00 O2 Del Method Room Air 02/23/24 19:24 Data NPU 02/19/24 18:56 02/19/24 18:56 A&P Assessment and plan (1) Acute psychosis: (2) Suicidal ideations: (3) Bipolar disorder, current episode manic severe with psychotic features: (4) Nicotine dependence, cigarettes, uncomplicated: (5) Alcohol abuse, episodic drinking behavior: (6) Cannabis dependence, episodic use: (7) Methamphetamine use disorder, severe: Plan This is a 38-year-old white female with a long history of addiction, psychosis and other mental health challenges who presents again on a 96-hour hold with a positive drug screen for amphetamines and cannabis and reports of psychosis. 1.? Restarted medication. Attempt to get long-acting injectable going again. 2.? Continue continue every 15 minute checks for safety. 3.? Encourage individual, group and milieu therapies on the unit. 4.? Encourage sober living treatment after discharge at the highest level of care to which she is willing to commit. Explore possible rehab. Patient accepted for rehab and will leave tomorrow morning. 5. Reports of primary outpatient team suggesting that guardianship may be appropriate back in August. We will identify how things have changed if at all moving the decision making towards or away from guardianship. Involuntary Hold Information 2 96 Hour Hold: 96 Hour Involuntary Admission: Yes 96 Hour Hold Ending Date: 02/26/24 96 Hour Hold Ending Time: 00:01 Attestations NPU 2 Medical Necessity Statement*: Inpatient hospitalization is medically necessary and the clinically appropriate intervention at this time. We will monitor medication to make changes as indicated. Likely length of stay 1 day. Coding Level of Care Code Acute Code for g Fwd Diagnoses Acute psychosis F23 Suicidal ideations R45.851 Bipolar disorder, current episode manic severe with psychotic features F31.2 Nicotine dependence, cigarettes, uncomplicated F17.210 Alcohol abuse, episodic drinking behavior F10.10 Cannabis dependence, episodic use F12.20 Methamphetamine use disorder, severe F15.20
--- NOTE | 2024-02-25 13:17 | PC.NURSE ---
ANIKET LAWRENCE CALLED TO GET NURSE TO NURSE REPORT TO SEE IF PT WAS APPROPRIATE FOR THEIR PROGRAM. ALL QUESTIONS ANSWERED. NURSE STATES THAT THEY COULD ACCEPT PT TOMORROW OR NEXT DAY. NURSE WAS INFORMED SHE WOULD NEED TO SPEAK TO THE MUSEUM EXHIBIT DESIGNER FOR SPECIFIC DISCHARGE DETAILS. PHONE TRANSFERRED TO JANESSA
--- NOTE | 2024-02-25 13:27 | PC.NURSE ---
PT RECEIVED THE FOLLOWING PRN MEDICATIONS: 650MG TYLENOL PRN FOR LEG PAIN RATING IT A 8/10 ON A 0-10 SCALE WHERE 0 IS NONE AND 10 IS THE WORST POSSIBLE. UPON REASSESSMENT PT WAS RESTING QUIETLY WITH EYES CLOSED IN BED. PT RESPIRATION ARE EVEN AND NON-LABORED. 50MG VISTARIL PO PRN FOR ANXIETY. PT RATED HER ANXIETY A 3/10 ON A 0-10 SCALE WHERE 0 IS NONE AND 10 IS THE WORST POSSIBLE. UPON REASSESSMENT PT WAS RESTING WITH EYES CLOSED IN BED. PT RESPIRATIONS ARE EVEN AND NON-LABORED.
[2024-02-25 13:39] VITALS: BP 97/67; PULSE 75; RESP 16; TEMP 36.7; O2SAT 98
[2024-02-25] MEDS: quetiapine 100 mg Tablet 200 MG PO (20:02)
[2024-02-25 20:11] VITALS: BP 107/74; PULSE 115; RESP 18; TEMP 36.6; O2SAT 98
[2024-02-26 06:00] VITALS: BP 110/76; PULSE 62; RESP 16; O2SAT 97
--- NOTE | 2024-02-26 07:18 | P.NPUDS_ITS ---
Diagnoses at Discharge Discharge Diagnosis (1) Acute psychosis: Status: Resolved (2) Suicidal ideations: Status: Resolved (3) Bipolar disorder, current episode manic severe with psychotic features: Status: Chronic (4) Nicotine dependence, cigarettes, uncomplicated: Status: Chronic (5) Alcohol abuse, episodic drinking behavior: Status: Chronic (6) Cannabis dependence, episodic use: Status: Chronic (7) Methamphetamine use disorder, severe: Status: Chronic Reason for Visit Reason for Visit: 96 Involuntary Hold Information 96 Hour Hold: 96 Hour Involuntary Admission: Yes 96 Hour Hold Ending Date: 02/26/24 96 Hour Hold Ending Time: 00:01 Mental Status Exam MSE Comments: This is an obese versus morbidly obese white female in hospital scrubs with poor grooming and eye contact.? No abnormal movements except for psychomotor retardation.? Somewhat cooperative with exam in mild distress.? Speech was decreased rate and volume.? Mood described as okay, affect subdued and less irritable.? Thought process linear.? Thought content: Patient denied suicidal or homicidal ideation, there were no delusions reported or noted, she denied audit ory or visual hallucinations.? Attention and concentration were limited and memory appeared unreliable but none were formally tested.? She is alert and oriented x3.? Insight and judgment are limited and impulse control is limited, but improving. Discharge Data Studies Completed and Pending: Laboratory Results WBC 7.83 10^3/uL (3.2 9-11.43) 02/19/24 18:56 RBC 4.45 10^6/uL (3.8 5-5.65) 02/19/24 18:56 Hgb 14.40 g/dL (11.27 -16.99) 02/19/24 18:56 Hct 42.5 % (36-47) 02/19/24 18:56 MCV 95.5 fl (85-98) 02/19/24 18:56 MCH 32.4 pg (27-33) 02/19/24 18:56 MCHC 33.9 g/dL (30-55) 02/19/24 18:56 RDW 13.8 % (12.1-15.1 ) 02/19/24 18:56 Plt Count 175 10^3/cmm (157 -399) 02/19/24 18:56 MPV 10.7 fL (7.4-10.4 ) H 02/19/24 18:56 Neut % (Auto) 41.7 % 02/19/24 18:56 Lymph % (Auto) 38.2 % 02/19/24 18:56 [place] % (Auto) 15.6 % 02/19/24 18:56 Eos % (Auto) 3.3 % 02/19/24 18:56 Baso % (Auto) 0.9 % 02/19/24 18:56 Neut # (Auto) 3.27 10^3/uL (1.8 -7.7) 02/19/24 18:56 Lymph # (Auto) 3.0 10^3/uL (0.8- 4.8) 02/19/24 18:56 [place] # (Auto) 1.2 10^3/uL (0.2- 0.9) H 02/19/24 18:56 Eos # (Auto) 0.3 10^3/uL (0.0- 0.8) 02/19/24 18:56 Baso # (Auto) 0.1 10^3/uL (0.0- 0.1) 02/19/24 18:56 Nucleated RBC % (a uto) 0 % 02/19/24 18:56 Nucleated RBCs # 0.0 /100WBC 02/19/24 18:56 Sodium 135 mmol/L (136-1 45) L 02/19/24 18:56 Potassium 4.0 mmol/L (3.5-5 .1) 02/19/24 18:56 Chloride 101 mmol/L (98-10 7) 02/19/24 18:56 Carbon Dioxide 24 mmol/L (22-29) 02/19/24 18:56 Anion Gap 14.0 (5-19) 02/19/24 18:56 BUN 11 mg/dL (6-20) 02/19/24 18:56 Creatinine 0.6 mg/dL (0.5-0. 9) 02/19/24 18:56 GFR Calculation 110.7 mL/min (90- 130) 02/19/24 18:56 Glucose 90 mg/dL (65-115) 02/19/24 18:56 Calculated Osmolal ity 279 mOsm/kg (285- 295) L 02/19/24 18:56 Calcium 8.5 mg/dL (8.5-10 .5) 02/19/24 18:56 Total Bilirubin 0.4 mg/dL (0.15-1 .2) 02/19/24 18:56 AST 54 U/L (0-32) H 02/19/24 18:56 ALT 38 U/L (0-33) H 02/19/24 18:56 Alkaline Phosphata se 79 U/L (35-105) 02/19/24 18:56 Total Protein 7.2 g/dL (6.6-8.7 ) 02/19/24 18:56 Albumin 3.6 g/dL (3.5-5.2 ) 02/19/24 18:56 Globulin 3.6 g/dL (1.3-4.6 ) 02/19/24 18:56 TSH 2.63 uIU/mL (0.27 -4.20) 02/19/24 18:56 HCG, Qual Negative (Negati ve) 02/19/24 18:56 Urine Color Yellow (Yellow) 02/19/24 19:45 Urine Appearance Clear (CLEAR) 02/19/24 19:45 Urine pH 7.0 (5-7) 02/19/24 19:45 Ur Specific Gravit y 1.016 (1.005-1.0 30) 02/19/24 19:45 Urine Protein Negative (Negati ve) 02/19/24 19:45 Urine Glucose (UA) Negative (Normal ) 02/19/24 19:45 Urine Ketones Trace (Negative) 02/19/24 19:45 Urine Blood Negative (Negati ve) 02/19/24 19:45 Urine Nitrate Negative (Negati ve) 02/19/24 19:45 Urine Bilirubin Negative (Negati ve) 02/19/24 19:45 Urine Urobilinogen 1.0 mg/dL (Negati ve) 02/19/24 19:45 Ur Leukocyte [place] ase 2+ (Negative) A 02/19/24 19:45 Urine RBC 0-2 /hpf (0-2) 02/19/24 19:45 Urine WBC 11-20 /hpf (0-5) H 02/19/24 19:45 Ur Squamous Epith Cells 11-20 /hpf (0-5) 02/19/24 19:45 Amorphous Sediment Not Reportable 02/19/24 19:45 Urine Bacteria 1+ /hpf (NONE) H 02/19/24 19:45 Hyaline Casts 0-4 /lpf H 02/19/24 19:45 Salicylates < 0.3 mg/dL (3-10 ) L 02/19/24 18:56 Urine Opiates Scre en Negative ng/mL (N egative) 02/19/24 19:45 Acetaminophen < 5.0 ug/mL (10-3 0) L 02/19/24 18:56 Ur Barbiturates Sc reen Negative ng/mL (N egative) 02/19/24 19:45 Ur Phencyclidine S crn Negative ng/mL (N egative) 02/19/24 19:45 Ur Amphetamines Sc reen Positive ng/mL (N egative) H 02/19/24 19:45 U Benzodiazepines Scrn Negative ng/mL (N egative) 02/19/24 19:45 Urine Cocaine Scre en Negative ng/mL (N egative) 02/19/24 19:45 U Marijuana (THC) Screen Positive ng/mL (N egative) H 02/19/24 19:45 Ethyl Alcohol < 10 mg/dL (0-10) 02/19/24 18:56 Vitals: Last Vital Signs Temp 97.8 F 02/25/24 20:11 Pulse 62 02/26/24 06:00 Resp 16 02/26/24 06:00 BP 110/76 02/26/24 06:00 Pulse Ox 97 02/26/24 06:00 O2 Del Method Room Air 02/23/24 19:24 Discharge Plan Discharge Patient Disposition: Home Condition: Stable Prescriptions: New trazodone 50 mg Tablet 50 mg PO BEDTIME PRN (Reason: Sleep) 30 Days Qty: 30 1RF hydroxyzine pamoate 25 mg Capsule 50 mg PO Q6H PRN (Reason: Anxiety) 30 Days Qty: 120 1RF Continued Depakote 250 mg tablet,delayed release (DR/EC) 250 mg PO BID Qty: 60 1RF Rx Instructions: Take one tablet twice per day with 500 mg tablet, 750 mg twice per day Seroquel 200 mg tablet 200 mg PO BEDTIME Qty: 30 1RF Rx Instructions: Take one tablet at bedtime Depakote 500 mg tablet,delayed release (DR/EC) 500 mg PO BID Qty: 60 1RF Rx Instructions: Take one tablet twice per day with 250 mg tab, total dose 750 mg twice per day risperidone 2 mg Tablet 2 mg PO BID 30 Days Qty: 60 1RF benztropine 1 mg tablet 1 mg PO BID Qty: 60 1RF Invega Sustenna 234 mg/1.5 mL syringe 234 mg IM Q30D Qty: 1.5 1RF Rx Instructions: Next injection 03/09/2024 Discharge Orders: Discharge Order (Routine); Ordered 02/26/24 Ordered By: Mayito Caballero Referrals: Ashley Soriano FNP [Primary Care Provider] - Discharge Diet: Regular Discharge Activity: Resume usual activity Patient Instructions: Opioid Safety Discharge Attestations NPU Time Spent in Discharge Care*: less than 30 min Specific Discharge Activities: Specific discharge activities: educating patient, discussing with manager rn case/social workers/dc planners, documenting/other paperwork and evaluating patient/reviewing data Status at Discharge: Cognitive status at discharge: mildly impaired cognition , Behavioral status at discharge: cooperative , Coding Level of Care Code Acute Code for [facility] Fwd Diagnoses Acute psychosis F23 Suicidal ideations R45.851 Bipolar disorder, current episode manic severe with psychotic features F31.2 Nicotine dependence, cigarettes, uncomplicated F17.210 Alcohol abuse, episodic drinking behavior F10.10 Cannabis dependence, episodic use F12.20 Methamphetamine use disorder, severe F15.20
[2024-02-26 07:37] VITALS: BP 110/76; PULSE 62; RESP 16; TEMP 36.8; O2SAT 97
--- NOTE | 2024-02-26 07:53 | PC.NURSE ---
SIGNED DISCHARGE PAPERS THIS AM. ALL QUESTIONS ANSWERED AND SUPPORT VOICED. PT RECEIVED MEDICATIONS AT DISCHARGE FROM [facility] AND PTS MOTHER BROUGHT IN THE REST. PT WAS GIVEN AM MEDICATIONS 5 MINUTES PRIOR TO 800 AM DUE TO RIDE COMING TO GET HER AT 800 AM AND PT NEEDED TO BE READY TO LEAVE. PT LEFT WITH ALL BELONGINGS AND MEDICATIONS. PT ONLY CONCERN IS GETTING CIGARETS TO SMOKE. PT WAS GIVEN THE PHONE TO CALL MOM TWICE TO GET THEM BUT CONTINUES TO BE UPSET WITH STAFF DUE TO HER NOT HAVING ANYTHING TO SMOKE. PT WAS INFORMED IF SHE DID NOT COME IN WITH ANY CIGARETS THEN SHE WOULD NOT HAVE ANY ON DISCHARGE. SUPPORT WAS VOICED. PT TO GO TO [facility] OR [facility]UG REHABILITATION PROGRAM.
[2024-02-26] MEDS: benztropine 1 mg Tablet PO (07:55)
[2024-02-26] MEDS: risperiDONE 2 mg Tablet PO (07:55)
[2024-02-26] MEDS: divalproex DR 250 mg Tablet PO (07:55)
[2024-02-26] MEDS: divalproex DR 500 mg Tablet PO (07:55)
== END 2024-02-26 08:25 | disposition home or self-care (01) | DRG 885 ==
LOC: ER 20:24 → NP 21:02
PROVIDERS: Admitting Provider Psychiatry & Neurology Psychiatry; Emergency Provider Emergency Medicine; PCP Nurse Practitioner Family; Visit Provider Psychiatry & Neurology Psychiatry
DX: F31.2 Bipolar disorder, current episode manic severe with psychotic features (principal); Z68.42 Body mass index [BMI] 45.0-49.9, adult; R45.851 Suicidal ideations; F15.10 Other stimulant abuse, uncomplicated; F10.10 Alcohol abuse, uncomplicated; F12.20 Cannabis dependence, uncomplicated; F17.200 Nicotine dependence, unspecified, uncomplicated; E66.9 Obesity, unspecified
CPT/HCPCS: 36415; 80053; 80306; 80307; 81001; 84443; 84703; 85025; 93005; 96372; 97150; 97165; 99285; J1630; J2060

== ENCOUNTER 2024-03-18 19:16 | Emergency (ER) | payer MEDICAID, SELFPAY ==
[2024-03-11 15:58] VITALS: BP 146/105; BMI 42.3
[2024-03-18] VITALS (7 sets, daily range): BP systolic 119–180; BP diastolic 91–128; PULSE 66–80; RESP 16; TEMP 36.6; O2SAT 95–99; BMI 42.3
--- NOTE | 2024-03-18 19:17 | ECG_ITS ---
[facility] Test Date: 2024-03-18 Pat Name: Heidi Caballero Department: Room: Gender: Female Manager Van: : 1985 Requested By: Paul Chen Order Number: [id number] Reading MD: EDUAR ROLDAN Measurements Intervals [place] Rate: 65 P: 40 CA: 148 QRS: 1 QRSD: 89 T: 26 QT: 391 QTc: 408 Interpretive Statements SINUS RHYTHM LOW QRS VOLTAGE IN PRECORDIAL LEADS [QRS DEFLECTION < 1.0 mV IN CHEST LEADS] Compared to ECG 02/19/2024 20:59:11 Sinus bradycardia no longer present Electronically Signed On 03-20-2024 18:54:45 CDT by EDUAR ROLDAN [id number]
--- NOTE | 2024-03-18 20:33 | XRR_ITS ---
PROCEDURE INFORMATION: Exam: XR Chest Exam date and time: 03/18/2024 8:35 PM Age: 39 years old Clinical indication: Chest pressure; Patient HX: C/O chest pain TECHNIQUE: Imaging protocol: Radiologic exam of the chest. Views: 1 view. COMPARISON: No relevant prior studies available. FINDINGS: Lungs: There is no consolidation. Pleural spaces: No pleural effusion or pneumothorax. Heart/Mediastinum: The heart and mediastinum are normal in size. Bones/joints: There is an old, healed fracture of the mid left clavicle. XR/XR chest 1V portable [id number] IMPRESSION: No acute findings.
[2024-03-18 21:00] LABS: Basophils # 0.1 10^3/uL (0.0-0.1); Basophils % 0.5 %; Eosinophils # 0.2 10^3/uL (0.0-0.8); Eosinophils % 1.5 %; Hematocrit 49.1 % (36-47); Lymphocytes # 2.6 10^3/uL (0.8-4.8); Lymphocytes % 23.1 %; Mean Corpuscular HGB Conc 34.4 g/dL (30-55); Mean Corpuscular Hemoglobin 32.2 pg (27-33); Mean Corpuscular Volume 93.5 fl (85-98); Mean Platelet Volume 10.9 fL (7.4-10.4); Monocytes # 1.3 10^3/uL (0.2-0.9); Monocytes % 11.4 %; Neutrophils # 7.11 10^3/uL (1.8-7.7); Neutrophils % 63.1 %; Nucleated Red Blood Cells % 0 %; Platelet Count 142 10^3/cmm (157-399); Red Blood Count 5.25 10^6/uL (3.85-5.65); Red Cell Distribution Width 13.2 % (12.1-15.1); White Blood Count 11.27 10^3/uL (3.29-11.43)
--- NOTE | 2024-03-18 21:05 | W.ED.CHESTPA ---
HPI - Chest Pain General: Chief Complaint: Chest Pain Stated Complaint: Chest Pains Time Seen by Provider: 03/18/24 20:03 History of Present Illness: Patient presents to the ER with complaints of chest pain that started early this morning. Is been going on all day long. She says it feels like her heart is stable, beats. Patient was recently in a psychiatric hospital with a DC'd her respite own. Has not had it in the last 3 days. Mom wanted to clarify he has not been giving it to her for the last 3 days either. She did tell nursing that she has been giving it to her so stories, convoluted. Patient said this chest pain multiple x 4. It is worse when taking a big deep breath but nothing makes it better. Does not radiate stay substernal. There is no nausea vomiting shortness of breath diaphoresis. Related Data Home Medications Medication Instructions Recorded Confirmed hydroxyzine pamoate 25 mg capsule 25 mg PO BID PRN 03/01/24 03/04/24 trazodone 50 mg tablet 50 mg PO DAILY 03/01/24 03/04/24 Previous Rx's Medication Instructions Recorded benztropine 1 mg tablet 1 mg PO BID #60 tabs 02/25/24 divalproex 250 mg tablet,delayed 250 mg PO BID #60 tabs 02/25/24 release (Depakote) divalproex 500 mg tablet,delayed 500 mg PO BID #60 tabs 02/25/24 release (Depakote) paliperidone palmitate 234 mg/1.5 234 mg (1.5 mL) IM Q30D #1.5 mL 02/25/24 mL intramuscular syringe (Invega Sustenna) quetiapine 200 mg tablet (Seroquel) 200 mg PO BEDTIME #30 tabs 02/25/24 risperidone 2 mg tablet 2 mg PO BID 30 days #60 tabs 02/25/24 Allergies Allergy/AdvReac Type Severity Reaction Status Date / Time olanzapine Allergy Severe ALGY-Anaphy Verified 03/04/24 10:46 laxis ziprasidone [From Geodon] Allergy Unknown ALGY-Anaphy Verified 03/04/24 10:46 laxis NSAIDS (Non-Steroidal Allergy Unknown Verified 03/04/24 10:46 Anti-Inflamma quetiapine [From Seroquel] Allergy Unknown Verified 08/23/24 10:46 risperidone AdvReac Severe edema Verified 03/04/24 10:46 propranolol Allergy Severe ALGY-Hives Uncoded 03/04/24 10:46 Review of Systems General: Reports: 10 or more systems reviewed and unremarkable except in HPI and below PFS ED PFSH: Medical History Methamphetamine use disorder, severe Psychiatric care Cellulitis and abscess of upper arm and forearm Liver cirrhosis Hepatitis C Nicotine dependence, cigarettes, uncomplicated Alcohol abuse, episodic drinking behavior Cannabis dependence, episodic use Bipolar disorder, current episode manic severe with psychotic features Surgical History No pertinent past surgical history Family History Other Psychiatric illness Social History Smoking and tobacco/nicotine status: current every day tobacco/nicotine user cigarettes Packs smoked per day: 1 Years cigarettes smoked: 28 Quit status (tobacco/nicotine): not considering quitting Second hand smoke exposure: Yes Alcohol intake: former Former alcohol use details: quit 2 months ago Substance/Drug Use: current Substance/Drug use frequency: daily Adopted: No Caregiver/support person: No Lives independently: Yes Household members: family Housing: House Marital status: Marital status details: for 2 years Number of children: 0 Number of grandchildren: 0 Highest education level completed: 11th Grade service: No Current occupational status: disabled Pets and animals: Yes (2 dogs, 3 cats) Pets & animals: cat(s) and dog(s) Pets & animal details: mouse that they call Skinny Leisure activites: other Leisure activities details: watch TV Sexually active: No Do you think of yourself as: Straight/Heterosexual Current gender identity: Female Gema/Adventism: Alevism Special gema needs: No Agree to transfusion: Yes Female Reproductive History: Para: 0 Spontaneous abortions: Yes ( I think I had a miscarriage once. ) Physical Exam Const: COMMON NORMALS: no acute distress, average body habitus, patient oriented x3, no limitations, healthy appearing, alert and well nourished HENMT: COMMON NORMALS: normocephalic, atraumatic, hearing grossly normal bilaterally, external ears normal, Normal external nose present and moist oral mucous membranes HEAD & SCALP: normocephalic and atraumatic NOSE: Normal external nose present EXTERNAL EAR: Yes external ears normal Neck/C-Spine: COMMON NORMALS: no JVD Chest: COMMONS NORMALS: normal inspection of the chest; negative for normal palpation of entire chest wall (Tender to palpation anterior chest wall makes pain worse.) Resp: COMMON NORMALS: normal respiratory effort, No retractions, No use of accessory muscles and clear to auscultation bilaterally AUSCULTATION: clear to auscultation bilaterally Cardio: COMMON NORMALS: no JVD, regular rate, regular rhythm, S1 normal heart sound present, S2 normal heart sound present, No gallops present (Cardio), No clicks present (Cardio), No murmurs present (Cardio) and No rub (Cardio) RATE: regular rate RHYTHM: regular rhythm HEART SOUNDS: S1 normal heart sound present and S2 normal heart sound present GI: COMMON NORMALS: Normal to inspection, nondistended, normoactive bowel sounds present, Soft to palpation, non-tender, No hepatosplenomegaly present and no masses PALPATION: Yes Soft to palpation and Yes No hepatosplenomegaly present Neuro: COMMON NORMALS: patient oriented x3 SENSORIUM/ORIENTATION: Yes alert Course Vital Signs: Vital signs: Vital Signs Temperature 97.9 F 03/18/24 19:28 Pulse Rate 77 03/18/24 22:35 Respiratory Rate 16 03/18/24 22:35 Blood Pressure 145/91 03/18/24 22:35 Pulse Oximetry 98 03/18/24 22:35 Oxygen Delivery Me thod Room Air 03/18/24 19:28 MDM - Chest Pain Medical Decision Making Patient was worked up in a standard chest pain fashion with serial EKGs serial enzymes chest x-ray, all of which were essentially benign. Patient did receive 30 mg Toradol IV for her pain. Patient be discharged home to follow-up with her PCP Differential Diagnosis Unlikely acute massive pulmonary embolism, acute respiratory failure, acute myocardial infarction, cardiac arrest or sudden cardiac Medical Records I reviewed the patient's medical records. Lab Data I reviewed the patient's lab results. 03/18/24 20:47 03/18/24 20:47 Radiology Impressions Chest X-Ray 03/18/24 20:33 IMPRESSION: No acute findings. Laboratory Results WBC 11.27 10^3/uL (3.29-11.43) 03/18/24 20:47 RBC 5.25 10^6/uL (3.85-5.65) 03/18/24 20:47 Hgb 16.90 g/dL (11.27-16.99) 03/18/24 20:47 Hct 49.1 % (36-47) H 03/18/24 20:47 MCV 93.5 fl (85-98) 03/18/24 20:47 MCH 32.2 pg (27-33) 03/18/24 20:47 MCHC 34.4 g/dL (30-55) 03/18/24 20:47 RDW 13.2 % (12.1-15.1) 03/18/24 20:47 Plt Count 142 10^3/cmm (157-399) L 03/18/24 20:47 MPV 10.9 fL (7.4-10.4) H 03/18/24 20:47 Neut % (Auto) 63.1 % 03/18/24 20:47 Lymph % (Auto) 23.1 % 03/18/24 20:47 [place] % (Auto) 11.4 % 03/18/24 20:47 Eos % (Auto) 1.5 % 03/18/24 20:47 Baso % (Auto) 0.5 % 03/18/24 20:47 Neut # (Auto) 7.11 10^3/uL (1.8-7.7) 03/18/24 20:47 Lymph # (Auto) 2.6 10^3/uL (0.8-4.8) 03/18/24 20:47 [place] # (Auto) 1.3 10^3/uL (0.2-0.9) H 03/18/24 20:47 Eos # (Auto) 0.2 10^3/uL (0.0-0.8) 03/18/24 20:47 Baso # (Auto) 0.1 10^3/uL (0.0-0.1) 03/18/24 20:47 Nucleated RBC % (auto) 0 % 03/18/24 20:47 Nucleated RBCs # 0.0 /100WBC 03/18/24 20:47 Sodium 137 mmol/L (136-145) 03/18/24 20:47 Potassium 4.3 mmol/L (3.5-5.1) 03/18/24 20:47 Chloride 101 mmol/L (98-107) 03/18/24 20:47 Carbon Dioxide 23 mmol/L (22-29) 03/18/24 20:47 Anion Gap 17.3 (5-19) 03/18/24 20:47 BUN 8 mg/dL (6-20) 03/18/24 20:47 Creatinine 0.6 mg/dL (0.5-0.9) 03/18/24 20:47 GFR Calculation 110.2 mL/min (90-130) 03/18/24 20:47 Glucose 94 mg/dL (65-115) 03/18/24 20:47 Calculated Osmolality 282 mOsm/kg (285-295) L 03/18/24 20:47 Calcium 8.5 mg/dL (8.5-10.5) 03/18/24 20:47 Total Bilirubin 0.8 mg/dL (0.15-1.2) 03/18/24 20:47 AST 60 U/L (0-32) H 03/18/24 20:47 ALT 41 U/L (0-33) H 03/18/24 20:47 Alkaline Phosphatase 99 U/L (35-105) 03/18/24 20:47 Troponin T Baseline < 6 ng/L (0-10) 03/18/24 20:47 Troponin T 120 Minute 6.00 ng/L (0-10) 03/18/24 22:20 Delta Troponin T 0.09460 ABS# (0-10) 03/18/24 22:20 Total Protein 7.8 g/dL (6.6-8.7) 03/18/24 20:47 Albumin 3.7 g/dL (3.5-5.2) 03/18/24 20:47 Globulin 4.1 g/dL (1.3-4.6) 03/18/24 20:47 Urine Color Dark yellow (Yellow) A 03/18/24 21:28 Urine Appearance Clear (CLEAR) 03/18/24 21:28 Urine pH 6.5 (5-7) 03/18/24 21:28 Ur Specific [place] 1.013 (1.005-1.030) 03/18/24 21:28 Urine Protein Neg (Negative) 03/18/24 21:28 Urine Glucose (UA) Norm (Normal) 03/18/24 21:28 Urine Ketones Trace (Negative) H 03/18/24 21:28 Urine Blood Neg (Negative) 03/18/24 21:28 Urine Nitrate Negative (Negative) 03/18/24 21:28 Urine Bilirubin Neg (Negative) 03/18/24 21:28 Urine Urobilinogen 1.0 mg/dL (Negative) 03/18/24 21:28 Ur Leukocyte Esterase Negative (Negative) 03/18/24 21:28 Amorphous Sediment Not Reportable 03/18/24 21:28 All radiology interpretation(s) finalized by discharge Discharge Plan Discharge Patient Disposition: Home Clinical Impression: Chest pain Qualifiers: Chest pain type: unspecified Qualified Code(s): R07.9 - Chest pain, unspecified Condition: Stable Prescriptions: No Action trazodone 50 mg tablet 50 mg PO DAILY hydroxyzine pamoate 25 mg capsule 25 mg PO BID PRN Depakote 250 mg tablet,delayed release (DR/EC) 250 mg PO BID Qty: 60 1RF Rx Instructions: Take one tablet twice per day with 500 mg tablet, 750 mg twice per day Seroquel 200 mg tablet 200 mg PO BEDTIME Qty: 30 1RF Rx Instructions: Take one tablet at bedtime Depakote 500 mg tablet,delayed release (DR/EC) 500 mg PO BID Qty: 60 1RF Rx Instructions: Take one tablet twice per day with 250 mg tab, total dose 750 mg twice per day risperidone 2 mg Tablet 2 mg PO BID 30 Days Qty: 60 1RF benztropine 1 mg tablet 1 mg PO BID Qty: 60 1RF Invega Sustenna 234 mg/1.5 mL syringe 234 mg IM Q30D Qty: 1.5 1RF Rx Instructions: Next injection 03/09/2024 Discharge Orders: Discharge ED (Routine); Ordered 03/18/24 Ordered By: Paul Chen Referrals: Ashley Soriano FNP [Primary Care Provider] - 1 week Patient Instructions: Chest Pain (ED) Activity Restrictions/Additional Instructions: Thank you for choosing [facility] for your healthcare needs today. Please realize that you were seen in the emergency department and that we are providing you with an emergency medical screening exam and this may not be a complete and all exclusive of all testing and/or medical workup we may need to determine your element or severity of your illness. It is very important that you follow-up as instructed with your primary care provider or specialist for the additional evaluation and to discuss your medical treatment plan. You may return to the emergency department should you have concerns or if your condition changes or worsens in any way. Coding Level of Care Code ED Email Marketer for Shelley Arnold
[2024-03-18 21:21] LABS: Alanine Aminotransferase 41 U/L (0-33); Albumin Level 3.7 g/dL (3.5-5.2); Alkaline Phosphatase 99 U/L (35-105); Blood Urea Nitrogen 8 mg/dL (6-20); Calcium 8.5 mg/dL (8.5-10.5); Carbon Dioxide 23 mmol/L (22-29); Chloride 101 mmol/L (98-107); Creatinine Clr Calc Pharmacy 167.4195; Globulin 4.1 g/dL (1.3-4.6); Glomerular Filtration Rate 110.2 mL/min (90-130); Glucose 94 mg/dL (65-115); Osmolality Calculated 282 mOsm/kg (285-295); Sodium 137 mmol/L (136-145); Total Bilirubin 0.8 mg/dL (0.15-1.2); Total Protein 7.8 g/dL (6.6-8.7)
[2024-03-18 21:23] LABS: Anion Gap 17.3 (5-19); Aspartate Amino Transferase 60 U/L (0-32); Potassium 4.3 mmol/L (3.5-5.1)
[2024-03-18 21:26] LABS: Troponin(5th) Baseline < 6 ng/L (0-10)
[2024-03-18 22:04] LABS: Charge for UA Resulting for Rev
--- NOTE | 2024-03-18 22:16 | ECG_ITS ---
[facility] Test Date: 2024-03-18 Pat Name: Heidi Caballero Department: Room: Gender: Female [employer] Coach: : 1985 Requested By: Paul Chen Order Number: [id number] Naren MD: EDUAR ROLDAN Measurements Intervals [place] Rate: 60 P: 55 AK: 156 QRS: 1 QRSD: 75 T: 28 QT: 404 QTc: 406 Interpretive Statements SINUS RHYTHM LOW QRS VOLTAGE IN PRECORDIAL LEADS [QRS DEFLECTION < 1.0 mV IN CHEST LEADS] POSSIBLE RIGHT VENTRICULAR CONDUCTION DELAY [RSR (QR) IN V1/V2] Compared to ECG 03/18/2024 19:17:58 No significant changes Electronically Signed On 03-20-2024 18:58:18 CDT by EDUAR ROLDAN [id number]
[2024-03-18] MEDS: ketorolac 30 mg/mL INJ IVP (22:21)
[2024-03-18 22:38] LABS: Bilirubin Urine Neg (Negative); Blood Urine Neg (Negative); Glucose Urine UA Norm (Normal); Ketones Urine Trace (Negative); Leukocyte Esterase Urine Negative (Negative); Nitrate Urine Negative (Negative); Protein Urine Neg (Negative); Specific Gravity, Urine 1.013 (1.005-1.030); Urine Appearance Clear (CLEAR); Urine Color Dark Yellow (Yellow); pH Urine 6.5 (5-7)
[2024-03-18 22:51] LABS: Troponin 5 2HR Delta 0.00001 ABS# (0-10)
== END 2024-03-18 23:03 | disposition home or self-care (01) ==
PROVIDERS: Emergency Provider Emergency Medicine; PCP Nurse Practitioner Family
DX: R07.9 Chest pain, unspecified (principal); F17.210 Nicotine dependence, cigarettes, uncomplicated; Z86.19 Personal history of other infectious and parasitic diseases
CPT/HCPCS: 36415; 71045; 80053; 81003; 81015; 84484; 85025; 93005; 96374; 99285; J1885

== ENCOUNTER 2024-04-17 13:57 | Inpatient (IN) | payer MEDICAID, SELFPAY ==
[2024-03-11 15:58] VITALS: BP 146/105; BMI 42.3
[2024-04-17 14:01] VITALS: BP 127/98; PULSE 118; RESP 18; TEMP 36.7; O2SAT 97
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
[2024-04-17] MEDS: haloperidol inj 5 mg/mL INJ 1 mL 10 MG IM (14:41)
[2024-04-17] MEDS: LORazepam 2 mg/mL INJ 1 mL IM (14:41)
[2024-04-17 15:06] LABS: Basophils # 0.1 10^3/uL (0.0-0.1); Basophils % 0.7 %; Eosinophils # 0.1 10^3/uL (0.0-0.8); Eosinophils % 0.8 %; Hematocrit 43.5 % (36-47); Lymphocytes # 4.5 10^3/uL (0.8-4.8); Mean Corpuscular HGB Conc 34.3 g/dL (30-55); Mean Corpuscular Hemoglobin 32.7 pg (27-33); Mean Corpuscular Volume 95.4 fl (85-98); Mean Platelet Volume 10.8 fL (7.4-10.4); Monocytes # 1.7 10^3/uL (0.2-0.9); Monocytes % 16.6 %; Neutrophils # 3.85 10^3/uL (1.8-7.7); Neutrophils % 37.4 %; Nucleated Red Blood Cells % 0 %; Platelet Count 191 10^3/cmm (157-399); Red Blood Count 4.56 10^6/uL (3.85-5.65); Red Cell Distribution Width 13.5 % (12.1-15.1); White Blood Count 10.29 10^3/uL (3.29-11.43)
[2024-04-17 15:35] LABS: Alanine Aminotransferase 47 U/L (0-33); Albumin Level 3.9 g/dL (3.5-5.2); Alkaline Phosphatase 95 U/L (35-105); Anion Gap 15.9 (5-19); Aspartate Amino Transferase 66 U/L (0-32); Blood Urea Nitrogen 19 mg/dL (6-20); Carbon Dioxide 24 mmol/L (22-29); Chloride 97 mmol/L (98-107); Globulin 4.3 g/dL (1.3-4.6); Glucose 127 mg/dL (65-115); Osmolality Calculated 280 mOsm/kg (285-295); Potassium 3.9 mmol/L (3.5-5.1); Salicylate 0.6 mg/dL (3-10); Sodium 133 mmol/L (136-145); Thyroid Stimulating Hormone 3.31 uIU/mL (0.27-4.20); Total Bilirubin 0.7 mg/dL (0.15-1.2); Total Protein 8.2 g/dL (6.6-8.7)
[2024-04-17 15:36] LABS: Acetaminophen < 5.0 ug/mL (10-30); Alcohol Level < 10 mg/dL (0-10)
[2024-04-17 16:34] VITALS: BP 104/72; PULSE 96; RESP 20; TEMP 36.6; O2SAT 95
[2024-04-17] MEDS: acetaminophen 325 mg Tablet 650 MG PO (17:54)
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
[2024-04-17 21:54] VITALS: RESP 15
--- NOTE | 2024-04-17 21:54 | PC.NURSE ---
Asked pt multiple times to obtain vitals signs. Pt refused. Respiration rate 15. hse manager notified.
[2024-04-17] MEDS: benztropine 1 mg Tablet PO (22:00)
[2024-04-17] MEDS: quetiapine 100 mg Tablet 200 MG PO (22:00)
[2024-04-17] MEDS: divalproex DR 500 mg Tablet PO (22:00)
[2024-04-17] MEDS: divalproex DR 250 mg Tablet PO (22:00)
[2024-04-18 06:00] VITALS: RESP 15
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
--- NOTE | 2024-04-18 09:35 | PC.NURSE ---
IN BED RESTING WITH COVERS OVER HEAD. PT IS EVASIVE WITH ASSESSMENT AND HAS BEEN INSTRUCTED TO GIVE A URINE SEVERAL TIMES, WHICH SHE DECLINES TO DO. DENIES SI/HI AND AVH AT THIS TIME. AFFECT IS FLAT AND MOOD DEPRESSED. RATES PAIN IN LEGS 04/21, MED NURSE NOTIFIED TO GIVE TYLENOL. RATES ANXIETY 02/19 AND DEPRESSION /. STATES HE SLEPT BETTER. PT STATES I DON'T HAVE A GOAL. ALL QUESTIONS ANSWERED AND SUPPORT WAS VOICED.
[2024-04-18] MEDS: acetaminophen 325 mg Tablet 650 MG PO (09:55)
[2024-04-18] MEDS: divalproex DR 250 mg Tablet PO ×2 (09:55→20:44)
[2024-04-18] MEDS: benztropine 1 mg Tablet PO ×2 (09:55→20:44)
[2024-04-18] MEDS: divalproex DR 500 mg Tablet PO ×2 (09:55→20:44)
[2024-04-18] MEDS: flu vacc pf 24-25 (6 mos+) SYRINGE 45 MCG IM (09:56)
[2024-04-18 12:25] LABS: HCG Qualitative Urine. Negative (Negative)
[2024-04-18 12:30] LABS: Bilirubin Urine 1+ (Negative); Blood Urine Negative (Negative); Glucose Urine UA Negative (Normal); Ketones Urine Trace (Negative); Leukocyte Esterase Urine Trace (Negative); Nitrate Urine Negative (Negative); Protein Urine Trace (Negative); Urine Appearance Clear (CLEAR); Urine Color Dark Yellow (Yellow); pH Urine 7.5 (5-7)
[2024-04-18 12:36] LABS: Bacteria Urine 2+ /hpf; Hyaline Casts Urine 2.05 /lpf; RBC Urine 0-2 /hpf (0-2); Squamous Epithelial Cell Urine 0-5 /hpf (0-5)
[2024-04-18 12:43] LABS: THC Screen Urine Positive (Negative)
[2024-04-18 12:44] LABS: Amphetamines Screen Urine Positive (Negative); Barbiturates Screen Urine Negative (Negative); Benzodiazepines Screen Urine Positive (Negative); Cocaine Screen Urine Negative (Negative); Opiate Screen Urine Negative (Negative); PCP Screen Urine Negative (Negative)
[2024-04-18 12:46] LABS: Specific Gravity, Urine 1.032 (1.005-1.030)
[2024-04-18 12:48] LABS: Add Urine Culture? No; Triple Phosphate Crystal Urine 15-25 /hpf
[2024-04-18 14:00] VITALS: BP 99/60; PULSE 65; RESP 16; TEMP 36.4; O2SAT 97
[2024-04-18 20:05] VITALS: BP 106/59; PULSE 60; RESP 18; TEMP 36.4; O2SAT 96
[2024-04-18] MEDS: quetiapine 100 mg Tablet 200 MG PO (20:44)
[2024-04-19 06:00] VITALS: BP 101/64; PULSE 65; RESP 16; TEMP 36.8; O2SAT 96
[2024-04-19] MEDS: benztropine 1 mg Tablet PO ×2 (09:09→20:46)
[2024-04-19] MEDS: divalproex DR 250 mg Tablet PO ×2 (09:09→20:46)
[2024-04-19] MEDS: divalproex DR 500 mg Tablet PO ×2 (09:09→20:46)
[2024-04-19] MEDS: acetaminophen 325 mg Tablet 650 MG PO (09:16)
[2024-04-19 14:00] VITALS: BP 155/96; PULSE 66; RESP 17; O2SAT 95
--- NOTE | 2024-04-19 15:54 | P.NPUPN_ITS ---
Subjective NPU 2 Subjective: Patient presented today reporting that she is doing okay. She continues to be ambivalent about treatment per staff and direct observation having no significant interest in going to sober living treatment and downplaying the impact of addiction on her presentation. We continue to talk about the importance of continuing her medication and considering treatment as her mother is reporting she is not going to allow her to come home without active treatment. Mental Status Exam 2 MSE Comments: This is an obese versus morbidly obese white female in hospital scrubs with poor grooming and eye contact.? No abnormal movements except for psychomotor retardation.? Somewhat cooperative with exam in mild to moderate distress.? Speech was decreased rate and volume.? Mood described as okay, affect subdued and disinterested.? Thought process linear.? Thought content: Patient denied suicidal or homicidal ideation, there were no delusions reported or noted, she denied auditory or visual hallucinations.? Attention and concentration were limited and memory appeared unreliable but none were formally tested.? She is alert and oriented x person and place.? Insight, judgment and impulse control are impaired. Vitals/I&O/Wt Last Vital Signs Temp 98.3 F 04/19/24 06:00 Pulse 66 04/19/24 14:00 Resp 17 04/19/24 14:00 BP 155/96 04/19/24 14:00 Pulse Ox 95 04/19/24 14:00 O2 Del Method Room Air 04/19/24 06:00 Weight last 48 hrs Weight 108.862 kg Data NPU 04/17/24 14:54 04/17/24 14:54 A&P Assessment and plan (1) Acute psychosis: (2) Suicidal ideations: (3) Bipolar disorder, current episode manic severe with psychotic features: (4) Nicotine dependence, cigarettes, uncomplicated: (5) Alcohol abuse, episodic drinking behavior: (6) Cannabis dependence, episodic use: (7) Methamphetamine use disorder, severe: Plan This is a 39-year-old white female with a long history of addiction, psychosis and other mental health challenges who presents again on a 96-hour hold with a positive drug screen for amphetamines, benzodiazepines and cannabis and reports of psychosis consistent with her last admission about 2 months ago. 1.? Restart medication. Attempt to get long-acting injectable going again. 2.? Continue continue every 15 minute checks for safety. 3.? Encourage individual, group and milieu therapies on the unit. 4.? Encourage sober living treatment after discharge at the highest level of care to which she is willing to commit. Explore possible rehab. 5. Reports of primary outpatient team suggesting that guardianship may be appropriate back in August. And no real improvement to suggest otherwise.. Involuntary Hold Information 2 96 Hour Hold: 96 Hour Involuntary Admission: Yes 96 Hour Hold Ending Date: 04/22/24 96 Hour Hold Ending Time: 00:01 Attestations NPU 2 Medical Necessity Statement*: Inpatient hospitalization is medically necessary and the clinically appropriate intervention at this time. We will monitor medication to make changes as indicated. Likely length of stay 4-6 days. Coding Level of Care Code Acute Code for g Fwd Diagnoses Acute psychosis F23 Suicidal ideations R45.851 Bipolar disorder, current episode manic severe with psychotic features F31.2 Nicotine dependence, cigarettes, uncomplicated F17.210 Alcohol abuse, episodic drinking behavior F10.10 Cannabis dependence, episodic use F12.20 Methamphetamine use disorder, severe F15.20
[2024-04-19 19:17] VITALS: BP 132/86; PULSE 73; RESP 18; TEMP 36.4; O2SAT 95
[2024-04-19] MEDS: quetiapine 100 mg Tablet 200 MG PO (20:46)
[2024-04-19] MEDS: trazodone 50 mg Tablet PO (20:48)
[2024-04-20 06:00] VITALS: BP 138/94; PULSE 66; RESP 18; TEMP 36.4; O2SAT 96
[2024-04-20] MEDS: divalproex DR 250 mg Tablet PO ×2 (09:16→21:19)
[2024-04-20] MEDS: benztropine 1 mg Tablet PO ×2 (09:17→21:19)
[2024-04-20] MEDS: divalproex DR 500 mg Tablet PO ×2 (09:17→21:19)
[2024-04-20 13:59] VITALS: BP 145/95; PULSE 91; RESP 16; TEMP 36.6; O2SAT 98
--- NOTE | 2024-04-20 16:02 | P.NPUPN_ITS ---
Subjective NPU 2 Subjective: Patient presented today reporting that she is doing okay and denying any current problems that are noteworthy. She was very negative and speaking about her mother as her mother has stood her ground and reported she cannot return home without inpatient treatment. This was the same circumstance that existed last time but we discussed that we believe she may have sabotaged her opportunity and mom allowed her to go home. Mom now reporting she will not be able to come back to that house without adequate drug and alcohol treatment. Otherwise she endorses no issues with her medications and denies any side effects. Mental Status Exam 2 MSE Comments: This is an obese versus morbidly obese white female in hospital scrubs with poor grooming and eye contact.? No abnormal movements except for psychomotor retardation.? Somewhat cooperative with exam in mild to moderate distress.? Speech was decreased rate and volume.? Mood described as okay, affect subdued and disinterested.? Thought process linear.? Thought content: Patient denied suicidal or homicidal ideation, there were no delusions reported or noted, she denied auditory or visual hallucinations.? Attention and concentration were limited and memory appeared unreliable but none were formally tested.? She is alert and oriented x person and place.? Insight, judgment and impulse control are impaired. Vitals/I&O/Wt Last Vital Signs Temp 98 F 04/20/24 13:59 Pulse 91 04/20/24 13:59 Resp 16 04/20/24 13:59 BP 145/95 04/20/24 13:59 Pulse Ox 98 04/20/24 13:59 O2 Del Method Room Air 04/20/24 13:59 Weight last 48 hrs Weight 108.862 kg Data NPU 04/17/24 14:54 04/17/24 14:54 A&P Assessment and plan (1) Acute psychosis: (2) Suicidal ideations: (3) Bipolar disorder, current episode manic severe with psychotic features: (4) Nicotine dependence, cigarettes, uncomplicated: (5) Alcohol abuse, episodic drinking behavior: (6) Cannabis dependence, episodic use: (7) Methamphetamine use disorder, severe: Plan This is a 39-year-old white female with a long history of addiction, psychosis and other mental health challenges who presents again on a 96-hour hold with a positive drug screen for amphetamines, benzodiazepines and cannabis and reports of psychosis consistent with her last admission about 2 months ago. 1.? Restart medication. Attempt to get long-acting injectable going again. 2.? Continue continue every 15 minute checks for safety. 3.? Encourage individual, group and milieu therapies on the unit. 4.? Encourage sober living treatment after discharge at the highest level of care to which she is willing to commit. Patient reporting a willingness to go to rehab and is working with social work team for different options. 5. Reports of primary outpatient team suggesting that guardianship may be appropriate back in August. And no real improvement to suggest otherwise.. Involuntary Hold Information 2 96 Hour Hold: 96 Hour Involuntary Admission: Yes 96 Hour Hold Ending Date: 04/22/24 96 Hour Hold Ending Time: 00:01 Attestations NPU 2 Medical Necessity Statement*: Inpatient hospitalization is medically necessary and the clinically appropriate intervention at this time. We will monitor medication to make changes as indicated. Likely length of stay 4-6 days. Coding Level of Care Code Acute Code for g Fwd Diagnoses Acute psychosis F23 Suicidal ideations R45.851 Bipolar disorder, current episode manic severe with psychotic features F31.2 Nicotine dependence, cigarettes, uncomplicated F17.210 Alcohol abuse, episodic drinking behavior F10.10 Cannabis dependence, episodic use F12.20 Methamphetamine use disorder, severe F15.20
[2024-04-20 19:40] VITALS: BP 113/74; PULSE 56; RESP 17; TEMP 36.4; O2SAT 95
[2024-04-20] MEDS: quetiapine 100 mg Tablet 200 MG PO (21:18)
[2024-04-20] MEDS: hyDROXYzine 25 mg Capsule 50 MG PO (21:19)
[2024-04-20] MEDS: trazodone 50 mg Tablet PO (21:19)
[2024-04-21 06:00] VITALS: BP 94/64; PULSE 69; RESP 18; TEMP 36.5; O2SAT 94
[2024-04-21] MEDS: divalproex DR 250 mg Tablet PO ×2 (09:25→21:30)
[2024-04-21] MEDS: benztropine 1 mg Tablet PO ×2 (09:26→21:30)
[2024-04-21] MEDS: divalproex DR 500 mg Tablet PO ×2 (09:26→21:30)
[2024-04-21 14:00] VITALS: BP 112/73; PULSE 73; RESP 14; TEMP 36.8; O2SAT 95
--- NOTE | 2024-04-21 15:01 | P.NPUPN_ITS ---
Subjective NPU 2 Subjective: Patient presented today reporting that she is doing better. She seems to be less ambivalent about going to rehab and is endorsing that that is the plan. We discussed the fact that a 21-day hold request was placed and there is a likelihood for hearing tomorrow. She denied any side effects or medications. Mental Status Exam 2 MSE Comments: This is an obese versus morbidly obese white female in hospital scrubs with poor grooming and eye contact.? No abnormal movements except for psychomotor retardation.? Somewhat cooperative with exam in mild to moderate distress.? Speech was decreased rate and volume.? Mood described as okay, affect subdued and disinterested.? Thought process linear.? Thought content: Patient denied suicidal or homicidal ideation, there were no delusions reported or noted, she denied auditory or visual hallucinations.? Attention and concentration were limited and memory appeared unreliable but none were formally tested.? She is alert and oriented x person and place.? Insight, judgment and impulse control are impaired. Vitals/I&O/Wt Last Vital Signs Temp 97.7 F 04/21/24 06:00 Pulse 69 04/21/24 06:00 Resp 18 04/21/24 06:00 BP 94/64 04/21/24 06:00 Pulse Ox 94 04/21/24 06:00 O2 Del Method Room Air 04/21/24 06:00 Data NPU 04/17/24 14:54 04/17/24 14:54 A&P Assessment and plan (1) Acute psychosis: (2) Suicidal ideations: (3) Bipolar disorder, current episode manic severe with psychotic features: (4) Nicotine dependence, cigarettes, uncomplicated: (5) Alcohol abuse, episodic drinking behavior: (6) Cannabis dependence, episodic use: (7) Methamphetamine use disorder, severe: Plan This is a 39-year-old white female with a long history of addiction, psychosis and other mental health challenges who presents again on a 96-hour hold with a positive drug screen for amphetamines, benzodiazepines and cannabis and reports of psychosis consistent with her last admission about 2 months ago. 1.? Restart medication. Attempt to get long-acting injectable going again. 2.? Continue continue every 15 minute checks for safety. 3.? Encourage individual, group and milieu therapies on the unit. 4.? Encourage sober living treatment after discharge at the highest level of care to which she is willing to commit. Patient reporting a willingness to go to rehab and is working with social work team for different options. 5. Reports of primary outpatient team suggesting that guardianship may be appropriate back in August. And no real improvement to suggest otherwise. 21-day hold paperwork was submitted likely hearing tomorrow. Involuntary Hold Information 2 96 Hour Hold: 96 Hour Involuntary Admission: Yes 96 Hour Hold Ending Date: 04/22/24 96 Hour Hold Ending Time: 00:01 Attestations NPU 2 Medical Necessity Statement*: Inpatient hospitalization is medically necessary and the clinically appropriate intervention at this time. We will monitor medication to make changes as indicated. Likely length of stay 4-6 days. Coding Level of Care Code Acute Code for [facility] Fwd Diagnoses Acute psychosis F23 Suicidal ideations R45.851 Bipolar disorder, current episode manic severe with psychotic features F31.2 Nicotine dependence, cigarettes, uncomplicated F17.210 Alcohol abuse, episodic drinking behavior F10.10 Cannabis dependence, episodic use F12.20 Methamphetamine use disorder, severe F15.20
[2024-04-21 20:14] VITALS: BP 99/61; PULSE 60; RESP 16; TEMP 36.4; O2SAT 94
[2024-04-21] MEDS: hyDROXYzine 25 mg Capsule 50 MG PO (21:30)
[2024-04-21] MEDS: trazodone 50 mg Tablet PO (21:30)
[2024-04-21] MEDS: quetiapine 100 mg Tablet 200 MG PO (21:30)
[2024-04-22 06:00] VITALS: BP 106/71; PULSE 74; RESP 18; TEMP 36.7; O2SAT 95
[2024-04-22] MEDS: divalproex DR 250 mg Tablet PO ×2 (10:15→20:17)
[2024-04-22] MEDS: divalproex DR 500 mg Tablet PO ×2 (10:16→20:17)
[2024-04-22] MEDS: benztropine 1 mg Tablet PO ×2 (10:16→20:17)
[2024-04-22 14:00] VITALS: BP 95/62; PULSE 77; RESP 16; TEMP 36.8; O2SAT 96
--- NOTE | 2024-04-22 18:42 | P.NPUPN_ITS ---
Subjective NPU 2 Subjective: Patient presented today reporting that things are going okay. She continues to work with the social work team on possibilities for rehab beds. She did not attend the 21-day hold hearing reporting that she was accepting of the situation and committed to going to rehab after discharge. She denied any side effects to the medication. Mental Status Exam 2 MSE Comments: This is an obese versus morbidly obese white female in hospital scrubs with poor grooming and eye contact.? No abnormal movements except for psychomotor retardation.? Somewhat cooperative with exam in mild to moderate distress.? Speech was decreased rate and volume.? Mood described as okay, affect somewhat brighter.? Thought process linear.? Thought content: Patient denied suicidal or homicidal ideation, there were no delusions reported or noted, she denied auditory or visual hallucinations.? Attention and concentration were limited and memory appeared unreliable but none were formally tested.? She is alert and oriented x person and place.? Insight, judgment and impulse control are impaired. Vitals/I&O/Wt Last Vital Signs Temp 98.3 F 04/22/24 14:00 Pulse 77 04/22/24 14:00 Resp 16 04/22/24 14:00 BP 95/62 04/22/24 14:00 Pulse Ox 96 04/22/24 14:00 O2 Del Method Room Air 04/22/24 14:00 Data NPU 04/17/24 14:54 04/17/24 14:54 A&P Assessment and plan (1) Acute psychosis: (2) Suicidal ideations: (3) Bipolar disorder, current episode manic severe with psychotic features: (4) Nicotine dependence, cigarettes, uncomplicated: (5) Alcohol abuse, episodic drinking behavior: (6) Cannabis dependence, episodic use: (7) Methamphetamine use disorder, severe: Plan This is a 39-year-old white female with a long history of addiction, psychosis and other mental health challenges who presents again on a 96-hour hold with a positive drug screen for amphetamines, benzodiazepines and cannabis and reports of psychosis consistent with her last admission about 2 months ago. 1.? Restart medication. Attempt to get long-acting injectable going again. 2.? Continue continue every 15 minute checks for safety. 3.? Encourage individual, group and milieu therapies on the unit. 4.? Encourage sober living treatment after discharge at the highest level of care to which she is willing to commit. Patient reporting a willingness to go to rehab and is working with social work team for different options. 5. Reports of primary outpatient team suggesting that guardianship may be appropriate back in August. And no real improvement to suggest otherwise. Patient placed on a 21-day hold but understands that she will likely be discharged to rehab sooner. Involuntary Hold Information 2 96 Hour Hold: 96 Hour Involuntary Admission: Yes 96 Hour Hold Ending Date: 04/22/24 96 Hour Hold Ending Time: 00:01 Attestations NPU 2 Medical Necessity Statement*: Inpatient hospitalization is medically necessary and the clinically appropriate intervention at this time. We will monitor medication to make changes as indicated. Likely length of stay 4-6 days. Coding Level of Care Code Acute Code for [facility] Fwd Diagnoses Acute psychosis F23 Suicidal ideations R45.851 Bipolar disorder, current episode manic severe with psychotic features F31.2 Nicotine dependence, cigarettes, uncomplicated F17.210 Alcohol abuse, episodic drinking behavior F10.10 Cannabis dependence, episodic use F12.20 Methamphetamine use disorder, severe F15.20
[2024-04-22] MEDS: quetiapine 100 mg Tablet 200 MG PO (20:17)
[2024-04-22 20:44] VITALS: BP 112/77; PULSE 80; RESP 16; TEMP 36.4; O2SAT 96
[2024-04-23 06:00] VITALS: BP 116/71; PULSE 80; RESP 17; O2SAT 96
--- NOTE | 2024-04-23 08:08 | P.NPUPN_ITS ---
Subjective NPU 2 Subjective: Patient presented today reporting that she is committed to going to rehab. She reports that she is working with the social work team for placement. Otherwise she denied any problems denies any side effects of medication. Mental Status Exam 2 MSE Comments: This is an obese versus morbidly obese white female in hospital scrubs with poor grooming and eye contact.? No abnormal movements except for psychomotor retardation.? Somewhat cooperative with exam in mild distress.? Speech was decreased rate and volume.? Mood described as okay, affect somewhat brighter.? Thought process linear.? Thought content: Patient denied suicidal or homicidal ideation, there were no delusions reported or noted, she denied auditory or visual hallucinations.? Attention and concentration were limited and memory appeared unreliable but none were formally tested.? She is alert and oriented x person and place.? Insight, judgment and impulse control are impaired. Vitals/I&O/Wt Last Vital Signs Temp 97.6 F 04/22/24 20:44 Pulse 80 04/23/24 06:00 Resp 17 04/23/24 06:00 BP 116/71 04/23/24 06:00 Pulse Ox 96 04/23/24 06:00 O2 Del Method Room Air 04/23/24 06:00 Weight last 48 hrs Weight 128.094 kg Data NPU 04/17/24 14:54 04/17/24 14:54 A&P Assessment and plan (1) Suicidal ideations: (2) Bipolar disorder, current episode manic severe with psychotic features: (3) Nicotine dependence, cigarettes, uncomplicated: (4) Alcohol abuse, episodic drinking behavior: (5) Cannabis dependence, episodic use: (6) Methamphetamine use disorder, severe: (7) Acute psychosis: Plan This is a 39-year-old white female with a long history of addiction, psychosis and other mental health challenges who presents again on a 96-hour hold with a positive drug screen for amphetamines, benzodiazepines and cannabis and reports of psychosis consistent with her last admission about 2 months ago. 1.? Restart medication. Attempt to get long-acting injectable going again. 2.? Continue continue every 15 minute checks for safety. 3.? Encourage individual, group and milieu therapies on the unit. 4.? Encourage sober living treatment after discharge at the highest level of care to which she is willing to commit. Patient reporting a willingness to go to rehab and is working with social work team for different options. 5. Reports of primary outpatient team suggesting that guardianship may be appropriate back in August. And no real improvement to suggest otherwise. Patient placed on a 21-day hold but understands that she will likely be discharged to rehab sooner. Involuntary Hold Information 2 96 Hour Hold: 96 Hour Involuntary Admission: Yes 96 Hour Hold Ending Date: 04/22/24 96 Hour Hold Ending Time: 00:01 Attestations NPU 2 Medical Necessity Statement*: Inpatient hospitalization is medically necessary and the clinically appropriate intervention at this time. We will monitor medication to make changes as indicated. Likely length of stay 4-6 days. Coding Level of Care Code Acute Code for g Fwd Diagnoses Suicidal ideations R45.851 Bipolar disorder, current episode manic severe with psychotic features F31.2 Nicotine dependence, cigarettes, uncomplicated F17.210 Alcohol abuse, episodic drinking behavior F10.10 Cannabis dependence, episodic use F12.20 Methamphetamine use disorder, severe F15.20 Acute psychosis F23
[2024-04-23] MEDS: divalproex DR 250 mg Tablet PO ×2 (08:41→20:08)
[2024-04-23] MEDS: benztropine 1 mg Tablet PO ×2 (08:41→20:08)
[2024-04-23] MEDS: divalproex DR 500 mg Tablet PO ×2 (08:42→20:08)
[2024-04-23 14:00] VITALS: BP 94/57; PULSE 80; RESP 17; TEMP 36.6; O2SAT 96
[2024-04-23 20:04] VITALS: BP 109/73; PULSE 97; RESP 18; TEMP 36.6; O2SAT 95
[2024-04-23] MEDS: quetiapine 100 mg Tablet 200 MG PO (20:07)
[2024-04-24 06:00] VITALS: BP 108/77; PULSE 66; RESP 17; TEMP 36.5; O2SAT 97
[2024-04-24] MEDS: benztropine 1 mg Tablet PO ×2 (09:04→20:31)
[2024-04-24] MEDS: divalproex DR 500 mg Tablet PO ×2 (09:04→20:31)
[2024-04-24] MEDS: divalproex DR 250 mg Tablet PO ×2 (09:04→20:31)
--- NOTE | 2024-04-24 12:15 | W.PM.NPUPNS ---
Subjective NPU Subjective: Patient presented today reporting that things are going okay. She endorsed the fact that life is going better and that she and her mother have spoken and have mutually forgiven 1 another but her mother is very excited about the fact that she is here and seeming committed to getting treatment. She reports that she is feeling optimistic about not moving ministries which she reports she has been accepted to and we discussed working with the social work team tomorrow to sure about discharge planning and to identify officially this status. Mental Status Exam MSE Comments: This is an obese versus morbidly obese white female in hospital scrubs with improving grooming and eye contact.? No abnormal movements except for psychomotor retardation.? Cooperative with exam in mild distress.? Speech was decreased rate and volume.? Mood described as better and being more positive, affect somewhat brighter.? Thought process linear.? Thought content: Patient denied suicidal or homicidal ideation, there were no delusions reported or noted, she denied auditory or visual hallucinations.? Attention and concentration were intact and memory appeared more reliable but none were formally tested.? She is alert and oriented x 3.? Insight and judgment are limited but improving and impulse control is improving. Vitals/I&O/Wt Last Vital Signs Temp 97.7 F 04/24/24 06:00 Pulse 66 04/24/24 06:00 Resp 17 04/24/24 06:00 BP 108/77 04/24/24 06:00 Pulse Ox 97 04/24/24 06:00 O2 Del Method Room Air 04/23/24 06:00 Weight last 48 hrs Weight 128.094 kg Data NPU 04/17/24 14:54 04/17/24 14:54 A&P Assessment and plan (1) Suicidal ideations: (2) Bipolar disorder, current episode manic severe with psychotic features: (3) Nicotine dependence, cigarettes, uncomplicated: (4) Alcohol abuse, episodic drinking behavior: (5) Cannabis dependence, episodic use: (6) Methamphetamine use disorder, severe: (7) Acute psychosis: Plan This is a 39-year-old white female with a long history of addiction, psychosis and other mental health challenges who presents again on a 96-hour hold with a positive drug screen for amphetamines, benzodiazepines and cannabis and reports of psychosis consistent with her last admission about 2 months ago. 1.? Restart medication. Attempt to get long-acting injectable going again. 2.? Continue continue every 15 minute checks for safety. 3.? Encourage individual, group and milieu therapies on the unit. 4.? Encourage sober living treatment after discharge at the highest level of care to which she is willing to commit. Patient reporting a willingness to go to rehab and is working with social work team for different options. 5. Reports of primary outpatient team suggesting that guardianship may be appropriate back in August. And no real improvement to suggest otherwise. Patient placed on a 21-day hold but understands that she will likely be discharged to rehab sooner. She reports that she was excepted at [facility]. We agreed we would work with the social work team tomorrow to ensure this is accurate and to plan for discharge. Involuntary Hold Information 96 Hour Hold: 96 Hour Involuntary Admission: Yes 96 Hour Hold Ending Date: 04/22/24 96 Hour Hold Ending Time: 00:01 Attestations NPU Medical Necessity Statement*: Inpatient hospitalization is medically necessary and the clinically appropriate intervention at this time. We will monitor medication to make changes as indicated. Likely length of stay 4-6 days. Coding Level of Care Code Acute Code for [facility] Fwd Diagnoses Suicidal ideations R45.851 Bipolar disorder, current episode manic severe with psychotic features F31.2 Nicotine dependence, cigarettes, uncomplicated F17.210 Alcohol abuse, episodic drinking behavior F10.10 Cannabis dependence, episodic use F12.20 Methamphetamine use disorder, severe F15.20 Acute psychosis F23
[2024-04-24 14:00] VITALS: BP 104/66; PULSE 63; RESP 16; TEMP 36.4; O2SAT 98
[2024-04-24] MEDS: trazodone 50 mg Tablet PO (20:31)
[2024-04-24] MEDS: quetiapine 100 mg Tablet 200 MG PO (20:31)
[2024-04-24 21:07] VITALS: BP 117/84; PULSE 88; RESP 18; TEMP 36.6; O2SAT 97
[2024-04-25 06:00] VITALS: BP 92/55; PULSE 57; RESP 16; O2SAT 96
[2024-04-25] MEDS: benztropine 1 mg Tablet PO ×2 (10:12→19:32)
[2024-04-25] MEDS: divalproex DR 500 mg Tablet PO ×2 (10:12→19:32)
[2024-04-25] MEDS: divalproex DR 250 mg Tablet PO ×2 (10:12→19:32)
[2024-04-25 14:00] VITALS: BP 116/82; PULSE 94; RESP 16; TEMP 36.8; O2SAT 97
--- NOTE | 2024-04-25 15:07 | P.NPUPN_ITS ---
Subjective NPU 2 Subjective: Patient presented today reporting that things are going okay. She reports she is just awaiting placement. She is a little antsy about discharge per staff reports and direct observation but she is excepting the fact that she will be here until the bed is available. She is working with the social work team who have made calls today and is awaiting a response back about her acceptance for bed at one of the sober living facilities. She denies any side effects to the medication. Mental Status Exam 2 MSE Comments: This is an obese versus morbidly obese white female in hospital scrubs with improving grooming and eye contact.? No abnormal movements except for psychomotor retardation.? Cooperative with exam in mild distress.? Speech was decreased rate and volume.? Mood described as better and being more positive, affect somewhat brighter.? Thought process linear.? Thought content: Patient denied suicidal or homicidal ideation, there were no delusions reported or noted, she denied auditory or visual hallucinations.? Attention and concentration were intact and memory appeared more reliable but none were formally tested.? She is alert and oriented x 3.? Insight and judgment are limited but improving and impulse control is improving. Vitals/I&O/Wt Last Vital Signs Temp 97.9 F 04/24/24 21:07 Pulse 57 L 04/25/24 06:00 Resp 16 04/25/24 06:00 BP 92/55 04/25/24 06:00 Pulse Ox 96 04/25/24 06:00 O2 Del Method Room Air 04/23/24 06:00 Weight last 48 hrs Weight 128.094 kg Data NPU 04/17/24 14:54 04/17/24 14:54 A&P Assessment and plan (1) Suicidal ideations: (2) Bipolar disorder, current episode manic severe with psychotic features: (3) Nicotine dependence, cigarettes, uncomplicated: (4) Alcohol abuse, episodic drinking behavior: (5) Cannabis dependence, episodic use: (6) Methamphetamine use disorder, severe: (7) Acute psychosis: Plan This is a 39-year-old white female with a long history of addiction, psychosis and other mental health challenges who presents again on a 96-hour hold with a positive drug screen for amphetamines, benzodiazepines and cannabis and reports of psychosis consistent with her last admission about 2 months ago. 1.? Restart medication. Consider the long-acting injectable. 2.? Continue continue every 15 minute checks for safety. 3.? Encourage individual, group and milieu therapies on the unit. 4.? Encourage sober living treatment after discharge at the highest level of care to which she is willing to commit. Patient reporting a willingness to go to rehab and is working with social work team for different options. 5. Reports of primary outpatient team suggesting that guardianship may be appropriate back in August. And no real improvement to suggest otherwise. Patient placed on a 21-day hold but understands that she will likely be discharged to rehab sooner. She reports that she was excepted at [facility]. We agreed we would work with the social work team tomorrow to ensure this is accurate and to plan for discharge. Involuntary Hold Information 2 96 Hour Hold: 96 Hour Involuntary Admission: Yes 96 Hour Hold Ending Date: 04/22/24 96 Hour Hold Ending Time: 00:01 Attestations NPU 2 Medical Necessity Statement*: Inpatient hospitalization is medically necessary and the clinically appropriate intervention at this time. We will monitor medication to make changes as indicated. Likely length of stay 4-6 days. Coding Level of Care Code Acute Code for [facility] Fwd Diagnoses Suicidal ideations R45.851 Bipolar disorder, current episode manic severe with psychotic features F31.2 Nicotine dependence, cigarettes, uncomplicated F17.210 Alcohol abuse, episodic drinking behavior F10.10 Cannabis dependence, episodic use F12.20 Methamphetamine use disorder, severe F15.20 Acute psychosis F23
[2024-04-25] MEDS: quetiapine 100 mg Tablet 200 MG PO (19:32)
[2024-04-25] MEDS: trazodone 50 mg Tablet PO (19:32)
[2024-04-25] MEDS: acetaminophen 325 mg Tablet 650 MG PO (19:46)
[2024-04-25 20:59] VITALS: BP 125/79; PULSE 79; RESP 18; TEMP 36.5; O2SAT 99
[2024-04-26 06:00] VITALS: BP 86/50; PULSE 63; RESP 15; TEMP 36.7; O2SAT 97
--- NOTE | 2024-04-26 07:15 | P.NPUPN_ITS ---
Subjective NPU 2 Subjective: Patient presented today reporting that she is doing fine. She denied any issues or concerns. She continues to say things about wanting to get a cigarette and things of that nature but otherwise reports a willingness to wait for her bed date. She is starting to report that her mother would allow her to come home if there was too long of a wait, but we discussed that her mother was clear that she wanted her to go straight to rehab so we do not have the same situation we had last hospitalization. She denies any side effects to the medication. Mental Status Exam 2 MSE Comments: This is an obese versus morbidly obese white female in hospital scrubs with improving grooming and eye contact.? No abnormal movements except for psychomotor retardation.? Cooperative with exam in mild distress.? Speech was decreased rate and volume.? Mood described as better and being more positive, affect somewhat brighter.? Thought process linear.? Thought content: Patient denied suicidal or homicidal ideation, there were no delusions reported or noted, she denied auditory or visual hallucinations.? Attention and concentration were intact and memory appeared more reliable but none were formally tested.? She is alert and oriented x 3.? Insight and judgment are limited but improving and impulse control is improving. Vitals/I&O/Wt Last Vital Signs Temp 98.0 F 04/26/24 06:00 Pulse 63 04/26/24 06:00 Resp 15 04/26/24 06:00 BP 86/50 04/26/24 06:00 Pulse Ox 97 04/26/24 06:00 O2 Del Method Room Air 04/25/24 20:59 Data NPU 04/17/24 14:54 04/17/24 14:54 A&P Assessment and plan (1) Suicidal ideations: (2) Bipolar disorder, current episode manic severe with psychotic features: (3) Nicotine dependence, cigarettes, uncomplicated: (4) Alcohol abuse, episodic drinking behavior: (5) Cannabis dependence, episodic use: (6) Methamphetamine use disorder, severe: (7) Acute psychosis: Plan This is a 39-year-old white female with a long history of addiction, psychosis and other mental health challenges who presents again on a 96-hour hold with a positive drug screen for amphetamines, benzodiazepines and cannabis and reports of psychosis consistent with her last admission about 2 months ago. 1.? Restart medication. Consider the long-acting injectable. 2.? Continue continue every 15 minute checks for safety. 3.? Encourage individual, group and milieu therapies on the unit. 4.? Encourage sober living treatment after discharge at the highest level of care to which she is willing to commit. Patient reporting a willingness to go to rehab and is working with social work team for different options. 5. Reports of primary outpatient team suggesting that guardianship may be appropriate back in August. And no real improvement to suggest otherwise. Patient placed on a 21-day hold but understands that she will likely be discharged to rehab sooner. She reports that she was excepted at [employer]. We agreed we would work with the social work team tomorrow to ensure this is accurate and to plan for discharge. Involuntary Hold Information 2 96 Hour Hold: 96 Hour Involuntary Admission: Yes 96 Hour Hold Ending Date: 04/22/24 96 Hour Hold Ending Time: 00:01 Attestations NPU 2 Medical Necessity Statement*: Inpatient hospitalization is medically necessary and the clinically appropriate intervention at this time. We will monitor medication to make changes as indicated. Likely length of stay 4-6 days. Coding Level of Care Code Acute Code for [facility] Fwd Diagnoses Suicidal ideations R45.851 Bipolar disorder, current episode manic severe with psychotic features F31.2 Nicotine dependence, cigarettes, uncomplicated F17.210 Alcohol abuse, episodic drinking behavior F10.10 Cannabis dependence, episodic use F12.20 Methamphetamine use disorder, severe F15.20 Acute psychosis F23
[2024-04-26] MEDS: divalproex DR 500 mg Tablet PO ×2 (08:46→19:33)
[2024-04-26] MEDS: benztropine 1 mg Tablet PO ×2 (08:46→19:34)
[2024-04-26] MEDS: divalproex DR 250 mg Tablet PO ×2 (08:46→19:34)
[2024-04-26] MEDS: acetaminophen 325 mg Tablet 650 MG PO ×2 (08:48→19:33)
[2024-04-26] MEDS: loperamide 2 mg Capsule PO (08:48)
[2024-04-26 14:00] VITALS: BP 124/85; PULSE 96; RESP 16; TEMP 36.6; O2SAT 98
[2024-04-26 19:26] VITALS: BP 114/80; PULSE 72; RESP 18; TEMP 36.4; O2SAT 100
[2024-04-26] MEDS: trazodone 50 mg Tablet PO (19:33)
[2024-04-26] MEDS: quetiapine 100 mg Tablet 200 MG PO (19:34)
[2024-04-27 06:00] VITALS: BP 74/61; PULSE 59; RESP 16; TEMP 36.6; O2SAT 97
--- NOTE | 2024-04-27 07:20 | P.NPUPN_ITS ---
Subjective NPU 2 Subjective: Patient presented today reporting that she is having some increase in her voices. This has seemed typical as she approaches a week before her next injection. We discussed the risks, benefits and alternatives of starting to have oral Invega starting the week prior to her next injection and she understood and agreed to proceed as is documented in this note. We discussed the likelihood of discharge by Thursday based on current information which made her very happy. Mental Status Exam 2 MSE Comments: This is an obese versus morbidly obese white female in hospital scrubs with improving grooming and eye contact.? No abnormal movements except for psychomotor retardation.? Cooperative with exam in mild distress.? Speech was decreased rate and volume.? Mood described as better and being more positive, affect somewhat brighter.? Thought process linear.? Thought content: Patient denied suicidal or homicidal ideation, there were no delusions reported or noted, she denied auditory or visual hallucinations.? Attention and concentration were intact and memory appeared more reliable but none were formally tested.? She is alert and oriented x 3.? Insight and judgment are limited but improving and impulse control is improving. Vitals/I&O/Wt Last Vital Signs Temp 98 F 04/27/24 06:00 Pulse 59 L 04/27/24 06:00 Resp 16 04/27/24 06:00 BP 74/61 04/27/24 06:00 Pulse Ox 97 04/27/24 06:00 O2 Del Method Room Air 04/27/24 06:00 Data NPU 04/17/24 14:54 04/17/24 14:54 A&P Assessment and plan (1) Suicidal ideations: (2) Bipolar disorder, current episode manic severe with psychotic features: (3) Nicotine dependence, cigarettes, uncomplicated: (4) Alcohol abuse, episodic drinking behavior: (5) Cannabis dependence, episodic use: (6) Methamphetamine use disorder, severe: (7) Acute psychosis: Plan This is a 39-year-old white female with a long history of addiction, psychosis and other mental health challenges who presents again on a 96-hour hold with a positive drug screen for amphetamines, benzodiazepines and cannabis and reports of psychosis consistent with her last admission about 2 months ago. 1.? Restart medication. Consider the long-acting injectable. 2.? Continue continue every 15 minute checks for safety. 3.? Encourage individual, group and milieu therapies on the unit. 4.? Encourage sober living treatment after discharge at the highest level of care to which she is willing to commit. Patient reporting a willingness to go to rehab and is working with social work team for different options. 5. Reports of primary outpatient team suggesting that guardianship may be appropriate back in August. And no real improvement to suggest otherwise. Patient placed on a 21-day hold but understands that she will likely be discharged to rehab sooner. She reports that she was excepted at [facility]. Possible acceptance could have discharge by Thursday.. Involuntary Hold Information 2 96 Hour Hold: 96 Hour Involuntary Admission: Yes 96 Hour Hold Ending Date: 04/22/24 96 Hour Hold Ending Time: 00:01 Attestations NPU 2 Medical Necessity Statement*: Inpatient hospitalization is medically necessary and the clinically appropriate intervention at this time. We will monitor medication to make changes as indicated. Likely length of stay 1-4 days. Coding Level of Care Code Acute Code for [facility] Fwd Diagnoses Suicidal ideations R45.851 Bipolar disorder, current episode manic severe with psychotic features F31.2 Nicotine dependence, cigarettes, uncomplicated F17.210 Alcohol abuse, episodic drinking behavior F10.10 Cannabis dependence, episodic use F12.20 Methamphetamine use disorder, severe F15.20 Acute psychosis F23
[2024-04-27] MEDS: divalproex DR 250 mg Tablet PO ×2 (08:27→20:55)
[2024-04-27] MEDS: divalproex DR 500 mg Tablet PO ×2 (08:27→20:56)
[2024-04-27] MEDS: benztropine 1 mg Tablet PO ×2 (08:27→20:56)
[2024-04-27] MEDS: acetaminophen 325 mg Tablet 650 MG PO ×2 (12:26→18:51)
[2024-04-27] MEDS: loperamide 2 mg Capsule PO (12:27)
[2024-04-27 14:00] VITALS: BP 118/87; PULSE 88; RESP 17; O2SAT 95
[2024-04-27 20:13] VITALS: BP 123/86; PULSE 85; RESP 18; O2SAT 100
[2024-04-27] MEDS: quetiapine 100 mg Tablet 200 MG PO (20:55)
[2024-04-27] MEDS: paliperidone ER 6 mg Tablet PO (20:56)
--- NOTE | 2024-04-27 21:49 | PC.NURSE ---
Auditory Hallucinations States she is hearing voices of her family members, patient states they never hurt her nor do they want her to hurt anyone else, that they are there to protect her.
[2024-04-28 06:00] VITALS: BP 91/62; PULSE 60; RESP 16; TEMP 36.5; O2SAT 96
[2024-04-28] MEDS: divalproex DR 500 mg Tablet PO ×2 (08:29→20:08)
[2024-04-28] MEDS: paliperidone ER 6 mg Tablet PO (08:29)
[2024-04-28] MEDS: divalproex DR 250 mg Tablet PO ×2 (08:29→20:08)
[2024-04-28] MEDS: benztropine 1 mg Tablet PO ×2 (08:30→20:08)
[2024-04-28] MEDS: loperamide 2 mg Capsule PO (10:53)
[2024-04-28] MEDS: acetaminophen 325 mg Tablet 650 MG PO ×3 (10:53→20:04)
[2024-04-28] MEDS: haloperidol 5 mg Tablet PO (13:55)
[2024-04-28 14:00] VITALS: BP 115/82; PULSE 77; RESP 18; TEMP 36.6; O2SAT 100
--- NOTE | 2024-04-28 15:21 | P.NPUPN_ITS ---
Subjective NPU 2 Subjective: Patient presents today reporting that she is doing okay. We discussed a likelihood of discharge tomorrow if all the pieces fall into place. She reports that she is doing well in relation to the oral Invega that was started for difficulties in the last week of her injection. We discussed the possibility of giving her injection early tomorrow if she does leave. Otherwise she denied any side effects of medication. Mental Status Exam 2 MSE Comments: This is an obese versus morbidly obese white female in hospital scrubs with improving grooming and eye contact.? No abnormal movements except for psychomotor retardation.? Cooperative with exam in mild distress.? Speech was decreased rate and volume.? Mood described as better and being more positive, affect somewhat brighter.? Thought process linear.? Thought content: Patient denied suicidal or homicidal ideation, there were no delusions reported or noted, she denied auditory or visual hallucinations.? Attention and concentration were intact and memory appeared more reliable but none were formally tested.? She is alert and oriented x 3.? Insight and judgment are limited but improving and impulse control is improving. Vitals/I&O/Wt Last Vital Signs Temp 97.7 F 04/28/24 06:00 Pulse 60 04/28/24 06:00 Resp 16 04/28/24 06:00 BP 91/62 04/28/24 06:00 Pulse Ox 96 04/28/24 06:00 O2 Del Method Room Air 04/27/24 06:00 Data NPU 04/17/24 14:54 04/17/24 14:54 A&P Assessment and plan (1) Suicidal ideations: (2) Bipolar disorder, current episode manic severe with psychotic features: (3) Nicotine dependence, cigarettes, uncomplicated: (4) Alcohol abuse, episodic drinking behavior: (5) Cannabis dependence, episodic use: (6) Methamphetamine use disorder, severe: (7) Acute psychosis: Plan This is a 39-year-old white female with a long history of addiction, psychosis and other mental health challenges who presents again on a 96-hour hold with a positive drug screen for amphetamines, benzodiazepines and cannabis and reports of psychosis consistent with her last admission about 2 months ago. 1.? Restart medication. Consider the long-acting injectable. 2.? Continue continue every 15 minute checks for safety. 3.? Encourage individual, group and milieu therapies on the unit. 4.? Encourage sober living treatment after discharge at the highest level of care to which she is willing to commit. Patient reporting a willingness to go to rehab and is working with social work team for different options. 5. Reports of primary outpatient team suggesting that guardianship may be appropriate back in August. And no real improvement to suggest otherwise. Patient placed on a 21-day hold but understands that she will likely be discharged to rehab sooner. She reports that she was excepted at [facility]. Possible acceptance could have discharge by tomorrow. Involuntary Hold Information 2 96 Hour Hold: 96 Hour Involuntary Admission: Yes 96 Hour Hold Ending Date: 04/22/24 96 Hour Hold Ending Time: 00:01 Attestations NPU 2 Medical Necessity Statement*: Inpatient hospitalization is medically necessary and the clinically appropriate intervention at this time. We will monitor medication to make changes as indicated. Likely length of stay 1-3 days. Coding Level of Care Code Acute Code for g Fwd Diagnoses Suicidal ideations R45.851 Bipolar disorder, current episode manic severe with psychotic features F31.2 Nicotine dependence, cigarettes, uncomplicated F17.210 Alcohol abuse, episodic drinking behavior F10.10 Cannabis dependence, episodic use F12.20 Methamphetamine use disorder, severe F15.20 Acute psychosis F23
[2024-04-28] MEDS: hyDROXYzine 25 mg Capsule 50 MG PO (16:12)
[2024-04-28 19:50] VITALS: BP 129/84; PULSE 74; RESP 18; O2SAT 98
[2024-04-28] MEDS: quetiapine 100 mg Tablet 200 MG PO (20:04)
[2024-04-28] MEDS: trazodone 50 mg Tablet PO (20:04)
[2024-04-29 06:00] VITALS: BP 107/68; PULSE 64; RESP 16; O2SAT 95
[2024-04-29] MEDS: paliperidone ER 6 mg Tablet PO (08:00)
[2024-04-29] MEDS: benztropine 1 mg Tablet PO (08:00)
[2024-04-29] MEDS: divalproex DR 500 mg Tablet PO (08:00)
[2024-04-29] MEDS: divalproex DR 250 mg Tablet PO (08:00)
[2024-04-29] MEDS: acetaminophen 325 mg Tablet 650 MG PO ×2 (08:24→15:27)
[2024-04-29] MEDS: loperamide 2 mg Capsule PO (08:24)
[2024-04-29] MEDS: paliperidone palmitate 234 mg Syringe IM (12:14)
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
[2024-04-29 12:40] VITALS: BP 107/68; PULSE 64; RESP 16; O2SAT 95
[2024-04-29 14:00] VITALS: BP 116/77; PULSE 95; RESP 16; TEMP 36.6; O2SAT 97
[2024-04-29] MEDS: hyDROXYzine 25 mg Capsule 50 MG PO (17:08)
--- NOTE | 2024-04-30 16:41 | W.CSC.CRN ---
[facility] Therapy/Crisis Response Current Presentation: Client was brought to the crisis facility by [facility] for concerns regarding present psychosis. When being admitted to the Crisis Center, Heidi made bizarre comments this personal lines underwriter was not able to discern. upon further assessment, client is exhibiting delusion thought content and audible hallucinations. The client is somewhat cognizant the voices she is hearing are hallucinations. She reports primarily hearing from an individual named Erskine . She reports hearing statements such as everything is going to be ok and good job .She states the voices are not telling her do do anything and she current denies any SI or HI. Heidi also made several references to the underground . When asked what this was, client explained it as a location underneath her houses in which many people have become lost. Client continued to engage in bizzare conversations but was generally cooperative with this personal lines underwriter. Client is oriented to person/place/time. Client was admitted into the [facility] NPU on 04/17/24 on a psychiatric hold for concerns of statements pertaining to HI. Client presented with severe psychosis. Heidi does have a documented history of substance use. Client was discharged on 04/30/24 to a sober living facility. Today, the facility brought her to the Crisis Center due to ongoing hallucinations. Client is unable to return to the sober living facility at this time. Heidi does report she is taking the medication as prescribed during her admission at the [facility] N[facility]. Presenting Problem(s): Acute psychiatric crisis Intervention: This personal lines underwriter assessed client for safety and collaborated with [facility] nurse and [facility] psychiatrist on current presentation. A referral attempt was made to [facility] for further in-patient assistance. While client was initially willing, although she later recounted this and expressed desire to return home to her Mothers residence in [place], [place]. Client was observed calling her mother on the phone and was given permission by Mom to return to the property. Client was encoruaged to return to the crisis facility for continued support and given information for [facility] and [facility]. Client was arranged transportation via [email or web address]. Client Response to Intervention: Client was pleasant throughout encounter. Final Disposition: Client left facility, reporting she will return Thursday, the . Risks Date Date of last Risks: 04/30/24 Suicide Risk Assessment In the last 30 days have you... Little interest or pleasure in doing things: not at all Feeling down, depressed, or hopeless: several days PHQ-2 Score: 1 Total (If greater than 3 please do full PHQ-9): No Have you had suicidal thoughts?: Not At All Do you ever wish you weren't alive anymore?: Not At All Suicide Risk Score: 1 Risk to Others Current or History of HI: Denies any homicidal thoughts, plans, intentions, or time frames Previous and/or current violence: No Previous and/or current threats (verbal/physical): No If both Yes, then complete full screening: No Other Self-Harm or Risk Taking Behaviors Other Risk Taking Behaviors:: Impulsive behaviors and High Risk Substance Use Final Disposition of Risk Screening Final Disposition: No Emergency response: Safety planning
--- NOTE | 2024-04-30 17:07 | CSC.DSPLAN ---
[facility] [place] Discharge Plan Current SI: None Current HI: Denies any homicidal thoughts, plans, intentions, or time frames Safety Plan Completed: No Was the client admitted to [facility] [place]?: Yes Were medication services provided during today's visit?: No Client Presentation upon Discharge: Client continued to exhibit signs of delusional thought content and audible hallucinations. Current Progress Towards Recovery and Well-Being: Client was initially discharged from the [facility] and placed with a recovery facility. The recovery facility brought her to the crisis center due to concerns of not being able to accommodate current symptoms. Client was assesed for safety and provided transportation to her residence at the request of client's mother. Continued Treatment Barriers: Mental health, limited income, psychosis. Treatment Goals Achieved During Program Participation: Mental health services Services referred from Center: Inpatient MH treatment (Referral to inpatient care facility at [facility]. ) Care Provided-Services the individual received: Crisis Services [facility] [place] Outcome: Crisis Stabilized [facility] [place] Discharge Disposition/Location: Home/Residence Care Coordination Agencies Referred to:: Other ([facility], [facility] ) Client Follow up Plan to Referred agencies:: None
== END 2024-04-29 17:40 | disposition home or self-care (01) | DRG 885 ==
LOC: ER 15:43 → NP 16:21
PROVIDERS: Admitting Provider Psychiatry & Neurology Psychiatry; Emergency Provider Emergency Medicine; PCP Nurse Practitioner Family; Visit Provider Psychiatry & Neurology Psychiatry
DX: F31.2 Bipolar disorder, current episode manic severe with psychotic features (principal); F15.20 Other stimulant dependence, uncomplicated; Z68.41 Body mass index [BMI] 40.0-44.9, adult; F10.10 Alcohol abuse, uncomplicated; F12.20 Cannabis dependence, uncomplicated; E66.01 Morbid (severe) obesity due to excess calories; F17.210 Nicotine dependence, cigarettes, uncomplicated
CPT/HCPCS: 36415; 3725F; 80053; 80306; 80307; 81001; 81025; 84443; 85025; 90471; 90686; 96372; 97150; 97165; 99285; J1630; J2060

== ENCOUNTER → 2024-05-25 10:52 | Outpatient (BNVA) | payer MEDICAID, SELFPAY ==
[2024-03-11 15:58] VITALS: BP 146/105; BMI 42.3
== END ==
PROVIDERS: PCP Nurse Practitioner Family; Visit Provider Internal Medicine Cardiovascular Disease
DX: R07.9 Chest pain, unspecified (principal); R00.1 Bradycardia, unspecified; F31.2 Bipolar disorder, current episode manic severe with psychotic features; B19.20 Unspecified viral hepatitis C without hepatic coma; F17.200 Nicotine dependence, unspecified, uncomplicated; F19.10 Other psychoactive substance abuse, uncomplicated
CPT/HCPCS: 93005; 99204

== ENCOUNTER 2024-09-22 08:22 | Outpatient (CLI) | payer MEDICAID, SELFPAY ==
[2024-03-11 15:58] VITALS: BP 146/105; BMI 42.3
--- NOTE | 2024-09-22 08:30 | USCV_ITS ---
Heidi Caballero Age: 39 Gender: F : 1985 Exam Date: 09/22/2024 08:37 Ordering Phys: Shanel Hall MD ([email or web address]) Technologist: Carlos Weldon Exam Location: [facility] [place] Indication: CP BP: 140 / 80 HR: 82 Rhythm: Sinus Technical Quality: Adequate MEASUREMENTS (Male / Female) Normal Values 2D ECHO LV Diastolic Diameter PLAX 5.9 cm 4.2 - 5.9 / 3.9 - 5.3 cm IVS Diastolic Thickness 1.3 cm 0.6 - 1.0 / 0.6 - 0.9 cm IVS Systolic Thickness 1.7 cm LVPW Diastolic Thickness 1.5 cm 0.6 - 1.0 / 0.6 - 0.9 cm LVPW Systolic Thickness 1.9 cm LVOT Diameter 2.0 cm LV Ejection Fraction 2D Teich 60.1 % LV Ejection Fraction MOD 4C 66.1 % LV Ejection Fraction MOD 2C 57.3 % LV Ejection Fraction 2C AL 58.2 % LA Diameter 3.8 cm RA Systolic Volume 4C AL 31.7 ml RA Systolic Volume 4C MOD 31.7 ml LA Sys Volume AL 28.3 cm cubed LA Sys Volume Index AL 10.9 cm cubed/m squared Aorta at Sinotubular Diameter 3.8 cm M-MODE LA Ao Ratio MM 1.3 AV Cusp Separation MM 1.7 cm DOPPLER AV Peak Velocity 103.0 cm/s LVOT Peak Velocity 104.0 cm/s AV Area Cont Eq vti 2.3 cm squared AV Area Cont Eq pk 3.0 cm squared MV Peak Velocity 75.0 cm/s MV Area PHT 3.7 cm squared Mitral E to A Ratio 1.0 TV Peak Velocity 102.5 cm/s TR Peak Velocity 110.0 cm/s TR Peak Gradient 4.8 mmHg TV Peak E Velocity 69.0 cm/s PV Peak Velocity 107.0 cm/s FINDINGS Left Ventricle Normal left ventricular size, systolic function and wall thickness, with no regional wall motion abnormalities. Left ventricular ejection fraction is estimated at 60%. Grade I/IV diastolic dysfunction (abnormal relaxation filling pattern), normal to mildly elevated filling pressures. Right Ventricle The right ventricle is normal in size and function. Right Atrium The right atrium is normal in size. Left Atrium The left atrium is normal in size. Mitral Valve Structurally normal mitral valve without significant stenosis or prolapse. There is no mitral regurgitation. Aortic Valve Structurally normal aortic valve without significant sclerosis or stenosis. There is no aortic regurgitation. Tricuspid Valve Structurally normal tricuspid valve without significant stenosis or regurgitation. Pulmonary artery systolic pressure is normal. Pulmonic Valve Structurally normal pulmonic valve without significant stenosis. There is no pulmonic regurgitation. Pericardium Normal pericardium without effusion. Aorta Normal ascending aorta dimension. IVC The inferior vena cava appears normal. CONCLUSIONS Normal left ventricular size, systolic function and wall thickness, with no regional wall motion abnormalities. Left ventricular ejection fraction is estimated at 60%. Grade I/IV diastolic dysfunction (abnormal relaxation filling pattern), normal to mildly elevated filling pressures. No significant valve abnormalities. There is no pericardial effusion. Right atrial pressure is around 5 mm of mercury. Vinayak Barahona MD (Electronically Signed) Final Date: 30 September 2024 10:45 S
== END 2024-09-22 08:23 | disposition home or self-care (01) ==
LOC: RAD 08:23
PROVIDERS: PCP Nurse Practitioner Family; Visit Provider Internal Medicine Cardiovascular Disease
DX: R06.09 Other forms of dyspnea (principal); R93.1 Abnormal findings on diagnostic imaging of heart and coronary circulation
CPT/HCPCS: 93306

== ENCOUNTER 2024-10-11 11:18 | Outpatient (CLI) | payer MEDICAID, SELFPAY ==
[2024-03-11 15:58] VITALS: BP 146/105; BMI 42.3
--- NOTE | 2024-10-11 11:25 | XR_ITS ---
WS: [id number] XR knee LT 3V* [id number] REASON FOR EXAM: LEFT KNEE PAIN FINDINGS: No fracture or focal bone lesion. Significant narrowing of the medial knee joint space with significant subchondral sclerosis and moderate osteophytosis. Mild to moderate medial shift of the femur. Lateral knee joint space is intact with mild to moderate subchondral sclerosis. Moderate osteophytosis. Patellofemoral joint space is intact with mild subchondral sclerosis and osteophytosis of the patella. Presumed loose bodies in the joint space inferior to the patella. Possibly additional loose bodies within presumed meniscal cyst anterior/inferior to the lateral tibial plateau. Osteochondral loose body donor site in the lateral aspect of the medial femoral condyle. XR/XR knee LT 3V* [id number] IMPRESSION: Moderate to significant osteoarthritis in the left knee joint as above.
== END 2024-10-11 11:19 | disposition home or self-care (01) ==
PROVIDERS: PCP Nurse Practitioner Family; Visit Provider Nurse Practitioner Family
DX: M17.12 Unilateral primary osteoarthritis, left knee (principal); R93.6 Abnormal findings on diagnostic imaging of limbs; M25.762 Osteophyte, left knee
CPT/HCPCS: 73562

== ENCOUNTER 2024-10-12 11:12 | Outpatient (CLI) | payer MEDICAID, SELFPAY ==
[2024-03-11 15:58] VITALS: BP 146/105; BMI 42.3
--- NOTE | 2024-10-12 11:19 | XR_ITS ---
WS: [id number] XR knee RT 3V* [id number] REASON FOR EXAM: R KNEE JOINT PAIN FINDINGS: No fracture or focal bone lesion. Moderate to significant narrowing of the medial knee joint space with significant subchondral sclerosis and moderate osteophytosis. The lateral knee joint space is intact and well preserved. Moderate subchondral sclerosis and osteophytosis. Patellofemoral joint space is intact with moderate subchondral sclerosis of the patella. Loose bodies are seen in the posterior joint and medial to the patella. XR/XR knee RT 3V* [id number] IMPRESSION: Moderate to significant osteoarthritis as above.
== END 2024-10-12 11:13 | disposition home or self-care (01) ==
PROVIDERS: PCP Nurse Practitioner Family; Visit Provider Nurse Practitioner Family
DX: M25.562 Pain in left knee (principal); M17.11 Unilateral primary osteoarthritis, right knee; R93.6 Abnormal findings on diagnostic imaging of limbs; M25.761 Osteophyte, right knee
CPT/HCPCS: 73562

== ENCOUNTER 2024-10-22 20:18 | Emergency (ER) | payer MEDICAID, SELFPAY ==
[2024-03-11 15:58] VITALS: BP 146/105; BMI 42.3
[2024-10-22 20:29] VITALS: BP 151/96; PULSE 101; RESP 16; TEMP 36.9; O2SAT 96
--- NOTE | 2024-10-22 21:17 | W.ED.DENTAL ---
HPI - Dental/Oral General: Chief complaint: Dental/Oral Stated complaint: Dental infection top right Time Seen by Provider: 10/22/24 21:09 Source: patient Mode of arrival: ambulatory Limitations: no limitations History of Present Illness: Patient is a 39-year-old female who presents to ED today with a complaint of dental pain involving her right upper teeth. Patient has an extensive periodontal disease with almost every tooth in her mouth completely decayed/rotted. Patient states she began having pain a few days ago. She states she has tried to schedule a dentist appointment but cannot get in until November. She is requesting antibiotics. She has not noticed any significant facial swelling. No severe headache or fevers. MD Complaint: tooth pain Teeth map:  1. Onset (ago): day(s) Duration: constant Severity: moderate Relieving factors: nothing Exacerbating factors: nothing Context: history of dental caries and poor dental care Associated symptoms: Reports no associated symptoms; Denies fever(s) or odynophagia Treatment prior to arrival: none Related Data Previous Rx's ?Medication ?Instructions ?Recorded benztropine 1 mg tablet 1 mg PO BID 30 days #60 tabs 06/03/24 divalproex 250 mg tablet,delayed 250 mg PO BID 30 days #60 tabs 06/03/24 release divalproex 500 mg tablet,delayed 500 mg PO BID 30 days #60 tabs 06/03/24 release hydroxyzine HCl 50 mg tablet 50 mg PO QID PRN anxiety 30 days 06/03/24 #120 tabs paliperidone palmitate 234 mg/1.5 234 mg (1.5 mL) IM Q30D #1.5 mL 06/03/24 mL intramuscular syringe (Invega Sustenna) quetiapine 400 mg tablet (Seroquel) 400 mg PO .HS #30 tabs 07/01/24 penicillin V potassium 500 mg 500 mg PO Q8H 7 days #21 tabs 10/22/24 tablet Allergies Allergy/AdvReac Type Severity Reaction Status Date / Time olanzapine Allergy Severe ALGY-Anaphy Verified 10/22/24 20:34 laxis propranolol Allergy Severe ALGY-Hives Verified 10/22/24 20:34 ziprasidone (From Geodon) Allergy Unknown ALGY-Anaphy Verified 10/22/24 20:34 laxis NSAIDS (Non-Steroidal Allergy Unknown Verified 10/22/24 20:34 Anti-Inflamma risperidone AdvReac Severe edema Verified 10/22/24 20:34 Review of Systems Const: Denies: fever(s), chills, body aches, fatigue or malaise Eyes: Denies: change in vision, blurry vision, photophobia, floaters or seeing flashes ENMT: Reports: mouth pain and dental pain; Denies: throat pain, uvular edema, enlarged tonsils, odynophagia, hoarseness, swelling of lips/tongue, oral sores, bleeding gums, nasal discharge or nasal congestion Card: Denies: chest pain GI: Denies: nausea or vomiting Musc: Denies: neck pain Neuro: Denies: headache(s) PFSH ED PFSH: Medical History Methamphetamine use disorder, severe Psychiatric care Cellulitis and abscess of upper arm and forearm Liver cirrhosis Hepatitis C Nicotine dependence, cigarettes, uncomplicated Alcohol abuse, episodic drinking behavior Cannabis dependence, episodic use Bipolar disorder, current episode manic severe with psychotic features Surgical History No pertinent past surgical history Family History Mother Diabetes Hypertension Other Psychiatric illness Social History Smoking and tobacco/nicotine status: current every day tobacco/nicotine user cigarettes Packs smoked per day: 1 Years cigarettes smoked: 28 Quit status (tobacco/nicotine): not considering quitting Second hand smoke exposure: Yes Alcohol intake: former Former alcohol use details: quit 2 months ago Substance/Drug Use: current Substance/Drug use frequency: daily Adopted: No Caregiver/support person: No Lives independently: Yes Household members: family Housing: House Marital status: Marital status details: for 2 years Number of children: 0 Number of grandchildren: 0 Highest education level completed: 11th Grade service: No Current occupational status: disabled Pets and animals: Yes (2 dogs, 3 cats) Pets & animals: cat(s) and dog(s) Pets & animal details: mouse that they call Skinny Leisure activites: other Leisure activities details: watch TV Sexually active: No Do you think of yourself as: Straight/Heterosexual Current gender identity: Female Gema/Christianity: Buddhist Special gema needs: No Agree to transfusion: Yes Female Reproductive History: Para: 0 Spontaneous abortions: Yes ( I think I had a miscarriage once. ) Physical Exam Const: COMMON NORMALS: no acute distress, patient oriented x3, no limitations, alert and well nourished HENMT: COMMON NORMALS: Normal external nose present FACE & SINUS: normal facial exam and sinuses nontender; no erythema, no edema and no fluctuance NOSE: Normal external nose present MOUTH: Normal oral and palatal mucosa present, lip normal, tongue normal and Normal salivary glands and ducts present TEETH & GINGIVA: Yes caries and Yes other (widespread dental decay) TEETH & GINGIVA IMAGES:  1. no obvious fluctuant drainable abscess THROAT: posterior oropharynx normal and tonsils normal; no uvular edema Eye: GENERAL EYE: appearance normal, both eyes and all related structures Neck/C-Spine: COMMON NORMALS: no lymphadenopathy GENERAL: No anterior neck swelling and No submandibular swelling Resp: COMMON NORMALS: normal respiratory effort and clear to auscultation bilaterally AUSCULTATION: clear to auscultation bilaterally Cardio: COMMON NORMALS: regular rate and regular rhythm RATE: regular rate RHYTHM: regular rhythm Neuro: COMMON NORMALS: patient oriented x3 SENSORIUM/ORIENTATION: Yes alert Course Vital Signs: Vital signs: Vital Signs Temperature 98.4 F 10/22/24 20:29 Pulse Rate 95 10/22/24 21:43 Respiratory Rate 16 10/22/24 20:29 Blood Pressure 137/95 10/22/24 21:43 Pulse Oximetry 98 10/22/24 21:43 Oxygen Delivery Me thod Room Air 10/22/24 20:29 MDM - Dental/Oral Medical Decision Making Patient will be placed on antibiotics and encouraged prompt dental follow-up. Return to ED precautions discussed. Differential Diagnosis Likely dental caries, toothache and dental abscess Medical Records I reviewed the patient's medical records. No radiology studies performed this visit Discharge Plan Discharge Patient Disposition: Home Clinical Impression: Dental infection Condition: Stable Prescriptions: New penicillin V potassium 500 mg tablet 500 mg PO Q8H 7 Days Qty: 21 0RF No Action benztropine 1 mg tablet 1 mg PO BID 30 Days Qty: 60 11RF divalproex 250 mg tablet,delayed release (DR/EC) 250 mg PO BID 30 Days Qty: 60 11RF Rx Instructions: Take one tablet twice per day with 500 mg tablet, 750 mg twice per day divalproex 500 mg tablet,delayed release (DR/EC) 500 mg PO BID 30 Days Qty: 60 11RF Rx Instructions: Take one tablet twice per day with 250 mg tab, total dose 750 mg twice per day hydroxyzine HCl 50 mg tablet 50 mg PO QID PRN (Reason: anxiety) 30 Days Qty: 120 11RF Invega Sustenna 234 mg/1.5 mL syringe 234 mg IM Q30D Qty: 1.5 11RF Rx Instructions: Next injection 06/02/2024 then as directed quetiapine [Seroquel] 400 mg tablet 400 mg PO .HS Qty: 30 11RF Discharge Orders: Discharge ED (Routine); Ordered 10/22/24 Ordered By: Claudia Marshall Referrals: Ashley Soriano FNP [Primary Care Provider] - Patient Instructions: Dental Caries (Cavities), Toothache (ED), Dental Abscess Print Language: Nigerien Coding Level of Care Code ED Treatment Plant Operator for Shelley Arnold
[2024-10-22] MEDS: ibuprofen 800 mg tablet PO (21:28)
[2024-10-22] MEDS: penicillin v potassium 250 mg Tablet 500 MG PO (21:41)
[2024-10-22 21:43] VITALS: BP 137/95; PULSE 95; O2SAT 98
== END 2024-10-22 21:44 | disposition home or self-care (01) ==
PROVIDERS: Emergency Provider Physician Assistant; PCP Nurse Practitioner Family
DX: K04.7 Periapical abscess without sinus (principal); F17.210 Nicotine dependence, cigarettes, uncomplicated
CPT/HCPCS: 99283; J9999

== ENCOUNTER → 2024-10-25 11:58 | Outpatient (BNVA) | payer MEDICAID, SELFPAY ==
[2024-03-11 15:58] VITALS: BP 146/105; BMI 42.3
== END ==
PROVIDERS: PCP Nurse Practitioner Family; Referring Provider Nurse Practitioner Family; Visit Provider Orthopaedic Surgery
DX: M25.561 Pain in right knee (principal); M25.562 Pain in left knee; G89.29 Other chronic pain
CPT/HCPCS: 99204

== ENCOUNTER → 2025-01-20 13:40 | Outpatient (BNVA) | payer SELFPAY ==
[2024-03-11 15:58] VITALS: BP 146/105; BMI 42.3
== END ==
PROVIDERS: PCP Nurse Practitioner Family; Visit Provider Psychiatry & Neurology Psychiatry
DX: F25.0 Schizoaffective disorder, bipolar type (principal); Z79.899 Other long term (current) drug therapy
CPT/HCPCS: 80053; 80061; 80164; 83036

== ENCOUNTER 2025-05-12 09:28 | Outpatient (CLI) | payer MEDICAID, SELFPAY ==
[2024-03-11 15:58] VITALS: BP 146/105; BMI 42.3
--- NOTE | 2025-05-12 09:31 | US_ITS ---
WS: [id number] RIGHT UPPER QUADRANT ULTRASOUND HISTORY: ELEVATED LIVER ENZYMES COMPARISON: 06/13/2015 Liver: 14.8 cm in length. Liver is normal size. The entire liver not well visualized due to body habitus. Deep portions of the liver are not visualized. Changes of hepatic steatosis. Surface nodularity is noted. Portal Vein: Normal hepatopetal flow with monophasic waveform. Gallbladder: Gallbladder contains numerous stones. No pericholecystic fluid. CBD: 0.6 cm Pancreas: Completely obscured. Right kidney: 11.5 cm in length. Normal size and echogenicity. No hydronephrosis or mass. Aorta and IVC: Unremarkable abdominal aorta and IVC. No ascites. US/US abdomen limited [id number] IMPRESSION: 1. Cholelithiasis. Numerous stones in a slightly contracted gallbladder. 2. No intrahepatic duct dilatation. 3. Hepatic steatosis. Limited evaluation of the liver due to body habitus.
== END 2025-05-12 09:29 | disposition home or self-care (01) ==
LOC: RAD 09:29
PROVIDERS: PCP Nurse Practitioner Family; Visit Provider Family Medicine
DX: R74.8 Abnormal levels of other serum enzymes (principal); K80.20 Calculus of gallbladder without cholecystitis without obstruction; K76.0 Fatty (change of) liver, not elsewhere classified
CPT/HCPCS: 76705

== ENCOUNTER → 2025-06-06 12:30 | Outpatient (BNVA) | payer MEDICAID, SELFPAY ==
[2024-03-11 15:58] VITALS: BP 146/105; BMI 42.3
== END ==
PROVIDERS: PCP Nurse Practitioner Family; Visit Provider Student in an Organized Health Care Education/Training Program
DX: B19.20 Unspecified viral hepatitis C without hepatic coma (principal); Z11.3 Encounter for screening for infections with a predominantly sexual mode of transmission
CPT/HCPCS: 36415; 80053; 81025; 81596; 85025; 86592; 86706; 87340; 87491; 87522; 87591; 87806; 99205